=== PATIENT | female | born 1985 | race Caucasian/White ===

== ENCOUNTER 2024-03-02 11:28 | Outpatient (CLI) | payer OTHER, SELFPAY ==
--- OUTSIDE RECORDS SUMMARY | 2024-03-02 11:31 | XMS_ITS | Clinical Summary ---
Author Name Unknown Organization [facility] Address [address] [place] [address] Care Team Providers Care Camp Nurse Name Role Phone Martin House MD, Steve Primary Care Provider [phone] Allergies No known active allergies Medications Medication Sig Dispensed Refills Start Date End Date Status ferrous sulfate 325 mg (65 mg iron) tablet Take 50 mg by mouth 2 (two) times a day with meals. 0 Active calcium carbonate (CALCIUM 500 ORAL) Take 1 tablet by mouth 2 (two) times a day. 0 Active b complex vitamins tablet Take 1 tablet by mouth daily. 0 Active cholecalciferol, vitamin D3, 1,000 unit tablet Take by mouth. 0 Active prenat.vits,nick,min-ir on-folic ( Vitamin) tablet Take 1 tablet by mouth daily. 0 Active Active Problems Problem Noted Date Diagnosed Date Supervision of high-risk 04/12/[address]: [address] Steve Salazar for AMA LMP 04/27/20 LJ 02/01/21 (admin to request dating u/s from Dr. Salazar's office) [facility] labs: (06/2020) O positive/ antibody screen negative Hct 34.8/ Hgb 10.7/ plt 394 HBsAg/ RPR/ HIV- negative Rubella Immune Family History Medical History Relation Name Comments Asthma Sister Relation Name Status Comments Sister Social History Tobacco Use Types Packs/Day Years Used Date Smoking Tobacco: Former Cigarettes 2 - 2009 Smokeless Tobacco: Never Alcohol Use Standard Drinks/Week Comments Not Currently 0 (1 standard drink = 0.6 oz pur e alcohol) Sex and Gender Information Value Date Recorded Sex Assigned at Not on file Gender Identity Not on file Sexual Orientation Not on file Last Filed Vital Signs Vital Sign Reading Time Taken Comments Blood Pressure 114/59 10/16/2020 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 Pulse 69 10/16/2020 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 Temperature 36.1 ??C (96.9 ??F) 10/16/2020 8:00 AM CS T Respiratory Rate 20 04/12/2019 10:06 AM CDT Oxygen Saturation - - Inhaled Oxygen Concentration - - Weight 105.2 kg (232 lb) 10/16/2020 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 Height 167.6 cm (5' 6) 10/16/2020 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 Body Mass Index 37.45 10/16/2020 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 Plan of Treatment Health Maintenance Due Date Last Done Comments HIV Screening 1984 Hepatitis B Vaccines (1 of 3 - 3-dose series) 1984 COVID-19 Vaccine (#1) 1984 Varicella Vaccine (1 of 2 - 2-dose childhood series) 02/24/1985 Hepatitis C Screening 02/24/2003 Pap Smear 02/24/2005 Cervical Cancer Screening 02/24/2014 Pap + HPV 02/24/2014 Influenza Vaccine (#1) 2023 DTaP,Tdap,and Td Vaccines (2 - Td or Tdap) 06/22/2029 06/22/2019 HIB Vaccines Aged Out No longer eligi ble based on patient's age to complete this topic HPV Vaccines Aged Out No longer eligi ble based on patient's age to complete this topic Meningococcal ACWY Vaccine Aged Out N o longer eligible based on patient's age to complete this topic Pneumococcal: Pediatric (0-5 yrs) and At-Risk Patients (6-64 yrs) Aged Out No longe r eligible based on patient's age to complete this topic Care Teams Camp Nurse Relationship Specialty Start Date End Date Steve Salazar MD PCP - General OBSTETRICS & GYNECOLOGY 09/11/20
--- OUTSIDE RECORDS SUMMARY | 2024-03-02 11:31 | XMS_ITS | Encounter Summary ---
Author Name Unknown Organization [facility] Address [address] [place] [place] [address] Care Team Providers Care Nurse Receptionist Name Role Phone Martin House MD, Steve Primary Care Provider [phone] [phone] Reason for Referral * Maternity Services (Routine) - Closed Specialty Diagnoses / Procedures Referred By Juventino adams Referred To Contact Radiology Diagnoses Supervision of high risk in third trimester Procedures Ultrasound OB growth Ethan Doe DO [address] [place] [id number] Referral ID Status Reason Start Date Expiration Date V isits Requested Visits Authorized [id number] Closed Specialty Services Required 04/12/2019 05/16/2020 1 1 Encounter Details Date Type Department Care Team Description 04/12/2019 Orders Only [facility] [address] [address] [place] [address] Ethan Doe DO [address] [place] [address] [id number] Supervision of high risk in third trimester (Primary Dx) Social History Tobacco Use Types Packs/Day Years Used Date Smoking Tobacco: Never Smokeless Tobacco: Never Comments Yes Sex and Gender Information Value Date Recorded Sex Assigned at Not on file Gender Identity Not on file Sexual Orientation Not on file documented as of this encounter Plan of Treatment Not on file documented as of this encounter Results * Ultrasound OB growth (05/24/2019 10:31 AM CDT) Anatomical Region Laterality Modality Pelvis Ultrasound 05/24/2019 10:3 1 AM CDT Ethan Doe DO IMG OB US PROCED URES documented in this encounter Visit Diagnoses Diagnosis Supervision of high risk in third trimester- Primary documented in this encounter Care Teams Nurse Receptionist Relationship Specialty Start Date End Date Steve Salazar MD PCP - General OBSTETRICS & GYNECOLOGY 09/11/20 documented as of this encounter
== END 2024-03-02 11:29 | disposition home or self-care (01) ==
LOC: NFLDREF 11:28
PROVIDERS: Visit Provider Physician Assistant
DX: Z34.93 Encounter for supervision of normal pregnancy, unspecified, third trimester (principal)
CPT/HCPCS: 82728

== ENCOUNTER 2024-03-10 10:48 | Outpatient (CLI) | payer OTHER, SELFPAY ==
--- OUTSIDE RECORDS SUMMARY | 2024-03-10 10:51 | XMS_ITS | Continuity of Care Document ---
Author Name Unknown Address [address] [place] [address] Phone [phone] Organization [facility], [id number] Address [address] [place] [address] Assessment No assessment recorded. Plan of Treatment Reminders Order Date Submit Date Provider Last Modified By Organization Details Last Modified Time Details Appointments None record ed. Lab None record ed. Referral None record ed. Procedures None record ed. Surgeries None record ed. Imaging None record ed. Medication Orders None record ed. Patient TargetsNo targets recorded. Patient InstructionsNo instructions recorded. Reason for Referral Maternal & Medicine Re ferral for Advanced maternal age Please call pt to schedule level ll u/s; AMA H/O Bariatric surgical procedure Referring Physician: Andry Corbin, VALIDATION SCIENTIST, Encounter Date: 11/19/2023 Results Created Date Observation Date Name Description Value Unit Range Abnormal Flag LastModifiedBy Organization Detail LastModifiedTime 09/17/2009/17/2023 ultra sound image s RAD KEENAN [facility] [address], [place], [address], 10/07/2023 10:30:47 09/17/20 23 09/17/2023 ultra sound image s RAD [email or web address] [facility] [address], [place], [address], 09/17/2023 13:20:57 09/29/20 23 09/29/2023 ultra sound image s RAD [email or web address] [facility] [address], [place], [address], 09/29/2023 11:58:59 09/29/20 23 09/29/2023 ultra sound image s RAD [email or web address] [facility] [address], [place], [address], 10/13/2023 10:24:11 12/11/19 24 12/05/2023 US, obste tric, mater nal evalu ation + anato my No observ ation record ed. [facility] [place] [address], [place], [address], 12/13/2023 16:26:39 01/20/20 24 01/20/2024 US, obste tric, mater nal evalu ation + anato my No observ ation record ed. [facility] [address], [place], [address], 01/20/2024 17:18:22 Result Notes None recorded. Problems Name Status Onset Date Resolution Date Notes Provider Name and Address Organization Details Recorded Time Routine care Active Matilda Kessler null, [facility] 4 08:59:20 Routine care Completed Matilda Kessler null, [facility] 4 08:59:20 Advanced maternal age Completed 38, lvl 2-nl, needs monthly growth US here at 30 wks Matilda Kessler null, [facility] 4 08:59:20 Completed 023 03/03/2024 Matilda Kessler null, [facility] 4 08:59:27 Advanced maternal age Active 38, lvl 2-nl, needs monthly growth US here at 30 wks Matilda Kessler null, [facility] 4 08:59:20 History of bariatric surgical procedure Active 023 griselda en Y; NO glucola, needs gluocse monitoring Matilda Kessler null, [facility] 4 08:59:20 History of bariatric surgical procedure Completed 023 griselda en Y; NO glucola, needs gluocse monitoring Matilda Kessler [facility], [facility] 4 08:59:20 Maternal obesity complicating , childbirth and the puerperium, antepartum Completed 024 Matilda Kessler [facility] 4 08:59:20 Maternal obesity complicating , childbirth and the puerperium, antepartum Active 024 Matilda Kessler [facility] 4 08:59:20 Problem Notes None recorded. Procedures Surgical History Date Name Laterality Status Provider Name and Address Organization Details Recorded Time laparoscopic sleeve gastrectomy completed Ilana [place] (TERMED) [facility] 09/17/2023 13:46:58 Griselda-en-Y gastrojejunostomy completed Ilana [place] (TERMED) [facility] 09/17/2023 13:47:08 Imaging Results None recorded. Procedure Notes None recorded. Medical Equipment None Reported. Allergies Allergen ID Allergen Name Allergen Category Reaction Reaction Severity Criticality Documentation Date Start Date Code Code System Note Provider Name and Address Organization Details Recorded Time 730096 Non-stero idal anti-infl ammatory agent (product) medicatio n Not available Not available Not available 09/17/2023 22219 005 SNOMED r/t baria tric surge ry Ilana [place] (TERMED) [facility] 3 13:33:09 Medications Name Sig Start Date Stop Date Status Note LastModified by Organization Details LastModified Time butalbital -acetamino phen-caffe ine 50 mg-325 mg-40 mg tablet Take 1 tablet every 4-6 hours by oral route as needed. 024 active Not Available Not Available Not Avai lable calcium active Not Available Not Avail able Not Available ferrous sulfate active Not Available Not Available Not Available Vitamin D active Not Available Not Shanell ilable Not Available active Not Available Not Avai lable Not Available B12 active Not Available Not Availa ble Not Available Vitals Date Recorded Body height Body mass index (BMI) Body weight Heart rate Systolic blood pressure Diastolic blood pressure Provider Name and Address Organization Details Last Updated DateTime 4 167.64 cm 37.8 kg/m2 184705. 30536 g 80 /min 115 mm[Hg] 60 mm[Hg] Pepper Anshu [facility] 4 10:19:59 Social History Question Answer Notes LastModified by [employer] Details LastModified Time Tobacco Smoking Status Former Smoker high school and college Ilana Stone (TERMED) [place], [place] - [facility] 09/17/2023 13:46:38 Do You Have An Advance Directive? No [email or web address] Information not available 12/18/2023 What Is Your Level Of Alcohol Consumption? None Information not available 09/17/2023 If You Are , What Was Your Level Of Alcohol Consumption Prior To ? Occasional [email or web address] Information not available 12/18/2023 Is Blood Transfusion Acceptable In An Emergency? Yes Information not available 09/17/2023 What Is Your Level Of Caffeine Consumption? Occasional Information not available 09/17/2023 Are You Currently Employed? Yes [email or web address] Information not available 12/18/2023 What Type Of Diet Are You Following? 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 Information not available 09/17/2023 Are You Sexually Active? Yes Information not available 12/18/2023 Do You Use Any Illicit Or Recreational Drugs? No [email or web address] Information not available 12/18/2023 Do You Or Have You Ever Used Any Other Forms Of Tobacco Or Nicotine? No [email or web address] Information not available 12/18/2023 Sex: Female Functional Status Question Answer Note LastModified by Organizat ion Details LastModified Time What is your exercise level? Occasional running/wa lking Information not available 12/18/2023 Mental Status None recorded. Family History Relationship Description Onset Age of this Age Resolved Age Notes Father No current problems or disability Mother No current problems or disability Medical History Condition Response Neurology- Stroke/TIA N Dermatology-Acne N Rheumatology- Fibromyalgia/Chronic Pain N Endocrinology- Vitamin Deficiency Y Endocrinology-Other N Attention Deficit Disorder (ADD (ADHD) N Urology-Other N Rheumatology- Autoimmune Disease N Nephrology-Renal Disease N Neurology- Seizures/Epilepsy N Ortho-Fractures N Reviewed with no changes N Endocrinology- Prolactinoma N Urology- Recurrent Urinary Tract Infecti ons N Pulmonary- Seasonal Allergies/Allergic R hinitis N Psych- PMS/PMDD N ID- Tuberculosis/Positive PPD N Pulmonary-Other N Endocrinology- Glucose Intolerance/Insul in Resistance N Psych- Anxiety Disorder Y Hematology- Anemia Y GI- Reflux/Ulcers N Cancer- Skin N Cancer- Genetic screening N GI- Irritable Bowel Syndrome N Cardiology- Heart Disease N GI- Colon Polyps N Ortho-Other N Endocrinology- Osteopenia N Psych-Other N ID- MRSA N ID-Other N Psych- Eating Disorder N Ortho- Arthritis N Urology- Urinary Incontinence N Pulmonary- Asthma N Urology- Hematuria (Blood in Urine) N Pulmonary- Sleep Apnea N Neurology- Dementia N Vascular-Aneurysm N Urology- Interstitial Cystitis N Endocrinology- Hypothyroidism N Eyes-other N Neurology- Multiple Sclerosis N Rheumatology- Arthritis N GI- Hemorrhoids N Neurology-Other N Hematology- Blood Clotting Disorder/Fact or V Leiden N Cardiology-Other N Hematology- Bleeding Disorder N Psych- Depression N Hematology-Other N Dermatology-Other N Ortho-Chronic Back Pain N Dermatology-Eczema/Psoriasis N ID- HIV N Cancer- Ovary N Cardiology- High Cholesterol N ID- Chicken Pox/Shingles Y Cardiology- Heart Arrhythmia N Rheumatology- Restless Leg Syndrome N Endocrinology- Hyperthyroidism N Endocrinology- Thyroid Problems N Cancer- Breast N Psych- ADD N ID- Herpes N GI- Liver Disease/Hepatitis N Weight Management/Obesity N Cancer- Colon N ENT- Hearing Loss N Hematology- Blood Transfusion N Cancer- Vulvar N Cancer- Vaginal N GI-Other N Neurology- Headaches/Migraines N Endocrinology- Diabetes N Cancer- Cervical N No diseases or conditions N Pulmonary- COPD/Emphysema N GI- Crohn's/Ulcerative Colitis N Endocrinology- History of Gestational Di abetes N Psych- Bipolar Disease N ENT- Seasonal Allergies/Allergic Rhiniti s N Cardiology- High Blood Pressure N Cancer- Lung N Cancer- Endometrial/Uterine N Eyes- Glaucoma N Eyes- Vision Loss/Macular Degeneration N ENT-Other N Rheumatology-Other N Hematology- DVT/Pulmonary Embolism N Urology- Stones N Cancer-Other N GI- Gallbladder Disease N Gynecological History Statement/Question Response HPV Vaccine Not Completed Date of Last Mammogram History of Sexually Transmitted Infectio n N Date of LMP 07/24/2023 History of Vulvar Dysplasia N Date of last bone density Menstrual Cycle Length (days) Age at Menarche: 11 History of Cervical Dysplasia N History of Infertility N Sexually Active Y History of PCOS N Date of Last Colonoscopy History of Recurrent Ovarian Cysts N Date of Last Pap Smear History of Abnormal PAP N History of Endometriosis N History of Fibroids N Obstetrics History GPAL:G 8 P 6 0 1 6 Type Value Full Term 6 Spontaneous 1 Living 6 Total 8 Past Encounters Encounter ID Performer Location Encounter Start Date Encounter Closed Date Diagnosis/Indication Diagnosis SNOMED-CT Code [id number] MELANY RATLIFF DO [id number] [place] [address] 01/20/2024 09:56:39 01/20/2024 10:30:03 care: multiparous, older than 35 years [id number] Gestation period, 25 weeks 54460928 Maternal o besity complicating , childbirth and the puerperium, antepartum [id number] Uterine si ze for dates discrepancy [id number] Health Concerns Section Related Observation LastModified by Organization Detai ls LastModified Time None Recorded Concern Status LastModified by Organization Details LastModified Time None Recorded Payers Encounter Date Sequence Insurance Name Policy Number Policy Campos Covered Member ID Campos Member ID Guarantor Name 01/20/2024 1 [facility] () Bry Walker [id number] Misty Walker OBGyn Episode Ob Episode Information Episode Created Date Number of Fetuses Patient Bloodtype Patient rh Status Prepregnancy Weight lbs Domestic Partner Domestic Partner Phone Father Name Society Reporter Status 09/17/20 23 1 O Positive 214 Mahad CLOSED Fetus Data First Name Last Name Admitted to NICU Weight (g) Sex Living Outcome Pediatric Complications Fetus ID Race Codes Race Delivery Type [id number] Problems Problem Notes Problem Name Start Date End Date Resolution Snomed Code Not e Maternal obesity complicating , childbirth and the puerperium, antepartum 01/20/2024 [id number] History of bariatric surgical procedure 09/17/2023 [id number] griselda en Y ; NO glucola, needs gluocse monitoring Routine care 2577069 03 Advanced maternal age [id number] 38, lvl 2-nl, n eeds monthly growth US here at 30 wks Kun Calculation Initial Kun Date Initial Exam Date Initial Exam Provider Initial Ultrasound Date Last Menstrual Period Date Ultra Sound Weeks Gestation 04/29/2024 09/17/2023 09/17/2023 07/24/2023 7 Eighteen To Twenty Week Knu Update Ultra Sound Date Fundal Height At Umbil Quickening Date Ultra Sound Latest Weeks Gestation Final Kun Confirmed By Final Kun Confirmed Date Final Kun Date Ultra Sound Latest Days Gestation 0 [email or web address] 09/17/2023 04/29/20 24 0 Pre- Flowsheet Flowsheet Date 09/17/2023 Cummings Score Blood Edema Fundus Height Fundus Units Glucose Ketones Leukocytes Nitrite Labor Signs Protein Cervic Dilation Cervic Effacement Cervic Station neg none none negative none Negative none neg 0cm 0% Type Weight in lbs BP Diastolic BP Location Tested BP Systolic BP Type 73 108 Fetus Heart Rate Present A Present Fetus Movement A No Comments NOB. Oriented to practice. H x gastric bypass, will plan FSBS for diabetes screening. Plan L2 for AMA. Pap up to date, done in 2021. She declines flu vaccine. Participating in prequel study. Recent spotting, none in a few days. Labs and cultures done. U/S wnl, S=D, + CA. Flowsheet Date 09/29/2023 Cummings Score Blood Edema Fundus Height Fundus Units Glucose Ketones Leukocytes Nitrite Labor Signs Protein Cervic Dilation Cervic Effacement Cervic Station Type Weight in lbs BP Diastolic BP Location Tested BP Systolic BP Type 71 L arm 106 sitting Fetus Heart Rate Present A Present Fetus Movement A No Comments VB this weekend, passed a cl ot thurs. US today with 9mm LENI. we discussed findings and expected bleeding, precautions given. Flowsheet Date 10/16/2023 Cummings Score Blood Edema Fundus Height Fundus Units Glucose Ketones Leukocytes Nitrite Labor Signs Protein Cervic Dilation Cervic Effacement Cervic Station neg none negative none Negative neg Type Weight in lbs BP Diastolic BP Location Tested BP Systolic BP Type 60 L arm 99 sitting Fetus Heart Rate Present A 169 Present Fetus Movement Comments SIRI. Doing well. Bleeding theodore s resolved. FHT obtained with bedside US- good FM noted as well. Discussed given gastric bypass, would hold on bASA recommendation. Flowsheet Date 11/19/2023 Cummings Score Blood Edema Fundus Height Fundus Units Glucose Ketones Leukocytes Nitrite Labor Signs Protein Cervic Dilation Cervic Effacement Cervic Station neg none negative none Negative neg Type Weight in lbs BP Diastolic BP Location Tested BP Systolic BP Type 66 L arm 116 sitting Fetus Heart Rate Present A Present Fetus Movement A Yes Comments Doing well, having HAs. She consumes enough water. We discussed adding Magnesium. Will Rx for Fioricet prn. Check H/H today. Flowsheet Date 12/18/2023 Cummings Score Blood Edema Fundus Height Fundus Units Glucose Ketones Leukocytes Nitrite Labor Signs Protein Cervic Dilation Cervic Effacement Cervic Station neg cm none negative none Negative neg Type Weight in lbs BP Diastolic BP Location Tested BP Systolic BP Type 55 R arm 89 sitting Fetus Heart Rate Present A 145 Present Fetus Movement A Yes Comments Doing well, anatomy scan rev iewed, inadq views--> repeat scan scheduled in 4 weeks. She plans to check QID BS instead of doing GCT Flowsheet Date 01/20/2024 Cummings Score Blood Edema Fundus Height Fundus Units Glucose Ketones Leukocytes Nitrite Labor Signs Protein Cervic Dilation Cervic Effacement Cervic Station neg 28 cm none negative none Negative neg Type Weight in lbs BP Diastolic BP Location Tested BP Systolic BP Type 60 L arm 115 sitting Fetus Heart Rate Present A 151 Present Fetus Movement A Yes Comments SIRI. Doing well today. Sched uled for L2 f/u scan after today's visit. S>D, but growth already scheduled for later today. Plan to start finger sticks in lieu of 1hr GCT given hx gastric bypass sx. Will bring log to [place]. Rev prec. Menstrual History Last Menstrual Date Menses Monthly On Bcp Conception Prior Menses Frequency Hcg Plus Date Menarche Onset Age 0907/24/2023 Genetic Screening And Infection History Question Response Note Patient's Age Will Be 35 Years Or Older At Estim ated Date of Delivery true 39 Thalassemia (Nepali, Thai, Mediterranean, Or Background): MCV < 80 false Neural Tube Defect (Meningomyelocele, Spina Bifi da, Or Anencephaly) false Congenital Heart Defect false Down Syndrome false Sixto-Sachs (eg, Caodaism, Cajun, Thai-Meriwether) f alse Danii Disease false Sickle Cell Disease Or Trait () false Hemophilia Or Other Blood Disorders false Muscular Dystrophy false Cystic Fibrosis false Gooding's Chorea false Intellectual Disability/Autism false If Yes, Was Person Tested For Fragile X? false Other Inherited Genetic Or Chromosomal Disorder false Maternal Metabolic Disorder (eg, Type 1 Diabetes , PKU) false Patient Or Baby's Father Had A Child With Defects Not Listed Above false Recurrent Loss, Or A Stillbirth false Medications (including Suppl ements, Vitamins, Herbs, OTC Drugs), Illicit/Recreational Drugs, Alcohol true If Yes, Agent(s) And Strength/Dosage false Any Other Genetic History false Live With Someone With TB Or Exposed To TB false Patient Or Partner Has History Of Genital Herpes false Rash Or Viral Illness Since Last Menstrual Perio d false History Of STD, Gonorrhea, Chlamydia, HPV, Syphi lis false Other Infection History false History of HIV false History of Hepatitis false Prior GBS-infected child false Delivery Information Delivery Date Delivery Type Labor Anesthesia Weeks Gestation Incision Type Labor Labor Length Hrs Delivered By Post Complications Tubal Sterilization Discharge Date Comments Discharge Information Feeding Method Contraceptive Method Maternal HG B and HCT Levels
--- OUTSIDE RECORDS SUMMARY | 2024-03-10 10:51 | XMS_ITS | Data Portability ---
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 [email or web address] Not available 12/07/2021 09:03:12 Plan of Treatment Reminders Order Date Submit Date Provider Last Modified By Organization Details Last Modified Time Details Appointments None recorded. Lab hemoglobin (Hb), fingerstick , blood [address], [address] [place] [address], [id number], 11:39:06 aneuploidy risk, chromosome specific circulating cell free (ccf) DNA, maternal serum 2021 022 [facility] [address] [place] [address], [address], 05:37:02 test, urine [address], [address] [place] [address], [phone], 11:46:40 rubella IgG Ab, quant immunoassay , serum or plasma 2021 022 [facility] ([place] [address] [place], [address], 2 05:37:08 ABO group, blood 2021 022 [facility] ([place]), [address] [place], [address], 2 05:37:10 rh, blood 2021 022 [facility] ([place] [address] [place], [address], 2 05:37:10 antibody screen, serum or plasma 2021 022 [facility] ([place]), [address] [place], [address], 2 05:37:09 genetic screen, unspecified specimen 2021 022 [facility] ([place]), [address] [place], [address], 3 03:38:06 hemoglobin S (hbs), presence, blood 2021 022 [facility] ([place]), [address] [place], [address], 2 05:37:08 CBC w/ auto diff 2021 022 [facility] ([place]), [address] [place], [address], 2 05:37:06 RPR (rapid plasma reagin), serum 2021 022 [facility] ([place]), [address] [place], [address], 2 05:37:08 HBsAg (hepatitis B surface Ag), EIA, serum 2021 [facility] ([place]), [address] [place], [address], 2 05:37:10 drug screen, urine 2021 022 [facility] ([place]), [address] [place], [address], 2 05:37:06 HIV 1 + 2, meaningful use set 2021 022 [facility] ([place]), [address] [place], [address], 2 05:37:09 chlamydia trachomatis + neisseria gonorrhoeae + trichomonas vaginalis DNA panel, IRAIS+probe, unspecified specimen 2021 022 [facility] ([place]), [address] [place], [address], 3 03:38:06 Referral infusion referral new patient - Hg 9, needs IV iron. Venofer. Please fax appointment confirmatio n. Thank You 2021 [email or web address] 1 [facility], [address] [place] [address], [address], 11:38:35 Procedures None recorded. Surgeries None recorded. Imaging US, obstetric, limited 2021 022 [facility] [email or web address], [address] [place] [address], [phone], 2 11:39:06 US, obstetric, 2nd trimester 2021 022 [email or web address] 9 [facility], [address] [place] [address], [phone], 2 12:05:46 US, obstetric, limited 2021 022 [email or web address] 9 [facility], [address] [place] [address], [phone], 11:52:01 US, obstetric, 1st trimester 2021 022 [email or web address], [address] [place] [address], [phone], 11:20:42 Medication Orders None recorded. Patient TargetsNo targets recorded. Patient InstructionsNo instructions recorded. Reason for Referral Infusion Referral New Pativannesa t for Anemia Hg 9, needs IV iron. Venofer. Please fax appointment confirmation. 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) [address] [place], [address], 12/22/2021 05:37:06 12/07/19 22 12/08/2021 [place] [address] 5 amphetamines , urine negati ve NG/mL cutoff =1000 Not Available [facility] ([facility]) [address] [place], [address], 12/22/2021 05:37:06 12/07/19 22 12/08/2021 [place] [address] 5 barbiturate negati ve NG/mL cutoff =200 Not Available [facility] ([facility]) [address] [place], [address], 12/22/2021 05:37:06 12/07/19 22 12/08/2021 [place] [address] 5 benzodiazepi adam negati ve NG/mL cutoff =200 Not Available [facility] ([facility]) [address] [place], [address], 12/22/2021 05:37:06 12/07/19 22 12/08/2021 [place] [address] 5 cannabinoids negati ve NG/mL cutoff =20 Not Available [facility] ([facility]) [address] [place], [address], 12/22/2021 05:37:06 12/07/19 22 12/08/2021 [place] [address] 5 cocaine (metabolite) negati ve NG/mL cutoff =300 Not Available [facility] ([facility]) [address] [place], [address], 12/22/2021 05:37:06 12/07/19 22 12/08/2021 [place] [address] 5 opiates negati ve NG/mL cutoff =300 Not Available [facility] ([facility]) [address] [place], [address], 12/22/2021 05:37:06 12/07/19 22 12/08/2021 [place] [address] 5 oxycodone/ox ymorphone, urine negati ve NG/mL cutoff =300 Not Available [facility] ([facility]) [address] [place], [address], 12/22/2021 05:37:06 12/07/19 22 12/08/2021 [place] [address] 5 phencyclidin e negati ve NG/mL cutoff =25 Not Available [facility] ([facility]) [address] [place], [address], 12/22/2021 05:37:06 12/07/19 22 12/08/2021 [place] [address] 5 methadone negati ve NG/mL cutoff =300 Not Available [facility] ([facility]) [address] [place], [address], 12/22/2021 05:37:06 01/28/20 22 12/08/2021 [place] [address] 5 propoxyphene negati ve NG/mL cutoff =300 Not Available [facility] ([facility]) [address] [place], [address], 12/22/2021 05:37:06 12/07/19 22 12/08/2021 [place] [address] 5 meperidine negati ve NG/mL cutoff =200 Not Available [facility] ([facility]) [address] [place], [address], 12/22/2021 05:37:06 12/07/19 22 12/08/2021 [place] [address] 5 tramadol negati ve NG/mL cutoff =200 Not Available [facility] ([facility]) [address] [place], [address], 12/22/2021 05:37:06 12/07/19 22 12/08/2021 [place] [address] 5 creatinine, urine 142.2 mg/dL 20.0-3 00.0 Not Available [facility] ([facility]) [address] [place], [address], 12/22/2021 05:37:06 12/07/19 22 12/07/2021 CBC WITH DIFFE RENTI AL/PL ATELE T WBC 8.8 x10e3 /uL 3.4-10 .8 Not Available [facility] ([facility]) [address] [place], [address], 12/22/2021 05:37:06 12/07/19 22 12/07/2021 CBC WITH DIFFE RENTI AL/PL ATELE T RBC 4.37 x10e6 /uL 3.77-5 .28 Not Available [facility] ([facility]) [address] [place], [address], 12/22/2021 05:37:06 12/07/19 22 12/07/2021 CBC WITH DIFFE RENTI AL/PL ATELE T hemoglobin 9.6 g/dL 11.1-1 5.9 below low normal Not Available [facility] ([facility]) [address] [place], [address], 12/22/2021 05:37:06 12/07/19 22 12/07/2021 CBC WITH DIFFE RENTI AL/PL ATELE T hematocrit 32.9 % 34.0-4 6.6 below low normal Not Available [facility] ([facility]) [address] [place], [address], 12/22/2021 05:37:06 12/07/19 22 12/07/2021 CBC WITH DIFFE RENTI AL/PL ATELE T MCV 75 fL 79-97 below low normal Not Available [facility] ([facility]) [address] [place], [address], 12/22/2021 05:37:06 12/07/19 22 12/07/2021 CBC WITH DIFFE RENTI AL/PL ATELE T MCH 22.0 pg 26.6-3 3.0 below low normal Not Available [facility] ([facility]) [address] [place], [address], 12/22/2021 05:37:06 12/07/19 22 12/07/2021 CBC WITH DIFFE RENTI AL/PL ATELE T MCHC 29.2 g/dL 31.5-3 5.7 below low normal Not Available [facility] ([facility]) [address] [place], [address], 12/22/2021 05:37:06 12/07/19 22 12/07/2021 CBC WITH DIFFE RENTI AL/PL ATELE T RDW 19.7 % 11.7-1 5.4 above high normal Not Available [facility] ([facility]) [address] [place], [address], 12/22/2021 05:37:06 12/07/19 22 12/07/2021 CBC WITH DIFFE RENTI AL/PL ATELE T platelets 415 x10e3 /uL 150-45 0 Not Available [facility] ([facility]) [address] [facility], [place], [address], 12/22/2021 05:37:06 12/07/19 22 12/07/2021 CBC WITH DIFFE RENTI AL/PL ATELE T neutrophils 74 % not estab. Not Available [facility] ([facility]) [address] [facility], [place], [address], 12/22/2021 05:37:06 12/07/19 22 12/07/2021 CBC WITH DIFFE RENTI AL/PL ATELE T lymphs 18 % not estab. Not Available [facility] ([facility]) [address] [facility], [place], [address], 12/22/2021 05:37:06 12/07/19 22 12/07/2021 CBC WITH DIFFE RENTI AL/PL ATELE T monocytes 7 % not estab. Not Available [facility] ([facility]) [address] [facility], [place], [address], 12/22/2021 05:37:06 12/07/19 22 12/07/2021 CBC WITH DIFFE RENTI AL/PL ATELE T eos 1 % not estab. Not Available [facility] ([facility]) [address] [facility], [place], [address], 12/22/2021 05:37:06 12/07/19 22 12/07/2021 CBC WITH DIFFE RENTI AL/PL ATELE T basos 0 % not estab. Not Available [facility] ([facility]) [address] [facility], [place], [address], 12/22/2021 05:37:06 12/07/19 22 12/07/2021 CBC WITH DIFFE RENTI AL/PL ATELE T immature cells nps Not Available [facility] ([facility]) [address] [place], [address], 12/22/2021 05:37:06 12/07/19 22 12/07/2021 CBC WITH DIFFE RENTI AL/PL ATELE T neutrophils (absolute) 6.6 x10e3 /uL 1.4-7. 0 Not Available [facility] ([facility]) [address] [place], [address], 12/22/2021 05:37:06 12/07/19 22 12/07/2021 CBC WITH DIFFE RENTI AL/PL ATELE T lymphs (absolute) 1.6 x10e3 /uL 0.7-3. 1 Not Available [facility] ([facility]) [address] [place], [address], 12/22/2021 05:37:06 12/07/19 22 12/07/2021 CBC WITH DIFFE RENTI AL/PL ATELE T monocytes(ab solute) 0.6 x10e3 /uL 0.1-0. 9 Not Available [facility] ([facility]) [address] [place], [address], 12/22/2021 05:37:06 12/07/19 22 12/07/2021 CBC WITH DIFFE RENTI AL/PL ATELE T eos (absolute) 0.1 x10e3 /uL 0.0-0. 4 Not Available [facility] ([facility]) [address] [place], [address], 12/22/2021 05:37:06 12/07/19 22 12/07/2021 CBC WITH DIFFE RENTI AL/PL ATELE T baso (absolute) 0.0 x10e3 /uL 0.0-0. 2 Not Available [facility] ([facility]) [address] [place], [address], 12/22/2021 05:37:06 12/07/19 22 12/07/2021 CBC WITH DIFFE RENTI AL/PL ATELE T immature granulocytes 0 % not estab. Not Available [facility] ([facility]) [address] [facility], [place], [address], 12/22/2021 05:37:06 12/07/19 22 12/07/2021 CBC WITH DIFFE RENTI AL/PL ATELE T immature grans (abs) 0.0 x10e3 /uL 0.0-0. 1 Not Available [facility] ([facility]) [address] [facility], [place], [address], 12/22/2021 05:37:06 12/07/19 22 12/07/2021 CBC WITH DIFFE RENTI AL/PL ATELE T NRBC nps Not Available [facility] ([facility]) [address] [facility], [place], [address], 12/22/2021 05:37:06 12/07/19 22 12/07/2021 CBC WITH DIFFE RENTI AL/PL ATELE T hematology comments: nps Not Available [facility] ([facility]) [address] [facility], [place], [address], 12/22/2021 05:37:06 12/07/19 22 12/07/2021 INHER ITEST CORE( CF97, SMA,F RAX) order review nps Not Available [facility] ([facility]) [address] [facility], [place], [address], 12/22/2021 05:37:07 12/07/19 22 12/21/2021 INHER ITEST CORE( CF97, SMA,F RAX) genetic counselor not applic able Not Available [facility] ([facility]) [address] [facility], [place], [address], 12/22/2021 05:37:07 12/07/19 22 12/21/2021 INHER ITEST CORE( CF97, SMA,F RAX) specimen type commen t Not Available [facility] ([facility]) [address], [place], [address], 12/22/2021 05:37:07 12/07/19 22 12/21/2021 INHER ITEST CORE( CF97, SMA,F RAX) ethnicity commen t Not Available [facility] ([facility]) [address], [place], [address], 12/22/2021 05:37:07 12/07/19 22 12/21/2021 INHER ITEST CORE( CF97, SMA,F RAX) indication: commen t Not Available [facility] ([facility]) [address], [place], [address], 12/22/2021 05:37:07 12/07/19 22 12/21/2021 INHER ITEST CORE( CF97, SMA,F RAX) results: note Not Available [facility] ([facility]) [address], [place], [address], 12/22/2021 05:37:07 12/07/19 22 12/21/2021 INHER ITEST CORE( CF97, SMA,F RAX) general comments note Not Available [facility] ([facility]) [address], [place], [address], 12/22/2021 05:37:07 12/07/19 22 12/21/2021 INHER ITEST CORE( CF97, SMA,F RAX) additional clinical info note Not Available [facility] ([facility]) [address], [place], [address], 12/22/2021 05:37:07 12/07/1912/21/2021 INHER ITEST CORE( CF97, SMA,F RAX) method/limit ations note Not Available [facility] ([facility]) [address], [place], [address], 12/22/2021 05:37:07 12/07/19 22 12/21/2021 INHER ITEST CORE( CF97, SMA,F RAX) information table note Not Available [facility] ([facility]) [address] [facility], [place], [address], 12/22/2021 05:37:07 12/07/19 22 12/21/2021 INHER ITEST CORE( CF97, SMA,F RAX) disclaimer: note Not Available [facility] ([facility]) [address] [facility], [place], [address], 12/22/2021 05:37:07 12/07/19 22 12/21/2021 INHER ITEST CORE( CF97, SMA,F RAX) pdf . Not Available [facility] ([facility]) [address] [facility], [place], [address], 12/22/2021 05:37:07 12/07/19 22 12/21/2021 INHER ITEST CORE( CF97, SMA,F RAX) director review note Not Available [facility] ([facility]) [address] [facility], [place], [address], 12/22/2021 05:37:07 12/07/19 22 12/09/2021 CT, NG, TRICH VAG BY IRAIS trich vag by IRAIS negati ve negati ve Not Available [facility] ([facility]) [address] [facility], [place], [address], 12/22/2021 05:37:07 12/07/19 22 12/10/2021 CT, NG, TRICH VAG BY IRAIS chlamydia by IRAIS negati ve negati ve Not Available [facility] ([facility]) [address] [place], [address], 12/22/2021 05:37:07 12/07/19 22 12/10/2021 CT, NG, TRICH VAG BY IRAIS gonococcus by IRAIS negati ve negati ve Not Available [facility] ([facility]) [address] [place], [address], 12/22/2021 05:37:07 12/07/19 22 12/08/2021 HB SOLU + RFLX FRAC hemoglobin (HGB) solubility negati ve negati ve Not Available [facility] ([facility]) [address] [facility], [place], [address], 12/22/2021 05:37:08 12/07/19 22 12/08/2021 RUBEL LA ANTIB ODIES , IGG rubella antibodies, IgG 2.79 index immune >0.99 Not Available [facility] ([facility]) [address] [facility], [place], [address], 12/22/2021 05:37:08 12/07/19 22 12/08/2021 RPR, RFX QN RPR/C ONFIR M TP RPR non reacti ve non reacti ve Not Available [facility] ([facility]) [address] [facility], [place], [address], 12/22/2021 05:37:08 12/07/19 22 12/08/2021 HIV AB/P2 4 AG WITH REFLE X HIV Ab/P24 Ag screen non reacti ve non reacti ve Not Available [facility] ([facility]) [address] [facility], [place], [address], 12/22/2021 05:37:09 12/07/19 22 12/08/2021 ANTIB MISTY SCREE N antibody screen negati ve negati ve Not Available [facility] ([facility]) [address] [facility], [place], [address], 12/22/2021 05:37:09 12/07/19 22 12/08/2021 ABO GROUP ING ABO grouping O Not Available [facility] ([facility]) [address] [facility], [place], [address], 12/22/2021 05:37:10 12/07/19 22 12/08/2021 RH FACTO R Rh factor positi ve Not Available [facility] ([facility]) [address] [place], [address], 12/22/2021 05:37:10 12/07/19 22 12/08/2021 HBSAG SCREE N HBsAg screen negati ve negati ve Not Available [facility] ([facility]) [address] [place], [address], 12/22/2021 05:37:10 12/07/19 22 12/07/2021 pregn erin test, urine HCG positi ve Not Available [facility] [id number] [place], [address], 12/07/2021 09:30:59 02/09/20 22 02/14/2022 MATER NIT21 PLUS CORE+ ESS gestation single ton Not Available [facility] ([facility]) [address] [place], [address], 02/14/2022 05:37:02 02/09/20 22 02/14/2022 MATER NIT21 PLUS CORE+ ESS fraction 7% Not Available [facility] ([facility]) [address] [place], [address], 02/14/2022 05:37:02 02/09/20 22 02/14/2022 MATER NIT21 PLUS CORE+ ESS gestational age > or = 9W: yes Not Available [facility] ([facility]) [address] [place], [address], 02/14/2022 05:37:02 02/09/20 22 02/14/2022 MATER NIT21 PLUS CORE+ ESS test result negati ve Not Available [facility] ([facility]) [address] [place], [address], 02/14/2022 05:37:02 02/09/20 22 02/14/2022 MATER NIT21 PLUS CORE+ ESS pathology lab technician comments commen t Not Available [facility] ([facility]) [address] [facility], [place], [address], 02/14/2022 05:37:02 02/09/20 22 02/14/2022 MATER NIT21 PLUS CORE+ ESS approved by [email or web address] t Not Available [facility] ([facility]) [address] [facility], [place], [address], 02/14/2022 05:37:02 02/09/20 22 02/14/2022 MATER NIT21 PLUS CORE+ ESS trisomy 21 (down syndrome) negati ve Not Available [facility] ([facility]) [address] [facility], [place], [address], 02/14/2022 05:37:02 02/09/20 22 02/14/2022 MATER NIT21 PLUS CORE+ ESS trisomy 18 (martin syndrome) negati ve Not Available [facility] ([facility]) [address] [facility], [place], [address], 02/14/2022 05:37:02 02/09/20 22 02/14/2022 MATER NIT21 PLUS CORE+ ESS trisomy 13 (patau syndrome) negati ve Not Available [facility] ([facility]) [address] [facility], [place], [address], 02/14/2022 05:37:02 02/09/20 22 02/14/2022 MATER NIT21 PLUS CORE+ ESS sex commen t Not Available [facility] ([facility]) [address] [place], [address], 02/14/2022 05:37:02 02/09/20 22 02/14/2022 MATER NIT21 PLUS CORE+ ESS 22Q11 deletion (digeorge) not detect ed Not Available [facility] ([facility]) [address] [place], [address], 02/14/2022 05:37:02 02/09/20 22 02/14/2022 MATER NIT21 PLUS CORE+ ESS 15Q11 deletion (pw angelman) not detect ed Not Available [facility] ([facility]) [address] [facility], [place], [address], 02/14/2022 05:37:02 02/09/20 22 02/14/2022 MATER NIT21 PLUS CORE+ ESS 11Q23 deletion (calin) not detect ed Not Available [facility] ([facility]) [address] [facility], [place], [address], 02/14/2022 05:37:02 02/09/20 22 02/14/2022 MATER NIT21 PLUS CORE+ ESS 8Q24 deletion (temi-gied yissel) not detect ed Not Available [facility] ([facility]) [address] [facility], [place], [address], 02/14/2022 05:37:02 02/09/20 22 02/14/2022 MATER NIT21 PLUS CORE+ ESS 5P15 deletion (cri-du-chat ) not detect ed Not Available [facility] ([facility]) [address] [facility], [place], [address], 02/14/2022 05:37:02 02/09/20 22 02/14/2022 MATER NIT21 PLUS CORE+ ESS 4P16 deletion(wol f-hirschhorn ) not detect ed Not Available [facility] ([facility]) [address] [facility], [place], [address], 02/14/2022 05:37:02 02/09/20 22 02/14/2022 MATER NIT21 PLUS CORE+ ESS 1P36 deletion syndrome not detect ed Not Available [facility] ([facility] [facility]) [address] [facility], [place], [address], 02/14/2022 05:37:02 02/09/20 22 02/14/2022 MATER NIT21 PLUS CORE+ ESS trisomy 16 not detect ed Not Available [facility] ([place] [facility]) [address] [facility], [place], [address], 02/14/2022 05:37:02 02/09/20 22 02/14/2022 MATER NIT21 PLUS CORE+ ESS trisomy 22 not detect ed Not Available [facility] ([facility]) [address] [facility], [place], [address], 02/14/2022 05:37:02 02/09/20 22 02/14/2022 MATER NIT21 PLUS CORE+ ESS negative predictive value note Not Available [facility] ([facility]) [address] [facility], [place], [address], 02/14/2022 05:37:02 02/09/20 22 02/14/2022 MATER NIT21 PLUS CORE+ ESS positive predictive value n/a Not Available [facility] ([facility]) [address] [facility], [place], [address], 02/14/2022 05:37:02 02/09/20 22 02/14/2022 MATER NIT21 PLUS CORE+ ESS about the test commen t Not Available [facility] ([facility]) [address] [facility], [place], [address], 02/14/2022 05:37:02 02/09/20 22 02/14/2022 MATER NIT21 PLUS CORE+ ESS test method commen t Not Available [facility] ([facility]) [address] [facility], [place], [address], 02/14/2022 05:37:02 02/09/20 22 02/14/2022 MATER NIT21 PLUS CORE+ ESS performance commen t Not Available [facility] ([facility]) [address] [place], [address], 02/14/2022 05:37:02 02/09/20 22 02/14/2022 MATER NIT21 PLUS CORE+ ESS performance characterist ics note Not Available [facility] ([facility]) [address] [facility], [place], [address], 02/14/2022 05:37:02 02/09/20 22 02/14/2022 MATER NIT21 PLUS CORE+ ESS limitations of the test commen t Not Available [facility] ([facility]) [address] [facility], [place], [address], 02/14/2022 05:37:02 02/09/20 22 02/14/2022 MATER NIT21 PLUS CORE+ ESS note commen t Not Available [facility] ([facility]) [address] [facility], [place], [address], 02/14/2022 05:37:02 02/09/20 22 02/14/2022 MATER NIT21 PLUS CORE+ ESS references commen t Not Available [facility] ([facility]) [address] [facility], [place], [address], 02/14/2022 05:37:02 02/09/20 22 02/14/2022 MATER NIT21 PLUS CORE+ ESS pdf . Not Available [facility] ([facility]) [address] [place], [address], 02/14/2022 05:37:02 03/29/20 22 03/29/2022 hemog lobin (Hb), finge rstic k, blood HGB 12.0 Not Available [address], [address], 03/29/2022 10:58:01 12/07/19 22 12/07/2021 US, nena angel, 1st trime ster No observ ation record ed. [email or web address] [address], [address], 12/07/2021 09:49:49 12/07/19 22 12/07/2021 ultra sound image s RAD [email or web address] [facility] use [employer] [id number] 12/07/2021 11:49:57 02/09/20 22 02/08/2022 , nena angel, limit ed No observ ation record ed. [address], [address], 02/08/2022 10:32:17 02/09/20 22 02/08/2022 ultra sound image s RAD [facility] use [employer] [id number] 02/09/2022 12:06:09 03/08/20 22 03/08/2022 US, obste tric, 2nd trime ster No observ ation record ed. [address], [address], 03/08/2022 10:26:31 03/08/20 22 03/08/2022 ultra sound image s RAD [email or web address] Your [facility] use [employer] [id number] 03/10/2022 14:34:49 03/29/20 22 03/29/2022 US, obste tric, limit ed No observ ation record ed. [address], [address], 03/29/2022 10:24:01 03/29/20 22 03/29/2022 ultra sound image s RAD [email or web address] [facility] [employer] [id number] 03/29/2022 22:50:52 Result Notes None recorded. Problems Name Status Onset Date Resolution Date Notes Provider Name and Address Organization Details Recorded Time Active 022 Katie dyer [facility] 2 09:13:01 History of surgery Active Gastric surgery 2010 and Tore procedure 10/2021. Pt is on vitamins and supplements d/t decreased absorption. Will not be able to do 1hr gtt. Shaunna Lawton MD [address] [place], [place] [address], [address] , SHAHEEN Hilario [facility] 2 12:51:50 Advanced maternal age Active Pt declines 1st trimester genetic screening. SHAHEEN Romero Hilario [facility] 2 11:46:01 History of surgery Active Gastric surgery 2010 and Tore procedure 10/2021. Pt is on vitamins and supplements d/t decreased absorption. Will not be able to do 1hr gtt. Shaunna Lawton MD [address] [facility] [place], [address] , SHAHEEN [facility] 2 12:51:50 Advanced maternal age Active Pt declines 1st trimester genetic screening. SHAHEEN Romero Hilario [facility] 2 11:46:01 History of bariatric surgical procedure Active Gastric surgery 2010 and Tore procedure 10/2021. Pt is on vitamins and supplements d/t decreased absorption. Will not be able to do 1hr gtt. 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 will refer for IV iron SHAHEEN Romero [facility] 2 11:46:02 History of bariatric surgical procedure Active Gastric surgery 2010 and Tore procedure 10/2021. Pt is on vitamins and supplements d/t decreased absorption. Will not be able to do 1hr gtt. 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 will refer for IV iron SHAHEEN Romero [facility] 2 11:46:02 Problem Notes None recorded. Procedures Surgical History Date Name Laterality Status Provider Name and Address Organization Details Recorded Time 1 Date of Last Pap Smear completed SHAHEEN Emerson [facility] 12/07/2021 09:04:06 1 bariatric operative procedure completed SHAHEEN Emerson Hilario [facility] 12/07/2021 09:09:13 Imaging Results Imaging Date Name Status LastModified by Organiz ation Details LastModified Time 12/07/2021 US, obstetric, 1st trimester completed [email or web address] [facility] [address] [place], [address], 12/07/2021 09:49:49 12/07/2021 ultrasound images completed [email or web address] [facility] [employer] [id number] 12/07/2021 11:49:57 02/08/2022 US, obstetric, limited completed [email or web address] [address], [address], 02/08/2022 10:32:17 02/08/2022 ultrasound images completed [email or web address] [facility] [employer] [id number] 02/09/2022 12:06:09 03/08/2022 US, obstetric, 2nd trimester completed [email or web address] [address], [address], 03/08/2022 10:26:31 03/08/2022 ultrasound images completed [email or web address] [facility] [employer] [id number] 03/10/2022 14:34:49 03/29/2022 US, obstetric, limited completed [email or web address] [address], [address], 03/29/2022 10:24:01 03/29/2022 ultrasound images completed [facility] [employer] [id number] 03/29/2022 22:50:52 Procedure Notes None recorded. Medical Equipment None Reported. Allergies No known drug allergies Medications Name Sig Start Date Stop Date Status Note LastModified by Organization Details LastModified Time fluconazole 150 mg tablet TAKE 1 TABLET BY MOUTH NOW. THEN REPEAT IN 72 HOURS IF NEEDED 12/07 completed Not Available Not Available Not Available sucralfate 1 gram tablet TAKE ONE TABLET BY MOUTH FOUR TIMES A DAY 03/08 completed Not Available Not Available Not Available omeprazole 40 mg capsule,del ayed release TAKE ONE CAPSULE BY MOUTH TWICE A DAY 03/08 completed Not Available Not Available Not Available ondansetron 8 mg disintegrat ing tablet DISSOLVE ONE TABLET BY MOUTH EVERY 8 HOURS 01/07 completed Not Available Not Available Not Available hyoscyamine sulfate 0.125 mg tablet TAKE 1-2 TABLETS EVERY 4 TO 6 HOURS NEEDED 12/07 completed Not Available Not Available Not Available gabapentin 300 mg capsule 1 ONE TIME DAILY 3 HOURS PRIOR TO PROCEDURE 01/07 completed Not Available Not Available Not Available levofloxaci n 750 mg tablet TAKE ONE TABLET BY MOUTH ONE TIME DAILY 03/08 completed Not Available Not Available Not Available aprepitant 80 mg capsule TAKE 1 CAPSULE 3 HOURS PRIOR TO PROCEDURE AND THE 2ND THE DAY AFTER PROCEDURE 03/08 completed Not Available Not Available Not Available hydrocodone 7.5 mg-acetamin ophen 325 mg/15 mL oral solution TAKE 15MLS BY MOUTH EVERY 4 TO 6 HOURS 12/07 completed Not Available Not Available Not Available active Not Available Not Avai lable Not Available Vitals Date Recorded Body height Body mass index (BMI) Heart rate Systolic blood pressure Diastolic blood pressure Provider Name and Address Organization Details Last Updated DateTime 12/07/2021 167.64 cm 35.1 kg/m2 73 /min 115 mm[Hg] 72 mm[Hg] SHAHEEN Emerson Hilario [facility] 2 09:13:53 Date Recorded Body weight Provider Name an d Address Organization Details Last Updated DateTime 12/07/2021 [id number] vijay SHAHEEN Kilgore Hilario [facility] 12/07/2021 09:31:18 Date Recorded Body height Body mass index (BMI) Heart rate Systolic blood pressure Diastolic blood pressure Provider Name and Address Organization Details Last Updated DateTime 01/07/2022 167.64 cm 35.2 kg/m2 66 /min 118 mm[Hg] 78 mm[Hg] SHAHEEN Emerson Hilario [facility] 2 10:54:09 Date Recorded Body weight Provider Name an d Address Organization Details Last Updated DateTime 01/07/2022 [id number] SHAHEEN Elizalde Hilario [facility] 01/07/2022 11:18:48 Date Recorded Body height Heart rate Body mass index (BMI) Systolic blood pressure Diastolic blood pressure Provider Name and Address Organization Details Last Updated DateTime 02/08/2022 167.64 cm 59 /min 35.6 kg/m2 98 mm[Hg] 62 mm[Hg] SHAHEEN Coombs Hilario [facility] 2 09:51:03 Date Recorded Body weight Provider Name an d Address Organization Details Last Updated DateTime 02/08/2022 [id number] vijay Luna [facility] 02/08/2022 10:12:13 Date Recorded Body height Body mass index (BMI) Heart rate Systolic blood pressure Diastolic blood pressure Provider Name and Address Organization Details Last Updated DateTime 03/08/2022 167.64 cm 36.3 kg/m2 67 /min 110 mm[Hg] 72 mm[Hg] Xenia Lundberg [facility] 2 09:53:49 Date Recorded Body weight Provider Name an d Address Organization Details Last Updated DateTime 03/08/2022 [id number] vijay CAN Bladimir [facility] 03/08/2022 10:06:23 Date Recorded Body height Heart rate Body mass index (BMI) Systolic blood pressure Diastolic blood pressure Provider Name and Address Organization Details Last Updated DateTime 03/29/2022 167.64 cm 70 /min 36.7 kg/m2 101 mm[Hg] 64 mm[Hg] Xenia Lundberg [facility] 2 09:53:05 Date Recorded Body weight Provider Name an d Address Organization Details Last Updated DateTime 03/29/2022 [id number] vijay Crawfordna [facility] 03/29/2022 10:20:30 Social History Question Answer Notes LastModified by Organizat ion Details LastModified Time Tobacco Smoking Status Former Smoker Katie Bay gomez [facility] 12/07/2021 09:10:51 What Is Your Level Of Alcohol Consumption? None [email or web address] Information not available 12/07/2021 What Is Your Level Of Caffeine Consumption? Occasional [email or web address] Information not available 12/07/2021 Are You Currently Employed? 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 12/07/2021 [email or web address] Information not available 03/08/2022 What Is Your Relationship Status? [email or web address] Information not available 12/07/2021 Are You Sexually Active? Yes [email or web address] Information not available 12/07/2021 Do You Use Any Illicit Or Recreational Drugs? No [email or web address] Information not available 03/08/2022 Do You Or Have You Ever Used Any Other Forms Of Tobacco Or Nicotine? No [email or web address] Information not available 03/08/2022 Sex: Female Functional Status Question Answer Note LastModified by Organizat ion Details LastModified Time What is your exercise level? Occasional [email or web address] Information not available 12/07/2021 Mental Status None recorded. Family History Relationship Description Onset Age of this Age Resolved Age Notes Father No current problems or disability Mother No current problems or disability Medical History Condition Response Vitamin Deficiency Y Acid Reflux (GERD) Y Gynecological History Statement/Question Response Abnormal Pap N Flow Moderate STIs/STDs N HPV Vaccine Y Duration of Flow (days) 7 Age at Menarche 11 Current Control Method Frequency of Cycle (Q days) 28 Sexually Active? Y Menses Monthly Y Date of Last Pap Smear 11/10/2020 Sexual Problems? N LMP Definite Obstetrics History GPAL:G 6 P 5 0 0 5 Type Value Full Term 5 Induced 0 Spontaneous 0 Premature 0 Living 5 Ectopics 0 Total 6 Immunizations Vaccine Type Date Status Provider Name and Address Organization Details Recorded Time COVID-19, mRNA, LNP-S, PF, 30 mcg/0.3 mL dose 04/10/2021 completed Shaunna Lawton MD [address] [place] [address], [address], [facility] 01/07/2022 12:52:08 Past Encounters Encounter ID Performer Location Encounter Start Date Encounter Closed Date Diagnosis/Indication Diagnosis SNOMED-CT Code [id number] [address] [address] 12/07/2021 08:53:19 12/07/2021 10:08:43 High risk 86899092 Urine preg barney test positive 012348125 Venereal d isease screening 660911569 Uncertain viability of 321432537 screening [id number] Shaunna Lawton MD [address] [address] 01/07/2022 10:39:06 01/07/2022 11:14:36 Routine care 295714640 Advanced m aternal age 854105424 Anemia 515908011 History of bariatric surgical procedure [id number] Counseling [id number] [address] 02/08/2022 09:42:00 02/08/2022 10:39:04 Uncertain viability of 130359805 Advanced m aternal age [id number] [address] 03/08/2022 09:43:06 03/08/2022 10:27:37 screening for malformation [id number] [address] 03/29/2022 09:44:51 03/29/2022 10:32:16 Uncertain viability of 449689812 Anemia 954105443 Routine an tenatal care 586818638 Health Concerns Section Related Observation LastModified by Organization Detai ls LastModified Time None Recorded Concern Status LastModified by Organization Details LastModified Time None Recorded Advance Directives Directive None Recorded Payers Encounter Date Sequence Insurance Name Policy Number Policy Campos Covered Member ID Campos Member ID Guarantor Name 03/29/2022 1 [employer] ( - PPO) Bry Walker [id number] Misty Walker 03/08/2022 1 [employer] [place] ( - PPO) Bry Walker [id number] Misty Walker 02/08/2022 1 [employer] [place] ( - PPO) Bry Walker [id number] Misty Walker 01/07/2022 1 [employer] [place] ( - PPO) Bry Walker [id number] Misty Walker 12/07/2021 1 [employer] [place] ( - PPO) Bry Walker [id number] Misty Walker Notes Date Note Type Note Provider Name and Address Organization Details Recorded Time 12/07/2021 text/html HPI Notes: NOB, first visit for this . SHAHEEN Fisher [facility] 12/08/2021 10:46:47 OBGyn Episode Ob Episode Information Episode Created Date Number of Fetuses Patient Bloodtype Patient rh Status Prepregnancy Weight lbs Domestic Partner Domestic Partner Phone Father Name Roll Or Tape Edge Machine Operator Status 12/07/19 22 1 CLOSED Fetus Data First Name Last Name Admitted to NICU Weight (g) Sex Living Outcome Pediatric Complications Fetus ID Race Codes Race Delivery Type 4167.14 9704 M Full Term 18940 vaginal Kun Calculation Initial Kun Date Initial Exam Date Initial Exam Provider Initial Ultrasound Date Last Menstrual Period Date Ultra Sound Weeks Gestation 0 Eighteen To Twenty Week Kun Update Ultra Sound Date Fundal Height At Umbil Quickening Date Ultra Sound Latest Weeks Gestation Final Kun Confirmed By Final Kun Confirmed Date Final Kun Date Ultra Sound Latest Days Gestation 0 0 Menstrual History Last Menstrual Date Menses Monthly On Bcp Conception Prior Menses Frequency Hcg Plus Date Menarche Onset Age Delivery Information Delivery Date Delivery Type Labor Anesthesia Weeks Gestation Incision Type Labor Labor Length Hrs Delivered By Post Complications Tubal Sterilization Discharge Date Comments 6 41 false Discharge Information Feeding Method Contraceptive Method Maternal HG B and HCT Levels Ob Episode Information Episode Created Date Number of Fetuses Patient Bloodtype Patient rh Status Prepregnancy Weight lbs Domestic Partner Domestic Partner Phone Father Name Roll Or Tape Edge Machine Operator Status 12/07/19 22 1 CLOSED Fetus Data First Name Last Name Admitted to NICU Weight (g) Sex Living Outcome Pediatric Complications Fetus ID Race Codes Race Delivery Type 3685.43 5 F Full Term 98281 vaginal Kun Calculation Initial Kun Date Initial Exam Date Initial Exam Provider Initial Ultrasound Date Last Menstrual Period Date Ultra Sound Weeks Gestation 0 Eighteen To Twenty Week Kun Update Ultra Sound Date Fundal Height At Umbil Quickening Date Ultra Sound Latest Weeks Gestation Final Kun Confirmed By Final Kun Confirmed Date Final Kun Date Ultra Sound Latest Days Gestation 0 0 Menstrual History Last Menstrual Date Menses Monthly On Bcp Conception Prior Menses Frequency Hcg Plus Date Menarche Onset Age Delivery Information Delivery Date Delivery Type Labor Anesthesia Weeks Gestation Incision Type Labor Labor Length Hrs Delivered By Post Complications Tubal Sterilization Discharge Date Comments 1 39 false Discharge Information Feeding Method Contraceptive Method Maternal HG B and HCT Levels Ob Episode Information Episode Created Date Number of Fetuses Patient Bloodtype Patient rh Status Prepregnancy Weight lbs Domestic Partner Domestic Partner Phone Father Name Roll Or Tape Edge Machine Operator Status 12/07/19 22 1 CLOSED Fetus Data First Name Last Name Admitted to NICU Weight (g) Sex Living Outcome Pediatric Complications Fetus ID Race Codes Race Delivery Type 3231.84 3 F Full Term 82080 vaginal Kun Calculation Initial Ukn Date Initial Exam Date Initial Exam Provider Initial Ultrasound Date Last Menstrual Period Date Ultra Sound Weeks Gestation 0 Eighteen To Twenty Week Kun Update Ultra Sound Date Fundal Height At Umbil Quickening Date Ultra Sound Latest Weeks Gestation Final Kun Confirmed By Final Kun Confirmed Date Final Kun Date Ultra Sound Latest Days Gestation 0 0 Menstrual History Last Menstrual Date Menses Monthly On Bcp Conception Prior Menses Frequency Hcg Plus Date Menarche Onset Age Delivery Information Delivery Date Delivery Type Labor Anesthesia Weeks Gestation Incision Type Labor Labor Length Hrs Delivered By Post Complications Tubal Sterilization Discharge Date Comments 8 39 false Discharge Information Feeding Method Contraceptive Method Maternal HG B and HCT Levels Ob Episode Information Episode Created Date Number of Fetuses Patient Bloodtype Patient rh Status Prepregnancy Weight lbs Domestic Partner Domestic Partner Phone Father Name Roll Or Tape Edge Machine Operator Status 12/07/19 22 1 CLOSED Fetus Data First Name Last Name Admitted to NICU Weight (g) Sex Living Outcome Pediatric Complications Fetus ID Race Codes Race Delivery Type 3572.03 7 M Full Term 49757 vaginal Kun Calculation Initial Kun Date Initial Exam Date Initial Exam Provider Initial Ultrasound Date Last Menstrual Period Date Ultra Sound Weeks Gestation 0 Eighteen To Twenty Week Kun Update Ultra Sound Date Fundal Height At Umbil Quickening Date Ultra Sound Latest Weeks Gestation Final Kun Confirmed By Final Kun Confirmed Date Final Kun Date Ultra Sound Latest Days Gestation 0 0 Menstrual History Last Menstrual Date Menses Monthly On Bcp Conception Prior Menses Frequency Hcg Plus Date Menarche Onset Age Delivery Information Delivery Date Delivery Type Labor Anesthesia Weeks Gestation Incision Type Labor Labor Length Hrs Delivered By Post Complications Tubal Sterilization Discharge Date Comments 4 40 false Discharge Information Feeding Method Contraceptive Method Maternal HG B and HCT Levels Ob Episode Information Episode Created Date Number of Fetuses Patient Bloodtype Patient rh Status Prepregnancy Weight lbs Domestic Partner Domestic Partner Phone Father Name Roll Or Tape Edge Machine Operator Status 12/07/19 22 1 O Positive OPEN Fetus Data First Name Last Name Admitted to NICU Weight (g) Sex Living Outcome Pediatric Complications Fetus ID Race Codes Race Delivery Type [id number] Problems Problem Notes s/p covid vaccine Problem Name Start Date End Date Resolution Snomed Code Not e History of bariatric surgical procedure [id number] Gastric surgery 2010 and Tore procedure 10/2021. Pt is on vitamins and supplements d/t decreased absorption. Will not be able to do 1hr gtt. Anemia 648937892 malabsorpt ion from 2 bariatric surgeries. will refer for IV iron Advanced maternal age 580922719 Pt declines 1st trimester genetic screening. Kun Calculation Initial Kun Date Initial Exam Date Initial Exam Provider Initial Ultrasound Date Last Menstrual Period Date Ultra Sound Weeks Gestation 07/25/2022 12/07/2021 12/07/2021 10/10/2021 7 Eighteen To Twenty Week Kun Update Ultra Sound Date Fundal Height At Umbil Quickening Date Ultra Sound Latest Weeks Gestation Final Kun Confirmed By Final Kun Confirmed Date Final Kun Date Ultra Sound Latest Days Gestation 0 [email or web address] 12/07/2021 07/25/20 22 0 Pre-norbert Flowsheet Flowsheet Date 12/07/2021 Cummings Score Blood Edema Fundus Height Fundus Units Glucose Ketones Leukocytes Nitrite Labor Signs Protein Cervic Dilation Cervic Effacement Cervic Station neg none negative 1+ Negative neg Type Weight in lbs BP Diastolic BP Location Tested BP Systolic BP Type 72 L arm 115 sitting Fetus Heart Rate Present Fetus Movement Comments NOB: , U/S shows viable IUP 7w1d. AMA, pt declines 1st trimester genetic screening-will discuss again at next visit. Hx of bariatric surgery (2010) recently had Tore procedure in 10/2021, pt reports taking multiple vitamins and supplements d/t decreased absorption. 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 will refer for IV iron Flowsheet Date 02/08/2022 Cummings Score Blood Edema Fundus Height Fundus Units Glucose Ketones Leukocytes Nitrite Labor Signs Protein Cervic Dilation Cervic Effacement Cervic Station neg none negative none Negative neg Type Weight in lbs BP Diastolic BP Location Tested BP Systolic BP Type 62 98 Fetus Heart Rate Present A 150 Present Fetus Movement Comments Doing great, no complaints. Gender scan only today. Flowsheet Date 03/08/2022 Cummings Score Blood Edema Fundus Height Fundus Units Glucose Ketones Leukocytes Nitrite Labor Signs Protein Cervic Dilation Cervic Effacement Cervic Station neg none none negative none Negative neg Type Weight in lbs BP Diastolic BP Location Tested BP Systolic BP Type 72 110 Fetus Heart Rate Present A 150 Present Fetus Movement Comments Here for Anatomy today, doin g IV Iron for anemia 2ndry to malabsorption Flowsheet Date 03/29/2022 Cummings Score Blood Edema Fundus Height Fundus Units Glucose Ketones Leukocytes Nitrite Labor Signs Protein Cervic Dilation Cervic Effacement Cervic Station neg none negative none Negative neg Type Weight in lbs BP Diastolic BP Location Tested BP Systolic BP Type 64 101 Fetus Heart Rate Present Fetus Movement Comments unable to hear FHT via doppl er, u/s confirmed viability. pt has questions regarding fasting labs in place of gtt d/t hx of bariatric surgery. States she has been receiving iron infusions- last one scheduled for next week. Hgb today is 12. Menstrual History Last Menstrual Date Menses Monthly On Bcp Conception Prior Menses Frequency Hcg Plus Date Menarche Onset Age 1210/10/2021 Delivery Information Delivery Date Delivery Type Labor Anesthesia Weeks Gestation Incision Type Labor Labor Length Hrs Delivered By Post Complications Tubal Sterilization Discharge Date Comments Discharge Information Feeding Method Contraceptive Method Maternal HG B and HCT Levels Ob Episode Information Episode Created Date Number of Fetuses Patient Bloodtype Patient rh Status Prepregnancy Weight lbs Domestic Partner Domestic Partner Phone Father Name Roll Or Tape Edge Machine Operator Status 12/07/19 22 1 CLOSED Fetus Data First Name Last Name Admitted to NICU Weight (g) Sex Living Outcome Pediatric Complications Fetus ID Race Codes Race Delivery Type 3345.24 1 F Full Term 50608 vaginal Kun Calculation Initial Kun Date Initial Exam Date Initial Exam Provider Initial Ultrasound Date Last Menstrual Period Date Ultra Sound Weeks Gestation 0 Eighteen To Twenty Week Kun Update Ultra Sound Date Fundal Height At Umbil Quickening Date Ultra Sound Latest Weeks Gestation Final Kun Confirmed By Final Kun Confirmed Date Final Kun Date Ultra Sound Latest Days Gestation 0 0 Menstrual History Last Menstrual Date Menses Monthly On Bcp Conception Prior Menses Frequency Hcg Plus Date Menarche Onset Age Delivery Information Delivery Date Delivery Type Labor Anesthesia Weeks Gestation Incision Type Labor Labor Length Hrs Delivered By Post Complications Tubal Sterilization Discharge Date Comments 9 39 false Discharge Information Feeding Method Contraceptive Method Maternal HG B and HCT Levels
--- OUTSIDE RECORDS SUMMARY | 2024-03-10 10:51 | XMS_ITS | Continuity of Care Document ---
Author Name Unknown Address [address] [place] [address] Phone [phone] Organization [facility], [id number] Address [address] [place] [address] Assessment No assessment recorded. Plan of Treatment [...] Bariatric surgical procedure Referring Physician: Andry Corbin, [employer]S INTERPRETER, Encounter Date: 11/19/2023 Results Created Date Observation Date Name Description Value Unit Range Abnormal Flag LastModifiedBy Organization Detail LastModifiedTime 09/17/2009/17/2023 ultra sound image s RAD KEENAN [facility] [address], [place], [address], 10/07/2023 10:30:47 09/17/20 23 09/17/2023 ultra sound image s RAD [email or web address] [facility] [address], [place], [address], 09/17/2023 13:20:57 09/29/20 23 09/29/2023 ultra sound image s RAD [email or web address] [facility] [address], [place], [address], 09/29/2023 11:58:59 09/29/20 23 09/29/2023 ultra sound image s RAD [email or web address] [facility] [address], [place], [address], 10/13/2023 10:24:11 12/11/19 24 12/05/2023 US, obste tric, mater nal evalu ation + anato my No observ ation record ed. [facility] [address], [place], [address], 12/13/2023 16:26:39 01/20/20 24 01/20/2024 US, obste tric, mater nal evalu ation + anato my No observ ation record ed. [facility] [address], [place], [address], 01/20/2024 17:18:22 Result Notes None recorded. Problems Name Status Onset Date Resolution Date Notes Provider Name and Address Organization Details Recorded Time Routine care Active Matilda Kessler null, [facility] 4 08:59:20 Routine care Completed Matilda Kessler null, [facility] 4 08:59:20 Advanced maternal age Completed 38, lvl 2-nl, needs monthly growth US here at 30 wks Matilda Kessler null, [facility] 4 08:59:20 Completed 023 03/03/2024 Matilda Kessler null, [facility] 4 08:59:27 Advanced maternal age Active 38, lvl 2-nl, needs monthly growth US here at 30 wks Matilda Kessler null, [facility] 4 08:59:20 History of bariatric surgical procedure Active 023 griselda en Y; NO glucola, needs gluocse monitoring Matilda Kessler null, [facility] 4 08:59:20 History of bariatric surgical procedure Completed 023 griselda en Y; NO glucola, needs gluocse monitoring Matilda Kessler [facility], [facility] 4 08:59:20 Maternal obesity complicating , childbirth and the puerperium, antepartum Completed 024 Matilda Kessler [facility] 4 08:59:20 Maternal obesity complicating , childbirth and the puerperium, antepartum Active 024 Matilda Kessler [facility] 4 08:59:20 Problem Notes None recorded. Procedures Surgical History Date Name Laterality Status Provider Name and Address Organization Details Recorded Time laparoscopic sleeve gastrectomy completed Ilana Crandall (TERMED) [facility] 09/17/2023 13:46:58 Griselda-en-Y gastrojejunostomy completed Ilana Crandall (TERMED) [facility] 09/17/2023 13:47:08 Imaging Results None recorded. Procedure Notes None recorded. Medical Equipment None Reported. Allergies Allergen ID Allergen Name Allergen Category Reaction Reaction Severity Criticality Documentation Date Start Date Code Code System Note Provider Name and Address Organization Details Recorded Time [id number] Non-stero idal anti-infl ammatory agent (product) medicatio n Not available Not available Not available 09/17/2023 98236 005 SNOMED r/t baria tric surge ry Ilana Crandall (TERMED) [facility] 3 13:33:09 Medications Name Sig Start Date [...] and Address Organization Details Last Updated DateTime 12/18/2023 167.64 cm 36.8 kg/m2 71 /min 89 mm[Hg] 55 mm[Hg] Mallory Chaparro [facility] 09:31:14 Date Recorded Body weight Provider Name an d Address Organization Details Last Updated DateTime 12/18/2023 267692.31651 g Betty sheffield MD [address] [place] [address],[place], [address], [facility] 12/18/2023 09:38:56 Social History Question Answer Notes LastModified by Organizat ion Details LastModified Time Tobacco Smoking Status Former Smoker high school and college Ilana Stone (TERMED) [facility] 09/17/2023 13:46:38 Do You Have An Advance Directive? No Information not available 12/18/2023 What Is Your Level Of Alcohol Consumption? None Information not available 09/17/2023 If You Are , What Was Your Level Of Alcohol Consumption Prior To ? Occasional Information not available 12/18/2023 Is Blood Transfusion Acceptable In An Emergency? Yes Information not available 09/17/2023 What Is Your Level Of Caffeine Consumption? Occasional Information not available 09/17/2023 Are You Currently Employed? Yes [email or web address] Information not available 12/18/2023 What Type Of Diet Are You Following? 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 Information not available 09/17/2023 Are You Sexually Active? Yes [email or web address] Information not available 12/18/2023 Do You Use Any Illicit Or Recreational Drugs? No [email or web address] Information not available 12/18/2023 Do You Or Have You Ever Used Any Other Forms Of Tobacco Or Nicotine? No [email or web address] Information not available 12/18/2023 Sex: Female Functional Status Question Answer Note LastModified by Organizat ion Details LastModified Time What is your exercise level? Occasional running/wa lking [email or web address] Information not available 12/18/2023 Mental Status None recorded. Family History Relationship Description Onset Age of this Age Resolved Age Notes Father No current problems or disability Mother No current problems or disability Medical History Condition Response Neurology- Stroke/TIA N Rheumatology- Fibromyalgia/Chronic Pain N Dermatology-Acne N Endocrinology- Vitamin Deficiency Y Endocrinology-Other N [...] Y GI- Reflux/Ulcers N Cancer- Skin N GI- Irritable Bowel Syndrome N Cardiology- Heart Disease N Cancer- Genetic screening N GI- Colon Polyps N Ortho-Other N [...] Disorder N Psych- Depression N Hematology-Other N Ortho-Chronic Back Pain N Dermatology-Other N Dermatology-Eczema/Psoriasis N ID- HIV N Cardiology- High Cholesterol N Cancer- Ovary N ID- Chicken Pox/Shingles Y Cardiology- Heart [...] Encounter Closed Date Diagnosis/Indication Diagnosis SNOMED-CT Code [id number] Andry Corbin MD [id number] [place] [address] 11/19/2023 09:13:37 11/19/2023 09:41:08 Advanced maternal age [id number] History of bariatric surgical procedure [id number] Gestation period, 16 weeks [id number] Headache [id number] Betty Reich MD [id number] [place] [address] 12/18/2023 09:11:06 12/18/2023 09:59:08 Advanced maternal age 848050393 History of bariatric surgical procedure [id number] Gestation period, 21 weeks [id number] Health Concerns Section Related Observation LastModified by Organization Detai ls LastModified Time None Recorded Concern Status LastModified by Organization Details LastModified Time None Recorded Payers Encounter Date Sequence Insurance Name Policy Number Policy Campos Covered Member ID Campos Member ID Guarantor Name 12/18/2023 1 [facility] [employer] [facility] Bry Walker [id number] Misty Walker OBGyn Episode Ob Episode Information Episode Created Date Number of Fetuses Patient Bloodtype Patient rh Status Prepregnancy Weight lbs Domestic Partner Domestic Partner Phone Father Name General Science Teacher Status 09/17/20 23 1 O Positive 214 Mahad CLOSED Fetus Data First Name Last Name Admitted to NICU Weight (g) Sex Living Outcome Pediatric Complications Fetus ID Race Codes Race Delivery Type [id number] Problems Problem Notes Problem Name Start Date End Date Resolution Snomed Code Not e Maternal obesity complicating , childbirth and the puerperium, antepartum 01/20/2024 [id number] History of bariatric surgical procedure 09/17/2023 [id number] griselda en Y ; NO glucola, needs gluocse monitoring Routine care 5348036 03 Advanced maternal age [id number] 38, lvl 2-nl, n eeds monthly growth US here at 30 wks Kun Calculation Initial Kun Date Initial Exam Date Initial Exam Provider Initial Ultrasound Date Last Menstrual Period Date Ultra Sound Weeks Gestation 04/29/2024 09/17/2023 09/17/2023 07/24/2023 7 Eighteen To Twenty Week Kun Update Ultra Sound Date Fundal Height At Umbil Quickening Date Ultra Sound Latest Weeks Gestation Final Kun Confirmed By Final Kun Confirmed Date Final Kun Date Ultra Sound Latest Days Gestation 0 [email or web address] 09/17/2023 04/29/20 24 0 Pre-norbert Flowsheet Flowsheet Date 09/17/2023 Cummings Score Blood [...] ated Date of Delivery true 38 Thalassemia (Sinhala, Faroese, Mediterranean, Or Background): MCV < 80 false Neural Tube Defect (Meningomyelocele, Spina Bifi da, Or Anencephaly) false Congenital Heart Defect false Down Syndrome false Sixto-Sachs (eg, Yarsanism, Cajun, Sinhala-Niuean) f alse Danii Disease false Sickle Cell Disease Or Trait () false Hemophilia Or Other Blood Disorders false Muscular Dystrophy false Cystic Fibrosis false Box Elder's Chorea false Intellectual Disability/Autism false If Yes, [...]
--- OUTSIDE RECORDS SUMMARY | 2024-03-10 10:51 | XMS_ITS | Data Portability ---
Author Name Unknown Address [address] [place] [address] Phone [phone] Organization [place] - [facility], autoContract - [id number] Address [address] [place] [address] Assessment No assessment recorded. Plan of Treatment Reminders Order Date Submit Date Provider Last Modified By Organization Details Last Modified Time Details Appointments None recorded. Lab hemoglobin + hematocrit, blood 2023 024 KEENAN Krishnan (Lab), [address] [place], [address], 4 16:06:56 Referral None recorded. Procedures None recorded. Surgeries None recorded. Imaging None recorded. Medication Orders butalbital- acetaminoph en-caffeine 50 mg-325 mg-40 mg tablet 2023 024 [id number], [address] [place], [address], 4 09:39:14 Patient TargetsNo targets recorded. Patient InstructionsNo instructions recorded. Reason for Referral Maternal & Medicine Re ferral for Advanced maternal age Please call pt to schedule level ll u/s; AMA H/O Bariatric surgical procedure Referring Physician: Andry Corbin, STRATIGRAPHER, Encounter Date: 11/19/2023 Results Created Date Observation Date Name Description Value Unit Range Abnormal Flag LastModifiedBy Organization Detail LastModifiedTime 09/17/20 23 09/17/2023 TYPE AND SCREE N ABO group O Not Available Oscar Krishnan (Lab) [address] [place], [address], 09/17/2023 22:35:25 09/17/20 23 09/17/2023 TYPE AND SCREE N Rh type pos Not Available Oscar Krishnan (Lab) [address] [place], [address], 09/17/2023 22:35:25 09/17/20 23 09/17/2023 TYPE AND SCREE N antibody screen neg Not Available Pernell Krishnan (Lab) [address] [place], [address], 09/17/2023 22:35:25 09/17/20 23 09/17/2023 CBC WITH PLATE LET AND DIFFE RENTI AL WBC 12.4 K/uL 3.6-11 .2 high Not Available Pernell Krishnan (Lab) [address] [place], [address], 09/18/2023 01:05:56 09/17/2009/17/2023 CBC WITH PLATE LET AND DIFFE RENTI AL RBC 4.38 M/uL 3.63-4 .92 Not Available Pernell Krishnan (Lab) [address] [facility] [place], [address], 09/18/2023 01:05:56 09/17/20 23 09/17/2023 CBC WITH PLATE LET AND DIFFE RENTI AL hemoglobin 13.7 g/dL 10.9-1 4.3 Not Available Pernell Krishnan (Lab) [address] [place], [address], 09/18/2023 01:05:56 09/17/20 23 09/17/2023 CBC WITH PLATE LET AND DIFFE RENTI AL hematocrit 40 % 31-42 Not Available Gordy Krishann (Lab) [address] [facility] [place], [address], 09/18/2023 01:05:56 09/17/20 23 09/17/2023 CBC WITH PLATE LET AND DIFFE RENTI AL mean cell volume 92 fL 74-96 Not Available [facility] [address] [place], [address], 09/18/2023 01:05:56 09/17/20 23 09/17/2023 CBC WITH PLATE LET AND DIFFE RENTI AL mean cell hemoglobin 31 pg 24-33 Not Available [facility] [address] [place], [address], 09/18/2023 01:05:56 09/17/20 23 09/17/2023 CBC WITH PLATE LET AND DIFFE RENTI AL mean cell hemoglobin concentratio n 34 g/dL 33-36 Not Available [facility] ([facility]) [address] [place], [address], 09/18/2023 01:05:56 09/17/20 23 09/17/2023 CBC WITH PLATE LET AND DIFFE RENTI AL red cell distribution width 13.1 % 12.3-1 7.0 Not Available [facility] [address] [place], [address], 09/18/2023 01:05:56 09/17/2009/17/2023 CBC WITH PLATE LET AND DIFFE RENTI AL platelet count 337 K/uL 150-45 0 Not Available [facility] [address] [place], [address], 09/18/2023 01:05:56 09/17/20 23 09/17/2023 CBC WITH PLATE LET AND DIFFE RENTI AL mean platelet volume 8.8 fL 7.5-11 .2 Not Available [facility] [address] [place], [address], 09/18/2023 01:05:56 09/17/20 23 09/17/2023 CBC WITH PLATE LET AND DIFFE RENTI AL differential percent diff % Not Available [facility] [address] [place], [address], 09/18/2023 01:05:56 09/17/20 23 09/17/2023 CBC WITH PLATE LET AND DIFFE RENTI AL neutrophils 75 % 43-77 Not Available [facility] [address] [place], [address], 09/18/2023 01:05:56 09/17/20 23 09/17/2023 CBC WITH PLATE LET AND DIFFE RENTI AL lymphocytes 18 % 16-44 Not Available [facility] [address] [facility] [place], [address], 09/18/2023 01:05:56 09/17/2009/17/2023 CBC WITH PLATE LET AND DIFFE RENTI AL monocytes 6 % 5-13 Not Available [facility] (Lab) [address] [place], [address], 09/18/2023 01:05:56 09/17/20 23 09/17/2023 CBC WITH PLATE LET AND DIFFE RENTI AL eosinophils 1 % 1-8 Not Available [facility] ([facility]) [address] [place], [address], 09/18/2023 01:05:56 09/17/20 23 09/17/2023 CBC WITH PLATE LET AND DIFFE RENTI AL basophils 0 % 0-1 Not Available [facility] (Lab) [address] [place], [address], 09/18/2023 01:05:56 09/17/20 23 09/17/2023 CBC WITH PLATE LET AND DIFFE RENTI AL differential absolute diff absolu te Not Available [facility] [address] [place], [address], 09/18/2023 01:05:56 09/17/20 23 09/17/2023 CBC WITH PLATE LET AND DIFFE RENTI AL neutrophils absolute 9.4 K/uL 1.8-7. 8 high Not Available [facility] [address] [place], [address], 09/18/2023 01:05:56 09/17/20 23 09/17/2023 CBC WITH PLATE LET AND DIFFE RENTI AL lymphocytes absolute 2.2 K/uL 1.0-3. 0 Not Available [facility] [address] [place], [address], 09/18/2023 01:05:56 09/17/2009/17/2023 CBC WITH PLATE LET AND DIFFE RENTI AL monocytes absolute 0.7 K/uL 0.3-1. 0 Not Available [facility] [address] [place], [address], 09/18/2023 01:05:56 09/17/20 23 09/17/2023 CBC WITH PLATE LET AND DIFFE RENTI AL eosinophils absolute 0.1 K/uL 0.0-0. 5 Not Available [facility] [address] [place], [address], 09/18/2023 01:05:56 09/17/2009/17/2023 CBC WITH PLATE LET AND DIFFE RENTI AL basophils absolute 0.0 K/uL 0.0-0. 1 Not Available [facility] [address] [place], [address], 09/18/2023 01:05:56 09/17/2009/17/2023 CBC WITH PLATE LET AND DIFFE RENTI AL nucleated RBC 0 /100_ WBC Not Available [facility] ([facility]) [address] [place], [address], 09/18/2023 01:05:56 09/17/2009/17/2023 HEMOG LOBIN A1C hemoglobin A1C, percent 4.9 % 4.0-5. 6 Not Available [facility] [address] [place], [address], 09/18/2023 01:05:57 09/17/20 23 09/17/2023 VITAM IN D 25-HY DROXY - IN HOUSE vitamin D 25-hydroxy 34 NG/mL 30-100 Not Available [facility] [address] [place], [address], 09/18/2023 01:05:58 09/17/20 23 09/17/2023 URINE PROTE IN/CR EATIN INE RATIO protein, urine <4 mg/dL Not Available [facility] [address] [place], [address], 09/18/2023 01:05:59 09/17/20 23 09/17/2023 URINE PROTE IN/CR EATIN INE RATIO creatinine, urine 22 mg/dL Not Available [facility] [address] [place], [address], 09/18/2023 01:05:59 09/17/20 23 09/17/2023 URINE PROTE IN/CR EATIN INE RATIO protein/crea tinine ratio, urine see text Not Available [facility] ([facility]) [address] [place], [address], 09/18/2023 01:05:59 09/17/20 23 09/17/2023 HEPAT ITIS B SURFA CE ANTIG EN W/REF DMITRY TO CONFI RMATI ON hepatitis B surface antigen w/reflex to confirmation negati ve negati ve Not Available [facility] [address] [place], [address], 09/18/2023 01:05:59 09/17/20 23 09/17/2023 RUBEL LA SCREE N rubella screen 16.7 Not Available [facility] [address] [place], [address], 09/18/2023 01:06:00 09/17/20 23 09/17/2023 SYPHI LIS SCREE N WITH REFLE X CONFI RMATI ON syphilis screen with reflex confirmation nonrea ctive nonrea ctive Not Available [facility] ([facility]) [address] [place], [address], 09/18/2023 01:06:01 09/17/2009/17/2023 VITAM IN B12 vitamin B12 666 pg/mL 180-91 4 Not Available [facility] [address] [place], [address], 09/18/2023 01:06:02 09/17/2009/17/2023 CMP sodium 137 mmol/ L 136-14 5 Not Available [facility] [address] [place], [address], 09/18/2023 01:06:02 09/17/2009/17/2023 CMP potassium 4.5 mmol/ L 3.5-5. 1 Not Available [facility] [address] [place], [address], 09/18/2023 01:06:02 09/17/2009/17/2023 CMP chloride 103 mmol/ L 99-108 Not Available [facility] [address] [place], [address], 09/18/2023 01:06:02 09/17/2009/17/2023 CMP CO2 24 mmol/ L 21-31 Not Available [facility] [address] [place], [address], 09/18/2023 01:06:02 09/17/2009/17/2023 CMP BUN 14 mg/dL 7-25 Not Available [facility] [address] [place], [address], 09/18/2023 01:06:02 09/17/20 23 09/17/2023 CMP creatinine 0.52 mg/dL 0.51-1 .00 Not Available [facility] [address] [place], [address], 09/18/2023 01:06:02 09/17/2009/17/2023 CMP glucose, random 74 mg/dL 70-199 Not Available [facility] [address] [place], [address], 09/18/2023 01:06:02 09/17/2009/17/2023 CMP calcium, total 9.8 mg/dL 8.8-10 .6 Not Available [facility] [address] [place], [address], 09/18/2023 01:06:02 09/17/2009/17/2023 CMP osmolality (calculated) 273 mOsm/ kg 270-29 5 Not Available [facility] [address] [place], [address], 09/18/2023 01:06:02 09/17/2009/17/2023 CMP anion gap 10 3-11 Not Avail[facility] [address] [place], [address], 09/18/2023 01:06:02 09/17/2009/17/2023 CMP albumin 4.5 g/dL 3.5-5. 7 Not Available [facility] [address] [place], [address], 09/18/2023 01:06:02 09/17/2009/17/2023 CMP bilirubin, total 0.4 mg/dL 0.3-1. 0 Not Available [facility] [address] [place], [address], 09/18/2023 01:06:02 09/17/2009/17/2023 CMP alkaline phosphatase 67 IU/L 34-104 Not Available [facility] [address] [place], [address], 09/18/2023 01:06:02 09/17/2009/17/2023 CMP ALT 15 IU/L 7-52 Not Available [facility] [address] [place], [address], 09/18/2023 01:06:02 09/17/20 23 09/17/2023 CMP AST 13 IU/L 13-39 Not Available [facility] [address] [facility] [place], [address], 09/18/2023 01:06:02 09/17/2009/17/2023 CMP protein, total 7.3 g/dL 6.4-8. 9 Not Available [facility] [address] [place], [address], 09/18/2023 01:06:02 09/17/2009/17/2023 CMP A/G ratio 1.6 1.2-2. 3 Not Available [facility] [address] [facility] [place], [address], 09/18/2023 01:06:02 09/17/20 23 09/17/2023 SOCO TIN ferritin 28.0 NG/mL 11.0-3 07.0 Not Available [facility] [address] [facility] [place], [address], 09/18/2023 01:06:03 09/17/2009/17/2023 TSH WITH REFLE X TO FREE T4 TSH (3rd IS) assay 0.68 uIU/m L 0.45-5 .33 Not Available [facility] [address] [place], [address], 09/18/2023 01:06:04 09/17/20 23 09/17/2023 HEPAT ITIS C ANTIB MISTY WITH REFLE X TO CONFI RMATI ON hepatitis C antibody with reflex to confirmation negati ve negati ve Not Available [facility] [address] [place], [address], 09/18/2023 01:06:05 09/17/20 23 09/17/2023 HIV AG/AB WITH REFLE X TO CONFI RMATI ON HIV Ag/Ab with reflex to confirmation nonrea ctive non-re active Not Available [facility] [address] [place], [address], 09/18/2023 01:06:05 09/17/2009/17/2023 URIC ACID uric acid 3.9 mg/dL 2.3-6. 6 Not Available [facility] [address] [place], [address], 09/18/2023 01:06:06 09/17/2009/17/2023 CT/NG other info other inform ation Not Available [facility] [address], [place], [address], 09/18/2023 13:34:52 09/17/20 23 09/18/2023 CT/NG cervix,swab/ transport tube Not Available [facility] [address], [place], [address], 09/18/2023 13:34:52 09/17/20 23 09/18/2023 CT/NG chlamydia result negati ve Not Available [facility] [address], [place], [address], 09/18/2023 13:34:52 09/17/2009/18/2023 CT/NG gonorrhea result negati ve Not Available [facility] [address], [place], [address], 09/18/2023 13:34:52 09/17/20 23 09/19/2023 URINE CULTU RE urine culture see note Not Available Pernell Krishnan (Lab) [address] [place], [address], 09/19/2023 08:15:48 10/10/20 23 10/10/2023 CHROM OSOME S 13, 18, 21 + SEX CHROM OSOME MARLENE SIS + EXPAN DED ANEUP LOIDY SCREE VERONICA chromosome 1 aneuploidy negati ve normal Not Available [facility] [address] [place], [address], 10/17/2023 21:18:27 10/10/20 23 10/10/2023 CHROM OSOME S 13, 18, 21 + SEX CHROM OSOME MARLENE SIS + EXPAN DED ANEUP LOIDY SCREE VERONICA chromosome 10 aneuploidy negati ve normal Not Available [facility] [address] [place], [address], 10/17/2023 21:18:27 10/10/20 23 10/10/2023 CHROM OSOME S 13, 18, 21 + SEX CHROM OSOME MARLENE SIS + EXPAN DED ANEUP LOIDY SCREE VERONICA chromosome 11 aneuploidy negati ve normal Not Available [facility] [address] [place], [address], 10/17/2023 21:18:27 10/10/20 23 10/10/2023 CHROM OSOME S 13, 18, 21 + SEX CHROM OSOME MARLENE SIS + EXPAN DED ANEUP LOIDY SCREE VERONICA chromosome 12 aneuploidy negati ve normal Not Available [facility] [address] [place], [address], 10/17/2023 21:18:27 10/10/20 23 10/10/2023 CHROM OSOME S 13, 18, 21 + SEX CHROM OSOME MARLENE SIS + EXPAN DED ANEUP LOIDY SCREE VERONICA chromosome 13 aneuploidy negati ve normal Not Available [facility] [address] [place], [address], 10/17/2023 21:18:27 10/10/20 23 10/10/2023 CHROM OSOME S 13, 18, 21 + SEX CHROM OSOME MARLENE SIS + EXPAN DED ANEUP LOIDY SCREE VERONICA chromosome 14 aneuploidy negati ve normal Not Available [facility] [address] [place] [address], [address], 10/17/2023 21:18:27 10/10/20 23 10/10/2023 CHROM OSOME S 13, 18, 21 + SEX CHROM OSOME MARLENE SIS + EXPAN DED ANEUP LOIDY SCREE VERONICA chromosome 15 aneuploidy negati ve normal Not Available [facility] [address] [place] [address], [address], 10/17/2023 21:18:27 10/10/20 23 10/10/2023 CHROM OSOME S 13, 18, 21 + SEX CHROM OSOME MARLENE SIS + EXPAN DED ANEUP LOIDY SCREE VERONICA chromosome 16 aneuploidy negati ve normal Not Available [facility] [address] [place] [address], [address], 10/17/2023 21:18:27 10/10/20 23 10/10/2023 CHROM OSOME S 13, 18, 21 + SEX CHROM OSOME MARLENE SIS + EXPAN DED ANEUP LOIDY SCREE VERONICA chromosome 17 aneuploidy negati ve normal Not Available [facility] [address] [place] [address], [address], 10/17/2023 21:18:27 10/10/20 23 10/10/2023 CHROM OSOME S 13, 18, 21 + SEX CHROM OSOME MARLENE SIS + EXPAN DED ANEUP LOIDY SCREE VERONICA chromosome 18 aneuploidy negati ve normal Not Available [facility] [address] [place] [address], [address], 10/17/2023 21:18:27 10/10/20 23 10/10/2023 CHROM OSOME S 13, 18, 21 + SEX CHROM OSOME MARLENE SIS + EXPAN DED ANEUP LOIDY SCREE VERONICA chromosome 19 aneuploidy negati ve normal Not Available [facility] [address] [place] [address], [address], 10/17/2023 21:18:27 10/10/20 23 10/10/2023 CHROM OSOME S 13, 18, 21 + SEX CHROM OSOME MARLENE SIS + EXPAN DED ANEUP LOIDY SCREE VERONICA chromosome 2 aneuploidy negati ve normal Not Available [facility] [address] [place], [address], 10/17/2023 21:18:27 10/10/20 23 10/10/2023 CHROM OSOME S 13, 18, 21 + SEX CHROM OSOME MARLENE SIS + EXPAN DED ANEUP LOIDY SCREE VERONICA chromosome 20 aneuploidy negati ve normal Not Available [facility] [address] [place], [address], 10/17/2023 21:18:27 10/10/20 23 10/10/2023 CHROM OSOME S 13, 18, 21 + SEX CHROM OSOME MARLENE SIS + EXPAN DED ANEUP LOIDY SCREE VERONICA chromosome 21 aneuploidy negati ve normal Not Available [facility] [address] [place] [address], [address], 10/17/2023 21:18:27 10/10/20 23 10/10/2023 CHROM OSOME S 13, 18, 21 + SEX CHROM OSOME MARLENE SIS + EXPAN DED ANEUP LOIDY SCREE VERONICA chromosome 22 aneuploidy negati ve normal Not Available [facility] [address] [place] [address], [address], 10/17/2023 21:18:27 10/10/20 23 10/10/2023 CHROM OSOME S 13, 18, 21 + SEX CHROM OSOME MARLENE SIS + EXPAN DED ANEUP LOIDY SCREE VERONICA chromosome 3 aneuploidy negati ve normal Not Available [facility] [address] [place] [address], [address], 10/17/2023 21:18:27 10/10/20 23 10/10/2023 CHROM OSOME S 13, 18, 21 + SEX CHROM OSOME MARLENE SIS + EXPAN DED ANEUP LOIDY SCREE VERONICA chromosome 4 aneuploidy negati ve normal Not Available [facility] [address] [place], [address], 10/17/2023 21:18:27 10/10/20 23 10/10/2023 CHROM OSOME S 13, 18, 21 + SEX CHROM OSOME MARLENE SIS + EXPAN DED ANEUP LOIDY SCREE VERONICA chromosome 5 aneuploidy negati ve normal Not Available [facility] [address] [place], [address], 10/17/2023 21:18:27 10/10/20 23 10/10/2023 CHROM OSOME S 13, 18, 21 + SEX CHROM OSOME MARLENE SIS + EXPAN DED ANEUP LOIDY SCREE VERONICA chromosome 6 aneuploidy negati ve normal Not Available [facility] [address] [place], [address], 10/17/2023 21:18:27 10/10/20 23 10/10/2023 CHROM OSOME S 13, 18, 21 + SEX CHROM OSOME MARLENE SIS + EXPAN DED ANEUP LOIDY SCREE VERONICA chromosome 7 aneuploidy negati ve normal Not Available [facility] [address] [place], [address], 10/17/2023 21:18:27 10/10/20 23 10/10/2023 CHROM OSOME S 13, 18, 21 + SEX CHROM OSOME MARLENE SIS + EXPAN DED ANEUP LOIDY SCREE VERONICA chromosome 8 aneuploidy negati ve normal Not Available [facility] [address] [place] [address], [address], 10/17/2023 21:18:27 10/10/20 23 10/10/2023 CHROM OSOME S 13, 18, 21 + SEX CHROM OSOME MARLENE SIS + EXPAN DED ANEUP LOIDY SCREE VERONICA chromosome 9 aneuploidy negati ve normal Not Available [facility] [address] [place], [address], 10/17/2023 21:18:27 10/10/20 23 10/10/2023 CHROM OSOME S 13, 18, 21 + SEX CHROM OSOME MARLENE SIS + EXPAN DED ANEUP LOIDY SCREE VERONICA sex chromosome analysis female normal Not Available [facility] [address], [place], [address], 10/17/2023 21:18:27 11/19/19 24 11/19/2023 HEMOG LOBIN AND HEMAT OCRIT hemoglobin 11.9 g/dL 10.9-1 4.3 Not Available [facility] (Lab) [address] [place], [address], 11/19/2023 16:06:56 11/19/19 24 11/19/2023 HEMOG LOBIN AND HEMAT OCRIT hematocrit 36 % 31-42 Not Available [facility] (Lab) [address] [place], [address], 11/19/2023 16:06:56 09/17/20 23 09/17/2023 ultra sound image s RAD KEENAN [facility] [address], [place], [address], 10/07/2023 10:30:47 09/17/20 23 09/17/2023 ultra sound image s RAD [email or web address] [facility] [address], [place], [address], 09/17/2023 13:20:57 09/29/20 23 09/29/2023 ultra sound image s RAD [email or web address] [facility] [address], [place], [address], 09/29/2023 11:58:59 09/29/20 23 09/29/2023 ultra sound image s RAD [email or web address] [facility] [address], [place], [address], 10/13/2023 10:24:11 12/11/19 24 12/05/2023 US, obste tric, mater nal evalu ation + anato my No observ ation record ed. lgrana [facility] [address], [place], [address], 12/13/2023 16:26:39 01/20/20 24 01/20/2024 US, obste tric, mater nal evalu ation + anato my No observ ation record ed. elizabeth Dawson [facility] [address], [place], [address], 01/20/2024 17:18:22 Result Notes None recorded. Problems Name Status Onset Date Resolution Date Notes Provider Name and Address Organization Details Recorded Time Routine care Active Matilda Kessler null, [facility] 4 08:59:20 Routine care Completed Matilda Kessler null, [facility] 4 08:59:20 Advanced maternal age Completed 38, lvl 2-nl, needs monthly growth US here at 30 wks Matilda Kessler null, [facility] 4 08:59:20 Completed 023 03/03/2024 Matilda Kessler null, [facility] 4 08:59:27 Advanced maternal age Active 38, lvl 2-nl, needs monthly growth US here at 30 wks Matilda Kessler null, [facility] 4 08:59:20 History of bariatric surgical procedure Active 023 griselda en Y; NO glucola, needs gluocse monitoring Matilda Kessler null, [facility] 4 08:59:20 History of bariatric surgical procedure Completed 023 griselda en Y; NO glucola, needs gluocse monitoring Matilda Kessler null, [facility] 4 08:59:20 Maternal obesity complicating , childbirth and the puerperium, antepartum Completed 024 Matilda Kessler null, [facility] 4 08:59:20 Maternal obesity complicating , childbirth and the puerperium, antepartum Active 024 Matilda Kessler [facility], [facility] 4 08:59:20 Problem Notes None recorded. Procedures Surgical History Date Name Laterality Status Provider Name and Address Organization Details Recorded Time laparoscopic sleeve gastrectomy completed Ilana Stone (TERMED) [facility] 09/17/2023 13:46:58 Griselda-en-Y gastrojejunostomy completed Ilana Stone (TERMED) null, [facility] 09/17/2023 13:47:08 Imaging Results Imaging Date Name Status LastModified by Organiz ation Details LastModified Time 09/17/2023 ultrasound images completed KEENAN [facility] [address], [place], [address], 10/07/2023 10:30:47 09/17/2023 ultrasound images completed [email or web address] [facility] [address], [place], [address], 09/17/2023 13:20:57 09/29/2023 ultrasound images completed [email or web address] [facility] [address], [place], [address], 09/29/2023 11:58:59 09/29/2023 [email or web address] [address], [place], [address], 10/13/2023 10:24:11 12/05/2023 US, obstetric, maternal evaluation + anatomy completed [facility] [address], [place], [address], 12/13/2023 16:26:39 01/20/2024 US, obstetric, maternal evaluation + anatomy completed [facility] [address], [place], [address], 01/20/2024 17:18:22 Procedure Notes None recorded. Medical Equipment None Reported. Allergies Allergen ID Allergen Name Allergen Category Reaction Reaction Severity Criticality Documentation Date Start Date Code Code System Note Provider Name and Address Organization Details Recorded Time [id number] Non-stero idal anti-infl ammatory agent (product) medicatio n Not available Not available Not available 09/17/2023 67499 005 SNOMED r/t baria tric surge ry Ilana Stone (TERMED) [facility] 3 13:33:09 Medications Name Sig Start [...] Not Available Vitals Date Recorded Body height Provider Name an d Address Organization Details Last Updated DateTime 09/17/2023 167.64 cm Ilana Stone (TERMED) [facility] 09/17/2023 13:31:51 Date Recorded Body height Body mass index (BMI) Body weight Heart rate Systolic blood pressure Diastolic blood pressure Provider Name and Address Organization Details Last Updated DateTime 3 167.64 cm 34.5 kg/m2 56270.7 6718 g 75 /min 108 mm[Hg] 73 mm[Hg] Princess Trevino (TERMED) [facility] 3 14:03:04 Date Recorded Body height Body mass index (BMI) Systolic blood pressure Diastolic blood pressure Provider Name and Address Organization Details Last Updated DateTime 09/29/2023 167.64 cm 34.5 kg/m2 106 mm[Hg] 71 mm[Hg] Mallory Chaparro [facility] 09/29/2023 11:54:06 Date Recorded Body weight Provider Name an d Address Organization Details Last Updated DateTime 09/29/2023 63564.38264 g Betty sheffield MD [address], [place], [address], [facility] 09/29/2023 12:03:28 Date Recorded Body height Body mass index (BMI) Body weight Heart rate Systolic blood pressure Diastolic blood pressure Provider Name and Address Organization Details Last Updated DateTime 3 167.64 cm 34.7 kg/m2 22802.3 5955 g 61 /min 99 mm[Hg] 60 mm[Hg] [facility] 09[facility]12:15 Date Recorded Body weight Body mass index (BMI) Body height Heart rate Systolic blood pressure Diastolic blood pressure Provider Name and Address Organization Details Last Updated DateTime 4 265370. 592627 g 35.8 kg/m2 167.64 cm 81 /min 116 mm[Hg] 66 mm[Hg] Suzi Stockton [facility] 4 09:27:16 Date Recorded Body height Body mass index (BMI) Heart rate Systolic blood pressure Diastolic blood pressure Provider Name and Address Organization Details Last Updated DateTime 12/18/2023 167.64 cm 36.8 kg/m2 71 /min 89 mm[Hg] 55 mm[Hg] Mallory Chaparro [facility] 4 09:31:14 Date Recorded Body weight Provider Name an d Address Organization Details Last Updated DateTime 12/18/2023 345638.47351 g Betty sheffield MD [address], [place], [address], [facility] 12/18/2023 09:38:56 Date Recorded Body height Body mass index (BMI) Body weight Heart rate Systolic blood pressure Diastolic blood pressure Provider Name and Address Organization Details Last Updated DateTime 4 167.64 cm 37.8 kg/m2 770755. 57753 g 80 /min 115 mm[Hg] 60 mm[Hg] Pepper dyer [facility] 4 10:19:59 Social History Question Answer Notes LastModified by Organizat ion Details LastModified Time Tobacco Smoking Status Former Smoker high school and college Ilana Stone (TERMED) [place], [place] - [facility] 09/17/2023 13:46:38 Do You Have An Advance Directive? No Information not available 12/18/2023 What Is Your Level Of Alcohol Consumption? None Information not available 09/17/2023 If You Are , What Was Your Level Of Alcohol Consumption Prior To ? Occasional [email or web address] Information not available 12/18/2023 Is Blood Transfusion Acceptable In An Emergency? Yes Information not available 09/17/2023 What Is Your Level Of Caffeine Consumption? Occasional Information not available 09/17/2023 Are You Currently Employed? Yes [email or web address] Information not available 12/18/2023 What Type Of Diet Are You Following? 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 Information not available 09/17/2023 Are You Sexually Active? Yes Information not available 12/18/2023 Do You Use Any Illicit Or Recreational Drugs? No [email or web address] Information not available 12/18/2023 Do You Or Have You Ever Used Any Other Forms Of Tobacco Or Nicotine? No [email or web address] Information not available 12/18/2023 Sex: Female Functional [...] Skin N GI- Irritable Bowel Syndrome N Cancer- Genetic screening N Cardiology- Heart Disease N GI- Colon [...] Disorder N Psych- Depression N Hematology-Other N Dermatology-Eczema/Psoriasis N Dermatology-Other N Ortho-Chronic Back Pain N ID- HIV N Cancer- Ovary N Cardiology- High Cholesterol N ID- Chicken Pox/Shingles Y Cardiology- Heart Arrhythmia N Rheumatology- Restless Leg Syndrome N Endocrinology- Hyperthyroidism N Endocrinology- Thyroid Problems N Cancer- Breast N Psych- ADD N ID- Herpes N GI- Liver Disease/Hepatitis N Weight Management/Obesity N Cancer- Colon N ENT- Hearing Loss N Cancer- Vulvar N Hematology- Blood Transfusion N Cancer- Vaginal N GI-Other N Neurology- Headaches/Migraines N Endocrinology- Diabetes N Cancer- Cervical N No diseases or conditions N Pulmonary- COPD/Emphysema N Endocrinology- History of Gestational Di abetes N GI- Crohn's/Ulcerative Colitis N Psych- Bipolar Disease N ENT- Seasonal Allergies/Allergic Rhiniti s N Cardiology- High Blood Pressure N Cancer- Lung N Cancer- Endometrial/Uterine N Eyes- Glaucoma N ENT-Other N Eyes- Vision Loss/Macular Degeneration N Rheumatology-Other N Hematology- DVT/Pulmonary Embolism N [...] Encounter Closed Date Diagnosis/Indication Diagnosis SNOMED-CT Code [id number] QUINTEN DALYKVNG Gustafson [id number] [address] [place] [address] 09/17/2023 12:44:33 09/17/2023 14:19:13 test positive [id number] History of bariatric surgical procedure [id number] Advanced m aternal age 727154190 First trim dimitri 73904561 care: grand multiparity [id number] Betty Reich MD [id number] [address] [place] [address] 09/29/2023 11:09:48 09/29/2023 12:05:37 History of bariatric surgical procedure [id number] Advanced m aternal age 104347541 care: grand multiparity 179346815 Vaginal bl eeding complicating early 939939161 [id number] MELANY RATLIFF DO [id number] [address] [place] [address] 10/16/2023 09:03:45 10/16/2023 09:26:57 care: multiparous, older than 35 years 537615004 Gestation period, 12 weeks 46590801 [id number] Andry Corbin MD [id number] [address] [place] [address] 11/19/2023 09:13:37 11/19/2023 09:41:08 Advanced maternal age 861667155 History of bariatric surgical procedure 519486552 Gestation period, 16 weeks 01153538 Headache 72935687 [id number] Betty Reich MD [id number] [address] [place] [address] 12/18/2023 09:11:06 12/18/2023 09:59:08 Advanced maternal age 769851622 History of bariatric surgical procedure 156714058 Gestation period, 21 weeks 34726109 [id number] MELANY RATLIFF DO [id number] [address] [place] [address] 01/20/2024 09:56:39 01/20/2024 10:30:03 care: multiparous, older than 35 years 754439711 Gestation period, 25 weeks 54557604 Maternal o besity complicating , childbirth and the puerperium, antepartum 261349167866 Uterine si ze for dates discrepancy 631620889 Health Concerns Section Related Observation LastModified by Organization Detai ls LastModified Time None Recorded Concern Status LastModified by Organization Details LastModified Time None Recorded Advance Directives Directive N: Payers Encounter Date Sequence Insurance Name Policy Number Policy Campos Covered Member ID Campos Member ID Guarantor Name 01/20/2024 1 [employer] () Bry Walker [id number] Misty Walker 12/18/2023 1 [employer] () Bry Walker [id number] Misty Walker 11/19/2023 1 [employer] () Bry Walker [id number] Misty Walker 10/16/2023 1 [employer] () Bry Walker [id number] Misty Walker 09/29/2023 1 [employer] () Bry Walker [id number] Misty Walker 09/17/2023 1 [employer] () Bry Walker [id number] Misty Walker Notes Date Note Type Note Provider Name a nd Address Organization Details Recorded Time 09/17/2023 text/html HPI Notes: + SAMANTA CASTRO CNM [address], [place], [address], [facility] [place] [facility] 09/17/2023 16:49:21 OBGyn Episode Ob Episode Information Episode Created Date Number of Fetuses Patient Bloodtype Patient rh Status Prepregnancy Weight lbs Domestic Partner Domestic Partner Phone Father Name Co Founder & Ceo Status 09/17/20 23 1 CLOSED Fetus Data First Name Last Name Admitted to NICU Weight (g) Sex Living Outcome Pediatric Complications Fetus ID Race Codes Race Delivery Type 3515.33 8 F Full Term 392665 Vaginal Delivery Kun Calculation Initial Kun Date Initial Exam [...] Complications Tubal Sterilization Discharge Date Comments 9 [facility]-Ep idural 39 WEND[place]. IOL at term, with NRFHT in labor- amnioinfu jarred, no complicat ions after delivery. Lobo Discharge Information Feeding Method Contraceptive Method Maternal HG B and HCT Levels Ob Episode Information Episode Created Date Number of Fetuses Patient Bloodtype Patient rh Status Prepregnancy Weight lbs Domestic Partner Domestic Partner Phone Father Name Co Founder & Ceo Status 09/17/20 23 1 CLOSED Fetus Data First Name Last Name Admitted to NICU Weight (g) Sex Living Outcome Pediatric Complications Fetus ID Race Codes Race Delivery Type 3826.95 5704 F Full Term 713517 Vaginal Delivery Kun Calculation Initial Kun Date Initial Exam [...] Post Complications Tubal Sterilization Discharge Date Comments 2 [facility]-Ep idural 40.4 4 [facility], spontaneo us fast labor. No complicat ions. Magnus Discharge Information Feeding Method Contraceptive Method Maternal HG B and HCT Levels Ob Episode Information Episode Created Date Number of Fetuses Patient Bloodtype Patient rh Status Prepregnancy Weight lbs Domestic Partner Domestic Partner Phone Father Name Co Founder & Ceo Status 09/17/20 23 1 CLOSED Fetus Data First Name Last Name Admitted to NICU Weight (g) Sex Living Outcome Pediatric Complications Fetus ID Race Codes Race Delivery Type 3231.84 3 F Full Term 945321 Vaginal Delivery Kun Calculation Initial Kun Date Initial Exam [...] Complications Tubal Sterilization Discharge Date Comments 8 [facility] idural 41 10 WENDY Flores. IOL for ? growth restricti on, no other complicat ions. 7 months after griselda en Y revision Orinda Discharge Information Feeding Method Contraceptive Method Maternal HG B and HCT Levels Ob Episode Information Episode Created Date Number of Fetuses Patient Bloodtype Patient rh Status Prepregnancy Weight lbs Domestic Partner Domestic Partner Phone Father Name Co Founder & Ceo Status 09/17/20 23 1 CLOSED Fetus Data First Name Last Name Admitted to NICU Weight (g) Sex Living Outcome Pediatric Complications Fetus ID Race Codes Race Delivery Type 3572.03 7 M Full Term 916765 Vaginal Delivery Kun Calculation Initial Kun Date Initial Exam [...] Complications Tubal Sterilization Discharge Date Comments 4 None 40 3 [place]. No complicat ions, fast delivery. [place]ier Discharge Information Feeding Method Contraceptive Method Maternal HG B and HCT Levels Ob Episode Information Episode Created Date Number of Fetuses Patient Bloodtype Patient rh Status Prepregnancy Weight lbs Domestic Partner Domestic Partner Phone Father Name Co Founder & Ceo Status 09/17/20 1 CLOSED Fetus Data First Name Last Name Admitted to NICU Weight (g) Sex Living Outcome Pediatric Complications Fetus ID Race Codes Race Delivery Type 3713.55 7704 F Full Term 488553 Vaginal Delivery Kun Calculation Initial Kun Date Initial Exam [...] Complications Tubal Sterilization Discharge Date Comments 1 Regional- idural 39.4 [place] IOL at term, vaughn bulb, slow PPH after, medically managed. Wilmer Discharge Information Feeding Method Contraceptive Method Maternal HG B and HCT Levels Ob Episode Information Episode Created Date Number of Fetuses Patient Bloodtype Patient rh Status Prepregnancy Weight lbs Domestic Partner Domestic Partner Phone Father Name Co Founder & Ceo Status 09/17/20 1 CLOSED Fetus Data First Name Last Name Admitted to NICU Weight (g) Sex Living Outcome Pediatric Complications Fetus ID Race Codes Race Delivery Type , Spontane ous 958839 Kun Calculation Initial Kun Date Initial Exam [...] Post Complications Tubal Sterilization Discharge Date Comments 3 Discharge Information Feeding Method Contraceptive Method Maternal HG B and HCT Levels Ob Episode Information Episode Created Date Number of Fetuses Patient Bloodtype Patient rh Status Prepregnancy Weight lbs Domestic Partner Domestic Partner Phone Father Name Co Founder & Ceo Status 09/17/20 23 1 CLOSED Fetus Data First Name Last Name Admitted to NICU Weight (g) Sex Living Outcome Pediatric Complications Fetus ID Race Codes Race Delivery Type 4195.72 6 M Full Term 653401 Vaginal Delivery Kun Calculation Initial Kun Date Initial Exam [...] Complications Tubal Sterilization Discharge Date Comments 6 None 40.6 38 Jadon hugo MD, Spontaneo us labor, no complicat ions. Cooper Discharge Information Feeding Method Contraceptive Method Maternal HG B and HCT Levels Ob Episode Information Episode Created Date Number of Fetuses Patient Bloodtype Patient rh Status Prepregnancy Weight lbs Domestic Partner Domestic Partner Phone Father Name Co Founder & Ceo Status 09/17/20 23 1 O Positive 214 Mahad CLOSED Fetus Data First Name Last Name Admitted to NICU Weight (g) Sex Living Outcome Pediatric Complications Fetus ID Race Codes Race Delivery Type [id number] Problems Problem Notes Problem Name Start Date End Date Resolution Snomed Code Not e Maternal obesity complicating , childbirth and the puerperium, antepartum 01/20/2024 [id number] History of bariatric surgical procedure 09/17/2023 051518671 griselda en Y ; NO glucola, needs gluocse monitoring Routine care 1087040 03 Advanced maternal age 009895135 38, lvl 2-nl, n eeds monthly growth [...] ated Date of Delivery true 39 Thalassemia (Upper Sor[place], [place], Mediterranean, [place] Background): MCV < 80 false Neural Tube Defect (Meningomyelocele, Spina Bifi da, Or Anencephaly) false Congenital Heart Defect false Down Syndrome false Sixto-Sachs (eg, Synagogue, Cajun, [place]er-[place]) f alse Danii Disease false Sickle Cell Disease Or Trait () false Hemophilia Or Other Blood Disorders false Muscular Dystrophy false Cystic Fibrosis false Merle's Chorea false Intellectual Disability/Autism false If Yes, [...]
--- OUTSIDE RECORDS SUMMARY | 2024-03-10 10:52 | XMS_ITS | Data Portability ---
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 Plan of Treatment Reminders Order Date Submit Date Provider Last Modified By Organization Details Last Modified Time Details Appointments None recorded. Lab pap, LB + reflex HR HPV [address] [facility], [address], [place], [address], 19:19:10 streptococc us group B, culture, unspecified specimen [address] [facility] (Lab), [address], [address], [place], [address], 1 22:16:39 glucose, serum or plasma 2019 020 [facility] (Lab), [address], [address], [place], [address], 0 14:09:09 CBC 2019 020 [facility] (Lab), [address], [address], [place], [address], 0 13:34:48 HIV (1+2) Ab screen, serum 2019 020 [facility] (Lab), [address], [address], [place], [address], 0 13:06:19 RPR (rapid plasma reagin), serum 2019 020 [facility] (Lab), [address] [facility] [address], [address], [place], [address], 0 09:06:46 Referral None recorded. Procedures None recorded. Surgeries None recorded. Imaging US, obstetric, limited - For growth 2020 021 [facility] (Imaging), [address] [facility] [address], [place], [address], 1 17:01:11 Medication Orders None recorded. Patient TargetsNo targets recorded. Patient InstructionsNo instructions recorded. Reason for Referral None Reported. Results Created Date Observation Date Name Description Value Unit Range Abnormal Flag LastModifiedBy Organization Detail LastModifiedTime 02/06/20 19 02/05/2019 cultu re, urine urine culture, routine final report Not Available [facility] (Lab) [address] [facility] [address], [place], [address], 08/20/2020 03:11:38 02/06/20 19 02/05/2019 cultu re, urine result 1 no growth Not Available [facility] (Lab) [address] [facility] [address], [place], [address], 08/20/2020 03:11:38 02/06/20 19 02/05/2019 HIV (1+2) Ab scree n, serum HIV screen 4TH generation wrfx non reacti ve non reacti ve Not Available [facility] (Lab) [address] [facility] [address], [place], [address], 08/20/2020 03:04:24 02/06/20 19 02/05/2019 obste tric scree n, serum or blood HBsAg screen negati ve negati ve Not Available [facility] (Lab) [address] [facility] [address], [place], [address], 08/20/2020 03:04:23 02/06/20 19 02/05/2019 obste tric scree n, serum or blood RPR non reacti ve non reacti ve Not Available [facility] (Lab) [address] [facility] [address], [place], [address], 08/20/2020 03:04:23 02/06/20 19 02/05/2019 obste tric scree n, serum or blood rubella antibodies, IgG 1.79 index immune >0.99 Not Available [facility] (Lab) [address] [facility] [address], [place], [address], 08/20/2020 03:04:23 02/06/20 19 02/05/2019 obste tric scree n, serum or blood ABO grouping O Not Available [facility] (Lab) [address] [facility] [address], [place], [address], 08/20/2020 03:04:23 02/06/20 19 02/05/2019 obste tric scree n, serum or blood Rh factor positi ve Not Available [facility] (Lab) [address] [facility] [address], [place], [address], 08/20/2020 03:04:23 02/06/2002/05/2019 obste tric scree n, serum or blood antibody screen negati ve negati ve Not Available [facility] (Lab) [address] [facility] [address], [place], [address], 08/20/2020 03:04:23 02/06/2002/05/2019 obste tric scree n, serum or blood WBC 8.9 x10e3 /uL 3.4-10 .8 Not Available [facility] (Lab) [address] [facility] [address], [place], [address], 08/20/2020 03:04:23 03/29/20 19 02/05/2019 obste tric scree n, serum or blood RBC 4.22 x10e6 /uL 3.77-5 .28 Not Available [facility] (Lab) [address] [facility] [address], [place], [address], 08/20/2020 03:04:23 02/06/20 19 02/05/2019 obste tric scree n, serum or blood hemoglobin 12.6 g/dL 11.1-1 5.9 Not Available [facility] (Lab) [address] [facility] [address], [place], [address], 08/20/2020 03:04:23 02/06/20 19 02/05/2019 obste tric scree n, serum or blood hematocrit 38.9 % 34.0-4 6.6 Not Available [facility] (Lab) [address] [facility] [address], [place], [address], 08/20/2020 03:04:23 02/06/20 19 02/05/2019 obste tric scree n, serum or blood MCV 92 fL 79-97 Not Available [facility] (Lab) [address] [facility] [address], [place], [address], 08/20/2020 03:04:23 02/06/20 19 02/05/2019 obste tric scree n, serum or blood MCH 29.9 pg 26.6-3 3.0 Not Available [facility] (Lab) [address] [facility] [address], [place], [address], 08/20/2020 03:04:23 02/06/20 19 02/05/2019 obste tric scree n, serum or blood MCHC 32.4 g/dL 31.5-3 5.7 Not Available [facility] (Lab) [address] [facility] [address], [place], [address], 08/20/2020 03:04:23 02/06/20 19 02/05/2019 obste tric scree n, serum or blood RDW 14.3 % 12.3-1 5.4 Not Available [facility] (Lab) [address] [facility] [address], [place], [address], 08/20/2020 03:04:23 02/06/20 19 02/05/2019 obste tric scree n, serum or blood platelets 347 x10e3 /uL 150-37 9 Not Available [facility] (Lab) [address] [facility] [address], [place], [address], 08/20/2020 03:04:23 02/06/20 19 02/05/2019 obste tric scree n, serum or blood neutrophils 75 % not estab. Not Available [facility] (Lab) [address] [facility] [address], [place], [address], 08/20/2020 03:04:23 02/06/20 19 02/05/2019 obste tric scree n, serum or blood lymphs 19 % not estab. Not Available [facility] (Lab) [address] [facility] [address], [place], [address], 08/20/2020 03:04:23 02/06/20 19 02/05/2019 obste tric scree n, serum or blood monocytes 5 % not estab. Not Available [facility] (Lab) [address] [facility] [address], [place], [address], 08/20/2020 03:04:23 02/06/20 19 02/05/2019 obste tric scree n, serum or blood eos 1 % not estab. Not Available [facility] (Lab) [address] [facility] [address], [place], [address], 08/20/2020 03:04:23 02/06/20 19 02/05/2019 obste tric scree n, serum or blood basos 0 % not estab. Not Available [facility] (Lab) [address] [facility] [address], [place], [address], 08/20/2020 03:04:23 02/06/20 19 02/05/2019 obste tric scree n, serum or blood neutrophils (absolute) 6.6 x10e3 /uL 1.4-7. 0 Not Available [facility] (Lab) [address] [facility] [address], [place], [address], 08/20/2020 03:04:23 02/06/20 19 02/05/2019 obste tric scree n, serum or blood lymphs (absolute) 1.7 x10e3 /uL 0.7-3. 1 Not Available [facility] (Lab) [address] [facility] [address], [place], [address], 08/20/2020 03:04:23 02/06/20 19 02/05/2019 obste tric scree n, serum or blood monocytes(ab solute) 0.5 x10e3 /uL 0.1-0. 9 Not Available [facility] (Lab) [address] [facility] [address], [place], [address], 08/20/2020 03:04:23 02/06/20 19 02/05/2019 obste tric scree n, serum or blood eos (absolute) 0.1 x10e3 /uL 0.0-0. 4 Not Available [facility] (Lab) [address] [facility] [address], [place], [address], 08/20/2020 03:04:23 02/06/20 19 02/05/2019 obste tric scree n, serum or blood baso (absolute) 0.0 x10e3 /uL 0.0-0. 2 Not Available [facility] (Lab) [address] [facility] [address], [place], [address], 08/20/2020 03:04:23 02/06/20 19 02/05/2019 obste tric scree n, serum or blood immature granulocytes 0 % not estab. Not Available [facility] (Lab) [address] [facility] [address], [place], [address], 08/20/2020 03:04:23 02/06/20 19 02/05/2019 obste tric scree n, serum or blood immature grans (abs) 0.0 x10e3 /uL 0.0-0. 1 Not Available [facility] (Lab) [address] [facility] [address], [place], [address], 08/20/2020 03:04:23 02/12/20 19 02/11/2019 vitam in B12, serum vitamin B12 1983 pg/mL 232-12 45 high Not Available [facility] (Lab) [address] [facility] [address], [place], [address], 08/20/2020 04:06:09 02/12/20 19 02/11/2019 iron, serum iron 68 ug/dL 27-159 Not Available [facility] (Lab) [address] [facility] [address], [place], [address], 08/20/2020 04:06:09 02/12/20 19 02/11/2019 HbA1c (hemo globi n A1c), blood HGBA1C 4.9 % 4.2-5. 8 Not Available [facility] (Lab) [address] [facility] [address], [place], [address], 08/20/2020 04:06:07 07/05/20 20 07/05/2020 cultu re, urine urine culture, routine final report Not Available [facility] (Lab) [address] [facility] [address], [place], [address], 08/16/2020 16:46:37 07/05/20 20 07/05/2020 cultu re, urine result 1 no growth Not Available [facility] (Lab) [address] [facility] [address], [place], [address], 08/16/2020 16:46:37 07/05/20 20 07/05/2020 HbA1c (hemo globi n A1c), blood HGBA1C 5.4 % 4.2-5. 8 Not Available [facility] (Lab) [address] [facility] [address], [place], [address], 08/16/2020 16:44:54 07/05/20 20 07/05/2020 vitam in B12, serum vitamin B12 1074 pg/mL 232-12 45 Not Available [facility] (Lab) [address] [facility] [address], [place], [address], 08/16/2020 16:44:56 07/05/20 20 07/05/2020 obste tric scree n, serum or blood HBsAg screen negati ve negati ve Not Available [facility] (Lab) [address] [facility] [address], [place], [address], 08/16/2020 16:44:55 07/05/20 20 07/05/2020 obste tric scree n, serum or blood RPR non reacti ve non reacti ve Not Available [facility] (Lab) [address] [facility] [address], [place], [address], 08/16/2020 16:44:55 07/05/20 20 07/05/2020 obste tric scree n, serum or blood rubella antibodies, IgG 2.21 index immune >0.99 Not Available [facility] (Lab) [address] [facility] [address], [place], [address], 08/16/2020 16:44:55 07/05/20 20 07/05/2020 obste tric scree n, serum or blood ABO grouping O Not Available [facility] (Lab) [address] [facility] [address], [place], [address], 08/16/2020 16:44:55 07/05/20 20 07/05/2020 obste tric scree n, serum or blood Rh factor positi ve Not Available [facility] (Lab) [address] [facility] [address], [place], [address], 08/16/2020 16:44:55 07/05/20 20 07/05/2020 obste tric scree n, serum or blood antibody screen negati ve negati ve Not Available [facility] (Lab) [address] [facility] [address], [place], [address], 08/16/2020 16:44:55 07/05/20 20 07/05/2020 obste tric scree n, serum or blood WBC 10.3 x10e3 /uL 3.4-10 .8 Not Available [facility] (Lab) [address] [facility] [address], [place], [address], 08/16/2020 16:44:55 07/05/20 20 07/05/2020 obste tric scree n, serum or blood RBC 4.42 x10e6 /uL 3.77-5 .28 Not Available [facility] (Lab) [address] [facility] [address], [place], [address], 08/16/2020 16:44:55 07/05/20 20 07/05/2020 obste tric scree n, serum or blood hemoglobin 10.7 g/dL 11.1-1 5.9 low Not Available [facility] (Lab) [address] [facility] [address], [place], [address], 08/16/2020 16:44:55 07/05/20 20 07/05/2020 obste tric scree n, serum or blood hematocrit 34.8 % 34.0-4 6.6 Not Available [facility] (Lab) [address] [place] [address] [address], [place], [address], 08/16/2020 16:44:55 07/05/20 20 07/05/2020 obste tric scree n, serum or blood MCV 79 fL 79-97 Not Available [facility] (Lab) [address] [facility] [address], [place], [address], 08/16/2020 16:44:55 07/05/20 20 07/05/2020 obste tric scree n, serum or blood MCH 24.2 pg 26.6-3 3.0 low Not Available [facility] (Lab) [address] [facility] [address], [place], [address], 08/16/2020 16:44:55 07/05/20 20 07/05/2020 obste tric scree n, serum or blood MCHC 30.7 g/dL 31.5-3 5.7 low Not Available [facility] (Lab) [address] [facility] [address], [place], [address], 08/16/2020 16:44:55 07/05/20 20 07/05/2020 obste tric scree n, serum or blood RDW 16.7 % 11.7-1 5.4 high Not Available [facility] (Lab) [address] [facility] [address], [place], [address], 08/16/2020 16:44:55 07/05/20 20 07/05/2020 obste tric scree n, serum or blood platelets 394 x10e3 /uL 150-45 0 Not Available [facility] (Lab) [address] [facility] [address], [place], [address], 08/16/2020 16:44:55 07/05/20 20 07/05/2020 obste tric scree n, serum or blood neutrophils 77 % not estab. Not Available [facility] (Lab) [address] [facility] [address], [place], [address], 08/16/2020 16:44:55 07/05/20 20 07/05/2020 obste tric scree n, serum or blood lymphs 16 % not estab. Not Available [facility] (Lab) [address] [facility] [address], [place], [address], 08/16/2020 16:44:55 07/05/20 20 07/05/2020 obste tric scree n, serum or blood monocytes 7 % not estab. Not Available [facility] (Lab) [address] [facility] [address], [place], [address], 08/16/2020 16:44:55 07/05/20 20 07/05/2020 obste tric scree n, serum or blood eos 0 % not estab. Not Available [facility] (Lab) [address] [facility] [address], [place], [address], 08/16/2020 16:44:55 07/05/20 20 07/05/2020 obste tric scree n, serum or blood basos 0 % not estab. Not Available [facility] (Lab) [address] [facility] [address], [place], [address], 08/16/2020 16:44:55 07/05/20 20 07/05/2020 obste tric scree n, serum or blood neutrophils (absolute) 7.8 x10e3 /uL 1.4-7. 0 high Not Available [facility] (Lab) [address] [facility] [address], [place], [address], 08/16/2020 16:44:55 07/05/20 20 07/05/2020 obste tric scree n, serum or blood lymphs (absolute) 1.7 x10e3 /uL 0.7-3. 1 Not Available [facility] (Lab) [address] [facility] [address], [place], [address], 08/16/2020 16:44:55 07/05/20 20 07/05/2020 obste tric scree n, serum or blood monocytes(ab solute) 0.7 x10e3 /uL 0.1-0. 9 Not Available [facility] (Lab) [address] [facility] [address], [place], [address], 08/16/2020 16:44:55 07/05/20 20 07/05/2020 obste tric scree n, serum or blood eos (absolute) 0.0 x10e3 /uL 0.0-0. 4 Not Available [facility] (Lab) [address] [facility] [address], [place], [address], 08/16/2020 16:44:55 07/05/20 20 07/05/2020 obste tric scree n, serum or blood baso (absolute) 0.0 x10e3 /uL 0.0-0. 2 Not Available [facility] (Lab) [address] [facility] [address], [place], [address], 08/16/2020 16:44:55 07/05/20 20 07/05/2020 obste tric scree n, serum or blood immature granulocytes 0 % not estab. Not Available [facility] (Lab) [address] [facility] [address], [place], [address], 08/16/2020 16:44:55 07/05/20 20 07/05/2020 obste tric scree n, serum or blood immature grans (abs) 0.0 x10e3 /uL 0.0-0. 1 Not Available [facility] (Lab) [address] [facility] [address], [place], [address], 08/16/2020 16:44:55 07/05/20 20 07/05/2020 HIV (1+2) Ab scree n, serum HIV screen 4TH generation wrfx non reacti ve non reacti ve Not Available [facility] (Lab) [address] [facility] [address], [place], [address], 08/16/2020 16:44:53 11/07/20 20 11/07/2020 CBC WBC 10.3 K/uL 4.5-11 .0 Not Available [facility] (Lab) [address] [facility] [address], [place], [address], 11/07/2020 13:34:48 11/07/20 20 11/07/2020 CBC RBC 3.70 M/uL 3.50-5 .50 Not Available [facility] (Lab) [address] [facility] [address], [place], [address], 11/07/2020 13:34:48 11/07/20 20 11/07/2020 CBC HGB 10.1 g/dL 12.0-1 6.0 low Not Available [facility] (Lab) [address] [facility] [address], [place], [address], 11/07/2020 13:34:48 11/07/20 20 11/07/2020 CBC HCT 31.6 % 34.0-4 4.0 low Not Available [facility] (Lab) [address] [facility] [address], [place], [address], 11/07/2020 13:34:48 11/07/20 20 11/07/2020 CBC MCV 85.4 fL 76.0-1 00.0 Not Available [facility] (Lab) [address] [facility] [address], [place], [address], 11/07/2020 13:34:48 11/07/20 20 11/07/2020 CBC MCH 27.3 pg 27.0-3 3.0 Not Available [facility] (Lab) [address] [facility] [address], [place], [address], 11/07/2020 13:34:48 11/07/20 20 11/07/2020 CBC MCHC 32.0 g/dL 32.0-3 7.0 Not Available [facility] (Lab) [address] [facility] [address], [place], [address], 11/07/2020 13:34:48 11/07/20 20 11/07/2020 CBC RDW-SD 46 fL 38-48 Not Available [facility] (Lab) [address] [facility] [address], [place], [address], 11/07/2020 13:34:48 11/07/20 20 11/07/2020 CBC RDW CV 14.5 % 11.0-1 4.5 Not Available [facility] (Lab) [address] [facility] [address], [place], [address], 11/07/2020 13:34:48 11/07/20 20 11/07/2020 CBC plt 353.0 K/uL 150.0- 400.0 Not Available [facility] (Lab) [address] [facility] [address], [place], [address], 11/07/2020 13:34:48 11/07/20 20 11/07/2020 gluco se, serum or plasm a glu 75 mg/dL 74-106 Not Available [facility] (Lab) [address] [facility] [address], [place], [address], 11/07/2020 14:09:09 11/07/20 20 11/07/2020 RPR (rapi d plasm a reagi n), serum RPR non reacti ve non reacti ve Not Available [facility] (Lab) [address] [facility] [address], [place], [address], 11/08/2020 09:06:46 11/07/20 20 11/07/2020 HIV (1+2) Ab scree n, serum HIV screen 4TH generation wrfx non reacti ve non reacti ve Not Available [facility] (Lab) [address] [facility] [address], [place], [address], 11/08/2020 13:06:19 01/04/20 21 01/04/2021 strep tococ cus group B, cultu re, unspe cifie d speci men strep gp B IRAIS positi ve negati ve abnormal Not Available [facility] (Lab) [address] [facility] [address], [place], [address], 01/06/2021 12:06:25 12/15/19 21 12/15/2020 US, obste tric, limit ed Proced ure: US PELVIS OBSTET JOHNSON LIMITE D Indica tion: Provid ed histor y of O09.52 3 superv ision of elderl y multig ravidd a, 3rd trimes ter. Techni que: Multip lanar graysc kimani and M-mode sonogr aphic imagin g of the pelvis is perfor med. Compar alexandria: No prior exams for the curren t pregna ncy availa ble for compar [place]andria. Findin gs: Within the uterus there is a single living gestat ion. Presen tation is cephal ic. Placen ta is fundal . There are no identi fied retrop lacent al fluid collec tions. There is positi ve heart motion . heart rate was identi fied at 131 beats per minute . Amniot ic fluid volume is subjec tively normal for EGA. BENTLEY of 19.3 cm, greate st vertic al pocket of 7.8 cm. The cervix is closed , measur ing 4.8 cm in length . Limite d anatom ic scanni ng for growth . Please see any availa ble prior exams for anatom ic survey . biomet rics: Reg finch weight based on today' s measur ements is 2395 g, 77th percen tile by provid ed dates. The approx imate mean gestat ional age by today' s measur ements is 34 weeks 3 days +/- 2 weeks 3 days. BPD: 8.66 cm, 35 weeks, 0 days, 89 % HC: 30.92 cm, 34 weeks, 4 days, 49.10 % AC: 30.71 cm, 34 weeks, 5 days, 88.50 % FL: 6.45 cm, 33 weeks, 2 days, 42.30 % Cephal ic index: 80.30, within normal limits . HC/AC: 1.01, within normal limits . FL/BPD : 74.50, within normal limits . FL/AC: 21.00, within normal limits . IMPRES MAX: 1. Single live intrau terine pregna ncy with estimyohannes finch gestat ional age based upon today' s measur ements of 34 weeks 3 days, estima josette gestat ional age based on provid ed dates of 33 weeks 1 day and provid ed LJ of 021. 2. Estimyohannes finch weight at the 77th percen tile by provid ed dates. Additi onal biomet rics as above. 3. Upper normal BENTLEY. Closed cervix . Cephal ic presen tation . Tuan vaz M.D. Dictat ed by: Tuan vaz M.D. on 021 at 15:57 Approv ed by: Tuan vaz M.D. on 021 at 16:00 [place] [facility] [address] [facility] [address], [place], [address], 12/31/2020 15:03:11 Result Notes None recorded. Problems Name Status Onset Date Resolution Date Notes Provider Name and Address Organization Details Recorded Time Completed 0 03/16/2021 Becky Wan [facility] 03/16/2021 11:23:52 Completed 9 09/27/2019 [facility] 11:23:52 Completed 8 08/18/2018 Beckyderian Wan [facility] 03/16/2021 11:23:52 Problem Notes None recorded. Procedures Surgical History Date Name Laterality Status Provider Name and Address Organization Details Recorded Time 9 Date of Last Pap Smear completed JAMI CERNA) [facility] 07/31/2020 16:34:02 7 gastric anastomosis revision completed Naheedsa Tirado [facility] 08/13/2020 23:11:03 1 bariatric operative procedure completed Naheedsa Tirado [facility] 08/13/2020 23:10:23 1 [place] teeth surgery completed [facility] Celestino [facility] 08/13/2020 23:11:27 Imaging Results Imaging Date Name Status LastModified by Organiz ation Details LastModified Time 12/15/2020 US, obstetric, limited completed [facility] (Imaging) [address], [place], [address], 12/31/2020 15:03:11 Procedure Notes None recorded. Medical Equipment None Reported. Allergies No known drug allergies Medications Name Sig Start Date Stop Date Status Note LastModified by Organization Details LastModified Time Iron (ferrous sulfate) 325 mg (65 mg iron) tablet Take 1 tablet 3 times a day by oral route. 2017 active Not Available Not Available Not Avai lable Vitamin B-12 1,000 mcg tablet Take 1 tablet every day by oral route. 2017 active Not Available Not Available Not Avai lable Vitamin 1 po QD 2017 active Not Available Not Available Not Avai lable Calcium 500 + D 2 tablets po QD 2017 active Not Available Not Available Not Avai lable ferrous gluconate 324 mg (38 mg iron) tablet Take 1 tablet 3 times a day by oral route. 02/05 completed Not Available Not Available Not Available Vitals Date Recorded Body weight Provider Name an d Address Organization Details Last Updated DateTime 07/05/2020 66482.32593 g JAMI LI (OLD) [facility] 07/28/2020 11:05:42 Date Recorded Body mass index (BMI) Body height Body weight Provider Name and Address Organization Details Last Updated DateTime 07/05/2020 35.3 kg/m2 167.64 cm 25685.729 g Not Available [facility] 08/14/2020 00:01:40 Date Recorded Body weight Systolic blood pressure Diastolic blood pressure Provider Name and Address Organization Details Last Updated DateTime 07/13/2020 50821.7290 3 g 132 mm[Hg] 80 mm[Hg] JAMI LI (OLD) null, [facility] 07/28/2020 11:05:42 Date Recorded Body mass index (BMI) Body height Body weight Systolic blood pressure Diastolic blood pressure Provider Name and Address Organization Details Last Updated DateTime 07/13/2020 35.3 kg/m2 167.64 cm 56201.72 9 g 132 mm[Hg] 80 mm[Hg] Not Available [facility] 0 00:01:39 Date Recorded Body mass index (BMI) Body height Body weight Systolic blood pressure Diastolic blood pressure Provider Name and Address Organization Details Last Updated DateTime 04/03/2018 33.6 kg/m2 167.64 cm 51134.21 3 g 106 mm[Hg] 68 mm[Hg] Not Available [facility] 0 00:01:39 Date Recorded Body mass index (BMI) Body height Body weight Systolic blood pressure Diastolic blood pressure Provider Name and Address Organization Details Last Updated DateTime 04/17/2018 34.1 kg/m2 167.64 cm 51227.99 01 g 124 mm[Hg] 72 mm[Hg] Not Available [facility] 0 00:01:39 Date Recorded Body mass index (BMI) Body height Body weight Systolic blood pressure Diastolic blood pressure Provider Name and Address Organization Details Last Updated DateTime 04/28/2018 34.2 kg/m2 167.64 cm 89300.58 24 g 124 mm[Hg] 68 mm[Hg] Not Available [facility] 0 00:01:39 Date Recorded Body mass index (BMI) Body height Body weight Systolic blood pressure Diastolic blood pressure Provider Name and Address Organization Details Last Updated DateTime 05/12/2018 34.7 kg/m2 167.64 cm 50631.35 96 g 126 mm[Hg] 76 mm[Hg] Not Available [facility] 0 00:01:39 Date Recorded Body mass index (BMI) Body height Body weight Systolic blood pressure Diastolic blood pressure Provider Name and Address Organization Details Last Updated DateTime 05/18/2018 34.7 kg/m2 167.64 cm 68479.35 96 g 112 mm[Hg] 62 mm[Hg] Not Available [facility] 0 00:01:39 Date Recorded Body mass index (BMI) Body height Body weight Systolic blood pressure Diastolic blood pressure Provider Name and Address Organization Details Last Updated DateTime 06/29/2018 32.8 kg/m2 167.64 cm 52922.25 11 g 128 mm[Hg] 74 mm[Hg] Not Available [facility] 0 00:01:39 Date Recorded Body mass index (BMI) Body height Body weight Systolic blood pressure Diastolic blood pressure Provider Name and Address Organization Details Last Updated DateTime 02/05/2019 34.2 kg/m2 167.64 cm 83154.58 24 g 128 mm[Hg] 72 mm[Hg] Not Available [facility] 0 00:01:39 Date Recorded Body mass index (BMI) Body height Body weight Systolic blood pressure Diastolic blood pressure Provider Name and Address Organization Details Last Updated DateTime 2019 34.5 kg/m2 167.64 cm 26984.76 72 g 114 mm[Hg] 72 mm[Hg] Not Available [facility] 0 00:01:39 Date Recorded Body mass index (BMI) Body height Body weight Systolic blood pressure Diastolic blood pressure Provider Name and Address Organization Details Last Updated DateTime 03/24/2019 34.5 kg/m2 167.64 cm 08405.76 72 g 110 mm[Hg] 70 mm[Hg] Not Available [facility] 0 00:01:39 Date Recorded Body mass index (BMI) Body height Body weight Systolic blood pressure Diastolic blood pressure Provider Name and Address Organization Details Last Updated DateTime 04/26/2019 35.5 kg/m2 167.64 cm 66787.32 14 g 110 mm[Hg] 72 mm[Hg] Not Available [facility] 0 00:01:39 Date Recorded Body mass index (BMI) Body height Body weight Systolic blood pressure Diastolic blood pressure Provider Name and Address Organization Details Last Updated DateTime 06/03/2019 36.8 kg/m2 167.64 cm 931392.0 6 g 120 mm[Hg] 68 mm[Hg] Not Available [facility] 0 00:01:39 Date Recorded Body mass index (BMI) Body height Body weight Systolic blood pressure Diastolic blood pressure Provider Name and Address Organization Details Last Updated DateTime 06/22/2019 37 kg/m2 167.64 cm 752164.6 53 g 124 mm[Hg] 74 mm[Hg] Not Available [facility] 0 00:01:39 Date Recorded Body mass index (BMI) Body height Body weight Systolic blood pressure Diastolic blood pressure Provider Name and Address Organization Details Last Updated DateTime 07/06/2019 37.4 kg/m2 167.64 cm 515743.4 3 g 100 mm[Hg] 66 mm[Hg] Not Available [facility] 0 00:01:39 Date Recorded Body mass index (BMI) Body height Body weight Systolic blood pressure Diastolic blood pressure Provider Name and Address Organization Details Last Updated DateTime 07/20/2019 37.8 kg/m2 167.64 cm 213605.6 15 g 102 mm[Hg] 74 mm[Hg] Not Available [facility] 0 00:01:39 Date Recorded Body mass index (BMI) Body height Body weight Systolic blood pressure Diastolic blood pressure Provider Name and Address Organization Details Last Updated DateTime 07/29/2019 37.8 kg/m2 167.64 cm 209808.6 15 g 138 mm[Hg] 68 mm[Hg] Not Available [facility] 0 00:01:39 Date Recorded Body mass index (BMI) Body height Body weight Systolic blood pressure Diastolic blood pressure Provider Name and Address Organization Details Last Updated DateTime 08/06/2019 38.1 kg/m2 167.64 cm 179979.7 99 g 124 mm[Hg] 68 mm[Hg] Not Available [facility] 0 00:01:39 Date Recorded Body mass index (BMI) Body height Body weight Systolic blood pressure Diastolic blood pressure Provider Name and Address Organization Details Last Updated DateTime 08/11/2019 37.9 kg/m2 167.64 cm 691514.2 07 g 116 mm[Hg] 78 mm[Hg] Not Available [facility] 0 00:01:39 Date Recorded Body mass index (BMI) Body height Body weight Provider Name and Address Organization Details Last Updated DateTime 09/23/2019 35.7 kg/m2 167.64 cm 438375.914 g Not Available [facility] 08/14/2020 00:01:40 Date Recorded Body weight Systolic blood pressure Diastolic blood pressure Provider Name and Address Organization Details Last Updated DateTime 05/06/2018 08323.9519 g 122 mm[Hg] 74 mm[Hg] Not Available [facility] 08/14/2020 00:01:39 Date Recorded Body height Body weight Systolic blood pressure Diastolic blood pressure Provider Name and Address Organization Details Last Updated DateTime 08/14/2020 167.64 cm 179454.91 377 g 132 mm[Hg] 74 mm[Hg] Lisseth Amin (OLD) [facility] 08/14/2020 10:19:53 Date Recorded Body mass index (BMI) Provider Name and Address Organization Details Last Updated DateTime 08/14/2020 35.7 kg/m2 Not Available [facility] 0 15:03:22 Date Recorded Body height Body mass index (BMI) Body weight Systolic blood pressure Diastolic blood pressure Provider Name and Address Organization Details Last Updated DateTime 09/12/2020 167.64 cm 36 kg/m2 922501.0 9851 g 118 mm[Hg] 72 mm[Hg] Marija Ziegler [facility] 0 10:00:39 Date Recorded Body height Body mass index (BMI) Body weight Systolic blood pressure Diastolic blood pressure Provider Name and Address Organization Details Last Updated DateTime 10/10/2020 167.64 cm 37.1 kg/m2 945576.2 451 g 114 mm[Hg] 68 mm[Hg] JAMI LI (OLD) [facility], [facility] 0 10:04:30 Date Recorded Body height Body mass index (BMI) Body weight Systolic blood pressure Diastolic blood pressure Provider Name and Address Organization Details Last Updated DateTime 11/07/2020 167.64 cm 38.1 kg/m2 616255.7 9932 g 118 mm[Hg] 72 mm[Hg] Marija Ziegler [facility], [facility] 0 10:19:20 Date Recorded Body height Body mass index (BMI) Body weight Systolic blood pressure Diastolic blood pressure Provider Name and Address Organization Details Last Updated DateTime 11/30/2020 167.64 cm 38.6 kg/m2 290036.5 7643 g 102 mm[Hg] 62 mm[Hg] JAMI LI (OLD) [facility], [facility] 1 11:43:27 Date Recorded Body height Body weight Systolic blood pressure Diastolic blood pressure Provider Name and Address Organization Details Last Updated DateTime 01/04/2021 167.64 cm 491997.31 539 g 112 mm[Hg] 60 mm[Hg] Matilda Kowalskit [facility] 01/04/2021 11:08:09 Date Recorded Body height Body mass index (BMI) Body weight Systolic blood pressure Diastolic blood pressure Provider Name and Address Organization Details Last Updated DateTime 01/18/2021 167.64 cm 40 kg/m2 417375.9 0776 g 124 mm[Hg] 82 mm[Hg] JAMI LI (OLD) [facility], [facility] 12:37:59 Date Recorded Body height Body mass index (BMI) Body weight Systolic blood pressure Diastolic blood pressure Provider Name and Address Organization Details Last Updated DateTime 03/12/2021 167.64 cm 37.3 kg/m2 897520.8 3747 g 112 mm[Hg] 68 mm[Hg] Marija Ziegler [facility] 11:50:45 Social History Question Answer Notes LastModified by Organizat ion Details LastModified Time Tobacco Smoking Status Former Smoker Naheed Tirado [facility], [facility] 08/13/2020 23:04:59 Animal Exposure? No Information not available 08/13/2020 Is Blood Transfusion Acceptable In An Emergency? Yes [email or web address] Information not available 08/13/2020 Do You Or Have You Ever Used E-cigarettes Or Vape? 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 Master [employer] [email or web address] Information not available 08/13/2020 How Often Do You Have A DRINK Containing ALCOHOL? Never [email or web address] Information not available 08/13/2020 Marital Status [email or web address] Informatio n not available 08/13/2020 What Was The Date Of Your Most Recent Tobacco Screening? 02/05/2019 Information not available 08/13/2020 Are You Passively Exposed To Smoke? No [email or web address] Information not available 08/13/2020 Do You Or Have You Ever Used Smokeless Tobacco? Never Used Smokeless Tobacco [email or web address] Information not available 08/13/2020 How Much Tobacco Do You Smoke? No [email or web address] Information not available 08/13/2020 How Many Years Have You Smoked Tobacco? 5 [email or web address] Information not available 08/13/2020 Do You Have Symptoms Associated With Zika Virus (fever, Rash, Joint Pain, Or Conjunctivitis )? No [email or web address] Information not available 08/13/2020 Have You Recently (within The Last 12 Weeks, Or During A Current ) Traveled To Or Lived In A Zika-affected Area? No [email or web address] Information not available 08/13/2020 Sex: Female Functional Status None recorded. Mental Status None recorded. Family History Relationship Description Onset Age of this Age Resolved Age Notes Father No current problems or disability Mother No current problems or disability Sister Asthma Medical History Condition Response Anesthesia Complications Y Headaches Y Gynecological History Statement/Question Response Abnormal Pap N Flow Moderate Date of LMP 04/27/2020 STIs/STDs N HPV Vaccine N Duration of Flow (days) 7 Age at Menarche 12 Current Control Method None Frequency of Cycle (Q days) 32 Sexually Active? Y Normal Menses Y Menses Monthly Y Date of Last Pap Smear 09/23/2019 Are you Y Obstetrics History GPAL:G 5 P 6 0 0 6 Type Value Full Term 6 Living 6 Total 5 Immunizations Vaccine Type Date Status Provider Name a nd Address Organization Details Recorded Time Tdap 06/22/2019 completed Not Available [facility] 00:10:08 Tdap 11/07/2020 completed Kimberli Huff(OL Janay) [facility] 11/07/2020 10:07:06 Past Encounters Encounter ID Performer Location Encounter Start Date Encounter Closed Date Diagnosis/Indication Diagnosis SNOMED-CT Code [id number] Becky Workmanston CR_PRMR_OB AUTOPSY PATHOLOGIST [address] [facility] [place], [place] [address] 07/05/2020 00:00:00 [id number] Becky Workmanhelder LOPEZ_PRMR_OB AUTOPSY PATHOLOGIST [address] [facility] [place], [place] [address] 07/13/2020 00:00:00 [id number] MD JOHN Sorto_PRMR_OB AUTOPSY PATHOLOGIST [address] [facility] [place] [address] 08/14/2020 10:10:48 08/14/2020 11:02:08 Advanced maternal age [id number] MD JOHN Sorto_PRMR_OB AUTOPSY PATHOLOGIST [address] [place] [id number] 09/12/2020 09:46:31 09/12/2020 10:35:48 Advanced maternal age [id number] MD JOHN Sorto_PRMR_OB AUTOPSY PATHOLOGIST [address] [place] [address] 10/10/2020 09:51:37 10/10/2020 11:04:50 Routine care [id number] Advanced m aternal age [id number] MD JOHN Sorto_PRMR_OB AUTOPSY PATHOLOGIST [address] [facility] [place] [address] 11/07/2020 09:52:48 11/07/2020 10:48:17 Administration of viral vaccine [id number] Routine an tenatal care 778014859 Advanced m aternal age 344624003 [id number] MD JOHN Sorto_PRMR_OB AUTOPSY PATHOLOGIST [address] [facility] [place] [address] 11/30/2020 11:21:05 11/30/2020 14:39:52 Routine care [id number] Advanced m aternal age [id number] Garfield Salazar MD CR_PRMR_OB AUTOPSY PATHOLOGIST [address] [place] [address] 01/04/2021 10:54:31 01/04/2021 15:20:13 Routine care [id number] Garfield Salazar MD CR_PRMR_OB AUTOPSY PATHOLOGIST [address] [facility] [place] [address] 01/18/2021 11:59:42 01/18/2021 15:19:37 Routine care [id number] [id number] MD JOHN Sorto_PRMR_OB AUTOPSY PATHOLOGIST [address] [place] [address] 03/12/2021 11:32:07 03/12/2021 12:29:13 care [id number] Health Concerns Section Related Observation LastModified by Organization Detai ls LastModified Time None Recorded Concern Status LastModified by Organization Details LastModified Time None Recorded Advance Directives Directive None Recorded Payers Encounter Date Sequence Insurance Name Policy Number Policy Campos Covered Member ID Campos Member ID Guarantor Name 03/12/2021 1 [employer] [place] ( - [place] ACTIVE Bry Walker [id number] Bry Walker 01/18/2021 1 [employer] [place] - [place]) ACTIVE Bry Walker [id number] Bry Walker 01/04/2021 1 [employer] [place] ( - [place]) ACTIVE Bry Walker [id number] Bry Walker 11/30/2020 1 [employer] [place] ( - [place]) ACTIVE Bry Walker [id number] Bry Walker 11/07/2020 1 [employer] [place] ( - [place]) ACTIVE Bry Walker [id number] Bry Walker 10/10/2020 1 [place] [place] ( - [place]) ACTIVE Bry Walker [id number] Bry Walker 09/12/2020 1 [facility] - [place] ( - PPO) ACTIVE Bry Walker [id number] Bry Walker 08/14/2020 1 [facility] [place] ( - PPO) ACTIVE Bry Walker [id number] Bry Walker Notes Date Note Type Note Provider Name and Address Organization Details Recorded Time 03/12/2021 text/html HPI Notes: Visit Reported by patient. Onset/Timing: date of delivery: (01/27/2021) Quality: Context: feeding choice: breast; good support from partner/family 36yo here for 6wk pp, . She and baby boy are overall doing well, no AUTOPSY PATHOLOGIST concerns. Will be abstinent x 1yr. - spouse deployed Does not desire contraception. MD Gabrielle Sorto / Kristi @[employer], [place], [address], [facility] 03/15/2021 22:24:44 OBGyn Episode Ob Episode Information Episode Created Date Number of Fetuses Patient Bloodtype Patient rh Status Prepregnancy Weight lbs Domestic Partner Domestic Partner Phone Father Name Canvass Manager Status 03/12/20 21 1 CLOSED Fetus Data First Name Last Name Admitted to NICU Weight (g) Sex Living Outcome Pediatric Complications Fetus ID Race Codes Race Delivery Type 3798.83 3 F Full Term [id number] Lj Calculation Initial Lj Date Initial Exam Date Initial Exam Provider Initial Ultrasound Date Last Menstrual Period Date Ultra Sound Weeks Gestation 0 Eighteen To Twenty Week Lj Update Ultra Sound Date Fundal Height At Umbil Quickening Date Ultra Sound Latest Weeks Gestation Final Lj Confirmed By Final Lj Confirmed Date Final Lj Date Ultra Sound Latest Days Gestation 0 0 Menstrual History Last Menstrual Date Menses Monthly On Bcp Conception Prior Menses Frequency Hcg Plus Date Menarche Onset Age Delivery Information Delivery Date Delivery Type Labor Anesthesia Weeks Gestation Incision Type Labor Labor Length Hrs Delivered By Post Complications Tubal Sterilization Discharge Date Comments 1 40 false Discharge Information Feeding Method Contraceptive Method Maternal HG B and HCT Levels Ob Episode Information Episode Created Date Number of Fetuses Patient Bloodtype Patient rh Status Prepregnancy Weight lbs Domestic Partner Domestic Partner Phone Father Name Canvass Manager Status 07/28/20 20 1 CLOSED Fetus Data First Name Last Name Admitted to NICU Weight (g) Sex Living Outcome Pediatric Complications Fetus ID Race Codes Race Delivery Type 3259.96 5704 F Full Term [id number] Lj Calculation Initial Lj Date Initial Exam Date Initial Exam Provider Initial Ultrasound Date Last Menstrual Period Date Ultra Sound Weeks Gestation 0 Eighteen To Twenty Week Lj Update Ultra Sound Date Fundal Height At Umbil Quickening Date Ultra Sound Latest Weeks Gestation Final Lj Confirmed By Final Lj Confirmed Date Final Lj Date Ultra Sound Latest Days Gestation 0 0 Menstrual History Last Menstrual Date Menses Monthly On Bcp Conception Prior Menses Frequency Hcg Plus Date Menarche Onset Age Delivery Information Delivery Date Delivery Type Labor Anesthesia Weeks Gestation Incision Type Labor Labor Length Hrs Delivered By Post Complications Tubal Sterilization Discharge Date Comments 8 [facility]- idural [address] Sal[address]. Weight gain- 30lb Discharge Information Feeding Method Contraceptive Method Maternal HG B and HCT Levels Ob Episode Information Episode Created Date Number of Fetuses Patient Bloodtype Patient rh Status Prepregnancy Weight lbs Domestic Partner Domestic Partner Phone Father Name Canvass Manager Status 07/28/20 20 1 CLOSED Fetus Data First Name Last Name Admitted to NICU Weight (g) Sex Living Outcome Pediatric Complications Fetus ID Race Codes Race Delivery Type 3458.63 9 F Full Term [id number] Lj Calculation Initial Lj Date Initial Exam Date Initial Exam Provider Initial Ultrasound Date Last Menstrual Period Date Ultra Sound Weeks Gestation 0 Eighteen To Twenty Week Lj Update Ultra Sound Date Fundal Height At Umbil Quickening Date Ultra Sound Latest Weeks Gestation Final Lj Confirmed By Final Lj Confirmed Date Final Lj Date Ultra Sound Latest Days Gestation 0 0 Menstrual History Last Menstrual Date Menses Monthly On Bcp Conception Prior Menses Frequency Hcg Plus Date Menarche Onset Age Delivery Information Delivery Date Delivery Type Labor Anesthesia Weeks Gestation Incision Type Labor Labor Length Hrs Delivered By Post Complications Tubal Sterilization Discharge Date [facility] Discharge Information Feeding Method Contraceptive Method Maternal HG B and HCT Levels Ob Episode Information Episode Created Date Number of Fetuses Patient Bloodtype Patient rh Status Prepregnancy Weight lbs Domestic Partner Domestic Partner Phone Father Name Canvass Manager Status 07/28/20 20 1 O Positive 213 CLOSED Fetus Data First Name Last Name Admitted to NICU Weight (g) Sex Living Outcome Pediatric Complications Fetus ID Race Codes Race Delivery Type Wilmer false 3798.83 3 F true Full Term [id number] Lj Calculation Initial Lj Date Initial Exam Date Initial Exam Provider Initial Ultrasound Date Last Menstrual Period Date Ultra Sound Weeks Gestation 02/01/2021 07/05/2020 07/13/2020 04/27/2020 10 Eighteen To Twenty Week Lj Update Ultra Sound Date Fundal Height At Umbil Quickening Date Ultra Sound Latest Weeks Gestation Final Lj Confirmed By Final Lj Confirmed Date Final Lj Date Ultra Sound Latest Days Gestation 0 [email or web address] 07/28/2020 02/02/20 21 0 Pre-norbert Flowsheet Flowsheet Date 07/05/2020 Cummings Score Blood Edema Fundus Height Fundus Units Glucose Ketones Leukocytes Nitrite Labor Signs Protein Cervic Dilation Cervic Effacement Cervic Station Type Weight in lbs BP Diastolic BP Location Tested BP Systolic BP Type Fetus Heart Rate Present Fetus Movement Comments Nurse conference completed. Educational materials given. To lab for initial OB panel. Next appointment with Dr. Salazar on 07/13/20. Needs exam/sono at next appointment. 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 SPECIALIST Flowsheet Date 07/13/2020 Cummings Score Blood Edema Fundus Height Fundus Units Glucose Ketones Leukocytes Nitrite Labor Signs Protein Cervic Dilation Cervic Effacement Cervic Station none neg Type Weight in lbs BP Diastolic BP Location Tested BP Systolic BP Type 80 132 Fetus Heart Rate Present A Present Fetus Movement Comments labs rev, Flowsheet Date 08/14/2020 Cummings Score Blood Edema Fundus Height Fundus Units Glucose Ketones Leukocytes Nitrite Labor Signs Protein Cervic Dilation Cervic Effacement Cervic Station Type Weight in lbs BP Diastolic BP Location Tested BP Systolic BP Type 74 132 Fetus Heart Rate Present A Present Fetus Movement Comments No concerns.declined quad/pa [place] Flowsheet Date 09/12/2020 Cummings Score Blood Edema Fundus Height Fundus Units Glucose Ketones Leukocytes Nitrite Labor Signs Protein Cervic Dilation Cervic Effacement Cervic Station none neg Type Weight in lbs BP Diastolic BP Location Tested BP Systolic BP Type 72 118 sitting Fetus Heart Rate Present A Present Fetus Movement Comments FS for glucose test.lupe M sono- not yet available. Flowsheet Date 10/10/2020 Cummings Score Blood Edema Fundus Height Fundus Units Glucose Ketones Leukocytes Nitrite Labor Signs Protein Cervic Dilation Cervic Effacement Cervic Station 26 none neg Type Weight in lbs BP Diastolic BP Location Tested BP Systolic BP Type 68 114 Fetus Heart Rate Present A Present Fetus Movement A Yes Comments [facility] sono- repeat 12/3Rec PNV with DHAFinger sticks 4x/d for 50gm. Flowsheet Date 11/07/2020 Cummings Score Blood Edema Fundus Height Fundus Units Glucose Ketones Leukocytes Nitrite Labor Signs Protein Cervic Dilation Cervic Effacement Cervic Station 29 none neg Type Weight in lbs BP Diastolic BP Location Tested BP Systolic BP Type 72 118 sitting Fetus Heart Rate Present A Present Fetus Movement A Yes Comments Forgot glu log, WNL excep t 11/03. will drop of log. Flowsheet Date 11/30/2020 Cummings Score Blood Edema Fundus Height Fundus Units Glucose Ketones Leukocytes Nitrite Labor Signs Protein Cervic Dilation Cervic Effacement Cervic Station 36 none neg Type Weight in lbs BP Diastolic BP Location Tested BP Systolic BP Type 62 102 Fetus Heart Rate Present A 140's Present Fetus Movement A Yes Comments Glu WNL.Alexandr william.Discus sed covid vaccine. Flowsheet Date 01/04/2021 Cummings Score Blood Edema Fundus Height Fundus Units Glucose Ketones Leukocytes Nitrite Labor Signs Protein Cervic Dilation Cervic Effacement Cervic Station 40 none neg Type Weight in lbs BP Diastolic BP Location Tested BP Systolic BP Type 60 112 Fetus Heart Rate Present A Present Fetus Movement A Yes Comments GBS today.Glu log WNL.Grow th scan- 77%TILE.LAUREN to be scheduled 01/27. Flowsheet Date 01/18/2021 Cummings Score Blood Edema Fundus Height Fundus Units Glucose Ketones Leukocytes Nitrite Labor Signs Protein Cervic Dilation Cervic Effacement Cervic Station 40 none neg Type Weight in lbs BP Diastolic BP Location Tested BP Systolic BP Type 82 124 Fetus Heart Rate Present A Present Fetus Movement A Yes Comments GBS pos. Ctx. CX-CL/25.LAUREN Discussed L&D covid precautions. Flowsheet Date 03/12/2021 Cummings Score Blood Edema Fundus Height Fundus Units Glucose Ketones Leukocytes Nitrite Labor Signs Protein Cervic Dilation Cervic Effacement Cervic Station Type Weight in lbs BP Diastolic BP Location Tested BP Systolic BP Type 68 112 sitting Fetus Heart Rate Present Fetus Movement Comments Menstrual History Last Menstrual Date Menses Monthly On Bcp Conception Prior Menses Frequency Hcg Plus Date Menarche Onset Age 0604/27/2020 true false 28 0 Genetic Screening And Infection History Question Response Note Patient's Age Will Be 35 Yea rs Or Older At Estimated Date of Delivery true Thalassemia (Australian, Vietnamese, Mediterranean, Or Background): MCV < 80 false Neural Tube Defect (Meningom yelocele, Spina Bifida, Or Anencephaly) false Congenital Heart Defect false Down Syndrome false [place] (eg, Sikh, Cajun , Turkmen[place]) false Sickle Cell Disease Or Trait () false Hemophilia Or Other Blood Disorders false Muscular Dystrophy false Cystic Fibrosis false [place]'s Chorea false Mental Retardation/Autism false If Yes, Was Person Tested For Fragile X? false Other Inherited Genetic Or C hromosomal Disorder false Maternal Metabolic Disorder (eg, Type 1 Diabetes, PKU) false Patient Or Baby's Father Had A Child With Defects Not Listed Above false Recurrent Loss, Or A Stillbirth false Medications (including Suppl ements, Vitamins, Herbs, OTC Drugs), Illicit/Recreational Drugs, Alcohol true PNV, Calcium, B-12 , Contrave, Iron If Yes, Agent(s) And Strength/Dosage false Any Other Genetic History false Live With Someone With TB Or Exposed To TB false Patient Or Partner Has Histo ry Of Genital Herpes false Rash Or Viral Illness Since Last Menstrual Period false History Of STD, Gonorrhea, C hlamydia, HPV, Syphilis false Other Infection History false History of Hepatitis true Immunized Delivery Information Delivery Date Delivery Type Labor Anesthesia Weeks Gestation Incision Type Labor Labor Length Hrs Delivered By Post Complications Tubal Sterilization Discharge Date Comments 1 Induce d 40.5 Garfield Guzman MD None Discharge Information Feeding Method Contraceptive Method Maternal HG B and HCT Levels Breast Ob Episode Information Episode Created Date Number of Fetuses Patient Bloodtype Patient rh Status Prepregnancy Weight lbs Domestic Partner Domestic Partner Phone Father Name Canvass Manager Status 07/28/20 20 1 CLOSED Fetus Data First Name Last Name Admitted to NICU Weight (g) Sex Living Outcome Pediatric Complications Fetus ID Race Codes Race Delivery Type 3572.03 7 M Full Term [id number] Lj Calculation Initial Lj Date Initial Exam Date Initial Exam Provider Initial Ultrasound Date Last Menstrual Period Date Ultra Sound Weeks Gestation 0 Eighteen To Twenty Week Lj Update Ultra Sound Date Fundal Height At Umbil Quickening Date Ultra Sound Latest Weeks Gestation Final Lj Confirmed By Final Lj Confirmed Date Final Lj Date Ultra Sound Latest Days Gestation 0 0 Menstrual History Last Menstrual Date Menses Monthly On Bcp Conception Prior Menses Frequency Hcg Plus Date Menarche Onset Age Delivery Information Delivery Date Delivery Type Labor Anesthesia Weeks Gestation Incision Type Labor Labor Length Hrs Delivered By Post Complications Tubal Sterilization Discharge Date Comments 4 None 40 2 wt. gain=25lb s Discharge Information Feeding Method Contraceptive Method Maternal HG B and HCT Levels Ob Episode Information Episode Created Date Number of Fetuses Patient Bloodtype Patient rh Status Prepregnancy Weight lbs Domestic Partner Domestic Partner Phone Father Name Canvass Manager Status 07/28/20 20 1 CLOSED Fetus Data First Name Last Name Admitted to NICU Weight (g) Sex Living Outcome Pediatric Complications Fetus ID Race Codes Race Delivery Type 4195.72 6 M Full Term [id number] Lj Calculation Initial Lj Date Initial Exam Date Initial Exam Provider Initial Ultrasound Date Last Menstrual Period Date Ultra Sound Weeks Gestation 0 Eighteen To Twenty Week Lj Update Ultra Sound Date Fundal Height At Umbil Quickening Date Ultra Sound Latest Weeks Gestation Final Lj Confirmed By Final Lj Confirmed Date Final Lj Date Ultra Sound Latest Days Gestation 0 0 Menstrual History Last Menstrual Date Menses Monthly On Bcp Conception Prior Menses Frequency Hcg Plus Date Menarche Onset Age Delivery Information Delivery Date Delivery Type Labor Anesthesia Weeks Gestation Incision Type Labor Labor Length Hrs Delivered By Post Complications Tubal Sterilization Discharge Date Comments 6 None 41 false 13 wt. gain = 30lbs Discharge Information Feeding Method Contraceptive Method Maternal HG B and HCT Levels
--- OUTSIDE RECORDS SUMMARY | 2024-03-10 10:52 | XMS_ITS | Encounter Summary ---
Author Name Unknown Organization [facility] Address [address] [place] [address] [place] [address] Care Team Providers Care Security Sergeant Name Role Phone Martin House MD, Steve Primary Care Provider [phone] Reason for Referral * Maternity Services (Routine) - Closed Specialty Diagnoses / Procedures Referred By Juventino adams Referred To Contact Radiology Diagnoses Supervision of high risk in third trimester Procedures Ultrasound OB growth Ethan Doe DO [address] [place] [id number] Referral ID Status Reason Start Date Expiration Date V isits Requested Visits Authorized [id number] Closed Specialty Services Required 04/12/2019 05/16/2020 1 1 Encounter Details Date Type Department Care Team Description 04/12/2019 Orders Only [facility] [address] [address] [place] [address] Ethan Doe DO [address] [place] [address] [id number] Supervision of high risk in third trimester [...] Primary documented in this encounter Care Teams Security Sergeant Relationship Specialty Start Date End Date Steve Salazar MD PCP - General OBSTETRICS & GYNECOLOGY 09/11/20 documented as of this encounter
--- OUTSIDE RECORDS SUMMARY | 2024-03-10 10:52 | XMS_ITS | Clinical Summary ---
Author Name Unknown Organization [facility] Address [address] [address] Care Team Providers Care Employee Relations Administrator Name Role Phone Martin House MD, Steve Primary Care Provider [phone] Allergies No known active allergies Medications Medication [...] Comments Blood Pressure 114/59 10/16/2020 8:00 AM STAND UP COMEDIAN Pulse 69 10/16/2020 8:00 AM STAND UP COMEDIAN Temperature 36.1 ??C (96.9 ??F) 10/16/2020 8:00 AM CS T Respiratory Rate 20 04/12/2019 10:06 AM CDT Oxygen Saturation - - Inhaled Oxygen Concentration - - Weight 105.2 kg (232 lb) 10/16/2020 8:00 AM STAND UP COMEDIAN Height 167.6 cm (5' 6) 10/16/2020 8:00 AM STAND UP COMEDIAN Body Mass Index 37.45 10/16/2020 8:00 AM STAND UP COMEDIAN Plan of Treatment Health Maintenance Due Date Last Done Comments HIV Screening 1985 Hepatitis B Vaccines (1 of 3 - 3-dose series) 1985 COVID-19 Vaccine (#1) 1984 Varicella Vaccine (1 of 2 - 2-dose childhood series) 02/24/1985 Hepatitis C Screening 02/24/2003 Pap Smear 02/24/2005 Cervical Cancer Screening 02/24/2014 Pap + HPV 02/24/2014 Influenza Vaccine (Season Ended) 2024 DTaP,Tdap,and Td Vaccines (2 - Td or [...] age to complete this topic Care Teams Employee Relations Administrator Relationship Specialty Start Date End Date Steve Salazar MD PCP - General OBSTETRICS & GYNECOLOGY 09/11/20
--- NOTE | 2024-03-10 11:00 | US_ITS ---
Patient: GABE LIN Facility:?[facility] Patient ID:?[id number] Site Patient ID:?[id number]. Site :?1985 Study:?US-OB Pelvis OB F/U GROWTH-03/10/2024 11:59:58 AM Ordering Physician:DEL RON Final Report: INDICATION: Supervision of elderly multigravida COMPARISON: none TECHNIQUE: Real time pringle scale imaging of the fetus was performed. FINDINGS: Sonographic imaging demonstrates a single living intrauterine gestation. Fetus demonstrates a regular cardiac rate of 139 beats per minute. Fetus has a vertex position. The placenta lies anteriorly. Placental edge is located 2.6 cm from the internal cervical os. Amniotic fluid volume appears normal and there is a single deepest vertical pocket: 3.3 cm. The estimated weight is 2004gm which lies at the 32nd %. BPD 13th percentile. HC 44th percentile. AC is 38th percentile. FL 31st percentile. The HC/AC ratio measures 1.08 range (0.96-1.12). IMPRESSION: Sonographic gestational age 32 weeks 5 days and sonographic due date 04/30/2024. Good correlation with dates. Estimated weight 32nd percentile. Right anterior placental edge is located 2.6 cm from the internal cervical os. Dictated by Jc Thorne MD @ 03/10/2024 12:47:49 PM Signed by:?Jc Thorne MD @03/10/2024 12:47:49 PM (Electronic Signature)
== END 2024-03-10 10:49 | disposition home or self-care (01) ==
LOC: US 10:48
PROVIDERS: Visit Provider Physician Assistant
DX: O09.523 Supervision of elderly multigravida, third trimester (principal); Z3A.32 32 weeks gestation of pregnancy
CPT/HCPCS: 76816

== ENCOUNTER 2024-04-06 08:46 | Outpatient (CLI) | payer OTHER, SELFPAY ==
--- NOTE | 2024-04-06 08:45 | CRLHL7_ITS ---
For Patients: As a result of the Century Cures Act, medical imaging exams and procedure reports are released immediately into your electronic medical record. You may view this report before your referring provider. If you have questions, please contact your health care provider. BIOPHYSICAL PROFILE 04/06/2024 CLINICAL HISTORY: Supervision of elderly multigravida. FINDINGS: LJ by US: 04/29/2024. GA: 36 weeks 5 days. CERVIX: Not visualized. POSITIONING: Vertex. AMNIOTIC FLUID: 6.3 cm. BIOPHYSICAL PROFILE: 8 Total Score 2 Gross Body Movements 2 Tone 2 Respiratory Activity 2 Amniotic Fluid PLACENTA: Technique: TA. PLACENTA POSITION: Anterior. DOPPLERS: Heart Rate: 169 bpm. BIOMETRY: BPD: 8.8 cm, 35 weeks 2 days. 25% HC: 32.6 cm, 37 weeks 0 days. 29% AC: 32.12 cm, 36 weeks 0 days. 43% FL: 7.2 cm, 36 weeks 5 days. 50% FL/AC Ratio: 22.35% HC/AC Ratio: 1.2. EFW: 2890 g, 6 lb 6 oz. Age by this US: 36 weeks 2 days. LJ by this US: 05/02/2024. PECENTILE: 42% IMPRESSION: 1. Normal biophysical profile score of 8/8. 2. Measurements are consistent with dates. Good interval growth since 03/10/2024. Jesu Ashley M.D. Body/Diagnostic Radiologist [email or web address] Transcribed: 1:39 pm DW/Dictated by: Jesu Ashley MD @ 04/06/2024 12:41:00 PM (Electronically Signed)
--- OUTSIDE RECORDS SUMMARY | 2024-04-06 08:49 | XMS_ITS | Data Portability ---
Author Organization [place] - [facility], autoContract - [id number] Address [address] [place] [address] Assessment No assessment recorded. Plan of Treatment Reminders Order Date Submit Date Provider Last Modified By Organization Details Last Modified Time Details Appointments None recorded. Lab hemoglobin + hematocrit, blood 2023 024 KEENAN Krishnan (Lab), [address] [place], [address], 4 16:06:56 Referral None recorded. Procedures None recorded. Surgeries None recorded. Imaging None recorded. Medication Orders butalbital- acetaminoph en-caffeine 50 mg-325 mg-40 mg tablet 2023 024 KEENAN [id number], [address] [place], [address], 4 09:39:14 Patient TargetsNo targets recorded. Patient InstructionsNo instructions recorded. Reason for Referral Maternal & Medicine Re ferral for Advanced maternal age Please call pt to schedule level ll u/s; AMA H/O Bariatric surgical procedure Referring Physician: Andry Corbin, RESOURCE DEVELOPMENT MANAGER, Encounter Date: 11/19/2023 Results Created Date Observation Date Name Description Value Unit Range Abnormal Flag LastModifiedBy Organization Detail LastModifiedTime 09/17/20 23 09/17/2023 TYPE AND SCREE N ABO group O Not Available Oscar Krishnan (Lab) [address] [place], [address], 09/17/2023 22:35:25 09/17/20 23 09/17/2023 TYPE AND SCREE N Rh type POS Not Available Oscar Krishnan (Lab) [address] [place], [address], 09/17/2023 22:35:25 09/17/20 23 09/17/2023 TYPE AND SCREE N antibody screen NEG Not Available Pernell Krishnan (Lab) [address] [place], [address], 09/17/2023 22:35:25 09/17/20 23 09/17/2023 CBC WITH PLATE LET AND DIFFE RENTI AL WBC 12.4 K/uL 3.6-11 .2 high Not Available Blancoshadia Krishnan (Lab) [address] [place], [address], 09/18/2023 01:05:56 09/17/20 23 09/17/2023 CBC WITH PLATE LET AND DIFFE RENTI AL RBC 4.38 M/uL 3.63-4 .92 Not Available Blancoshadia Krishnan (Lab) [address] [facility] [place], [address], 09/18/2023 01:05:56 09/17/20 23 09/17/2023 CBC WITH PLATE LET AND DIFFE RENTI AL hemoglobin 13.7 g/dL 10.9-1 4.3 Not Available Blancoshadia Krishnan (Lab) [address] [place], [address], 09/18/2023 01:05:56 09/17/20 23 09/17/2023 CBC WITH PLATE LET AND DIFFE RENTI AL hematocrit 40 % 31-42 Not Available Gordy Krishnan (Lab) [address] [place], [address], 09/18/2023 01:05:56 09/17/20 23 09/17/2023 CBC WITH PLATE LET AND DIFFE RENTI AL mean cell volume 92 fL 74-96 Not Available Blancoshdaia Krishnan (Lab) [address] [place], [address], 09/18/2023 01:05:56 09/17/20 23 09/17/2023 CBC WITH PLATE LET AND DIFFE RENTI AL mean cell hemoglobin 31 pg 24-33 Not Available [facility] (Lab) [address] [place], [address], 09/18/2023 01:05:56 09/17/20 23 09/17/2023 CBC WITH PLATE LET AND DIFFE RENTI AL mean cell hemoglobin concentratio n 34 g/dL 33-36 Not Available [facility] (Lab) [address] [place], [address], 09/18/2023 01:05:56 09/17/20 23 09/17/2023 CBC WITH PLATE LET AND DIFFE RENTI AL red cell distribution width 13.1 % 12.3-1 7.0 Not Available [facility] (Lab) [address] [place], [address], 09/18/2023 01:05:56 09/17/2009/17/2023 CBC WITH PLATE LET AND DIFFE RENTI AL platelet count 337 K/uL 150-45 0 Not Available [facility] (Lab) [address] [place], [address], 09/18/2023 01:05:56 09/17/20 23 09/17/2023 CBC WITH PLATE LET AND DIFFE RENTI AL mean platelet volume 8.8 fL 7.5-11 .2 Not Available [facility] (Lab) [address] [place], [address], 09/18/2023 01:05:56 09/17/20 23 09/17/2023 CBC WITH PLATE LET AND DIFFE RENTI AL differential percent Diff % Not Available [facility] (Lab) [address] [place], [address], 09/18/2023 01:05:56 09/17/20 23 09/17/2023 CBC WITH PLATE LET AND DIFFE RENTI AL neutrophils 75 % 43-77 Not Available [facility] (Lab) [address] [place], [address], 09/18/2023 01:05:56 09/17/20 23 09/17/2023 CBC WITH PLATE LET AND DIFFE RENTI AL lymphocytes 18 % 16-44 Not Available [facility] (Lab) [address] [place], [address], 09/18/2023 01:05:56 09/17/20 23 09/17/2023 CBC WITH PLATE LET AND DIFFE RENTI AL monocytes 6 % 5-13 Not Available [facility] (Lab) [address] [place], [address], 09/18/2023 01:05:56 09/17/20 23 09/17/2023 CBC WITH PLATE LET AND DIFFE RENTI AL eosinophils 1 % 1-8 Not Available [facility] (Lab) [address] [place], [address], 09/18/2023 01:05:56 09/17/2009/17/2023 CBC WITH PLATE LET AND DIFFE RENTI AL basophils 0 % 0-1 Not Available [facility] (Lab) [address] [facility] [place], [address], 09/18/2023 01:05:56 09/17/20 23 09/17/2023 CBC WITH PLATE LET AND DIFFE RENTI AL differential absolute Diff Absolu te Not Available [facility] (Lab) [address] [place], [address], 09/18/2023 01:05:56 09/17/20 23 09/17/2023 CBC WITH PLATE LET AND DIFFE RENTI AL neutrophils absolute 9.4 K/uL 1.8-7. 8 high Not Available [facility] (Lab) [address] [place], [address], 09/18/2023 01:05:56 09/17/20 23 09/17/2023 CBC WITH PLATE LET AND DIFFE RENTI AL lymphocytes absolute 2.2 K/uL 1.0-3. 0 Not Available [facility] (Lab) [address] [place], [address], 09/18/2023 01:05:56 09/17/2009/17/2023 CBC WITH PLATE LET AND DIFFE RENTI AL monocytes absolute 0.7 K/uL 0.3-1. 0 Not Available [facility] (Lab) [address] [place], [address], 09/18/2023 01:05:56 09/17/2009/17/2023 CBC WITH PLATE LET AND DIFFE RENTI AL eosinophils absolute 0.1 K/uL 0.0-0. 5 Not Available [facility] (Lab) [address] [place], [address], 09/18/2023 01:05:56 09/17/2009/17/2023 CBC WITH PLATE LET AND DIFFE RENTI AL basophils absolute 0.0 K/uL 0.0-0. 1 Not Available [facility] (Lab) [address] [place], [address], 09/18/2023 01:05:56 09/17/2009/17/2023 CBC WITH PLATE LET AND DIFFE RENTI AL nucleated RBC 0 /100_ WBC Not Available [facility] (Lab) [address] [place], [address], 09/18/2023 01:05:56 09/17/2009/17/2023 HEMOG LOBIN A1C hemoglobin A1C, percent 4.9 % 4.0-5. 6 Not Available [facility] (Lab) [address] [place], [address], 09/18/2023 01:05:57 09/17/2002 1009/17/2023 VITAM IN D 25-HY DROXY - IN HOUSE vitamin D 25-hydroxy 34 NG/mL 30-100 Not Available [facility] (Lab) [address] [place], [address], 09/18/2023 01:05:58 09/17/20 23 09/17/2023 URINE PROTE IN/CR EATIN INE RATIO protein, urine <4 mg/dL Not Available [facility] (Lab) [address] [place], [address], 09/18/2023 01:05:59 09/17/20 23 09/17/2023 URINE PROTE IN/CR EATIN INE RATIO creatinine, urine 22 mg/dL Not Available [facility] (Lab) [address] [facility] [place], [address], 09/18/2023 01:05:59 09/17/20 23 09/17/2023 URINE PROTE IN/CR EATIN INE RATIO protein/crea tinine ratio, urine See Text Not Available [facility] (Lab) [address] [place], [address], 09/18/2023 01:05:59 09/17/20 23 09/17/2023 HEPAT ITIS B SURFA CE ANTIG EN W/REF DMITRY TO CONFI RMATI ON hepatitis B surface antigen w/reflex to confirmation NEGATI VE negati ve Not Available [facility] (Lab) [address] [place], [address], 09/18/2023 01:05:59 09/17/20 23 09/17/2023 RUBEL LA SCREE N rubella screen 16.7 Not Available [facility] (Lab) [address] [place], [address], 09/18/2023 01:06:00 09/17/20 23 09/17/2023 SYPHI LIS SCREE N WITH REFLE X CONFI RMATI ON syphilis screen with reflex confirmation NONREA CTIVE nonrea ctive Not Available [facility] (Lab) [address] [place], [address], 09/18/2023 01:06:01 09/17/20 23 09/17/2023 VITAM IN B12 vitamin B12 666 pg/mL 180-91 4 Not Available [facility] (Lab) [address] [place], [address], 09/18/2023 01:06:02 09/17/20 23 09/17/2023 CMP sodium 137 mmol/ L 136-14 5 Not Available [facility] (Lab) [address] [place], [address], 09/18/2023 01:06:02 09/17/2009/17/2023 CMP potassium 4.5 mmol/ L 3.5-5. 1 Not Available [facility] (Lab) [address] [place], [address], 09/18/2023 01:06:02 09/17/20 23 09/17/2023 CMP chloride 103 mmol/ L 99-108 Not Available [facility] (Lab) [address] [place], [address], 09/18/2023 01:06:02 09/17/20 23 09/17/2023 CMP CO2 24 mmol/ L 21-31 Not Available [facility] (Lab) [address] [place], [address], 09/18/2023 01:06:02 09/17/2009/17/2023 CMP BUN 14 mg/dL 7-25 Not Available [facility] (Lab) [address] [place], [address], 09/18/2023 01:06:02 09/17/20 23 09/17/2023 CMP creatinine 0.52 mg/dL 0.51-1 .00 Not Available [facility] (Lab) [address] [place], [address], 09/18/2023 01:06:02 09/17/2009/17/2023 CMP glucose, random 74 mg/dL 70-199 Not Available [facility] (Lab) [address] [place], [address], 09/18/2023 01:06:02 09/17/2009/17/2023 CMP calcium, total 9.8 mg/dL 8.8-10 .6 Not Available [facility] (Lab) [address] [place], [address], 09/18/2023 01:06:02 09/17/2009/17/2023 CMP osmolality (calculated) 273 mOsm/ kg 270-29 5 Not Available [facility] (Lab) [address] [place], [address], 09/18/2023 01:06:02 09/17/2009/17/2023 CMP anion gap 10 3-11 Not Availab le [facility] (Lab) [address] [place], [address], 09/18/2023 01:06:02 09/17/2009/17/2023 CMP albumin 4.5 g/dL 3.5-5. 7 Not Available [facility] (Lab) [address] [place], [address], 09/18/2023 01:06:02 09/17/2009/17/2023 CMP bilirubin, total 0.4 mg/dL 0.3-1. 0 Not Available [facility] (Lab) [address] [place], [address], 09/18/2023 01:06:02 09/17/2009/17/2023 CMP alkaline phosphatase 67 IU/L 34-104 Not Available [facility] (Lab) [address] [place], [address], 09/18/2023 01:06:02 09/17/20 23 09/17/2023 CMP ALT 15 IU/L 7-52 Not Available [facility] (Lab) [address] [place], [address], 09/18/2023 01:06:02 09/17/20 23 09/17/2023 CMP AST 13 IU/L 13-39 Not Available [facility] (Lab) [address] [place], [address], 09/18/2023 01:06:02 09/17/2009/17/2023 CMP protein, total 7.3 g/dL 6.4-8. 9 Not Available [facility] (Lab) [address] [facility] [place], [address], 09/18/2023 01:06:02 09/17/2009/17/2023 CMP A/G ratio 1.6 1.2-2. 3 Not Available [facility] (Lab) [address] [facility] [place], [address], 09/18/2023 01:06:02 09/17/2009/17/2023 SOCO TIN ferritin 28.0 NG/mL 11.0-3 07.0 Not Available [facility] (Lab) [address] [place], [address], 09/18/2023 01:06:03 09/17/2009/17/2023 TSH WITH REFLE X TO FREE T4 TSH (3rd IS) assay 0.68 uIU/m L 0.45-5 .33 Not Available [facility] (Lab) [address] [facility] [place], [address], 09/18/2023 01:06:04 09/17/20 23 09/17/2023 HEPAT ITIS C ANTIB MISTY WITH REFLE X TO CONFI RMATI ON hepatitis C antibody with reflex to confirmation NEGATI VE negati ve Not Available [facility] (Lab) [address] [place], [address], 09/18/2023 01:06:05 09/17/2009/17/2023 HIV AG/AB WITH REFLE X TO CONFI RMATI ON HIV Ag/Ab with reflex to confirmation NONREA CTIVE non-re active Not Available [facility] (Lab) [address] [place], [address], 09/18/2023 01:06:05 09/17/20 23 09/17/2023 URIC ACID uric acid 3.9 mg/dL 2.3-6. 6 Not Available [facility] (Lab) [address] [place], [address], 09/18/2023 01:06:06 09/17/2009/17/2023 CT/NG other info Other Inform ation Not Available [facility] [address], [place], [address], 09/18/2023 13:34:52 09/17/20 23 09/18/2023 CT/NG cervix,swab/ transport tube Not Available [facility] [address] [facility] [address], [place], [address], 09/18/2023 13:34:52 09/17/20 23 09/18/2023 CT/NG chlamydia result Negati ve Not Available [facility] [address], [place], [address], 09/18/2023 13:34:52 09/17/20 23 09/18/2023 CT/NG gonorrhea result Negati ve Not Available [facility] [address], [place], [address], 09/18/2023 13:34:52 09/17/20 23 09/19/2023 URINE CULTU RE urine culture See Note Not Available [facility] (Lab) [address] [place], [address], 09/19/2023 08:15:48 10/10/20 23 10/10/2023 CHROM OSOME S 13, 18, 21 + SEX CHROM OSOME MARLENE SIS + EXPAN DED ANEUP LOIDY SCREE VERONICA chromosome 1 aneuploidy Negati ve normal Not Available [facility] [address] [place] [address], [address], 10/17/2023 21:18:27 10/10/20 23 10/10/2023 CHROM OSOME S 13, 18, 21 + SEX CHROM OSOME MARLENE SIS + EXPAN DED ANEUP LOIDY SCREE VERONICA chromosome 10 aneuploidy Negati ve normal Not Available [facility] [address] [place], [address], 10/17/2023 21:18:27 10/10/20 23 10/10/2023 CHROM OSOME S 13, 18, 21 + SEX CHROM OSOME MARLENE SIS + EXPAN DED ANEUP LOIDY SCREE VERONICA chromosome 11 aneuploidy Negati ve normal Not Available [facility] [address] [place], [address], 10/17/2023 21:18:27 10/10/20 23 10/10/2023 CHROM OSOME S 13, 18, 21 + SEX CHROM OSOME MARLENE SIS + EXPAN DED ANEUP LOIDY SCREE VERONICA chromosome 12 aneuploidy Negati ve normal Not Available [facility] [address] [place] [address], [address], 10/17/2023 21:18:27 10/10/20 23 10/10/2023 CHROM OSOME S 13, 18, 21 + SEX CHROM OSOME MARLENE SIS + EXPAN DED ANEUP LOIDY SCREE VERONICA chromosome 13 aneuploidy Negati ve normal Not Available [facility] [address] [place] [address], [address], 10/17/2023 21:18:27 10/10/20 23 10/10/2023 CHROM OSOME S 13, 18, 21 + SEX CHROM OSOME MARLENE SIS + EXPAN DED ANEUP LOIDY SCREE VERONICA chromosome 14 aneuploidy Negati ve normal Not Available [facility] [address] [place] [address], [address], 10/17/2023 21:18:27 10/10/20 23 10/10/2023 CHROM OSOME S 13, 18, 21 + SEX CHROM OSOME MARLENE SIS + EXPAN DED ANEUP LOIDY SCREE VERONICA chromosome 15 aneuploidy Negati ve normal Not Available [facility] [address] [place] [address], [address], 10/17/2023 21:18:27 10/10/20 23 10/10/2023 CHROM OSOME S 13, 18, 21 + SEX CHROM OSOME MARLENE SIS + EXPAN DED ANEUP LOIDY SCREE VERONICA chromosome 16 aneuploidy Negati ve normal Not Available [facility] [address] [place] [address], [address], 10/17/2023 21:18:27 10/10/20 23 10/10/2023 CHROM OSOME S 13, 18, 21 + SEX CHROM OSOME MARLENE SIS + EXPAN DED ANEUP LOIDY SCREE VERONICA chromosome 17 aneuploidy Negati ve normal Not Available [facility] [address] [place] [address], [address], 10/17/2023 21:18:27 10/10/20 23 10/10/2023 CHROM OSOME S 13, 18, 21 + SEX CHROM OSOME MARLENE SIS + EXPAN DED ANEUP LOIDY SCREE VERONICA chromosome 18 aneuploidy Negati ve normal Not Available [facility] [address] [place] [address], [address], 10/17/2023 21:18:27 10/10/20 23 10/10/2023 CHROM OSOME S 13, 18, 21 + SEX CHROM OSOME MARLENE SIS + EXPAN DED ANEUP LOIDY SCREE VERONICA chromosome 19 aneuploidy Negati ve normal Not Available [facility] [address] [place] [address], [address], 10/17/2023 21:18:27 10/10/20 23 10/10/2023 CHROM OSOME S 13, 18, 21 + SEX CHROM OSOME MARLENE SIS + EXPAN DED ANEUP LOIDY SCREE VERONICA chromosome 2 aneuploidy Negati ve normal Not Available [facility] [address] [place], [address], 10/17/2023 21:18:27 10/10/20 23 10/10/2023 CHROM OSOME S 13, 18, 21 + SEX CHROM OSOME MARLENE SIS + EXPAN DED ANEUP LOIDY SCREE VERONICA chromosome 20 aneuploidy Negati ve normal Not Available [facility] [address] [place], [address], 10/17/2023 21:18:27 10/10/20 23 10/10/2023 CHROM OSOME S 13, 18, 21 + SEX CHROM OSOME MARLENE SIS + EXPAN DED ANEUP LOIDY SCREE VERONICA chromosome 21 aneuploidy Negati ve normal Not Available [facility] [address] [place] [address], [address], 10/17/2023 21:18:27 10/10/20 23 10/10/2023 CHROM OSOME S 13, 18, 21 + SEX CHROM OSOME MARLENE SIS + EXPAN DED ANEUP LOIDY SCREE VERONICA chromosome 22 aneuploidy Negati ve normal Not Available [facility] [address] [place], [address], 10/17/2023 21:18:27 10/10/20 23 10/10/2023 CHROM OSOME S 13, 18, 21 + SEX CHROM OSOME MARLENE SIS + EXPAN DED ANEUP LOIDY SCREE VERONICA chromosome 3 aneuploidy Negati ve normal Not Available [facility] [address] [place], [address], 10/17/2023 21:18:27 10/10/20 23 10/10/2023 CHROM OSOME S 13, 18, 21 + SEX CHROM OSOME MARLENE SIS + EXPAN DED ANEUP LOIDY SCREE VERONICA chromosome 4 aneuploidy Negati ve normal Not Available [facility] [address] [place] [address], [address], 10/17/2023 21:18:27 10/10/20 23 10/10/2023 CHROM OSOME S 13, 18, 21 + SEX CHROM OSOME MARLENE SIS + EXPAN DED ANEUP LOIDY SCREE VERONICA chromosome 5 aneuploidy Negati ve normal Not Available [facility] [address] [place], [address], 10/17/2023 21:18:27 10/10/20 23 10/10/2023 CHROM OSOME S 13, 18, 21 + SEX CHROM OSOME MARLENE SIS + EXPAN DED ANEUP LOIDY SCREE VERONICA chromosome 6 aneuploidy Negati ve normal Not Available [facility] [address] [place], [address], 10/17/2023 21:18:27 10/10/20 23 10/10/2023 CHROM OSOME S 13, 18, 21 + SEX CHROM OSOME MARLENE SIS + EXPAN DED ANEUP LOIDY SCREE VERONICA chromosome 7 aneuploidy Negati ve normal Not Available [facility] [address] [place], [address], 10/17/2023 21:18:27 10/10/20 23 10/10/2023 CHROM OSOME S 13, 18, 21 + SEX CHROM OSOME MARLENE SIS + EXPAN DED ANEUP LOIDY SCREE VERONICA chromosome 8 aneuploidy Negati ve normal Not Available [facility] [address] [place], [address], 10/17/2023 21:18:27 10/10/20 23 10/10/2023 CHROM OSOME S 13, 18, 21 + SEX CHROM OSOME MARLENE SIS + EXPAN DED ANEUP LOIDY SCREE VERONICA chromosome 9 aneuploidy Negati ve normal Not Available [facility] [address] [place], [address], 10/17/2023 21:18:27 10/10/20 23 10/10/2023 CHROM OSOME S 13, 18, 21 + SEX CHROM OSOME MARLENE SIS + EXPAN DED ANEUP LOIDY SCREE VERONICA sex chromosome analysis Female normal Not Available [facility] [address], [place], [address], 10/17/2023 21:18:27 11/19/19 24 11/19/2023 HEMOG LOBIN AND HEMAT OCRIT hemoglobin 11.9 g/dL 10.9-1 4.3 Not Available [facility] ([facility]) [address] [place], [address], 11/19/2023 16:06:56 11/19/19 24 11/19/2023 HEMOG LOBIN AND HEMAT OCRIT hematocrit 36 % 31-42 Not Available [facility] ([facility]) [address] [place], [address], 11/19/2023 16:06:56 09/17/20 23 09/17/2023 ultra sound image s RAD KEENAN [facility] [address], [place], [address], 10/07/2023 10:30:47 09/17/20 23 09/17/2023 ultra sound image s RAD [email or web address] [facility] [address], [place], [address], 09/17/2023 13:20:57 09/29/20 23 09/29/2023 ultra sound image s RAD [email or web address] [facility] [address], [place], [address], 09/29/2023 11:58:59 09/29/20 23 09/29/2023 ultra sound image s RAD [email or web address] [facility] [address], [place], [address], 10/13/2023 10:24:11 12/11/19 24 12/05/2023 US, obste tric, mater nal evalu ation + anato my No observ ation record ed. [facility] [address], [place], [address], 12/13/2023 16:26:39 01/20/20 24 01/20/2024 US, obste tric, mater nal evalu ation + anato my No observ ation record ed. [facility] [address], [place], [address], 01/20/2024 17:18:22 Result Notes None recorded. Problems Name Status Onset Date Resolution Date Notes Provider Name and Address Organization Details Recorded Time Routine care Active Matilda Kessler null, [facility] 4 08:59:20 Routine care Completed Matilda Kessler null, [facility] 4 08:59:20 Advanced maternal age Completed 38, lvl 2-nl, needs monthly growth US here at 30 wks Matilda Kessler null, [facility] 4 08:59:20 Completed 023 03/03/2024 Matilda Kessler null, [facility] 4 08:59:27 Advanced maternal age Active 38, lvl 2-nl, needs monthly growth US here at 30 wks Matilda Kessler null, [facility] 4 08:59:20 History of bariatric surgical procedure Active 023 griselda en Y; NO glucola, needs gluocse monitoring Matilda Kessler null, [facility] 4 08:59:20 History of bariatric surgical procedure Completed 023 griselda en Y; NO glucola, needs gluocse monitoring Matilda Kessler null, [facility] 4 08:59:20 Maternal obesity complicating , childbirth and the puerperium, antepartum Completed 024 Matilda Kessler null, [facility] 4 08:59:20 Maternal obesity complicating , childbirth and the puerperium, antepartum Active 024 Matilda Kessler null, [place] - [facility] 08:59:20 Problem Notes None recorded. Procedures Surgical History Date Name Laterality Status Provider Name and Address Organization Details Recorded Time laparoscopic sleeve gastrectomy completed Ilana Stone (TERMED) [facility], [facility] 09/17/2023 13:46:58 Griselda-en-Y gastrojejunostomy completed Ilana [place] (TERMED) null, [place] - [facility] 09/17/2023 13:47:08 Imaging Results Imaging Date Name Status LastModified by Organiz ation Details LastModified Time 09/17/2023 ultrasound images completed KEENAN [facility] [address], [place], [address], 10/07/2023 10:30:47 09/17/2023 ultrasound images completed [email or web address] [facility] [address], [place], [address], 09/17/2023 13:20:57 09/29/2023 ultrasound images completed [email or web address] [facility] [address], [place], [address], 09/29/2023 11:58:59 09/29/2023 [email or web address] [address], [place], [address], 10/13/2023 10:24:11 12/05/2023 US, obstetric, maternal evaluation + anatomy completed [facility] [address], [place], [address], 12/13/2023 16:26:39 01/20/2024 US, obstetric, maternal evaluation + anatomy completed [facility] [address], [place], [address], 01/20/2024 17:18:22 Procedure Notes None recorded. Medical Equipment None Reported. Allergies Allergen ID Allergen Name Allergen Category Reaction Reaction Severity Criticality Documentation Date Start Date Code Code System Note Provider Name and Address Organization Details Recorded Time 450246 Non-stero idal anti-infl ammatory agent (product) medicatio n Not available Not available Not available 09/17/2023 72888 005 SNOMED r/t baria tric surge ry Ilana Stone (TERMED) [facility] 3 13:33:09 Medications Name Sig Start [...] DateTime 09/17/2023 167.64 cm Ilana Stone (TERMED) [facility] 09/17/2023 13:31:51 Date Recorded Body height Body mass index (BMI) Body weight Heart rate Systolic blood pressure Diastolic blood pressure Provider Name and Address Organization Details Last Updated DateTime 3 167.64 cm 34.5 kg/m2 13794.7 6718 g 75 /min 108 mm[Hg] 73 mm[Hg] Princess Trevino (TERMED) [facility] 3 14:03:04 Date Recorded Body height Body mass index (BMI) Systolic blood pressure Diastolic blood pressure Provider Name and Address Organization Details Last Updated DateTime 09/29/2023 167.64 cm 34.5 kg/m2 106 mm[Hg] 71 mm[Hg] Mallory Chaparro [facility] 09/29/2023 11:54:06 Date Recorded Body weight Provider Name an d Address Organization Details Last Updated DateTime 09/29/2023 55649.44684 g Betty sheffield MD [address] [place] [address],[address], [place], [address], [facility] 09/29/2023 12:03:28 Date Recorded Body height Body mass index (BMI) Body weight Heart rate Systolic blood pressure Diastolic blood pressure Provider Name and Address Organization Details Last Updated DateTime 3 167.64 cm 34.7 kg/m2 37482.3 5955 g 61 /min 99 mm[Hg] 60 mm[Hg] Pepper Brasher [facility] 3 09:12:15 Date Recorded Body weight Body mass index (BMI) Body height Heart rate Systolic blood pressure Diastolic blood pressure Provider Name and Address Organization Details Last Updated DateTime 4 266885. 105432 g 35.8 kg/m2 167.64 cm 81 /min 116 mm[Hg] 66 mm[Hg] Suzi Stockton [facility] 4 09:27:16 Date Recorded Body height Body mass index (BMI) Heart rate Systolic blood pressure Diastolic blood pressure Provider Name and Address Organization Details Last Updated DateTime 12/18/2023 167.64 cm 36.8 kg/m2 71 /min 89 mm[Hg] 55 mm[Hg] Mallory Chaparro [facility] 4 09:31:14 Date Recorded Body weight Provider Name an d Address Organization Details Last Updated DateTime 12/18/2023 267419.57720 g Betty sheffield MD [address] [place] [address],[facility] [address], [place], [address], [facility] 12/18/2023 09:38:56 Date Recorded Body height Body mass index (BMI) Body weight Heart rate Systolic blood pressure Diastolic blood pressure Provider Name and Address Organization Details Last Updated DateTime 4 167.64 cm 37.8 kg/m2 413698. 71726 g 80 /min 115 mm[Hg] 60 mm[Hg] Pepper Brasher [facility] 4 10:19:59 Social History Question Answer Notes LastModified by Organizat ion Details LastModified Time Tobacco Smoking Status Former Smoker high school and college Ilana Stone (TERMED) null, [facility] [place] 09/17/2023 13:46:38 Do You Have An Advance Directive? No [email or web address] Information not available 12/18/2023 What Is Your [...] available 09/17/2023 Are You Currently Employed? Yes [email or web address] Information not available 12/18/2023 What Type Of Diet Are You Following? 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 Information not available 09/17/2023 Are You Sexually Active? Yes [email or web address] Information not available 12/18/2023 Do You Use Any Illicit Or Recreational Drugs? No [email or web address] Information not available 12/18/2023 Do You Or Have You Ever Used Any Other Forms Of Tobacco Or Nicotine? No Information not available 12/18/2023 Sex: Female Functional [...] Encounter Closed Date Diagnosis/Indication Diagnosis SNOMED-CT Code [id number] QUINTEN DALYKVNG Gustafson [id number] [place] [address] 09/17/2023 12:44:33 09/17/2023 14:19:13 test positive [id number] History of bariatric surgical procedure 509144790 Advanced m aternal age 685552353 First trim dimitri 80887220 care: grand multiparity [id number] Betty Reich MD [id number] [place] [address] 09/29/2023 11:09:48 09/29/2023 12:05:37 History of bariatric surgical procedure 294764384 Advanced m aternal age 439568726 care: grand multiparity 410582160 Vaginal bl eeding complicating early 597019080 [id number] MELANY RATLIFF DO [id number] [address] [place] [address] 10/16/2023 09:03:45 10/16/2023 09:26:57 care: multiparous, older than 35 years 821822721 Gestation period, 12 weeks 33879505 [id number] Andry Corbin MD [id number] [place] [address] 11/19/2023 09:13:37 11/19/2023 09:41:08 Advanced maternal age 348021110 History of bariatric surgical procedure 117179783 Gestation period, 16 weeks 90419100 Headache 53498618 [id number] Betty Reich MD [id number] [place] [address] 12/18/2023 09:11:06 12/18/2023 09:59:08 Advanced maternal age 100880225 History of bariatric surgical procedure 413504322 Gestation period, 21 weeks 86770686 [id number] MELANY RATLIFF DO [id number] [address] [place] [address] 01/20/2024 09:56:39 01/20/2024 10:30:03 care: multiparous, older than 35 years 838643796 Gestation period, 25 weeks 06613768 Maternal o besity complicating , childbirth and the puerperium, antepartum 784031349256 Uterine si ze for dates discrepancy 564722986 Health Concerns Section Related Observation LastModified by Organization Detai ls LastModified Time None Recorded Concern Status LastModified by Organization Details LastModified Time None Recorded Advance Directives Directive N: Payers Encounter Date Sequence Insurance Name Policy Number Policy Campos Covered Member ID Campos Member ID Guarantor Name 01/20/2024 1 [employer] () Bry Walker [id number] Misty Walker 12/18/2023 1 [employer] () Bry Walker [id number] Mistyangie Walker 11/19/2023 1 [employer] () Bry Walker [id number] Misty Walker 10/16/2023 1 [employer] () Bry Walker [id number] Misty Aaron 09/29/2023 1 [employer] () Bry Walker [id number] Misty Walker 09/17/2023 1 [employer] () Bry Walker [id number] Misty Aaron Notes Date Note Type Note Provider Name a nd Address Organization Details Recorded Time 09/17/2023 text/html HPI Notes: + SAMANTA CASTRO CNM [address] [facility] [address], [place], [address], [facility] - [facility] 09/17/2023 16:49:21 OBGyn Episode Ob Episode Information Episode Created Date Number of Fetuses Patient Bloodtype Patient rh Status Prepregnancy Weight lbs Domestic Partner Domestic Partner Phone Father Name Chemicals Fermentation Operator Status 09/17/20 23 1 CLOSED Fetus Data First Name Last Name Admitted to NICU Weight (g) Sex Living Outcome Pediatric Complications Fetus ID Race Codes Race Delivery Type 3515.33 8 F Full Term 860715 Vaginal Delivery Kun Calculation Initial Kun Date [...] Domestic Partner Domestic Partner Phone Father Name Chemicals Fermentation Operator Status 09/17/20 23 1 CLOSED Fetus Data First Name Last Name Admitted to NICU Weight (g) Sex Living Outcome Pediatric Complications Fetus ID Race Codes Race Delivery Type 3826.95 5704 F Full Term 964250 Vaginal Delivery Kun Calculation Initial Kun Date [...] Domestic Partner Domestic Partner Phone Father Name Chemicals Fermentation Operator Status 09/17/20 23 1 CLOSED Fetus Data First Name Last Name Admitted to NICU Weight (g) Sex Living Outcome Pediatric Complications Fetus ID Race Codes Race Delivery Type 3231.84 3 F Full Term 860990 Vaginal Delivery Kun Calculation Initial Kun Date [...] Complications Tubal Sterilization Discharge Date Comments 8 Regional- idural 41 10 WENDY Flores. IOL for ? growth restricti on, no other complicat ions. 7 months after griselda en Y revision Maria Discharge Information Feeding Method Contraceptive Method Maternal HG B and HCT Levels Ob Episode Information Episode Created Date Number of Fetuses Patient Bloodtype Patient rh Status Prepregnancy Weight lbs Domestic Partner Domestic Partner Phone Father Name Chemicals Fermentation Operator Status 09/17/20 23 1 CLOSED Fetus Data First Name Last Name Admitted to NICU Weight (g) Sex Living Outcome Pediatric Complications Fetus ID Race Codes Race Delivery Type 3572.03 7 M Full Term 550404 Vaginal Delivery Kun Calculation Initial Kun Date [...] Discharge Date Comments 4 None 40 3 [place]. No complicat ions, fast delivery. Gauthier Discharge Information Feeding Method Contraceptive Method Maternal HG B and HCT Levels Ob Episode Information Episode Created Date Number of Fetuses Patient Bloodtype Patient rh Status Prepregnancy Weight lbs Domestic Partner Domestic Partner Phone Father Name Chemicals Fermentation Operator Status 09/17/20 23 1 CLOSED Fetus Data First Name Last Name Admitted to NICU Weight (g) Sex Living Outcome Pediatric Complications Fetus ID Race Codes Race Delivery Type 3713.55 7704 F Full Term 682930 Vaginal Delivery Kun Calculation Initial Kun Date [...] Discharge Date Comments 1 Regional- idural 39.4 Steff Blanca. IOL at term, vaughn bulb, slow PPH after, medically managed. Wilmer Discharge Information Feeding Method Contraceptive Method Maternal HG B and HCT Levels Ob Episode Information Episode Created Date Number of Fetuses Patient Bloodtype Patient rh Status Prepregnancy Weight lbs Domestic Partner Domestic Partner Phone Father Name Chemicals Fermentation Operator Status 09/17/20 23 1 CLOSED Fetus Data First Name Last Name Admitted to NICU Weight (g) Sex Living Outcome Pediatric Complications Fetus ID Race Codes Race Delivery Type , Spontane ous [id number] Kun Calculation Initial Kun Date Initial Exam [...] Domestic Partner Domestic Partner Phone Father Name Chemicals Fermentation Operator Status 09/17/20 23 1 CLOSED Fetus Data First Name Last Name Admitted to NICU Weight (g) Sex Living Outcome Pediatric Complications Fetus ID Race Codes Race Delivery Type 4195.72 6 M Full Term 807369 Vaginal Delivery Kun Calculation Initial Kun Date [...] Domestic Partner Domestic Partner Phone Father Name Chemicals Fermentation Operator Status 09/17/20 23 1 O Positive 214 Mahad CLOSED Fetus Data First Name Last Name Admitted to NICU Weight (g) Sex Living Outcome Pediatric Complications Fetus ID Race Codes Race Delivery Type 475385 Problems Problem Notes Problem Name Start Date End Date Resolution Snomed Code Not e Maternal obesity complicating , childbirth and the puerperium, antepartum 01/20/2024 [id number] History of bariatric surgical procedure 09/17/2023 174267796 griselda en Y ; NO glucola, needs gluocse monitoring Routine care 3255608 03 Advanced maternal age 907406828 38, lvl 2-nl, n eeds monthly growth [...] Cervic Effacement Cervic Station neg none none none Negative none neg 0cm 0% Type [...] Cervic Effacement Cervic Station neg none none Negative neg Type Weight in lbs [...] Cervic Effacement Cervic Station neg none none Negative neg Type Weight in lbs [...] Cervic Effacement Cervic Station neg cm none none Negative neg Type Weight in lbs [...] Effacement Cervic Station neg 28 cm none none Negative neg Type Weight in lbs [...] ated Date of Delivery true 39 Thalassemia (Martiniquais, Ivorian, Mediterranean, Or Background): MCV < 80 false Neural Tube Defect (Meningomyelocele, Spina Bifi da, Or Anencephaly) false Congenital Heart Defect false Down Syndrome false Sixto-Sachs (eg, Sikh, Cajun, [place] Citizen-[place]) f alse Danii Disease false Sickle Cell [...]
--- OUTSIDE RECORDS SUMMARY | 2024-04-06 08:49 | XMS_ITS | Continuity of Care Document ---
Author Organization [facility], [id number] Address [address] [place] [address] Assessment No assessment recorded. Plan of Treatment [...] Bariatric surgical procedure Referring Physician: Andry Corbin, OCEANIC SCIENCES PROFESSOR, Encounter Date: 11/19/2023 Results Created Date Observation Date Name Description Value Unit Range Abnormal Flag LastModifiedBy Organization Detail LastModifiedTime 09/17/2009/17/2023 ultra sound image s RAD KEENAN [facility] [address], [place], [address], 10/07/2023 10:30:47 09/17/2009/17/2023 ultra sound image s RAD [email or web address] [facility] [address], [place], [address], 09/17/2023 13:20:57 09/29/20 23 09/29/2023 ultra sound image s RAD [email or web address] [facility] [address], [place], [address], 09/29/2023 11:58:59 09/29/2009/29/2023 ultra sound image s RAD [email or web address] [facility] [address], [place], [address], 10/13/2023 10:24:11 12/11/19 24 12/05/2023 US, obste tric, mater nal evalu ation + anato my No observ ation record ed. elizabeth [facility] [address], [place], [address], 12/13/2023 16:26:39 01/20/20 24 01/20/2024 US, obste tric, mater nal evalu ation + anato my No observ ation record ed. [facility] [address], [place], [address], 01/20/2024 17:18:22 Result Notes None recorded. Problems Name Status Onset Date Resolution Date Notes Provider Name and Address Organization Details Recorded Time Routine care Active Matilda Kessler null, [facility] 4 08:59:20 Routine care Completed Matilda Kessler null, [facility] 4 08:59:20 Advanced maternal age Completed 38, lvl 2-nl, needs monthly growth US here at 30 wks Matilda Kessler null, [facility] 4 08:59:20 Completed 023 03/03/2024 Matilad Kessler null, [facility] 4 08:59:27 Advanced maternal age Active 38, lvl 2-nl, needs monthly growth US here at 30 wks Matilda Kessler null, [facility] 4 08:59:20 History of bariatric surgical procedure Active 023 grieslda en Y; NO glucola, needs gluocse monitoring Matilda Kessler null, [facility] 4 08:59:20 History of bariatric surgical procedure Completed 023 griselda en Y; NO glucola, needs gluocse monitoring Matilda Kessler [facility], [facility] 4 08:59:20 Maternal obesity complicating , childbirth and the puerperium, antepartum Completed 024 Matilda Kessler null, [facility] 4 08:59:20 Maternal obesity complicating , childbirth and the puerperium, antepartum Active 024 Matilda Kessler null, [facility] 4 08:59:20 Problem Notes None recorded. Procedures Surgical History Date Name Laterality Status Provider Name and Address Organization Details Recorded Time laparoscopic sleeve gastrectomy completed Ilana Whitewater (TERMED) [facility] 09/17/2023 13:46:58 Griselda-en-Y gastrojejunostomy completed Ilana Whitewater (TERMED) [facility] 09/17/2023 13:47:08 Imaging Results None recorded. Procedure Notes None recorded. Medical Equipment None Reported. Allergies Allergen ID Allergen Name Allergen Category Reaction Reaction Severity Criticality Documentation Date Start Date Code Code System Note Provider Name and Address Organization Details Recorded Time 957253 Non-stero idal anti-infl ammatory agent (product) medicatio n Not available Not available Not available 09/17/2023 67782 005 SNOMED r/t baria tric surge ry Ilana Whitewater (TERMED) [facility] 3 13:33:09 Medications Name Sig [...] Updated DateTime 4 167.64 cm 37.8 kg/m2 801084. 67659 g 80 /min 115 mm[Hg] 60 mm[Hg] Pepper Brasher [facility] 4 10:19:59 Social History Question Answer Notes LastModified by Organizat ion Details LastModified Time Tobacco Smoking Status Former Smoker high school and college Ilana Stone (TERMED) gomez, [facility] 09/17/2023 13:46:38 Do You Have An Advance Directive? No Information not available 12/18/2023 What Is Your Level Of Alcohol Consumption? None Information not available 09/17/2023 If You Are , What Was Your Level Of Alcohol Consumption Prior To ? Occasional [email or web address] Information not available 12/18/2023 Is Blood Transfusion Acceptable In An Emergency? Yes Information not available 09/17/2023 What Is Your Level Of Caffeine Consumption? Occasional Information not available 09/17/2023 Are You Currently Employed? Yes [email or web address] Information not available 12/18/2023 What Type Of Diet Are You Following? 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 Information not available 09/17/2023 Are You Sexually Active? Yes [email or web address] Information not available 12/18/2023 Do You Use Any Illicit Or Recreational Drugs? No [email or web address] Information not available 12/18/2023 Do You Or Have You Ever Used Any Other Forms Of Tobacco Or Nicotine? No [email or web address] Information not available 12/18/2023 Sex: Female Functional [...] Psych- Depression N Hematology-Other N Dermatology-Eczema/Psoriasis N Ortho-Chronic Back Pain N Dermatology-Other N ID- HIV N Cardiology- High Cholesterol [...] Crohn's/Ulcerative Colitis N Psych- Bipolar Disease N Cardiology- High Blood Pressure N ENT- Seasonal Allergies/Allergic Rhiniti s N Cancer- Lung N Cancer- Endometrial/Uterine N [...] Encounter Closed Date Diagnosis/Indication Diagnosis SNOMED-CT Code [id number] MELANY RATLIFF DO [id number] [place] [address] 01/20/2024 09:56:39 01/20/2024 10:30:03 care: multiparous, older than 35 years 040160616 Gestation period, 25 weeks 22201726 Maternal o besity complicating , childbirth and the puerperium, antepartum 272290359619 Uterine si ze for dates discrepancy 423761604 Health Concerns Section Related Observation LastModified by Organization Detai ls LastModified Time None Recorded Concern Status LastModified by Organization Details LastModified Time None Recorded Payers Encounter Date Sequence Insurance Name Policy Number Policy Campos Covered Member ID Campos Member ID Guarantor Name 01/20/2024 1 [facility] () Bry Walker [id number] Misty Walker OBGyn Episode Ob Episode Information Episode Created Date Number of Fetuses Patient Bloodtype Patient rh Status Prepregnancy Weight lbs Domestic Partner Domestic Partner Phone Father Name Computer Artist Status 09/17/20 23 1 O Positive 214 Mahad CLOSED Fetus Data First Name Last Name Admitted to NICU Weight (g) Sex Living Outcome Pediatric Complications Fetus ID Race Codes Race Delivery Type [id number] Problems Problem Notes Problem Name Start Date End Date Resolution Snomed Code Not e Maternal obesity complicating , childbirth and the puerperium, antepartum 01/20/2024 [id number] History of bariatric surgical procedure 09/17/2023 011863134 griselda en Y ; NO glucola, needs gluocse monitoring Routine care 2066013 03 Advanced maternal age 567419495 38, lvl 2-nl, n eeds monthly growth [...] ated Date of Delivery true 39 Thalassemia (Pashto, Honduran, Mediterranean, Or Background): MCV < 80 false Neural Tube Defect (Meningomyelocele, Spina Bifi da, Or Anencephaly) false Congenital Heart Defect false Down Syndrome false Sixto-Sachs (eg, Yazidi, Cajun, Zambian-[place]) f alse Danii Disease false Sickle Cell Disease Or Trait () false Hemophilia Or Other Blood Disorders false Muscular Dystrophy false Cystic Fibrosis false Beckham's Chorea false Intellectual Disability/Autism false If Yes, [...]
--- OUTSIDE RECORDS SUMMARY | 2024-04-06 08:49 | XMS_ITS | Data Portability ---
Author Organization [facility] [employer], _PRMR_Primary Care Address [address] [place] [address] Care Team Providers Care Charge Account Authorizer Name Role Phone GARFIELD SALAZAR Bee Rancher Assessment No assessment recorded. Plan of Treatment Reminders Order Date Submit Date Provider Last Modified By Organization Details Last Modified Time Details Appointments None recorded. Lab pap, LB + reflex HR HPV [address] [facility], [address], [place], [address], 1 19:19:10 streptococc us group B, culture, unspecified specimen [address] (Lab), [address], [place], [address], 1 22:16:39 glucose, serum or plasma 2019 020 [facility] (Lab), [address], [address], [place], [address], 0 14:09:09 CBC 2019 020 [facility] (Lab), [address], [address], [place], [address], 0 13:34:48 HIV (1+2) Ab screen, serum 2019 020 [facility] (Lab), [address], [address], [place], [address], 0 13:06:19 RPR (rapid plasma reagin), serum 2019 020 [facility] (Lab), [address], [address], [place], [address], 0 09:06:46 Referral None recorded. Procedures None recorded. Surgeries None recorded. Imaging US, obstetric, limited - For growth 2020 021 [facility] (Imaging), [address] [facility] [address], [place], [address], 1 17:01:11 Medication Orders None recorded. Patient TargetsNo targets recorded. Patient InstructionsNo instructions recorded. Reason for Referral None Reported. Results Created Date Observation Date Name Description Value Unit Range Abnormal Flag LastModifiedBy Organization Detail LastModifiedTime 02/06/20 19 02/05/2019 cultu re, urine urine culture, routine Final report Not Available [facility] (Lab) [address], [place], [address], 08/20/2020 03:11:38 02/06/20 19 02/05/2019 cultu re, urine result 1 No growth Not Available [facility] (Lab) [address] [facility] [address], [place], [address], 08/20/2020 03:11:38 02/06/20 19 02/05/2019 HIV (1+2) Ab scree n, serum HIV screen 4TH generation wrfx Non Reacti ve non reacti ve Not Available [facility] (Lab) [address] [facility] [address], [place], [address], 08/20/2020 03:04:24 02/06/20 19 02/05/2019 obste tric scree n, serum or blood HBsAg screen Negati ve negati ve Not Available [facility] (Lab) [address] [facility] [address], [place], [address], 08/20/2020 03:04:23 02/06/20 19 02/05/2019 obste tric scree n, serum or blood RPR Non Reacti ve non reacti ve Not Available [facility] (Lab) [address] [facility] [address], [place], [address], 08/20/2020 03:04:23 02/06/20 19 02/05/2019 obste tric scree n, serum or blood rubella antibodies, IgG 1.79 index immune >0.99 Not Available [facility] (Lab) [address] [facility] [address], [place], [address], 08/20/2020 03:04:23 02/06/20 19 02/05/2019 obste tric scree n, serum or blood ABO grouping O Not Available [facility] (Lab) [address] [facility] [address], [place], [address], 08/20/2020 03:04:23 02/06/20 19 02/05/2019 obste tric scree n, serum or blood Rh factor Positi ve Not Available [facility] (Lab) [address] [facility] [address], [place], [address], 08/20/2020 03:04:23 02/06/20 19 02/05/2019 obste tric scree n, serum or blood antibody screen Negati ve negati ve Not Available [facility] (Lab) [address] [facility] [address], [place], [address], 08/20/2020 03:04:23 02/06/20 19 02/05/2019 obste tric scree n, serum or blood WBC 8.9 x10e3 /uL 3.4-10 .8 Not Available [facility] (Lab) [address] [facility] [address], [place], [address], 08/20/2020 03:04:23 02/06/20 19 02/05/2019 obste tric scree n, serum or blood RBC 4.22 x10e6 /uL 3.77-5 .28 Not Available [facility] (Lab) [address] [facility] [address], [place], [address], 08/20/2020 03:04:23 02/06/20 19 02/05/2019 obste tric scree n, serum or blood hemoglobin 12.6 g/dL 11.1-1 5.9 Not Available [facility] (Lab) [address] [facility] [address], [place], [address], 08/20/2020 03:04:23 02/06/20 19 02/05/2019 obste tric scree n, serum or blood hematocrit 38.9 % 34.0-4 6.6 Not Available [facility] (Lab) [address] [facility] [address], [place], [address], 08/20/2020 03:04:23 02/06/20 19 02/05/2019 obste tric scree n, serum or blood MCV 92 fL 79-97 Not Available [facility] (Lab) [address] [facility] [address], [place], [address], 08/20/2020 03:04:23 02/06/20 19 02/05/2019 obste tric scree n, serum or blood MCH 29.9 pg 26.6-3 3.0 Not Available [facility] (Lab) [address] [facility] [address], [place], [address], 08/20/2020 03:04:23 02/06/20 19 02/05/2019 obste tric scree n, serum or blood MCHC 32.4 g/dL 31.5-3 5.7 Not Available [facility] (Lab) [address] [facility] [address], [place], [address], 08/20/2020 03:04:23 02/06/20 19 02/05/2019 obste tric scree n, serum or blood RDW 14.3 % 12.3-1 5.4 Not Available [facility] (Lab) [address], [place], [address], 08/20/2020 03:04:23 02/06/20 19 02/05/2019 obste tric scree n, serum or blood platelets 347 x10e3 /uL 150-37 9 Not Available [facility] (Lab) [address], [place], [address], 08/20/2020 03:04:23 02/06/20 19 02/05/2019 obste tric scree n, serum or blood neutrophils 75 % not estab. Not Available [facility] (Lab) [address], [place], [address], 08/20/2020 03:04:23 02/06/20 19 02/05/2019 obste tric scree n, serum or blood lymphs 19 % not estab. Not Available [facility] (Lab) [address], [place], [address], 08/20/2020 03:04:23 02/06/20 19 02/05/2019 obste tric scree n, serum or blood monocytes 5 % not estab. Not Available [facility] (Lab) [address], [place], [address], 08/20/2020 03:04:23 02/06/20 19 02/05/2019 obste tric scree n, serum or blood eos 1 % not estab. Not Available [facility] (Lab) [address], [place], [address], 08/20/2020 03:04:23 02/06/20 19 02/05/2019 obste tric scree n, serum or blood basos 0 % not estab. Not Available [facility] (Lab) [address], [place], [address], 08/20/2020 03:04:23 02/06/20 19 02/05/2019 obste tric scree n, serum or blood neutrophils (absolute) 6.6 x10e3 /uL 1.4-7. 0 Not Available [facility] (Lab) [address] [facility] [facility], [place], [address], 08/20/2020 03:04:23 02/06/20 19 02/05/2019 obste tric scree n, serum or blood lymphs (absolute) 1.7 x10e3 /uL 0.7-3. 1 Not Available [facility] (Lab) [address], [place], [address], 08/20/2020 03:04:23 02/06/2002/05/2019 obste tric scree n, serum or blood monocytes(ab solute) 0.5 x10e3 /uL 0.1-0. 9 Not Available [facility] (Lab) [address], [place], [address], 08/20/2020 03:04:23 02/06/2002/05/2019 obste tric scree n, serum or blood eos (absolute) 0.1 x10e3 /uL 0.0-0. 4 Not Available [facility] (Lab) [address] [facility], [place], [address], 08/20/2020 03:04:23 02/06/2002/05/2019 obste tric scree n, serum or blood baso (absolute) 0.0 x10e3 /uL 0.0-0. 2 Not Available [facility] (Lab) [address] [facility], [place], [address], 08/20/2020 03:04:23 02/06/2002/05/2019 obste tric scree n, serum or blood immature granulocytes 0 % not estab. Not Available [facility] (Lab) [address] [facility] [address], [place], [address], 08/20/2020 03:04:23 02/06/20 19 02/05/2019 obste tric scree n, serum or blood immature grans (abs) 0.0 x10e3 /uL 0.0-0. 1 Not Available [facility] (Lab) [address], [place], [address], 08/20/2020 03:04:23 02/12/20 19 02/11/2019 vitam in B12, serum vitamin B12 1983 pg/mL 232-12 45 high Not Available [facility] (Lab) [address], [place], [address], 08/20/2020 04:06:09 02/12/20 19 02/11/2019 iron, serum iron 68 ug/dL 27-159 Not Available [facility] (Lab) [address], [place], [address], 08/20/2020 04:06:09 02/12/20 19 02/11/2019 HbA1c (hemo globi n A1c), blood HGBA1C 4.9 % 4.2-5. 8 Not Available [facility] (Lab) [address], [place], [address], 08/20/2020 04:06:07 07/05/20 20 07/05/2020 cultu re, urine urine culture, routine Final report Not Available [facility] (Lab) [address] [facility] [address], [place], [address], 08/16/2020 16:46:37 07/05/20 20 07/05/2020 cultu re, urine result 1 No growth Not Available [facility] (Lab) [address], [place], [address], 08/16/2020 16:46:37 07/05/20 20 07/05/2020 HbA1c (hemo globi n A1c), blood HGBA1C 5.4 % 4.2-5. 8 Not Available [facility] (Lab) [address] [facility] [address], [place], [address], 08/16/2020 16:44:54 07/05/20 20 07/05/2020 vitam in B12, serum vitamin B12 1074 pg/mL 232-12 45 Not Available [facility] (Lab) [address] [facility] [address], [place], [address], 08/16/2020 16:44:56 07/05/20 20 07/05/2020 obste tric scree n, serum or blood HBsAg screen Negati ve negati ve Not Available [facility] (Lab) [address] [facility] [address], [place], [address], 08/16/2020 16:44:55 07/05/20 20 07/05/2020 obste tric scree n, serum or blood RPR Non Reacti ve non reacti ve Not Available [facility] (Lab) [address] [place] [address], [place], [address], 08/16/2020 16:44:55 07/05/20 20 07/05/2020 obste tric scree n, serum or blood rubella antibodies, IgG 2.21 index immune >0.99 Not Available [facility] (Lab) [address] [facility] [address], [place], [address], 08/16/2020 16:44:55 07/05/20 20 07/05/2020 obste tric scree n, serum or blood ABO grouping O Not Available [facility] (Lab) [address] [facility] [address], [place], [address], 08/16/2020 16:44:55 07/05/20 20 07/05/2020 obste tric scree n, serum or blood Rh factor Positi ve Not Available [facility] (Lab) [address] [place] [address] 1, [place], [address], 08/16/2020 16:44:55 07/05/20 20 07/05/2020 obste tric scree n, serum or blood antibody screen Negati ve negati ve Not Available [facility] (Lab) [address] [facility] [address], [place], [address], 08/16/2020 16:44:55 07/05/20 20 07/05/2020 obste tric scree n, serum or blood WBC 10.3 x10e3 /uL 3.4-10 .8 Not Available [facility] (Lab) [address] [facility] [address], [place], [address], 08/16/2020 16:44:55 07/05/20 20 07/05/2020 obste tric scree n, serum or blood RBC 4.42 x10e6 /uL 3.77-5 .28 Not Available [facility] (Lab) [address], [place], [address], 08/16/2020 16:44:55 07/05/20 20 07/05/2020 obste tric scree n, serum or blood hemoglobin 10.7 g/dL 11.1-1 5.9 low Not Available [facility] (Lab) [address] [facility], [place], [address], 08/16/2020 16:44:55 07/05/20 20 07/05/2020 obste tric scree n, serum or blood hematocrit 34.8 % 34.0-4 6.6 Not Available [facility] (Lab) [address], [place], [address], 08/16/2020 16:44:55 07/05/20 20 07/05/2020 obste tric scree n, serum or blood MCV 79 fL 79-97 Not Available [facility] (Lab) [address], [place], [address], 08/16/2020 16:44:55 07/05/20 20 07/05/2020 obste tric scree n, serum or blood MCH 24.2 pg 26.6-3 3.0 low Not Available [facility] (Lab) [address] [place], [place] [address]dg [address], [place], [address], 08/16/2020 16:44:55 07/05/20 20 07/05/2020 obste tric scree n, serum or blood MCHC 30.7 g/dL 31.5-3 5.7 low Not Available [facility] (Lab) [address], [place], [address], 08/16/2020 16:44:55 07/05/20 20 07/05/2020 obste tric scree n, serum or blood RDW 16.7 % 11.7-1 5.4 high Not Available [facility] (Lab) [address] [facility] [address], [place], [address], 08/16/2020 16:44:55 07/05/20 20 07/05/2020 obste tric scree n, serum or blood platelets 394 x10e3 /uL 150-45 0 Not Available [facility] (Lab) [address] [facility] [address], [place], [address], 08/16/2020 16:44:55 07/05/20 20 07/05/2020 obste tric scree n, serum or blood neutrophils 77 % not estab. Not Available [facility] (Lab) [address], [place], [address], 08/16/2020 16:44:55 07/05/20 20 07/05/2020 obste tric scree n, serum or blood lymphs 16 % not estab. Not Available [facility] (Lab) [address], [place], [address], 08/16/2020 16:44:55 07/05/20 20 07/05/2020 obste tric scree n, serum or blood monocytes 7 % not estab. Not Available [facility] (Lab) [address], [place], [address], 08/16/2020 16:44:55 07/05/20 20 07/05/2020 obste tric scree n, serum or blood eos 0 % not estab. Not Available [facility] (Lab) [address] [facility] [address], [place], [address], 08/16/2020 16:44:55 07/05/20 20 07/05/2020 obste tric scree n, serum or blood basos 0 % not estab. Not Available [facility] (Lab) [address] [facility] [address], [place], [address], 08/16/2020 16:44:55 07/05/20 20 07/05/2020 obste tric scree n, serum or blood neutrophils (absolute) 7.8 x10e3 /uL 1.4-7. 0 high Not Available [facility] (Lab) [address] [facility] [address], [place], [address], 08/16/2020 16:44:55 07/05/20 20 07/05/2020 obste tric scree n, serum or blood lymphs (absolute) 1.7 x10e3 /uL 0.7-3. 1 Not Available [facility] (Lab) [address] [facility] [address], [place], [address], 08/16/2020 16:44:55 07/05/20 20 07/05/2020 obste tric scree n, serum or blood monocytes(ab solute) 0.7 x10e3 /uL 0.1-0. 9 Not Available [facility] (Lab) [address] [facility] [address], [place], [address], 08/16/2020 16:44:55 07/05/20 20 07/05/2020 obste tric scree n, serum or blood eos (absolute) 0.0 x10e3 /uL 0.0-0. 4 Not Available [facility] (Lab) [address] [facility] [address], [place], [address], 08/16/2020 16:44:55 07/05/20 20 07/05/2020 obste tric scree n, serum or blood baso (absolute) 0.0 x10e3 /uL 0.0-0. 2 Not Available [facility] (Lab) [address] [facility] [address], [place], [address], 08/16/2020 16:44:55 07/05/20 20 07/05/2020 obste tric scree n, serum or blood immature granulocytes 0 % not estab. Not Available [facility] (Lab) [address] [facility] [address], [place], [address], 08/16/2020 16:44:55 07/05/20 20 07/05/2020 obste tric scree n, serum or blood immature grans (abs) 0.0 x10e3 /uL 0.0-0. 1 Not Available [facility] (Lab) [address] [facility] [address], [place], [address], 08/16/2020 16:44:55 07/05/20 20 07/05/2020 HIV (1+2) Ab scree n, serum HIV screen 4TH generation wrfx Non Reacti ve non reacti ve Not Available [facility] (Lab) [address] [facility] [address], [place], [address], 08/16/2020 16:44:53 11/07/20 20 11/07/2020 CBC WBC 10.3 K/uL 4.5-11 .0 Not Available [facility] (Lab) [address] [facility] [address], [place], [address], 11/07/2020 13:34:48 11/07/20 20 11/07/2020 CBC RBC 3.70 M/uL 3.50-5 .50 Not Available [facility] (Lab) [address] [facility] [address], [place], [address], 11/07/2020 13:34:48 11/07/20 20 11/07/2020 CBC HGB 10.1 g/dL 12.0-1 6.0 low Not Available [facility] (Lab) [address], [place], [address], 11/07/2020 13:34:48 11/07/20 20 11/07/2020 CBC HCT 31.6 % 34.0-4 4.0 low Not Available [facility] (Lab) [address] [facility] [address], [place], [address], 11/07/2020 13:34:48 11/07/20 20 11/07/2020 CBC MCV 85.4 fL 76.0-1 00.0 Not Available [facility] (Lab) [address] [facility] [address], [place], [address], 11/07/2020 13:34:48 11/07/20 20 11/07/2020 CBC MCH 27.3 pg 27.0-3 3.0 Not Available [facility] (Lab) [address] [facility] [address], [place], [address], 11/07/2020 13:34:48 11/07/20 20 11/07/2020 CBC MCHC 32.0 g/dL 32.0-3 7.0 Not Available [facility] (Lab) [address] [facility] [address], [place], [address], 11/07/2020 13:34:48 11/07/20 20 11/07/2020 CBC RDW-SD 46 fL 38-48 Not Available [facility] (Lab) [address] [facility] [address], [place], [address], 11/07/2020 13:34:48 11/07/20 20 11/07/2020 CBC RDW CV 14.5 % 11.0-1 4.5 Not Available [facility] (Lab) [address] [facility] [address], [place], [address], 11/07/2020 13:34:48 11/07/20 20 11/07/2020 CBC plt 353.0 K/uL 150.0- 400.0 Not Available [facility] (Lab) [address] [facility] [address], [place], [address], 11/07/2020 13:34:48 11/07/20 20 11/07/2020 gluco se, serum or plasm a glu 75 mg/dL 74-106 Not Available [facility] (Lab) [address], [place], [address], 11/07/2020 14:09:09 11/07/20 20 11/07/2020 RPR (rapi d plasm a reagi n), serum RPR Non Reacti ve non reacti ve Not Available [facility] (Lab) [address], [place], [address], 11/08/2020 09:06:46 11/07/20 20 11/07/2020 HIV (1+2) Ab scree n, serum HIV screen 4TH generation wrfx Non Reacti ve non reacti ve Not Available [facility] (Lab) [address], [place], [address], 11/08/2020 13:06:19 01/04/20 21 01/04/2021 strep tococ cus group B, cultu re, unspe cifie d speci men strep gp B IRAIS Positi ve negati ve abnormal Not Available [facility] (Lab) [address], [place], [address], 01/06/2021 12:06:25 12/15/19 21 12/15/2020 US, obste [...] Single live intrau terine pregna ncy with estima josette gestat ional age based upon today' s measur ements of 34 weeks 3 days, estima josette gestat ional age based on provid ed dates of 33 weeks 1 day and [facility] ed LJ of 021. 2. Estima josette weight at the 76th percen tile by provid ed dates. Additi onal biomet rics as above. 3. Upper normal BENTLEY. Closed cervix . Cephal ic presen tation . Tuan vaz M.D. Dictat ed by: Tuan vaz M.D. on 021 at 15:57 Approv ed by: Tuan vaz M.D. on 2/05/2 021 at 16:00 [facility] (Imaging) [address], [place], [address], 12/31/2020 15:03:11 Result Notes None recorded. Problems Name Status Onset Date Resolution Date Notes Provider Name and Address Organization Details Recorded Time Completed 0 03/16/2021 Becky Wan [facility], [facility] 03/16/2021 11:23:52 Completed 9 09/27/2019 Becky Wan [facility], [facility] 03/16/2021 11:23:52 Completed 8 08/18/2018 Beckyderian Wan [facility], [facility] 03/16/2021 11:23:52 Problem Notes None recorded. Procedures Surgical History Date Name Laterality Status Provider Name and Address Organization Details Recorded Time 9 Date of Last Pap Smear completed JAMI CERNA) [facility], [facility] 07/31/2020 16:34:02 7 gastric anastomosis revision completed Naheedsa Tirado [facility], [facility] 08/13/2020 23:11:03 1 bariatric operative procedure completed Naheedsa Tirado [facility] 08/13/2020 23:10:23 1 Lynn teeth surgery completed Naheedsa Tirado [facility], [facility] 08/13/2020 23:11:27 Imaging Results Imaging Date Name Status LastModified by Organiz ation Details LastModified Time 12/15/2020 US, obstetric, limited completed [facility] (Imaging) [address], [place], [address], 12/31/2020 15:03:11 Procedure Notes None recorded. Medical [...] Address Organization Details Last Updated DateTime 07/05/2020 29562.22011 g JAMI LI (OLD) [facility] 07/28/2020 11:05:42 Date Recorded Body mass index (BMI) Body height Body weight Provider Name and Address Organization Details Last Updated DateTime 07/05/2020 35.3 kg/m2 167.64 cm 09125.729 g Not Available [facility] 08/14/2020 00:01:40 Date Recorded Body weight Systolic blood pressure Diastolic blood pressure Provider Name and Address Organization Details Last Updated DateTime 07/13/2020 96605.7290 3 g 132 mm[Hg] 80 mm[Hg] JAMI LI (OLD) [facility] 07/28/2020 11:05:42 Date Recorded Body mass index (BMI) Body height Body weight Systolic blood pressure Diastolic blood pressure Provider Name and Address Organization Details Last Updated DateTime 07/13/2020 35.3 kg/m2 167.64 cm 96263.72 9 g 132 mm[Hg] 80 mm[Hg] Not Available [facility] 00:01:39 Date Recorded Body mass index (BMI) Body height Body weight Systolic blood pressure Diastolic blood pressure Provider Name and Address Organization Details Last Updated DateTime 04/03/2018 33.6 kg/m2 167.64 cm 13416.21 3 g 106 mm[Hg] 68 mm[Hg] Not Available [facility] 00:01:39 Date Recorded Body mass index (BMI) Body height Body weight Systolic blood pressure Diastolic blood pressure Provider Name and Address Organization Details Last Updated DateTime 04/17/2018 34.1 kg/m2 167.64 cm 98881.99 01 g 124 mm[Hg] 72 mm[Hg] Not Available [facility] 0 00:01:39 Date Recorded Body mass index (BMI) Body height Body weight Systolic blood pressure Diastolic blood pressure Provider Name and Address Organization Details Last Updated DateTime 04/28/2018 34.2 kg/m2 167.64 cm 53898.58 24 g 124 mm[Hg] 68 mm[Hg] Not Available [facility] 0 00:01:39 Date Recorded Body mass index (BMI) Body height Body weight Systolic blood pressure Diastolic blood pressure Provider Name and Address Organization Details Last Updated DateTime 05/12/2018 34.7 kg/m2 167.64 cm 79137.35 96 g 126 mm[Hg] 76 mm[Hg] Not Available [facility] 0 00:01:39 Date Recorded Body mass index (BMI) Body height Body weight Systolic blood pressure Diastolic blood pressure Provider Name and Address Organization Details Last Updated DateTime 05/18/2018 34.7 kg/m2 167.64 cm 10389.35 96 g 112 mm[Hg] 62 mm[Hg] Not Available [facility] 0 00:01:39 Date Recorded Body mass index (BMI) Body height Body weight Systolic blood pressure Diastolic blood pressure Provider Name and Address Organization Details Last Updated DateTime 06/29/2018 32.8 kg/m2 167.64 cm 16312.25 11 g 128 mm[Hg] 74 mm[Hg] Not Available [facility] 00:01:39 Date Recorded Body mass index (BMI) Body height Body weight Systolic blood pressure Diastolic blood pressure Provider Name and Address Organization Details Last Updated DateTime 02/05/2019 34.2 kg/m2 167.64 cm 40711.58 24 g 128 mm[Hg] 72 mm[Hg] Not Available [facility] 0 00:01:39 Date Recorded Body mass index (BMI) Body height Body weight Systolic blood pressure Diastolic blood pressure Provider Name and Address Organization Details Last Updated DateTime 2019 34.5 kg/m2 167.64 cm 79602.76 72 g 114 mm[Hg] 72 mm[Hg] Not Available [facility] 0 00:01:39 Date Recorded Body mass index (BMI) Body height Body weight Systolic blood pressure Diastolic blood pressure Provider Name and Address Organization Details Last Updated DateTime 03/24/2019 34.5 kg/m2 167.64 cm 89770.76 72 g 110 mm[Hg] 70 mm[Hg] Not Available [facility] 0 00:01:39 Date Recorded Body mass index (BMI) Body height Body weight Systolic blood pressure Diastolic blood pressure Provider Name and Address Organization Details Last Updated DateTime 04/26/2019 35.5 kg/m2 167.64 cm 31286.32 14 g 110 mm[Hg] 72 mm[Hg] Not Available [facility] 0 00:01:39 Date Recorded Body mass index (BMI) Body height Body weight Systolic blood pressure Diastolic blood pressure Provider Name and Address Organization Details Last Updated DateTime 06/03/2019 36.8 kg/m2 167.64 cm 249661.0 6 g 120 mm[Hg] 68 mm[Hg] Not Available [facility] 0 00:01:39 Date Recorded Body mass index (BMI) Body height Body weight Systolic blood pressure Diastolic blood pressure Provider Name and Address Organization Details Last Updated DateTime 06/22/2019 37 kg/m2 167.64 cm 844913.6 53 g 124 mm[Hg] 74 mm[Hg] Not Available [facility] 0 00:01:39 Date Recorded Body mass index (BMI) Body height Body weight Systolic blood pressure Diastolic blood pressure Provider Name and Address Organization Details Last Updated DateTime 07/06/2019 37.4 kg/m2 167.64 cm 292579.4 3 g 100 mm[Hg] 66 mm[Hg] Not Available [facility] 0 00:01:39 Date Recorded Body mass index (BMI) Body height Body weight Systolic blood pressure Diastolic blood pressure Provider Name and Address Organization Details Last Updated DateTime 07/20/2019 37.8 kg/m2 167.64 cm 519695.6 15 g 102 mm[Hg] 74 mm[Hg] Not Available [facility] 0 00:01:39 Date Recorded Body mass index (BMI) Body height Body weight Systolic blood pressure Diastolic blood pressure Provider Name and Address Organization Details Last Updated DateTime 07/29/2019 37.8 kg/m2 167.64 cm 395894.6 15 g 138 mm[Hg] 68 mm[Hg] Not Available [facility] 0 00:01:39 Date Recorded Body mass index (BMI) Body height Body weight Systolic blood pressure Diastolic blood pressure Provider Name and Address Organization Details Last Updated DateTime 08/06/2019 38.1 kg/m2 167.64 cm 406371.7 99 g 124 mm[Hg] 68 mm[Hg] Not Available [facility] 0 00:01:39 Date Recorded Body mass index (BMI) Body height Body weight Systolic blood pressure Diastolic blood pressure Provider Name and Address Organization Details Last Updated DateTime 08/11/2019 37.9 kg/m2 167.64 cm 304214.2 07 g 116 mm[Hg] 78 mm[Hg] Not Available [facility] 0 00:01:39 Date Recorded Body mass index (BMI) Body height Body weight Provider Name and Address Organization Details Last Updated DateTime 09/23/2019 35.7 kg/m2 167.64 cm 885866.914 g Not Available [facility] 08/14/2020 00:01:40 Date Recorded Body weight Systolic blood pressure Diastolic blood pressure Provider Name and Address Organization Details Last Updated DateTime 05/06/2018 84985.9519 g 122 mm[Hg] 74 mm[Hg] Not Available [facility] 08/14/2020 00:01:39 Date Recorded Body height Body weight Systolic blood pressure Diastolic blood pressure Provider Name and Address Organization Details Last Updated DateTime 08/14/2020 167.64 cm 878158.91 377 g 132 mm[Hg] 74 mm[Hg] Lisseth Amin ([facility]) [facility] 08/14/2020 10:19:53 Date Recorded Body mass index (BMI) Provider Name and Address Organization Details Last Updated DateTime 08/14/2020 35.7 kg/m2 Not Available [facility] 0 15:03:22 Date Recorded Body height Body mass index (BMI) Body weight Systolic blood pressure Diastolic blood pressure Provider Name and Address Organization Details Last Updated DateTime 09/12/2020 167.64 cm 36 kg/m2 824173.0 9851 g 118 mm[Hg] 72 mm[Hg] Marija Ziegler [facility] 0 10:00:39 Date Recorded Body height Body mass index (BMI) Body weight Systolic blood pressure Diastolic blood pressure Provider Name and Address Organization Details Last Updated DateTime 10/10/2020 167.64 cm 37.1 kg/m2 887566.2 451 g 114 mm[Hg] 68 mm[Hg] JAMI LI ([facility]) [facility] 0 10:04:30 Date Recorded Body height Body mass index (BMI) Body weight Systolic blood pressure Diastolic blood pressure Provider Name and Address Organization Details Last Updated DateTime 11/07/2020 167.64 cm 38.1 kg/m2 080605.7 9932 g 118 mm[Hg] 72 mm[Hg] Marija Ziegler [facility] 0 10:19:20 Date Recorded Body height Body mass index (BMI) Body weight Systolic blood pressure Diastolic blood pressure Provider Name and Address Organization Details Last Updated DateTime 11/30/2020 167.64 cm 38.6 kg/m2 342999.5 7643 g 102 mm[Hg] 62 mm[Hg] JAMI LI (OLD) [facility] 1 11:43:27 Date Recorded Body height Body weight Systolic blood pressure Diastolic blood pressure Provider Name and Address Organization Details Last Updated DateTime 01/04/2021 167.64 cm 166656.31 539 g 112 mm[Hg] 60 mm[Hg] Matilda Jensen [facility] 01/04/2021 11:08:09 Date Recorded Body height Body mass index (BMI) Body weight Systolic blood pressure Diastolic blood pressure Provider Name and Address Organization Details Last Updated DateTime 01/18/2021 167.64 cm 40 kg/m2 290041.9 0776 g 124 mm[Hg] 82 mm[Hg] JAMI LI (OLD) [facility] 1 12:37:59 Date Recorded Body height Body mass index (BMI) Body weight Systolic blood pressure Diastolic blood pressure Provider Name and Address Organization Details Last Updated DateTime 03/12/2021 167.64 cm 37.3 kg/m2 585116.8 3747 g 112 mm[Hg] 68 mm[Hg] Marija Ziegler [facility] 11:50:45 Social History Question Answer Notes LastModified by Organizat ion Details LastModified Time Tobacco Smoking Status Former Smoker Naheed dyer, [facility] 08/13/2020 23:04:59 Animal Exposure? No [email or web address] Information not available 08/13/2020 Is Blood Transfusion Acceptable In An Emergency? Yes [email or web address] Information not available 08/13/2020 Do You Or Have You Ever Used E-cigarettes Or Vape? 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 Master [employer] [email or web address] Information not available 08/13/2020 How Often Do You Have A DRINK Containing ALCOHOL? Never [email or web address] Information not available 08/13/2020 Marital Status [email or web address] Informatio n not available 08/13/2020 What Was The Date Of Your Most Recent Tobacco Screening? 02/05/2019 [email or web address] Information not available 08/13/2020 Are You Passively Exposed To Smoke? No [email or web address] Information not available 08/13/2020 Do You Or Have You Ever Used Smokeless Tobacco? Never Used Smokeless Tobacco [email or web address] Information not available 08/13/2020 How Much Tobacco Do You Smoke? No [email or web address] Information not available 08/13/2020 How Many Years Have You Smoked Tobacco? 5 [email or web address] Information not available 08/13/2020 Do You Have Symptoms Associated With Zika Virus (fever, Rash, Joint Pain, Or Conjunctivitis )? No [email or web address] Information not available 08/13/2020 Have You Recently (within The Last 12 Weeks, Or During A Current ) Traveled To Or Lived In A Zika-affected Area? No [email or web address] Information not available 08/13/2020 Sex: Female Functional [...] Recorded Time Tdap 06/22/2019 completed [facility] T[facility] 11/07/2020 completed Kimberli Huff(OL D) [facility], [facility] 11/07/2020 10:07:06 Past Encounters Encounter ID Performer Location Encounter Start Date Encounter Closed Date Diagnosis/Indication Diagnosis SNOMED-CT Code [id number] Becky Wan CR_PRMR_OB [employer]PKEEP WORKER [address] [facility] [address] [place], [place] [address] 07/05/2020 00:00:00 [id number] Becky Wan CR_PRMR_OB [employer]PKEEP WORKER [address] [facility] [address] [place], [place] [address] 07/13/2020 00:00:00 [id number] MD JOHN Sorto_PRMR_OB [employer]PKEEP WORKER [address] [facility] [address] [place], [place] [address] 08/14/2020 10:10:48 08/14/2020 11:02:08 Advanced maternal age [id number] MD JOHN Sorto_PRMR_OB [employer] WORKER [address] [place] [address] [place] [address] 09/12/2020 09:46:31 09/12/2020 10:35:48 Advanced maternal age [id number] MD JOHN Sorto_PRMR_OB [employer] WORKER [address] [place] [address] 10/10/2020 09:51:37 10/10/2020 11:04:50 Routine care [id number] Advanced m aternal age [id number] MD JOHN Sorto_PRMR_OB [employer]PK[employer] WORKER [address] [place] [address] [place] [address] 11/07/2020 09:52:48 11/07/2020 10:48:17 Administration of viral vaccine [id number] Routine an tenatal care 525967315 Advanced m aternal age 817304663 [id number] MD JOHN Sorto_PRMR_OB [employer] WORKER [address] [place] [address] [place] [address] 11/30/2020 11:21:05 11/30/2020 14:39:52 Routine care [id number] Advanced m aternal age 977713638 [id number] MD JOHN Sorto_PRMR_OB [employer]PKEEP WORKER [address] [place] [address] 01/04/2021 10:54:31 01/04/2021 15:20:13 Routine care [id number] Garfield Salazar MD CR_PRMR_OB [employer] WORKER [address] [place] [address] 01/18/2021 11:59:42 01/18/2021 15:19:37 Routine care 632740531 [id number] MD JOHN Sorto_PRMR_OB [employer]PKEEP WORKER [address] [place] [address] 03/12/2021 11:32:07 03/12/2021 12:29:13 care [id number] Health Concerns Section Related Observation LastModified by Organization Detai ls LastModified Time None Recorded Concern Status LastModified by Organization Details LastModified Time None Recorded Advance Directives Directive None Recorded Payers Encounter Date Sequence Insurance Name Policy Number Policy Campos Covered Member ID Campos Member ID Guarantor Name 03/12/2021 1 [place] [place] [employer] [place] ( - PPO) ACTIVE Bry Walker [id number] Bry Walker 01/18/2021 1 [employer] [place] ( - PPO) ACTIVE Bry Walker [id number] Bry Walker 01/04/2021 1 [place] [place] [employer] [place] ( - PPO) ACTIVE Bry Walker [id number] Bry Walker 11/30/2020 1 [place] [place] [employer] [place] ( - PPO) ACTIVE Bry Walker [id number] Bry Walker 11/07/2020 1 [employer] [place] ( - PPO) ACTIVE Bry Walker [id number] Bry Walker 10/10/2020 1 [place] [place] ( - PPO) ACTIVE Bry Walker [id number] Bry Walker 09/12/2020 1 [place] [place] [employer] [place] ( - PPO) ACTIVE Bry Walker [id number] Bry Walker 08/14/2020 1 [facility] - [place] ( - PPO) ACTIVE Bry Walker [id number] Bry Walker Notes Date Note Type Note Provider Name and Address Organization Details Recorded Time 03/12/2021 text/html HPI Notes: Visit Reported by patient. Onset/Timing: date of delivery: (01/27/2021) Quality: Context: feeding choice: breast; good support from partner/family 36yo here for 6wk pp, . She and baby boy are overall doing well, no UPKEEP WORKER concerns. Will be abstinent x 1yr. - spouse deployed Does not desire contraception. MD Melita Sorto/Renny [email or web address], [place], [address], [facility] ([place], [place]) 03/15/2021 22:24:44 OBGyn Episode Ob Episode Information Episode Created Date Number of Fetuses Patient Bloodtype Patient rh Status Prepregnancy Weight lbs Domestic Partner Domestic Partner Phone Father Name Narrow Fabric Calenderer Status 03/12/20 21 1 CLOSED Fetus Data First Name Last Name Admitted to NICU Weight (g) Sex Living Outcome Pediatric Complications Fetus ID Race Codes Race Delivery Type 3798.83 3 F Full Term [id number] Lj Calculation Initial Lj Date Initial Exam [...] Domestic Partner Domestic Partner Phone Father Name Narrow Fabric Calenderer Status 07/28/20 20 1 CLOSED Fetus Data First Name Last Name Admitted to NICU Weight (g) Sex Living Outcome Pediatric Complications Fetus ID Race Codes Race Delivery Type 3259.96 5704 F Full Term [id number] Lj Calculation Initial Lj Date Initial Exam [...] Complications Tubal Sterilization Discharge Date Comments 8 [facility] idural [address] Salazar. Weight gain- 30lb Discharge Information Feeding Method Contraceptive Method Maternal HG B and HCT Levels Ob Episode Information Episode Created Date Number of Fetuses Patient Bloodtype Patient rh Status Prepregnancy Weight lbs Domestic Partner Domestic Partner Phone Father Name Narrow Fabric Calenderer Status 07/28/20 20 1 CLOSED Fetus Data First Name Last Name Admitted to NICU Weight (g) Sex Living Outcome Pediatric Complications Fetus ID Race Codes Race Delivery Type 3458.63 9 F Full Term [id number] Lj Calculation Initial Lj Date Initial Exam [...] Complications Tubal Sterilization Discharge Date Comments 9 [facility] idural 39.6 Discharge Information Feeding Method Contraceptive Method Maternal HG B and HCT Levels Ob Episode Information Episode Created Date Number of Fetuses Patient Bloodtype Patient rh Status Prepregnancy Weight lbs Domestic Partner Domestic Partner Phone Father Name Narrow Fabric Calenderer Status 07/28/20 20 1 CLOSED Fetus Data First Name Last Name Admitted to NICU Weight (g) Sex Living Outcome Pediatric Complications Fetus ID Race Codes Race Delivery Type 4195.72 6 M Full Term [id number] Lj Calculation Initial Lj Date Initial Exam [...] Domestic Partner Domestic Partner Phone Father Name Narrow Fabric Calenderer Status 07/28/20 20 1 CLOSED Fetus Data First Name Last Name Admitted to NICU Weight (g) Sex Living Outcome Pediatric Complications Fetus ID Race Codes Race Delivery Type 3572.03 7 M Full Term 801343 Lj Calculation Initial Lj Date Initial Exam [...] Domestic Partner Domestic Partner Phone Father Name Narrow Fabric Calenderer Status 07/28/20 20 1 O Positive 213 CLOSED Fetus Data First Name Last Name Admitted to NICU Weight (g) Sex Living Outcome Pediatric Complications Fetus ID Race Codes Race Delivery Type Wilmer false 3798.83 3 F true Full Term 680230 Lj Calculation Initial Lj Date Initial Exam [...] Date Ultra Sound Latest Days Gestation 0 07/28/2020 02/02/20 21 0 Pre- Flowsheet Flowsheet Date 07/05/2020 Cummings Score Blood [...] 07/13/20. Needs exam/sono at next appointment. Obie STORAGE MANAGER Flowsheet Date 07/13/2020 Cummings Score Blood Edema [...] A Present Fetus Movement A Yes Comments [facility] sono- repeat 12/3Rec PNV with DHAFinger [...] Movement A Yes Comments GBS pos. Ctx. CX-CL/.LAUREN Discussed L&D covid precautions. Flowsheet Date 03/12/2021 [...] At Estimated Date of Delivery true Thalassemia (Spanish, Mohawk, Mediterranean, Or Background): MCV < 80 false Neural Tube Defect (Meningom yelocele, Spina Bifida, Or Anencephaly) false Congenital Heart Defect false Down Syndrome false Sixto-Sachs (eg, Adventist, Cajun , Occitan-[place]) false Sickle Cell Disease Or Trait () false Hemophilia Or Other Blood Disorders false Muscular Dystrophy false Cystic Fibrosis false Bleckley's Chorea false Mental Retardation/Autism false If Yes, [...]
--- OUTSIDE RECORDS SUMMARY | 2024-04-06 08:49 | XMS_ITS | Encounter Summary ---
Author Organization [facility] Address [address] [place] [address] Care Team Providers Care Induction Furnace Operator Name Role Phone Martin House MD, Jeffrey Primary Care Provider [phone] Reason for Referral * Maternity Services (Routine) - Closed Specialty Diagnoses / Procedures Referred By Juventino adams Referred To Contact Radiology Diagnoses Supervision of high risk in third trimester Procedures Ultrasound OB growth Ethan Doe DO [address] [place] [address] Referral ID Status Reason Start Date Expiration Date V isits Requested Visits Authorized [id number] Closed Specialty Services Required 04/12/2019 05/16/2020 1 1 Encounter Details Date Type Department Care Team (Late st Contact Info) Description 04/12/2019 Orders Only [facility] [address] [facility] [address] [address] [place] [address] Ethan Doe DO [address] [place] [address] Supervision of high risk in third trimester [...] Primary documented in this encounter Care Teams Induction Furnace Operator Relationship Specialty Start Date End Date Steve Salazar MD PCP - General OBSTETRICS & GYNECOLOGY 09/11/20 documented as of this encounter
--- OUTSIDE RECORDS SUMMARY | 2024-04-06 08:49 | XMS_ITS | Clinical Summary ---
Author Organization [facility] Address [address] [place] [address] Care Team Providers Care Human Resources Safety Manager Name Role Phone Martin House MD, Steve Primary Care Provider [phone] Allergies No known active allergies Medications Medication Sig Dispensed Refills Start Date End Date Status ferrous sulfate 325 mg (65 mg iron) tablet Take 50 mg by mouth 2 (two) times a day with meals. Active calcium carbonate (CALCIUM 500 ORAL) Take 1 tablet by mouth 2 (two) times a day. Active b complex vitamins tablet Take 1 tablet by mouth daily. Active cholecalciferol, vitamin D3, 1,000 unit tablet Take by mouth. Active prenat.vits,nick,min-ir on-folic ( Vitamin) tablet Take 1 tablet by mouth daily. Active Active Problems Problem Noted Date Diagnosed [...] Comments Blood Pressure 114/59 10/16/2020 8:00 AM IMAGE CONSULTANT Pulse 69 10/16/2020 8:00 AM IMAGE CONSULTANT Temperature 36.1 ??C (96.9 ??F) 10/16/2020 8:00 AM CS T Respiratory Rate 20 04/12/2019 10:06 AM CDT Oxygen Saturation - - Inhaled Oxygen Concentration - - Weight 105.2 kg (232 lb) 10/16/2020 8:00 AM IMAGE CONSULTANT Height 167.6 cm (5' 6) 10/16/2020 8:00 AM IMAGE CONSULTANT Body Mass Index 37.45 10/16/2020 8:00 AM IMAGE CONSULTANT Plan of Treatment Health Maintenance Due Date Last Done Comments HIV Screening 1984 Varicella Vaccine (1 of 2 - 13+ 2-dose series) 02/24/1997 Hepatitis B Vaccines (1 of 3 - 19+ 3-dose series) 02/24/2003 Hepatitis C Screening 02/24/2003 Pap Smear 02/24/2005 Cervical Cancer Screening 02/24/2014 Pap + HPV 02/24/2014 COVID-19 Vaccine ( - 2022-2 4 season) 2023 Influenza Vaccine (Season Ended) 2024 DTaP,Tdap,and Td [...] age to complete this topic Care Teams Human Resources Safety Manager Relationship Specialty Start Date End Date Steve Salazar MD PCP - General OBSTETRICS & GYNECOLOGY 09/11/20
== END 2024-04-06 08:47 | disposition home or self-care (01) ==
LOC: US 08:46
PROVIDERS: Visit Provider Registered Nurse
DX: O09.523 Supervision of elderly multigravida, third trimester (principal); Z3A.36 36 weeks gestation of pregnancy
CPT/HCPCS: 76816; 76819

== ENCOUNTER 2024-04-06 10:16 | Outpatient (CLI) | payer OTHER, SELFPAY ==
--- OUTSIDE RECORDS SUMMARY | 2024-04-06 10:18 | XMS_ITS | Encounter Summary ---
Author Organization [facility] Address [address] [place] [address] Care Team Providers Care Cardiopulmonary Specialist Name Role Phone Martin [place] MD, Jeffrey Primary Care Provider [phone] Reason for Referral * Maternity Services (Routine) - Closed Specialty Diagnoses / Procedures Referred By Juventino adams Referred To Contact Radiology Diagnoses Supervision of high risk in third trimester Procedures Ultrasound OB growth Ethan Doe DO [address] [place] [address] Referral ID Status Reason Start Date Expiration Date V isits Requested Visits Authorized [id number] Closed Specialty Services Required 04/12/2019 05/16/2020 1 1 Encounter Details Date Type Department Care Team (Late st Contact Info) Description 04/12/2019 Orders Only [facility] [address] [facility] [address] [address] [place] [address] Ethan Doe DO [address] [place] [address] Supervision of high risk in third trimester [...] Primary documented in this encounter Care Teams Cardiopulmonary Specialist Relationship Specialty Start Date End Date Steve Salazar MD PCP - General OBSTETRICS & GYNECOLOGY 09/11/20 documented as of this encounter
--- OUTSIDE RECORDS SUMMARY | 2024-04-06 10:18 | XMS_ITS | Clinical Summary ---
Author Organization [facility] Address [address] [place] [address] Care Team Providers Care Manager Of School Name Role Phone Martin [place] MD, Steve Primary Care Provider [phone] [phone] Allergies No known active allergies Medications Medication [...] Comments Blood Pressure 114/59 10/16/2020 8:00 AM SOFTWARE BUILD ENGINEER Pulse 69 10/16/2020 8:00 AM SOFTWARE BUILD ENGINEER Temperature 36.1 ??C (96.9 ??F) 10/16/2020 8:00 AM CS T Respiratory Rate 20 04/12/2019 10:06 AM CDT Oxygen Saturation - - Inhaled Oxygen Concentration - - Weight 105.2 kg (232 lb) 10/16/2020 8:00 AM SOFTWARE BUILD ENGINEER Height 167.6 cm (5' 6) 10/16/2020 8:00 AM SOFTWARE BUILD ENGINEER Body Mass Index 37.45 10/16/2020 8:00 AM SOFTWARE BUILD ENGINEER Plan of Treatment Health Maintenance Due Date [...] age to complete this topic Care Teams Manager Of School Relationship Specialty Start Date End Date Steve Salazar MD PCP - General OBSTETRICS & GYNECOLOGY 09/11/20
[2024-04-07 12:27] LABS: Strep B DNA Probe Negative (Negative)
[2024-04-07 12:40] LABS: Strep B Susceptibility Needed? No
== END 2024-04-06 10:17 | disposition home or self-care (01) ==
LOC: NFLDREF 10:16
PROVIDERS: Visit Provider Obstetrics & Gynecology
DX: Z34.83 Encounter for supervision of other normal pregnancy, third trimester (principal)
CPT/HCPCS: 87081; 87653

== ENCOUNTER 2024-04-09 09:30 | Outpatient (RCR) | payer OTHER, SELFPAY ==
--- NOTE | 2024-03-09 10:56 | URNOTE ---
Per Valentina at [facility], Prior auth is not required for Veronika ([id number]). Call ref #[id number]
--- NOTE | 2024-03-09 16:16 | ONC.NURNOTE ---
Patient called to see if she could start venofer tomorrow. Called patient back and left message letting her know we didn't have the chair availability for that.
[2024-03-17 09:21] VITALS: BP 111/72; PULSE 82; RESP 16; TEMP 36.5; O2SAT 98
[2024-03-17] MEDS: IRON SUCROSE COMPLEX 200 MG in 0.9 % SODIUM CHLORIDE 100 ml 100 ML 440 MG IVPB (10:08)
[2024-03-17 10:40] VITALS: BP 88/51; PULSE 76; RESP 16; TEMP 36.8; O2SAT 97
[2024-03-23 12:05] VITALS: BP 113/72; PULSE 87; RESP 16; TEMP 36; O2SAT 98
[2024-03-23] MEDS: IRON SUCROSE COMPLEX 200 MG in 0.9 % SODIUM CHLORIDE 100 ml 100 ML 440 MG IVPB (12:39)
[2024-03-23 12:55] VITALS: BP 101/64; PULSE 79; RESP 16; TEMP 36.4; O2SAT 98
[2024-03-23 13:35] VITALS: BP 107/66; PULSE 77; RESP 16; TEMP 36.7; O2SAT 100
[2024-03-26 09:18] VITALS: BP 109/71; PULSE 100; RESP 16; TEMP 36.8; O2SAT 96
[2024-03-26] MEDS: IRON SUCROSE COMPLEX 200 MG in 0.9 % SODIUM CHLORIDE 100 ml 100 ML 420 MG IVPB (09:42)
[2024-03-26] MEDS: SODIUM CHLORIDE 0.9 % (FLUSH) 10 ML SYRINGE IVF (09:43)
[2024-03-26] MEDS: 0.9 % SODIUM CHLORIDE 250 ml IV (09:43)
[2024-03-26 10:01] VITALS: BP 109/68; PULSE 87; RESP 16; O2SAT 97
[2024-04-06 10:32] VITALS: BP 100/66; PULSE 77; RESP 18; TEMP 36.7; O2SAT 97
[2024-04-06] MEDS: 0.9 % SODIUM CHLORIDE 250 ml IV (11:07)
[2024-04-06] MEDS: IRON SUCROSE COMPLEX 200 MG in 0.9 % SODIUM CHLORIDE 100 ml 100 ML 440 MG IVPB (11:07)
[2024-04-06] MEDS: SODIUM CHLORIDE 0.9 % (FLUSH) 10 ML SYRINGE IVF (11:07)
[2024-04-06 11:26] VITALS: BP 107/65; PULSE 77; O2SAT 96
[2024-04-06 12:00] VITALS: BP 113/70; PULSE 73; O2SAT 96
[2024-04-09 09:43] VITALS: BP 111/69; PULSE 75; RESP 18; TEMP 36.4; O2SAT 97
[2024-04-09] MEDS: IRON SUCROSE COMPLEX 200 MG in 0.9 % SODIUM CHLORIDE 100 ml 100 ML 440 MG IVPB (10:12)
[2024-04-09] MEDS: SODIUM CHLORIDE 0.9 % (FLUSH) 10 ML SYRINGE IVF (10:12)
[2024-04-09] MEDS: 0.9 % SODIUM CHLORIDE 250 ml IV (10:12)
[2024-04-09 10:30] VITALS: BP 102/58; PULSE 79; RESP 16; TEMP 37.2; O2SAT 97
[2024-04-09 11:01] VITALS: BP 98/62; PULSE 66; RESP 16; TEMP 36.8; O2SAT 97
== END 2024-09-13 23:59 | disposition home or self-care (01) ==
LOC: CCIC 09:30
PROVIDERS: Visit Provider Physician Assistant
DX: D50.9 Iron deficiency anemia, unspecified (principal)
CPT/HCPCS: 82306; 82310; 96365; 96374; J1756; J7050

== ENCOUNTER 2024-04-22 18:35 | Inpatient (IN) | payer OTHER, SELFPAY ==
--- OUTSIDE RECORDS SUMMARY | 2024-04-22 18:39 | XMS_ITS | Data Portability ---
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 Plan of Treatment Reminders Order Date Submit Date Provider Last Modified By Organization Details Last Modified Time Details Appointments None recorded. Lab pap, LB + reflex HR HPV [address] [facility], [address], [place], [address], 1 19:19:10 streptococc us group B, culture, unspecified specimen [address] (Lab), [address], [place], [address], 1 22:16:39 glucose, serum or plasma 2019 020 [facility] (Lab), [address], [address], [place], [address], 0 14:09:09 CBC 2019 020 [facility] (Lab), [address], [address], [place], [address], 0 13:34:48 HIV (1+2) Ab screen, serum 2019 020 [facility] (Lab), [address], [address], [place], [address], 0 13:06:19 RPR (rapid plasma reagin), serum 2019 020 [facility] (Lab), [address] [facility] [address], [address], [place], [address], 0 09:06:46 Referral None recorded. Procedures None recorded. Surgeries None recorded. Imaging US, obstetric, limited - For growth 2020 021 [facility] (Imaging), [address], [place], [address], 1 17:01:11 Medication Orders None recorded. Patient TargetsNo targets recorded. Patient InstructionsNo instructions recorded. Reason for Referral None Reported. Results Created Date Observation Date Name Description Value Unit Range Abnormal Flag LastModifiedBy Organization Detail LastModifiedTime 02/06/20 19 02/05/2019 cultu re, urine urine culture, routine Final report Not Available [facility] (Lab) [address], [place], [address], 08/20/2020 03:11:38 02/06/20 19 02/05/2019 cultu re, urine result 1 No growth Not Available [facility] (Lab) [address] [facility] [address], [place], [address], 08/20/2020 03:11:38 02/06/20 19 02/05/2019 HIV (1+2) Ab scree n, serum HIV screen 4TH generation wrfx Non Reacti ve non reacti ve Not Available [facility] (Lab) [address] [facility] [address], [place], [address], 08/20/2020 03:04:24 02/06/20 19 02/05/2019 obste tric scree n, serum or blood HBsAg screen Negati ve negati ve Not Available [facility] (Lab) [address] [facility] [address], [place], [address], 08/20/2020 03:04:23 02/06/20 19 02/05/2019 obste tric scree n, serum or blood RPR Non Reacti ve non reacti ve Not Available [facility] (Lab) [address] [facility] [address], [place], [address], 08/20/2020 03:04:23 02/06/20 19 02/05/2019 obste tric scree n, serum or blood rubella antibodies, IgG 1.79 index immune >0.99 Not Available [facility] (Lab) [address] [facility] [address], [place], [address], 08/20/2020 03:04:23 02/06/20 19 02/05/2019 obste tric scree n, serum or blood ABO grouping O Not Available [facility] (Lab) [address] [facility] [address], [place], [address], 08/20/2020 03:04:23 02/06/20 19 02/05/2019 obste tric scree n, serum or blood Rh factor Positi ve Not Available [facility] (Lab) [address] [facility] [address], [place], [address], 08/20/2020 03:04:23 02/06/20 19 02/05/2019 obste tric scree n, serum or blood antibody screen Negati ve negati ve Not Available [facility] (Lab) [address] [facility] [address], [place], [address], 08/20/2020 03:04:23 02/06/20 19 02/05/2019 obste tric scree n, serum or blood WBC 8.9 x10e3 /uL 3.4-10 .8 Not Available [facility] (Lab) [address] [facility] [address], [place], [address], 08/20/2020 03:04:23 02/06/20 19 02/05/2019 obste tric scree n, serum or blood RBC 4.22 x10e6 /uL 3.77-5 .28 Not Available [facility] (Lab) [address] [facility], [place], [address], 08/20/2020 03:04:23 02/06/20 19 02/05/2019 obste tric scree n, serum or blood hemoglobin 12.6 g/dL 11.1-1 5.9 Not Available [facility] (Lab) [address] [facility] [address], [place], [address], 08/20/2020 03:04:23 02/06/20 19 02/05/2019 obste tric scree n, serum or blood hematocrit 38.9 % 34.0-4 6.6 Not Available [facility] (Lab) [address] [facility], [place], [address], 08/20/2020 03:04:23 02/06/20 19 02/05/2019 obste tric scree n, serum or blood MCV 92 fL 79-97 Not Available [facility] (Lab) [address] [facility], [place], [address], 08/20/2020 03:04:23 02/06/20 19 02/05/2019 obste tric scree n, serum or blood MCH 29.9 pg 26.6-3 3.0 Not Available [facility] (Lab) [address] [facility] [address], [place], [address], 08/20/2020 03:04:23 02/06/20 19 02/05/2019 obste tric scree n, serum or blood MCHC 32.4 g/dL 31.5-3 5.7 Not Available [facility] (Lab) [address] [facility], [place], [address], 08/20/2020 03:04:23 02/06/20 19 02/05/2019 obste tric scree n, serum or blood RDW 14.3 % 12.3-1 5.4 Not Available [facility] (Lab) [address] [facility] [facility] [address], [place], [address], 08/20/2020 03:04:23 02/06/20 19 02/05/2019 obste tric scree n, serum or blood platelets 347 x10e3 /uL 150-37 9 Not Available [facility] (Lab) [address] [facility] [address], [place], [address], 08/20/2020 03:04:23 02/06/20 19 02/05/2019 obste tric scree n, serum or blood neutrophils 75 % not estab. Not Available [facility] (Lab) [address] [facility] [address], [place], [address], 08/20/2020 03:04:23 02/06/20 19 02/05/2019 obste tric scree n, serum or blood lymphs 19 % not estab. Not Available [facility] (Lab) [address] [facility] [address], [place], [address], 08/20/2020 03:04:23 02/06/20 19 02/05/2019 obste tric scree n, serum or blood monocytes 5 % not estab. Not Available [facility] (Lab) [address] [facility] [address], [place], [address], 08/20/2020 03:04:23 02/06/20 19 02/05/2019 obste tric scree n, serum or blood eos 1 % not estab. Not Available [facility] (Lab) [address] [facility] [address], [place], [address], 08/20/2020 03:04:23 02/06/20 19 02/05/2019 obste tric scree n, serum or blood basos 0 % not estab. Not Available [facility] (Lab) [address] [facility] [address], [place], [address], 08/20/2020 03:04:23 02/06/20 19 02/05/2019 obste tric scree n, serum or blood neutrophils (absolute) 6.6 x10e3 /uL 1.4-7. 0 Not Available [facility] (Lab) [address] [facility] [address] [facility], [place], [address], 08/20/2020 03:04:23 02/06/20 19 02/05/2019 obste tric scree n, serum or blood lymphs (absolute) 1.7 x10e3 /uL 0.7-3. 1 Not Available [facility] (Lab) [address] [facility] [address] [facility], [place], [address], 08/20/2020 03:04:23 02/06/2002/05/2019 obste tric scree n, serum or blood monocytes(ab solute) 0.5 x10e3 /uL 0.1-0. 9 Not Available [facility] (Lab) [address] [facility], [place], [address], 08/20/2020 03:04:23 02/06/2002/05/2019 obste tric scree n, serum or blood eos (absolute) 0.1 x10e3 /uL 0.0-0. 4 Not Available [facility] (Lab) [address] [facility], [place], [address], 08/20/2020 03:04:23 02/06/2002/05/2019 obste tric scree n, serum or blood baso (absolute) 0.0 x10e3 /uL 0.0-0. 2 Not Available [facility] (Lab) [address] [facility] [address] [facility], [place], [address], 08/20/2020 03:04:23 02/06/2002/05/2019 obste tric scree n, serum or blood immature granulocytes 0 % not estab. Not Available [facility] (Lab) [address] [facility], [place], [address], 08/20/2020 03:04:23 02/06/20 19 02/05/2019 obste tric scree n, serum or blood immature grans (abs) 0.0 x10e3 /uL 0.0-0. 1 Not Available [facility] (Lab) [address] [facility], [place], [address], 08/20/2020 03:04:23 02/12/20 19 02/11/2019 vitam in B12, serum vitamin B12 1983 pg/mL 232-12 45 high Not Available [facility] (Lab) [address], [place], [address], 08/20/2020 04:06:09 02/12/20 19 02/11/2019 iron, serum iron 68 ug/dL 27-159 Not Available [facility] (Lab) [address], [place], [address], 08/20/2020 04:06:09 02/12/20 19 02/11/2019 HbA1c (hemo globi n A1c), blood HGBA1C 4.9 % 4.2-5. 8 Not Available [facility] (Lab) [address] [facility] [address], [place], [address], 08/20/2020 04:06:07 07/05/20 20 07/05/2020 cultu re, urine urine culture, routine Final report Not Available [facility] (Lab) [address] [facility] [address], [place], [address], 08/16/2020 16:46:37 07/05/20 20 07/05/2020 cultu re, urine result 1 No growth Not Available [facility] (Lab) [address] [facility] [address], [place], [address], 08/16/2020 16:46:37 07/05/20 20 07/05/2020 HbA1c (hemo globi n A1c), blood HGBA1C 5.4 % 4.2-5. 8 Not Available [facility] (Lab) [address] [facility] [address], [place], [address], 08/16/2020 16:44:54 07/05/20 20 07/05/2020 vitam in B12, serum vitamin B12 1074 pg/mL 232-12 45 Not Available [facility] (Lab) [address] [facility] [address], [place], [address], 08/16/2020 16:44:56 07/05/20 20 07/05/2020 obste tric scree n, serum or blood HBsAg screen Negati ve negati ve Not Available [facility] (Lab) [address] [facility] [address], [place], [address], 08/16/2020 16:44:55 07/05/20 20 07/05/2020 obste tric scree n, serum or blood RPR Non Reacti ve non reacti ve Not Available [facility] (Lab) [address] [place] [address], [place], [address], 08/16/2020 16:44:55 07/05/20 20 07/05/2020 obste tric scree n, serum or blood rubella antibodies, IgG 2.21 index immune >0.99 Not Available [facility] (Lab) [address] [facility] [address], [place], [address], 08/16/2020 16:44:55 07/05/20 20 07/05/2020 obste tric scree n, serum or blood ABO grouping O Not Available [facility] (Lab) [address] [facility] [address], [place], [address], 08/16/2020 16:44:55 07/05/20 20 07/05/2020 obste tric scree n, serum or blood Rh factor Positi ve Not Available [facility] (Lab) [address] [place] [address] [address], [place], [address], 08/16/2020 16:44:55 07/05/20 20 07/05/2020 obste tric scree n, serum or blood antibody screen Negati ve negati ve Not Available [facility] (Lab) [address] [facility] [address], [place], [address], 08/16/2020 16:44:55 07/05/20 20 07/05/2020 obste tric scree n, serum or blood WBC 10.3 x10e3 /uL 3.4-10 .8 Not Available [facility] (Lab) [address] [facility] [address], [place], [address], 08/16/2020 16:44:55 07/05/20 20 07/05/2020 obste tric scree n, serum or blood RBC 4.42 x10e6 /uL 3.77-5 .28 Not Available [facility] (Lab) [address] [facility] [address], [place], [address], 08/16/2020 16:44:55 07/05/20 20 07/05/2020 obste tric scree n, serum or blood hemoglobin 10.7 g/dL 11.1-1 5.9 low Not Available [facility] (Lab) [address] [facility] [address] [facility], [place], [address], 08/16/2020 16:44:55 07/05/20 20 07/05/2020 obste tric scree n, serum or blood hematocrit 34.8 % 34.0-4 6.6 Not Available [facility] (Lab) [address], [place], [address], 08/16/2020 16:44:55 07/05/20 20 07/05/2020 obste tric scree n, serum or blood MCV 79 fL 79-97 Not Available [facility] (Lab) [address], [place], [address], 08/16/2020 16:44:55 07/05/20 20 07/05/2020 obste tric scree n, serum or blood MCH 24.2 pg 26.6-3 3.0 low Not Available [facility] (Lab) [address] [place], [place] [address]dg [address], [place], [address], 08/16/2020 16:44:55 07/05/20 20 07/05/2020 obste tric scree n, serum or blood MCHC 30.7 g/dL 31.5-3 5.7 low Not Available [facility] (Lab) [address] [facility] [address], [place], [address], 08/16/2020 16:44:55 07/05/20 20 07/05/2020 obste tric scree n, serum or blood RDW 16.7 % 11.7-1 5.4 high Not Available [facility] (Lab) [address] [facility] [address], [place], [address], 08/16/2020 16:44:55 07/05/20 20 07/05/2020 obste tric scree n, serum or blood platelets 394 x10e3 /uL 150-45 0 Not Available [facility] (Lab) [address] [facility] [address], [place], [address], 08/16/2020 16:44:55 07/05/20 20 07/05/2020 obste tric scree n, serum or blood neutrophils 77 % not estab. Not Available [facility] (Lab) [address] [facility] [address], [place], [address], 08/16/2020 16:44:55 07/05/20 20 07/05/2020 obste tric scree n, serum or blood lymphs 16 % not estab. Not Available [facility] (Lab) [address] [facility] [facility] [address], [place], [address], 08/16/2020 16:44:55 07/05/20 20 07/05/2020 obste tric scree n, serum or blood monocytes 7 % not estab. Not Available [facility] (Lab) [address] [facility] [address], [place], [address], 08/16/2020 16:44:55 07/05/20 20 07/05/2020 obste tric scree n, serum or blood eos 0 % not estab. Not Available [facility] (Lab) [address] [facility] [address], [place], [address], 08/16/2020 16:44:55 07/05/20 20 07/05/2020 obste tric scree n, serum or blood basos 0 % not estab. Not Available [facility] (Lab) [address] [facility] [address], [place], [address], 08/16/2020 16:44:55 07/05/20 20 07/05/2020 obste tric scree n, serum or blood neutrophils (absolute) 7.8 x10e3 /uL 1.4-7. 0 high Not Available [facility] (Lab) [address] [facility] [address], [place], [address], 08/16/2020 16:44:55 07/05/20 20 07/05/2020 obste tric scree n, serum or blood lymphs (absolute) 1.7 x10e3 /uL 0.7-3. 1 Not Available [facility] (Lab) [address] [facility] [address], [place], [address], 08/16/2020 16:44:55 07/05/20 20 07/05/2020 obste tric scree n, serum or blood monocytes(ab solute) 0.7 x10e3 /uL 0.1-0. 9 Not Available [facility] (Lab) [address] [facility] [address], [place], [address], 08/16/2020 16:44:55 07/05/20 20 07/05/2020 obste tric scree n, serum or blood eos (absolute) 0.0 x10e3 /uL 0.0-0. 4 Not Available [facility] (Lab) [address] [facility] [address], [place], [address], 08/16/2020 16:44:55 07/05/20 20 07/05/2020 obste tric scree n, serum or blood baso (absolute) 0.0 x10e3 /uL 0.0-0. 2 Not Available [facility] (Lab) [address] [facility] [address], [place], [address], 08/16/2020 16:44:55 07/05/20 20 07/05/2020 obste tric scree n, serum or blood immature granulocytes 0 % not estab. Not Available [facility] (Lab) [address] [facility] [address], [place], [address], 08/16/2020 16:44:55 07/05/20 20 07/05/2020 obste tric scree n, serum or blood immature grans (abs) 0.0 x10e3 /uL 0.0-0. 1 Not Available [facility] (Lab) [address] [facility] [address], [place], [address], 08/16/2020 16:44:55 07/05/20 20 07/05/2020 HIV (1+2) Ab scree n, serum HIV screen 4TH generation wrfx Non Reacti ve non reacti ve Not Available [facility] (Lab) [address] [facility] [address], [place], [address], 08/16/2020 16:44:53 11/07/20 20 11/07/2020 CBC WBC 10.3 K/uL 4.5-11 .0 Not Available [facility] (Lab) [address] [facility] [address], [place], [address], 11/07/2020 13:34:48 11/07/20 20 11/07/2020 CBC RBC 3.70 M/uL 3.50-5 .50 Not Available [facility] (Lab) [address] [facility] [address], [place], [address], 11/07/2020 13:34:48 11/07/20 20 11/07/2020 CBC HGB 10.1 g/dL 12.0-1 6.0 low Not Available [facility] (Lab) [address] [facility] [address], [place], [address], 11/07/2020 13:34:48 11/07/20 20 11/07/2020 CBC HCT 31.6 % 34.0-4 4.0 low Not Available [facility] (Lab) [address] [facility] [address], [place], [address], 11/07/2020 13:34:48 11/07/20 20 11/07/2020 CBC MCV 85.4 fL 76.0-1 00.0 Not Available [facility] (Lab) [address] [facility] [address], [place], [address], 11/07/2020 13:34:48 11/07/20 20 11/07/2020 CBC MCH 27.3 pg 27.0-3 3.0 Not Available [facility] (Lab) [address] [facility] [address], [place], [address], 11/07/2020 13:34:48 11/07/20 20 11/07/2020 CBC MCHC 32.0 g/dL 32.0-3 7.0 Not Available [facility] (Lab) [address] [facility] [address], [place], [address], 11/07/2020 13:34:48 11/07/20 20 11/07/2020 CBC RDW-SD 46 fL 38-48 Not Available [facility] (Lab) [address] [facility] [address], [place], [address], 11/07/2020 13:34:48 11/07/20 20 11/07/2020 CBC RDW CV 14.5 % 11.0-1 4.5 Not Available [facility] (Lab) [address] [facility] [address], [place], [address], 11/07/2020 13:34:48 11/07/20 20 11/07/2020 CBC plt 353.0 K/uL 150.0- 400.0 Not Available [facility] (Lab) [address] [facility] [address], [place], [address], 11/07/2020 13:34:48 11/07/20 20 11/07/2020 gluco se, serum or plasm a glu 75 mg/dL 74-106 Not Available [facility] (Lab) [address], [place], [address], 11/07/2020 14:09:09 11/07/20 20 11/07/2020 RPR (rapi d plasm a reagi n), serum RPR Non Reacti ve non reacti ve Not Available [facility] (Lab) [address] [facility] [address] [facility], [place], [address], 11/08/2020 09:06:46 11/07/20 20 11/07/2020 HIV (1+2) Ab scree n, serum HIV screen 4TH generation wrfx Non Reacti ve non reacti ve Not Available [facility] (Lab) [address] [facility], [place], [address], 11/08/2020 13:06:19 01/04/20 21 01/04/2021 strep tococ cus group B, cultu re, unspe cifie d speci men strep gp B IRAIS Positi ve negati ve abnormal Not Available [facility] (Lab) [address] [facility] [address], [place], [address], 01/06/2021 12:06:25 12/15/19 21 12/15/2020 US, obste [...] dates of 33 weeks 1 day and [facility] ed LJ of 021. 2. Estima josette weight at the 76th percen tile by provid ed dates. Additi onal biomet rics as above. 3. Upper normal BENTLEY. Closed cervix . Cephal ic presen tation . Tuan vaz M.D. Dictat ed by: Tuan vaz M.D. on 021 at 15:57 Approv ed by: Tuan vaz M.D. on 2/05/2 021 at 16:00 [facility] (Imaging) [address], [place], [address], 12/31/2020 15:03:11 Result Notes None recorded. Problems Name Status Onset Date Resolution Date Notes Provider Name and Address Organization Details Recorded Time Completed 0 03/16/2021 Becky Wan [facility], [facility] 03/16/2021 11:23:52 Completed 9 09/27/2019 Becky Wan [facility], [facility] 03/16/2021 11:23:52 Completed 8 08/18/2018 Beckyderian Wan [facility], [facility] 03/16/2021 11:23:52 Problem Notes None recorded. Procedures Surgical History Date Name Laterality Status Provider Name and Address Organization Details Recorded Time 9 Date of Last Pap Smear completed JAMI CERNA) [facility], [facility] 07/31/2020 16:34:02 7 gastric anastomosis revision completed Naheedsa Tirado [facility], [facility] 08/13/2020 23:11:03 1 bariatric operative procedure completed Naheedsa Tirado [facility] 08/13/2020 23:10:23 1 Superior teeth surgery completed Naheedsa Tirado [facility], [facility] 08/13/2020 23:11:27 Imaging Results Imaging Date Name Status LastModified by Organiz ation Details LastModified Time 12/15/2020 US, obstetric, limited completed [facility] (Imaging) [address], [place], [address], 12/31/2020 15:03:11 Procedure Notes None recorded. Medical [...] Address Organization Details Last Updated DateTime 07/05/2020 53000.77563 g JAMI LI (OLD) [facility] 07/28/2020 11:05:42 Date Recorded Body mass index (BMI) Body height Body weight Provider Name and Address Organization Details Last Updated DateTime 07/05/2020 35.3 kg/m2 167.64 cm 45859.729 g Not Available [facility] 08/14/2020 00:01:40 Date Recorded Body weight Systolic blood pressure Diastolic blood pressure Provider Name and Address Organization Details Last Updated DateTime 07/13/2020 22259.7290 3 g 132 mm[Hg] 80 mm[Hg] JAMI LI (OLD) [facility] 07/28/2020 11:05:42 Date Recorded Body mass index (BMI) Body height Body weight Systolic blood pressure Diastolic blood pressure Provider Name and Address Organization Details Last Updated DateTime 07/13/2020 35.3 kg/m2 167.64 cm 68649.72 9 g 132 mm[Hg] 80 mm[Hg] Not Available [facility] 0 00:01:39 Date Recorded Body mass index (BMI) Body height Body weight Systolic blood pressure Diastolic blood pressure Provider Name and Address Organization Details Last Updated DateTime 04/03/2018 33.6 kg/m2 167.64 cm 95669.21 3 g 106 mm[Hg] 68 mm[Hg] Not Available [facility] 0 00:01:39 Date Recorded Body mass index (BMI) Body height Body weight Systolic blood pressure Diastolic blood pressure Provider Name and Address Organization Details Last Updated DateTime 04/17/2018 34.1 kg/m2 167.64 cm 57983.99 01 g 124 mm[Hg] 72 mm[Hg] Not Available [facility] 0 00:01:39 Date Recorded Body mass index (BMI) Body height Body weight Systolic blood pressure Diastolic blood pressure Provider Name and Address Organization Details Last Updated DateTime 04/28/2018 34.2 kg/m2 167.64 cm 53396.58 24 g 124 mm[Hg] 68 mm[Hg] Not Available [facility] 0 00:01:39 Date Recorded Body mass index (BMI) Body height Body weight Systolic blood pressure Diastolic blood pressure Provider Name and Address Organization Details Last Updated DateTime 05/12/2018 34.7 kg/m2 167.64 cm 28486.35 96 g 126 mm[Hg] 76 mm[Hg] Not Available [facility] 0 00:01:39 Date Recorded Body mass index (BMI) Body height Body weight Systolic blood pressure Diastolic blood pressure Provider Name and Address Organization Details Last Updated DateTime 05/18/2018 34.7 kg/m2 167.64 cm 88941.35 96 g 112 mm[Hg] 62 mm[Hg] Not Available [facility] 0 00:01:39 Date Recorded Body mass index (BMI) Body height Body weight Systolic blood pressure Diastolic blood pressure Provider Name and Address Organization Details Last Updated DateTime 06/29/2018 32.8 kg/m2 167.64 cm 12896.25 11 g 128 mm[Hg] 74 mm[Hg] Not Available [facility] 0 00:01:39 Date Recorded Body mass index (BMI) Body height Body weight Systolic blood pressure Diastolic blood pressure Provider Name and Address Organization Details Last Updated DateTime 02/05/2019 34.2 kg/m2 167.64 cm 81574.58 24 g 128 mm[Hg] 72 mm[Hg] Not Available [facility] 0 00:01:39 Date Recorded Body mass index (BMI) Body height Body weight Systolic blood pressure Diastolic blood pressure Provider Name and Address Organization Details Last Updated DateTime 2019 34.5 kg/m2 167.64 cm 41683.76 72 g 114 mm[Hg] 72 mm[Hg] Not Available [facility] 0 00:01:39 Date Recorded Body mass index (BMI) Body height Body weight Systolic blood pressure Diastolic blood pressure Provider Name and Address Organization Details Last Updated DateTime 03/24/2019 34.5 kg/m2 167.64 cm 70821.76 72 g 110 mm[Hg] 70 mm[Hg] Not Available [facility] 0 00:01:39 Date Recorded Body mass index (BMI) Body height Body weight Systolic blood pressure Diastolic blood pressure Provider Name and Address Organization Details Last Updated DateTime 04/26/2019 35.5 kg/m2 167.64 cm 83861.32 14 g 110 mm[Hg] 72 mm[Hg] Not Available [facility] 0 00:01:39 Date Recorded Body mass index (BMI) Body height Body weight Systolic blood pressure Diastolic blood pressure Provider Name and Address Organization Details Last Updated DateTime 06/03/2019 36.8 kg/m2 167.64 cm 902166.0 6 g 120 mm[Hg] 68 mm[Hg] Not Available [facility] 0 00:01:39 Date Recorded Body mass index (BMI) Body height Body weight Systolic blood pressure Diastolic blood pressure Provider Name and Address Organization Details Last Updated DateTime 06/22/2019 37 kg/m2 167.64 cm 553463.6 53 g 124 mm[Hg] 74 mm[Hg] Not Available [facility] 0 00:01:39 Date Recorded Body mass index (BMI) Body height Body weight Systolic blood pressure Diastolic blood pressure Provider Name and Address Organization Details Last Updated DateTime 07/06/2019 37.4 kg/m2 167.64 cm 651736.4 3 g 100 mm[Hg] 66 mm[Hg] Not Available [facility] 0 00:01:39 Date Recorded Body mass index (BMI) Body height Body weight Systolic blood pressure Diastolic blood pressure Provider Name and Address Organization Details Last Updated DateTime 07/20/2019 37.8 kg/m2 167.64 cm 666737.6 15 g 102 mm[Hg] 74 mm[Hg] Not Available [facility] 0 00:01:39 Date Recorded Body mass index (BMI) Body height Body weight Systolic blood pressure Diastolic blood pressure Provider Name and Address Organization Details Last Updated DateTime 07/29/2019 37.8 kg/m2 167.64 cm 984316.6 15 g 138 mm[Hg] 68 mm[Hg] Not Available [facility] 0 00:01:39 Date Recorded Body mass index (BMI) Body height Body weight Systolic blood pressure Diastolic blood pressure Provider Name and Address Organization Details Last Updated DateTime 08/06/2019 38.1 kg/m2 167.64 cm 813371.7 99 g 124 mm[Hg] 68 mm[Hg] Not Available [facility] 0 00:01:39 Date Recorded Body mass index (BMI) Body height Body weight Systolic blood pressure Diastolic blood pressure Provider Name and Address Organization Details Last Updated DateTime 08/11/2019 37.9 kg/m2 167.64 cm 830302.2 07 g 116 mm[Hg] 78 mm[Hg] Not Available [facility] 0 00:01:39 Date Recorded Body mass index (BMI) Body height Body weight Provider Name and Address Organization Details Last Updated DateTime 09/23/2019 35.7 kg/m2 167.64 cm 041494.914 g Not Available [facility] 08/14/2020 00:01:40 Date Recorded Body weight Systolic blood pressure Diastolic blood pressure Provider Name and Address Organization Details Last Updated DateTime 05/06/2018 22785.9519 g 122 mm[Hg] 74 mm[Hg] Not Available [facility] 08/14/2020 00:01:39 Date Recorded Body height Body weight Systolic blood pressure Diastolic blood pressure Provider Name and Address Organization Details Last Updated DateTime 08/14/2020 167.64 cm 907347.91 377 g 132 mm[Hg] 74 mm[Hg] Lisseth Amin ([facility]) [facility] 08/14/2020 10:19:53 Date Recorded Body mass index (BMI) Provider Name and Address Organization Details Last Updated DateTime 08/14/2020 35.7 kg/m2 Not Available [facility] 0 15:03:22 Date Recorded Body height Body mass index (BMI) Body weight Systolic blood pressure Diastolic blood pressure Provider Name and Address Organization Details Last Updated DateTime 09/12/2020 167.64 cm 36 kg/m2 932785.0 9851 g 118 mm[Hg] 72 mm[Hg] Marija Ziegler [facility] 0 10:00:39 Date Recorded Body height Body mass index (BMI) Body weight Systolic blood pressure Diastolic blood pressure Provider Name and Address Organization Details Last Updated DateTime 10/10/2020 167.64 cm 37.1 kg/m2 123619.2 451 g 114 mm[Hg] 68 mm[Hg] JAMI LI ([facility]) [facility] 0 10:04:30 Date Recorded Body height Body mass index (BMI) Body weight Systolic blood pressure Diastolic blood pressure Provider Name and Address Organization Details Last Updated DateTime 11/07/2020 167.64 cm 38.1 kg/m2 753843.7 9932 g 118 mm[Hg] 72 mm[Hg] Marija Ziegler [facility] 0 10:19:20 Date Recorded Body height Body mass index (BMI) Body weight Systolic blood pressure Diastolic blood pressure Provider Name and Address Organization Details Last Updated DateTime 11/30/2020 167.64 cm 38.6 kg/m2 436191.5 7643 g 102 mm[Hg] 62 mm[Hg] JAMI LI (OLD) [facility] 1 11:43:27 Date Recorded Body height Body weight Systolic blood pressure Diastolic blood pressure Provider Name and Address Organization Details Last Updated DateTime 01/04/2021 167.64 cm 373270.31 539 g 112 mm[Hg] 60 mm[Hg] Matilda Jensen [facility] 01/04/2021 11:08:09 Date Recorded Body height Body mass index (BMI) Body weight Systolic blood pressure Diastolic blood pressure Provider Name and Address Organization Details Last Updated DateTime 01/18/2021 167.64 cm 40 kg/m2 025418.9 0776 g 124 mm[Hg] 82 mm[Hg] JAMI LI (OLD) [facility] 1 12:37:59 Date Recorded Body height Body mass index (BMI) Body weight Systolic blood pressure Diastolic blood pressure Provider Name and Address Organization Details Last Updated DateTime 03/12/2021 167.64 cm 37.3 kg/m2 341673.8 3747 g 112 mm[Hg] 68 mm[Hg] Marjia Ziegler [facility] 11:50:45 Social History Question Answer Notes LastModified by Organizat ion Details LastModified Time Tobacco Smoking Status Former Smoker Naheed dyer, [facility] 08/13/2020 23:04:59 Animal Exposure? No Information not available 08/13/2020 Is Blood Transfusion Acceptable In An Emergency? Yes Information not available 08/13/2020 Do You Or Have You Ever Used E-cigarettes Or Vape? 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 Master [employer] Information not available 08/13/2020 How Often Do You Have A DRINK Containing ALCOHOL? Never [email or web address] Information not available 08/13/2020 Marital Status [email or web address] Informatio n not available 08/13/2020 What Was The Date Of Your Most Recent Tobacco Screening? 02/05/2019 [email or web address] Information not available 08/13/2020 Are You Passively Exposed To Smoke? No [email or web address] Information not available 08/13/2020 Do You Or Have You Ever Used Smokeless Tobacco? Never Used Smokeless Tobacco Information not available 08/13/2020 How Much Tobacco Do You Smoke? No Information not available 08/13/2020 How Many Years Have You Smoked Tobacco? 5 [email or web address] Information not available 08/13/2020 Do You Have Symptoms Associated With Zika Virus (fever, Rash, Joint Pain, Or Conjunctivitis )? No [email or web address] Information not available 08/13/2020 Have You Recently (within The Last 12 Weeks, Or During A Current ) Traveled To Or Lived In A Zika-affected Area? No [email or web address] Information not available 08/13/2020 Sex: Female Functional [...] Recorded Time Tdap 06/22/2019 completed Not Available [facility] 00:10:08 Tdap 11/07/2020 completed Kimberli Huff(OL D) [facility], [facility] 11/07/2020 10:07:06 Past Encounters Encounter ID Performer Location Encounter Start Date Encounter Closed Date Diagnosis/Indication Diagnosis SNOMED-CT Code [id number] Becky Wan CR_PRMR_OB ETL TESTER [address] [facility] [address] [place] [place], [place] [address] 07/05/2020 00:00:00 [id number] Becky Wan CR_PRMR_OB ETL TESTER [address] [facility] MANDIHelioTONG [place], [place] [address] 07/13/2020 00:00:00 [id number] MD JOHN Sorto_PRMR_OB ETL TESTER [address] [facility] [place], [place] [address] 08/14/2020 10:10:48 08/14/2020 11:02:08 Advanced maternal age [id number] MD JOHN Sorto_PRMR_OB ETL TESTER [address] [place] [address] [place] [id number] 09/12/2020 09:46:31 09/12/2020 10:35:48 Advanced maternal age [id number] MD JOHN Sorto_PRMR_OB ETL TESTER [address] [facility] [place] [id number] 10/10/2020 09:51:37 10/10/2020 11:04:50 Routine care [id number] Advanced m aternal age [id number] MD JOHN Sorto_PRMR_OB ETL TESTER [address] [place] [address] [place] [address] 11/07/2020 09:52:48 11/07/2020 10:48:17 Administration of viral vaccine [id number] Routine an tenatal care 850316163 Advanced m aternal age [id number] MD JOHN Sorto_PRMR_OB ETL TESTER [address] [place] [address] [place] [address] 11/30/2020 11:21:05 11/30/2020 14:39:52 Routine care [id number] Advanced m aternal age [id number] MD JOHN Sorto_PRMR_OB ETL TESTER [address] [place] [address] 01/04/2021 10:54:31 01/04/2021 15:20:13 Routine care [id number] Garfield Salazar MD CR_PRMR_OB ETL TE[facility] [address] [place] [address] 01/18/2021 11:59:42 01/18/2021 15:19:37 Routine care [id number] MD JOHN Sorto_PRMR_OB ETL TESTER [address] [place] [address] 03/12/2021 11:32:07 03/12/2021 12:29:13 care [id number] Health Concerns Section Related Observation LastModified by Organization Detai ls LastModified Time None Recorded Concern Status LastModified by Organization Details LastModified Time None Recorded Advance Directives Directive None Recorded Payers Encounter Date Sequence Insurance Name Policy Number Policy Campos Covered Member ID Campos Member ID Guarantor Name 03/12/2021 1 [place] [place] [employer] [place] ( - [place] ACTIVE Bry Walker [id number] Bry Walker 01/18/2021 1 [employer] [place] [employer] [place] ( - [place]) ACTIVE Bry Walker [id number] Bry Walker 01/04/2021 1 [place] [place] [employer] [place] ( - PPO) ACTIVE Bry Walker [id number] Bry Walker 11/30/2020 1 [place] [place] [employer] [place] ( - P[place]) ACTIVE Bry Walker [id number] Bry Walker 11/07/2020 1 [place] [place] [employer] [place] ( - P[place]) ACTIVE Bry Walker [id number] Bry Walker 10/10/2020 1 [place] [place] [employer] [place] ( - P[place]) ACTIVE Bry Walker [id number] Bry Walker 09/12/2020 1 [place] [employer] [place] ( - [place]) ACTIVE Bry Walker [id number] Bry Walker 08/14/2020 1 [facility] [place] Bry Walker [id number] Bry Walker Notes Date Note Type Note Provider Name and Address Organization Details Recorded Time 03/12/2021 text/html HPI Notes: Visit Reported by patient. Onset/Timing: date of delivery: (01/27/2021) Quality: Context: feeding choice: breast; good support from partner/family 36yo here for 6wk pp, . She and baby boy are overall doing well, no ETL TESTER concerns. Will be abstinent x 1yr. - spouse deployed Does not desire contraception. Garfield Salazar MD [address], [place], [address], [facility] 03/15/2021 22:24:44 OBGyn Episode Ob Episode Information Episode Created Date Number of Fetuses Patient Bloodtype Patient rh Status Prepregnancy Weight lbs Domestic Partner Domestic Partner Phone Father Name Airplane Gas Tank Liner Assembler Status 03/12/20 21 1 CLOSED Fetus Data First Name Last Name Admitted to NICU Weight (g) Sex Living Outcome Pediatric Complications Fetus ID Race Codes Race Delivery Type 3798.83 3 F Full Term [id number] Lj Calculation Initial Lj Date Initial Exam [...] Domestic Partner Domestic Partner Phone Father Name Airplane Gas Tank Liner Assembler Status 07/28/20 20 1 CLOSED Fetus Data First Name Last Name Admitted to NICU Weight (g) Sex Living Outcome Pediatric Complications Fetus ID Race Codes Race Delivery Type 3259.96 5704 F Full Term 013674 Lj Calculation Initial Lj Date Initial Exam [...] Complications Tubal Sterilization Discharge Date Comments [address] [facility] [address] Salazar. Weight gain- 30lb Discharge Information Feeding Method Contraceptive Method Maternal HG B and HCT Levels Ob Episode Information Episode Created Date Number of Fetuses Patient Bloodtype Patient rh Status Prepregnancy Weight lbs Domestic Partner Domestic Partner Phone Father Name Airplane Gas Tank Liner Assembler Status 07/28/20 20 1 CLOSED Fetus Data First Name Last Name Admitted to NICU Weight (g) Sex Living Outcome Pediatric Complications Fetus ID Race Codes Race Delivery Type 3458.63 9 F Full Term 255454 Lj Calculation Initial Lj Date Initial Exam Date Initial Exam Provider Initial Ultrasound Date Last Menstrual Period Date Ultra Sound Weeks Gestation 0 Eighteen To Twenty Week Jl Update Ultra Sound Date Fundal Height At [...] Complications Tubal Sterilization Discharge Date Comments 9 [facility] idural 39.6 Discharge Information Feeding Method Contraceptive Method Maternal HG B and HCT Levels Ob Episode Information Episode Created Date Number of Fetuses Patient Bloodtype Patient rh Status Prepregnancy Weight lbs Domestic Partner Domestic Partner Phone Father Name Airplane Gas Tank Liner Assembler Status 07/28/20 20 1 CLOSED Fetus Data First Name Last Name Admitted to NICU Weight (g) Sex Living Outcome Pediatric Complications Fetus ID Race Codes Race Delivery Type 4195.72 6 M Full Term 414051 Lj Calculation Initial Lj Date Initial Exam [...] Domestic Partner Domestic Partner Phone Father Name Airplane Gas Tank Liner Assembler Status 07/28/20 20 1 O Positive 213 CLOSED Fetus Data First Name Last Name Admitted to NICU Weight (g) Sex Living Outcome Pediatric Complications Fetus ID Race Codes Race Delivery Type Wilmer false 3798.83 3 F true Full Term 228078 Lj Calculation Initial Lj Date Initial Exam [...] Date Ultra Sound Latest Days Gestation 0 [email or web address] 07/28/2020 02/02/20 21 0 Pre- Flowsheet Flowsheet [...] 07/13/20. Needs exam/sono at next appointment. 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 Flowsheet Date 07/13/2020 Cummings Score Blood Edema [...] A Present Fetus Movement A Yes Comments Neelima sono- repeat 12/3Rec PNV with DHAFinger sticks [...] At Estimated Date of Delivery true Thalassemia (Uzbek, Honduran, Mediterranean, Or Background): MCV < 80 false Neural Tube Defect (Meningom yelocele, Spina Bifida, Or Anencephaly) false Congenital Heart Defect false Down Syndrome false Sixto-Sachs (eg, Temple, Cajun , Moldovan-Croatian) false Sickle Cell Disease Or Trait () false Hemophilia Or Other Blood Disorders false Muscular Dystrophy false Cystic Fibrosis false [place]'s Chorea false Mental Retardation/Autism false If Yes, [...] Domestic Partner Domestic Partner Phone Father Name Airplane Gas Tank Liner Assembler Status 07/28/20 20 1 CLOSED Fetus Data First Name Last Name Admitted to NICU Weight (g) Sex Living Outcome Pediatric Complications Fetus ID Race Codes Race Delivery Type 3572.03 7 M Full Term [id number] Lj Calculation Initial Lj Date Initial Exam [...]
--- OUTSIDE RECORDS SUMMARY | 2024-04-22 18:39 | XMS_ITS | Encounter Summary ---
Author Organization [facility] Address [address] [facility] [place] [address] Care Team Providers Care Criminology Teacher Name Role Phone Martin House MD, Jeffrey Primary Care Provider [phone] Reason for Referral * Maternity Services (Routine) - Closed Specialty Diagnoses / Procedures Referred By Juventino adams Referred To Contact Radiology Diagnoses Supervision of high risk in third trimester Procedures Ultrasound OB growth Ethan Doe DO [address] [place] [address] Referral ID Status Reason Start Date Expiration Date V isits Requested Visits Authorized [id number] Closed Specialty Services Required 04/12/2019 05/16/2020 1 1 Encounter Details Date Type Department Care Team (Late st Contact Info) Description 04/12/2019 Orders Only [facility] [address] [facility] [address] [address] [place] [address] Ethan Doe DO [address] [place] [address] Supervision of high risk in third trimester [...] Primary documented in this encounter Care Teams Criminology Teacher Relationship Specialty Start Date End Date Steve Salazar MD PCP - General OBSTETRICS & GYNECOLOGY 09/11/20 documented as of this encounter
--- OUTSIDE RECORDS SUMMARY | 2024-04-22 18:39 | XMS_ITS | Data Portability ---
Author Organization [place] - [facility], autoContract - [id number] Address [address] [place] [address] Assessment No assessment recorded. Plan of Treatment Reminders Order Date Submit Date Provider Last Modified By Organization Details Last Modified Time Details Appointments None recorded. Lab hemoglobin + hematocrit, blood 2023 024 KEENAN Krishnan (Lab), [address] [place], [address], 4 16:06:56 Referral None recorded. Procedures None recorded. Surgeries None recorded. Imaging None recorded. Medication Orders butalbital- acetaminoph en-caffeine 50 mg-325 mg-40 mg tablet 2023 024 KEENAN [id number], [address] [place], [address], 4 09:39:14 Patient TargetsNo targets recorded. Patient InstructionsNo instructions recorded. Reason for Referral Maternal & Medicine Re ferral for Advanced maternal age Please call pt to schedule level ll u/s; AMA H/O Bariatric surgical procedure Referring Physician: Andry Corbin, CHUCK SPLITTER, Encounter Date: 11/19/2023 Results Created Date Observation Date Name Description Value Unit Range Abnormal Flag LastModifiedBy Organization Detail LastModifiedTime 09/17/20 23 09/17/2023 TYPE AND SCREE N ABO group O Not Available Oscar Krishnan (Lab) [address] [place], [address], 09/17/2023 22:35:25 09/17/20 23 09/17/2023 TYPE AND SCREE N Rh type POS Not Available Oscar Krishnan (Lab) [address] [place], [address], 09/17/2023 22:35:25 09/17/20 23 09/17/2023 TYPE AND SCREE N antibody screen NEG Not Available Pernell Krishnan (Lab) [address] [place], [address], 09/17/2023 22:35:25 09/17/20 23 09/17/2023 CBC WITH PLATE LET AND DIFFE RENTI AL WBC 12.4 K/uL 3.6-11 .2 high Not Available [place] [facility] ([facility]) [address] [place], [address], 09/18/2023 01:05:56 09/17/20 23 09/17/2023 CBC WITH PLATE LET AND DIFFE RENTI AL RBC 4.38 M/uL 3.63-4 .92 Not Available [place] [facility] ([facility]) [address] [facility] [place], [address], 09/18/2023 01:05:56 09/17/20 23 09/17/2023 CBC WITH PLATE LET AND DIFFE RENTI AL hemoglobin 13.7 g/dL 10.9-1 4.3 Not Available [place] [facility] (Lab) [address] [place], [address], 09/18/2023 01:05:56 09/17/20 23 09/17/2023 CBC WITH PLATE LET AND DIFFE RENTI AL hematocrit 40 % 31-42 Not Available Gordy Krishnan (Lab) [address] [place], [address], 09/18/2023 01:05:56 09/17/20 23 09/17/2023 CBC WITH PLATE LET AND DIFFE RENTI AL mean cell volume 92 fL 74-96 Not Available [place] [facility] (Lab) [address] [place], [address], 09/18/2023 01:05:56 09/17/20 23 09/17/2023 CBC WITH PLATE LET AND DIFFE RENTI AL mean cell hemoglobin 31 pg 24-33 Not Available [facility] (Lab) [address] [place], [address], 09/18/2023 01:05:56 09/17/20 23 09/17/2023 CBC WITH PLATE LET AND DIFFE RENTI AL mean cell hemoglobin concentratio n 34 g/dL 33-36 Not Available [facility] (Lab) [address] [place], [address], 09/18/2023 01:05:56 09/17/20 23 09/17/2023 CBC WITH PLATE LET AND DIFFE RENTI AL red cell distribution width 13.1 % 12.3-1 7.0 Not Available [facility] (Lab) [address] [place], [address], 09/18/2023 01:05:56 09/17/2009/17/2023 CBC WITH PLATE LET AND DIFFE RENTI AL platelet count 337 K/uL 150-45 0 Not Available [facility] (Lab) [address] [place], [address], 09/18/2023 01:05:56 09/17/20 23 09/17/2023 CBC WITH PLATE LET AND DIFFE RENTI AL mean platelet volume 8.8 fL 7.5-11 .2 Not Available [facility] (Lab) [address] [place], [address], 09/18/2023 01:05:56 09/17/20 23 09/17/2023 CBC WITH PLATE LET AND DIFFE RENTI AL differential percent Diff % Not Available [facility] (Lab) [address] [place], [address], 09/18/2023 01:05:56 09/17/20 23 09/17/2023 CBC WITH PLATE LET AND DIFFE RENTI AL neutrophils 75 % 43-77 Not Available [facility] (Lab) [address] [place], [address], 09/18/2023 01:05:56 09/17/20 23 09/17/2023 CBC WITH PLATE LET AND DIFFE RENTI AL lymphocytes 18 % 16-44 Not Available [facility] (Lab) [address] [place], [address], 09/18/2023 01:05:56 09/17/20 23 09/17/2023 CBC WITH PLATE LET AND DIFFE RENTI AL monocytes 6 % 5-13 Not Available [facility] (Lab) [address] [place], [address], 09/18/2023 01:05:56 09/17/20 23 09/17/2023 CBC WITH PLATE LET AND DIFFE RENTI AL eosinophils 1 % 1-8 Not Available [facility] (Lab) [address] [place], [address], 09/18/2023 01:05:56 09/17/2009/17/2023 CBC WITH PLATE LET AND DIFFE RENTI AL basophils 0 % 0-1 Not Available [facility] (Lab) [address] [facility] [place], [address], 09/18/2023 01:05:56 09/17/20 23 09/17/2023 CBC WITH PLATE LET AND DIFFE RENTI AL differential absolute Diff Absolu te Not Available [facility] (Lab) [address] [place], [address], 09/18/2023 01:05:56 09/17/20 23 09/17/2023 CBC WITH PLATE LET AND DIFFE RENTI AL neutrophils absolute 9.4 K/uL 1.8-7. 8 high Not Available [facility] (Lab) [address] [place], [address], 09/18/2023 01:05:56 09/17/20 23 09/17/2023 CBC WITH PLATE LET AND DIFFE RENTI AL lymphocytes absolute 2.2 K/uL 1.0-3. 0 Not Available [facility] (Lab) [address] [place], [address], 09/18/2023 01:05:56 09/17/2009/17/2023 CBC WITH PLATE LET AND DIFFE RENTI AL monocytes absolute 0.7 K/uL 0.3-1. 0 Not Available [facility] (Lab) [address] [place], [address], 09/18/2023 01:05:56 09/17/2009/17/2023 CBC WITH PLATE LET AND DIFFE RENTI AL eosinophils absolute 0.1 K/uL 0.0-0. 5 Not Available [facility] (Lab) [address] [place], [address], 09/18/2023 01:05:56 09/17/2009/17/2023 CBC WITH PLATE LET AND DIFFE RENTI AL basophils absolute 0.0 K/uL 0.0-0. 1 Not Available [facility] (Lab) [address] [place], [address], 09/18/2023 01:05:56 09/17/2009/17/2023 CBC WITH PLATE LET AND DIFFE RENTI AL nucleated RBC 0 /100_ WBC Not Available [facility] (Lab) [address] [place], [address], 09/18/2023 01:05:56 09/17/2009/17/2023 HEMOG LOBIN A1C hemoglobin A1C, percent 4.9 % 4.0-5. 6 Not Available [facility] (Lab) [address] [place], [address], 09/18/2023 01:05:57 09/17/2002 1009/17/2023 VITAM IN D 25-HY DROXY - IN HOUSE vitamin D 25-hydroxy 34 NG/mL 30-100 Not Available [facility] (Lab) [address] [place], [address], 09/18/2023 01:05:58 09/17/20 23 09/17/2023 URINE PROTE IN/CR EATIN INE RATIO protein, urine <4 mg/dL Not Available [facility] (Lab) [address] [place], [address], 09/18/2023 01:05:59 09/17/20 23 09/17/2023 URINE PROTE IN/CR EATIN INE RATIO creatinine, urine 22 mg/dL Not Available [facility] (Lab) [address] [facility] [place], [address], 09/18/2023 01:05:59 09/17/20 23 09/17/2023 URINE PROTE IN/CR EATIN INE RATIO protein/crea tinine ratio, urine See Text Not Available [facility] (Lab) [address] [place], [address], 09/18/2023 01:05:59 09/17/20 23 09/17/2023 HEPAT ITIS B SURFA CE ANTIG EN W/REF DMITRY TO CONFI RMATI ON hepatitis B surface antigen w/reflex to confirmation NEGATI VE negati ve Not Available [facility] (Lab) [address] [place], [address], 09/18/2023 01:05:59 09/17/20 23 09/17/2023 RUBEL LA SCREE N rubella screen 16.7 Not Available [facility] (Lab) [address] [place], [address], 09/18/2023 01:06:00 09/17/20 23 09/17/2023 SYPHI LIS SCREE N WITH REFLE X CONFI RMATI ON syphilis screen with reflex confirmation NONREA CTIVE nonrea ctive Not Available [facility] (Lab) [address] [place], [address], 09/18/2023 01:06:01 09/17/20 23 09/17/2023 VITAM IN B12 vitamin B12 666 pg/mL 180-91 4 Not Available [facility] (Lab) [address] [place], [address], 09/18/2023 01:06:02 09/17/20 23 09/17/2023 CMP sodium 137 mmol/ L 136-14 5 Not Available [facility] (Lab) [address] [place], [address], 09/18/2023 01:06:02 09/17/2009/17/2023 CMP potassium 4.5 mmol/ L 3.5-5. 1 Not Available [facility] (Lab) [address] [place], [address], 09/18/2023 01:06:02 09/17/20 23 09/17/2023 CMP chloride 103 mmol/ L 99-108 Not Available [facility] (Lab) [address] [place], [address], 09/18/2023 01:06:02 09/17/20 23 09/17/2023 CMP CO2 24 mmol/ L 21-31 Not Available [facility] (Lab) [address] [place], [address], 09/18/2023 01:06:02 09/17/2009/17/2023 CMP BUN 14 mg/dL 7-25 Not Available [facility] (Lab) [address] [place], [address], 09/18/2023 01:06:02 09/17/20 23 09/17/2023 CMP creatinine 0.52 mg/dL 0.51-1 .00 Not Available [facility] (Lab) [address] [place], [address], 09/18/2023 01:06:02 09/17/2009/17/2023 CMP glucose, random 74 mg/dL 70-199 Not Available [facility] (Lab) [address] [place], [address], 09/18/2023 01:06:02 09/17/2009/17/2023 CMP calcium, total 9.8 mg/dL 8.8-10 .6 Not Available [facility] (Lab) [address] [place], [address], 09/18/2023 01:06:02 09/17/2009/17/2023 CMP osmolality (calculated) 273 mOsm/ kg 270-29 5 Not Available [facility] (Lab) [address] [place], [address], 09/18/2023 01:06:02 09/17/2009/17/2023 CMP anion gap 10 3-11 Not Availab le [facility] (Lab) [address] [place], [address], 09/18/2023 01:06:02 09/17/2009/17/2023 CMP albumin 4.5 g/dL 3.5-5. 7 Not Available [facility] (Lab) [address] [place], [address], 09/18/2023 01:06:02 09/17/2009/17/2023 CMP bilirubin, total 0.4 mg/dL 0.3-1. 0 Not Available [facility] (Lab) [address] [place], [address], 09/18/2023 01:06:02 09/17/2009/17/2023 CMP alkaline phosphatase 67 IU/L 34-104 Not Available [facility] (Lab) [address] [place], [address], 09/18/2023 01:06:02 09/17/20 23 09/17/2023 CMP ALT 15 IU/L 7-52 Not Available [facility] (Lab) [address] [place], [address], 09/18/2023 01:06:02 09/17/20 23 09/17/2023 CMP AST 13 IU/L 13-39 Not Available [facility] (Lab) [address] [place], [address], 09/18/2023 01:06:02 09/17/2009/17/2023 CMP protein, total 7.3 g/dL 6.4-8. 9 Not Available [facility] (Lab) [address] [facility] [place], [address], 09/18/2023 01:06:02 09/17/2009/17/2023 CMP A/G ratio 1.6 1.2-2. 3 Not Available [facility] (Lab) [address] [facility] [place], [address], 09/18/2023 01:06:02 09/17/2009/17/2023 SOCO TIN ferritin 28.0 NG/mL 11.0-3 07.0 Not Available [facility] (Lab) [address] [place], [address], 09/18/2023 01:06:03 09/17/2009/17/2023 TSH WITH REFLE X TO FREE T4 TSH (3rd IS) assay 0.68 uIU/m L 0.45-5 .33 Not Available [facility] (Lab) [address] [facility] [place], [address], 09/18/2023 01:06:04 09/17/20 23 09/17/2023 HEPAT ITIS C ANTIB MISTY WITH REFLE X TO CONFI RMATI ON hepatitis C antibody with reflex to confirmation NEGATI VE negati ve Not Available [facility] (Lab) [address] [place], [address], 09/18/2023 01:06:05 09/17/2009/17/2023 HIV AG/AB WITH REFLE X TO CONFI RMATI ON HIV Ag/Ab with reflex to confirmation NONREA CTIVE non-re active Not Available [facility] (Lab) [address] [place], [address], 09/18/2023 01:06:05 09/17/20 23 09/17/2023 URIC ACID uric acid 3.9 mg/dL 2.3-6. 6 Not Available [facility] (Lab) [address] [place], [address], 09/18/2023 01:06:06 09/17/2009/17/2023 CT/NG other info Other Inform ation Not Available [facility] [address], [place], [address], 09/18/2023 13:34:52 09/17/20 23 09/18/2023 CT/NG cervix,swab/ transport tube Not Available [facility] [address] [facility] [address], [place], [address], 09/18/2023 13:34:52 09/17/20 23 09/18/2023 CT/NG chlamydia result Negati ve Not Available [facility] [address], [place], [address], 09/18/2023 13:34:52 09/17/20 23 09/18/2023 CT/NG gonorrhea result Negati ve Not Available [facility] [address], [place], [address], 09/18/2023 13:34:52 09/17/20 23 09/19/2023 URINE CULTU RE urine culture See Note Not Available [facility] (Lab) [address] [place], [address], 09/19/2023 08:15:48 10/10/20 23 10/10/2023 CHROM OSOME S 13, 18, 21 + SEX CHROM OSOME MARLENE SIS + EXPAN DED ANEUP LOIDY SCREE VERONICA chromosome 1 aneuploidy Negati ve normal Not Available [facility] [address] [place] [address], [address], 10/17/2023 21:18:27 10/10/20 23 10/10/2023 CHROM OSOME S 13, 18, 21 + SEX CHROM OSOME MARLENE SIS + EXPAN DED ANEUP LOIDY SCREE VERONICA chromosome 10 aneuploidy Negati ve normal Not Available [facility] [address] [place], [address], 10/17/2023 21:18:27 10/10/20 23 10/10/2023 CHROM OSOME S 13, 18, 21 + SEX CHROM OSOME MARLENE SIS + EXPAN DED ANEUP LOIDY SCREE VERONICA chromosome 11 aneuploidy Negati ve normal Not Available [facility] [address] [place], [address], 10/17/2023 21:18:27 10/10/20 23 10/10/2023 CHROM OSOME S 13, 18, 21 + SEX CHROM OSOME MARLENE SIS + EXPAN DED ANEUP LOIDY SCREE VERONICA chromosome 12 aneuploidy Negati ve normal Not Available [facility] [address] [place] [address], [address], 10/17/2023 21:18:27 10/10/20 23 10/10/2023 CHROM OSOME S 13, 18, 21 + SEX CHROM OSOME MARLENE SIS + EXPAN DED ANEUP LOIDY SCREE VERONICA chromosome 13 aneuploidy Negati ve normal Not Available [facility] [address] [place] [address], [address], 10/17/2023 21:18:27 10/10/20 23 10/10/2023 CHROM OSOME S 13, 18, 21 + SEX CHROM OSOME MARLENE SIS + EXPAN DED ANEUP LOIDY SCREE VERONICA chromosome 14 aneuploidy Negati ve normal Not Available [facility] [address] [place] [address], [address], 10/17/2023 21:18:27 10/10/20 23 10/10/2023 CHROM OSOME S 13, 18, 21 + SEX CHROM OSOME MARLENE SIS + EXPAN DED ANEUP LOIDY SCREE VERONICA chromosome 15 aneuploidy Negati ve normal Not Available [facility] [address] [place] [address], [address], 10/17/2023 21:18:27 10/10/20 23 10/10/2023 CHROM OSOME S 13, 18, 21 + SEX CHROM OSOME MARLENE SIS + EXPAN DED ANEUP LOIDY SCREE VERONICA chromosome 16 aneuploidy Negati ve normal Not Available [facility] [address] [place] [address], [address], 10/17/2023 21:18:27 10/10/20 23 10/10/2023 CHROM OSOME S 13, 18, 21 + SEX CHROM OSOME MARLENE SIS + EXPAN DED ANEUP LOIDY SCREE VERONICA chromosome 17 aneuploidy Negati ve normal Not Available [facility] [address] [place] [address], [address], 10/17/2023 21:18:27 10/10/20 23 10/10/2023 CHROM OSOME S 13, 18, 21 + SEX CHROM OSOME MARLENE SIS + EXPAN DED ANEUP LOIDY SCREE VERONICA chromosome 18 aneuploidy Negati ve normal Not Available [facility] [address] [place] [address], [address], 10/17/2023 21:18:27 10/10/20 23 10/10/2023 CHROM OSOME S 13, 18, 21 + SEX CHROM OSOME MARLENE SIS + EXPAN DED ANEUP LOIDY SCREE VERONICA chromosome 19 aneuploidy Negati ve normal Not Available [facility] [address] [place] [address], [address], 10/17/2023 21:18:27 10/10/20 23 10/10/2023 CHROM OSOME S 13, 18, 21 + SEX CHROM OSOME MARLENE SIS + EXPAN DED ANEUP LOIDY SCREE VERONICA chromosome 2 aneuploidy Negati ve normal Not Available [facility] [address] [place], [address], 10/17/2023 21:18:27 10/10/20 23 10/10/2023 CHROM OSOME S 13, 18, 21 + SEX CHROM OSOME MARLENE SIS + EXPAN DED ANEUP LOIDY SCREE VERONICA chromosome 20 aneuploidy Negati ve normal Not Available [facility] [address] [place], [address], 10/17/2023 21:18:27 10/10/20 23 10/10/2023 CHROM OSOME S 13, 18, 21 + SEX CHROM OSOME MARLENE SIS + EXPAN DED ANEUP LOIDY SCREE VERONICA chromosome 21 aneuploidy Negati ve normal Not Available [facility] [address] [place] [address], [address], 10/17/2023 21:18:27 10/10/20 23 10/10/2023 CHROM OSOME S 13, 18, 21 + SEX CHROM OSOME MARLENE SIS + EXPAN DED ANEUP LOIDY SCREE VERONICA chromosome 22 aneuploidy Negati ve normal Not Available [facility] [address] [place], [address], 10/17/2023 21:18:27 10/10/20 23 10/10/2023 CHROM OSOME S 13, 18, 21 + SEX CHROM OSOME MARLENE SIS + EXPAN DED ANEUP LOIDY SCREE VERONICA chromosome 3 aneuploidy Negati ve normal Not Available [facility] [address] [place], [address], 10/17/2023 21:18:27 10/10/20 23 10/10/2023 CHROM OSOME S 13, 18, 21 + SEX CHROM OSOME MARLENE SIS + EXPAN DED ANEUP LOIDY SCREE VERONICA chromosome 4 aneuploidy Negati ve normal Not Available [facility] [address] [place] [address], [address], 10/17/2023 21:18:27 10/10/20 23 10/10/2023 CHROM OSOME S 13, 18, 21 + SEX CHROM OSOME MARLENE SIS + EXPAN DED ANEUP LOIDY SCREE VERONICA chromosome 5 aneuploidy Negati ve normal Not Available [facility] [address] [place], [address], 10/17/2023 21:18:27 10/10/20 23 10/10/2023 CHROM OSOME S 13, 18, 21 + SEX CHROM OSOME MARLENE SIS + EXPAN DED ANEUP LOIDY SCREE VERONICA chromosome 6 aneuploidy Negati ve normal Not Available [facility] [address] [place], [address], 10/17/2023 21:18:27 10/10/20 23 10/10/2023 CHROM OSOME S 13, 18, 21 + SEX CHROM OSOME MARLENE SIS + EXPAN DED ANEUP LOIDY SCREE VERONICA chromosome 7 aneuploidy Negati ve normal Not Available [facility] [address] [place], [address], 10/17/2023 21:18:27 10/10/20 23 10/10/2023 CHROM OSOME S 13, 18, 21 + SEX CHROM OSOME MARLENE SIS + EXPAN DED ANEUP LOIDY SCREE VERONICA chromosome 8 aneuploidy Negati ve normal Not Available [facility] [address] [place], [address], 10/17/2023 21:18:27 10/10/20 23 10/10/2023 CHROM OSOME S 13, 18, 21 + SEX CHROM OSOME MARLENE SIS + EXPAN DED ANEUP LOIDY SCREE VERONICA chromosome 9 aneuploidy Negati ve normal Not Available [facility] [address] [place], [address], 10/17/2023 21:18:27 10/10/20 23 10/10/2023 CHROM OSOME S 13, 18, 21 + SEX CHROM OSOME MARLENE SIS + EXPAN DED ANEUP LOIDY SCREE VERONICA sex chromosome analysis Female normal Not Available [facility] [address], [place], [address], 10/17/2023 21:18:27 11/19/19 24 11/19/2023 HEMOG LOBIN AND HEMAT OCRIT hemoglobin 11.9 g/dL 10.9-1 4.3 Not Available [facility] ([facility] [address] [place], [address], 11/19/2023 16:06:56 11/19/19 24 11/19/2023 HEMOG LOBIN AND HEMAT OCRIT hematocrit 36 % 31-42 Not Available [facility] (Lab) [address] [place], [address], 11/19/2023 16:06:56 09/17/20 23 09/17/2023 ultra sound image s RAD KEENAN [facility] [address], [place], [address], 10/07/2023 10:30:47 09/17/20 23 09/17/2023 ultra sound image s RAD [email or web address] [facility] [address], [place], [address], 09/17/2023 13:20:57 09/29/20 23 09/29/2023 ultra sound image s RAD [email or web address] [facility] [address], [place], [address], 09/29/2023 11:58:59 09/29/20 23 09/29/2023 ultra sound image s RAD [email or web address] [facility] [address], [place], [address], 10/13/2023 10:24:11 12/11/19 24 12/05/2023 US, obste tric, mater nal evalu ation + anato my No observ ation record ed. [facility] [address], [place], [address], 12/13/2023 16:26:39 01/20/20 24 01/20/2024 US, obste tric, mater nal evalu ation + anato my No observ ation record ed. [facility] [address], [place], [address], 01/20/2024 17:18:22 Result Notes None recorded. Problems Name Status Onset Date Resolution Date Notes Provider Name and Address Organization Details Recorded Time Routine care Active Matilda Kessler null, [facility] [place] 4 08:59:20 Routine care Completed Matilda Kessler null, [facility] [place] 4 08:59:20 Advanced maternal age Completed 38, lvl 2-nl, needs monthly growth US here at 30 wks Matilda Kessler null, [facility] [place] 4 08:59:20 Completed 023 03/03/2024 Matilda Kessler null, [facility] [place] 4 08:59:27 Advanced maternal age Active 38, lvl 2-nl, needs monthly growth US here at 30 wks Matilda Kessler null, [facility] [place] 4 08:59:20 History of bariatric surgical procedure Active 023 griselda en Y; NO glucola, needs gluocse monitoring Matilda Kessler null, [facility] [place] 4 08:59:20 History of bariatric surgical procedure Completed 023 griselda en Y; NO glucola, needs gluocse monitoring Matilda Kessler null, [facility] [place] 4 08:59:20 Maternal obesity complicating , childbirth and the puerperium, antepartum Completed 024 Matilda Kessler null, [facility] [place] 4 08:59:20 Maternal obesity complicating , childbirth and the puerperium, antepartum Active 024 Matilda Kessler null, [place] - [facility] 08:59:20 Problem Notes None recorded. Procedures Surgical History Date Name Laterality Status Provider Name and Address Organization Details Recorded Time laparoscopic sleeve gastrectomy completed Ilana Stone (TERMED) [facility], [facility] [place] 09/17/2023 13:46:58 Griselda-en-Y gastrojejunostomy completed Ilana Clarkfield (TERMED) null, [place] - [facility] 09/17/2023 13:47:08 Imaging Results Imaging Date Name Status LastModified by Organiz ation Details LastModified Time 09/17/2023 ultrasound images completed KEENAN [facility] [address], [place], [address], 10/07/2023 10:30:47 09/17/2023 ultrasound images completed [email or web address] [facility] [address], [place], [address], 09/17/2023 13:20:57 09/29/2023 ultrasound images completed [email or web address] [facility] [address], [place], [address], 09/29/2023 11:58:59 09/29/[email or web address] [email or web address] [address], [place], [address], 10/13/2023 10:24:11 12/05/2023 US, obstetric, maternal evaluation + anatomy completed [facility] [address], [place], [address], 12/13/2023 16:26:39 01/20/2024 US, obstetric, maternal evaluation + anatomy completed [facility] [address], [place], [address], 01/20/2024 17:18:22 Procedure Notes None recorded. Medical Equipment None Reported. Allergies Allergen ID Allergen Name Allergen Category Reaction Reaction Severity Criticality Documentation Date Start Date Code Code System Note Provider Name and Address Organization Details Recorded Time [id number] Non-stero idal anti-infl ammatory agent (product) medicatio n Not available Not available Not available 09/17/2023 66412 [id number] SNOMED r/t baria tric surge ry Ilana Stone (TERMED) [facility] 3 13:33:09 Medications [...] DateTime 09/17/2023 167.64 cm Ilana Stone (TERMED) [facility] [place] 09/17/2023 13:31:51 Date Recorded Body height Body mass index (BMI) Body weight Heart rate Systolic blood pressure Diastolic blood pressure Provider Name and Address Organization Details Last Updated DateTime 3 167.64 cm 34.5 kg/m2 54703.7 6718 g 75 /min 108 mm[Hg] 73 mm[Hg] Princess Trevino (TERMED) [facility] [place] 3 14:03:04 Date Recorded Body height Body mass index (BMI) Systolic blood pressure Diastolic blood pressure Provider Name and Address Organization Details Last Updated DateTime 09/29/2023 167.64 cm 34.5 kg/m2 106 mm[Hg] 71 mm[Hg] Mallory Chaparro [facility] [place] 09/29/2023 11:54:06 Date Recorded Body weight Provider Name an d Address Organization Details Last Updated DateTime 09/29/2023 66347.59999 g Betty sheffield MD [address] [place] [address],[address], [place], [address], [facility] [place] 09/29/2023 12:03:28 Date Recorded Body height Body mass index (BMI) Body weight Heart rate Systolic blood pressure Diastolic blood pressure Provider Name and Address Organization Details Last Updated DateTime 3 167.64 cm 34.7 kg/m2 16979.3 5955 g 61 /min 99 mm[Hg] 60 mm[Hg] Pepper Brasher [facility] [place] 3 09:12:15 Date Recorded Body weight Body mass index (BMI) Body height Heart rate Systolic blood pressure Diastolic blood pressure Provider Name and Address Organization Details Last Updated DateTime 4 952129. 077658 g 35.8 kg/m2 167.64 cm 81 /min 116 mm[Hg] 66 mm[Hg] Suzi Stockton [facility] [place] 4 09:27:16 Date Recorded Body height Body mass index (BMI) Heart rate Systolic blood pressure Diastolic blood pressure Provider Name and Address Organization Details Last Updated DateTime 12/18/2023 167.64 cm 36.8 kg/m2 71 /min 89 mm[Hg] 55 mm[Hg] Mallory Chaparro [facility] [place] 4 09:31:14 Date Recorded Body weight Provider Name an d Address Organization Details Last Updated DateTime 12/18/2023 693459.58588 g Betty sheffield MD [address] [place] [address],[facility] [address], [place], [address], [facility] [place] 12/18/2023 09:38:56 Date Recorded Body height Body mass index (BMI) Body weight Heart rate Systolic blood pressure Diastolic blood pressure Provider Name and Address Organization Details Last Updated DateTime 4 167.64 cm 37.8 kg/m2 268265. 56363 g 80 /min 115 mm[Hg] 60 mm[Hg] Pepper Brasher [facility] [place] 4 10:19:59 Social History Question Answer Notes LastModified by Organizat ion Details LastModified Time Tobacco Smoking Status Former Smoker high school and college Ilana Stone (TERMED) null, [facility] [place] 09/17/2023 13:46:38 Do You Have An Advance Directive? No Information not available 12/18/2023 What Is Your Level Of Alcohol Consumption? None Information not available 09/17/2023 If You Are , What Was Your Level Of Alcohol Consumption Prior To ? Occasional [email or web address] Information not available 12/18/2023 Is Blood Transfusion Acceptable In An Emergency? Yes Information not available 09/17/2023 What Is Your Level Of Caffeine Consumption? Occasional Information not available 09/17/2023 Are You Currently Employed? Yes [email or web address] Information not available 12/18/2023 What Type Of Diet Are You Following? 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 Information not available 09/17/2023 Are You Sexually Active? Yes Information not available 12/18/2023 Do You Use Any Illicit Or Recreational Drugs? No [email or web address] Information not available 12/18/2023 Do You Or Have You Ever Used Any Other Forms Of Tobacco Or Nicotine? No Information not available 12/18/2023 Sex: Female Functional Status Question Answer Note LastModified by Organizat ion Details LastModified Time What is your exercise level? Occasional running/wa lking [email or web address] Information not available 12/18/2023 Mental Status None [...] Encounter Closed Date Diagnosis/Indication Diagnosis SNOMED-CT Code [id number] QUINTEN DALYKVNG Gustafson [id number] [place] [address] 09/17/2023 12:44:33 09/17/2023 14:19:13 test positive [id number] History of bariatric surgical procedure 624496039 Advanced m aternal age 254391575 First trim dimitri 51037611 care: grand multiparity [id number] Betty Reich MD [id number] [place] [address] 09/29/2023 11:09:48 09/29/2023 12:05:37 History of bariatric surgical procedure 896526887 Advanced m aternal age 141773103 care: grand multiparity 739675515 Vaginal bl eeding complicating early 712281218 [id number] MELANY RATLIFF DO [id number] [address] [place] [address] 10/16/2023 09:03:45 10/16/2023 09:26:57 care: multiparous, older than 35 years 382818269 Gestation period, 12 weeks 42399182 [id number] Andry Corbin MD [id number] [address] [place] [address] 11/19/2023 09:13:37 11/19/2023 09:41:08 Advanced maternal age 590002612 History of bariatric surgical procedure 189933745 Gestation period, 16 weeks 70781105 Headache 26250722 [id number] Betty Reich MD [id number] [address] [place] [address] 12/18/2023 09:11:06 12/18/2023 09:59:08 Advanced maternal age 889132492 History of bariatric surgical procedure 105870666 Gestation period, 21 weeks 65657811 [id number] MELANY RATLIFF DO [id number] [place] [address] 01/20/2024 09:56:39 01/20/2024 10:30:03 care: multiparous, older than 35 years 949205872 Gestation period, 25 weeks 13092536 Maternal o besity complicating , childbirth and the puerperium, antepartum 816939838441 Uterine si ze for dates discrepancy 686961982 Health Concerns Section Related Observation LastModified by Organization Detai ls LastModified Time None Recorded Concern Status LastModified by Organization Details LastModified Time None Recorded Advance Directives Directive N: Payers Encounter Date Sequence Insurance Name Policy Number Policy Campos Covered Member ID Campos Member ID Guarantor Name 01/20/2024 1 [employer] () Bry Walker [id number] Misty Walker 12/18/2023 1 [employer] () Bry Walker [id number] Mistyangie Walkre 11/19/2023 1 [employer] () Bry Walker [id number] Misty Walker 10/16/2023 1 [employer] () Bry Walker [id number] Misty Aaron 09/29/2023 1 [employer] () Bry Walker [id number] Misty Walker 09/17/2023 1 [employer] () Bry Walker [id number] Misty Aaron Notes Date Note Type Note Provider Name a nd Address Organization Details Recorded Time 09/17/2023 text/html HPI Notes: + SAMANTA CASTRO CNM [address] [facility] [address], [place], [address], [facility] - [facility] 09/17/2023 16:49:21 OBGyn Episode Ob Episode Information Episode Created Date Number of Fetuses Patient Bloodtype Patient rh Status Prepregnancy Weight lbs Domestic Partner Domestic Partner Phone Father Name Smelter Charger Status 09/17/20 23 1 CLOSED Fetus Data First Name Last Name Admitted to NICU Weight (g) Sex Living Outcome Pediatric Complications Fetus ID Race Codes Race Delivery Type 3515.33 8 F Full Term 537437 Vaginal Delivery Kun Calculation Initial Kun Date [...] Domestic Partner Domestic Partner Phone Father Name Smelter Charger Status 09/17/20 23 1 CLOSED Fetus Data First Name Last Name Admitted to NICU Weight (g) Sex Living Outcome Pediatric Complications Fetus ID Race Codes Race Delivery Type 3826.95 5704 F Full Term 469291 Vaginal Delivery Kun Calculation Initial Kun Date [...] Domestic Partner Domestic Partner Phone Father Name Smelter Charger Status 09/17/20 23 1 CLOSED Fetus Data First Name Last Name Admitted to NICU Weight (g) Sex Living Outcome Pediatric Complications Fetus ID Race Codes Race Delivery Type 3231.84 3 F Full Term 031923 Vaginal Delivery Kun Calculation Initial Kun Date [...] Domestic Partner Domestic Partner Phone Father Name Smelter Charger Status 09/17/20 23 1 CLOSED Fetus Data First Name Last Name Admitted to NICU Weight (g) Sex Living Outcome Pediatric Complications Fetus ID Race Codes Race Delivery Type 3572.03 7 M Full Term 040734 Vaginal Delivery Kun Calculation Initial Kun Date [...] Discharge Date Comments 4 None 40 3 [place], [place]. No complicat ions, fast delivery. [place] Discharge Information Feeding Method Contraceptive Method Maternal HG B and HCT Levels Ob Episode Information Episode Created Date Number of Fetuses Patient Bloodtype Patient rh Status Prepregnancy Weight lbs Domestic Partner Domestic Partner Phone Father Name Smelter Charger Status 09/17/20 23 1 CLOSED Fetus Data First Name Last Name Admitted to NICU Weight (g) Sex Living Outcome Pediatric Complications Fetus ID Race Codes Race Delivery Type 3713.55 7704 F Full Term 704554 Vaginal Delivery Kun Calculation Initial Kun Date [...] Domestic Partner Domestic Partner Phone Father Name Smelter Charger Status 09/17/20 23 1 CLOSED Fetus Data First Name Last Name Admitted to NICU Weight (g) Sex Living Outcome Pediatric Complications Fetus ID Race Codes Race Delivery Type , Spontane ous 800291 Kun Calculation Initial Kun Date Initial Exam [...] Domestic Partner Domestic Partner Phone Father Name Smelter Charger Status 09/17/20 23 1 CLOSED Fetus Data First Name Last Name Admitted to NICU Weight (g) Sex Living Outcome Pediatric Complications Fetus ID Race Codes Race Delivery Type 4195.72 6 M Full Term 214858 Vaginal Delivery Knu Calculation Initial Kun Date Initial Exam Date [...] Domestic Partner Domestic Partner Phone Father Name Smelter Charger Status 09/17/20 23 1 O Positive 214 Mahad CLOSED Fetus Data First Name Last Name Admitted to NICU Weight (g) Sex Living Outcome Pediatric Complications Fetus ID Race Codes Race Delivery Type 454179 Problems Problem Notes Problem Name Start Date End Date Resolution Snomed Code Not e Maternal obesity complicating , childbirth and the puerperium, antepartum 01/20/2024 [id number] History of bariatric surgical procedure 09/17/2023 769604164 griselda en Y ; NO glucola, needs gluocse monitoring Routine care 6885149 03 Advanced maternal age 208667120 38, lvl 2-nl, n eeds monthly growth [...] ated Date of Delivery true 38 Thalassemia (French, Swedish, Mediterranean, Or Background): MCV < 80 false Neural Tube Defect (Meningomyelocele, Spina Bifi da, Or Anencephaly) false Congenital Heart Defect false Down Syndrome false Sixto-Sachs (eg, Taoist, Cajun, Turkish-Lao) f alse Danii Disease false Sickle Cell [...]
--- OUTSIDE RECORDS SUMMARY | 2024-04-22 18:39 | XMS_ITS | Data Portability ---
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 [email or web address] Not available 12/07/2021 09:03:12 Plan of Treatment Reminders Order Date Submit Date Provider Last Modified By Organization Details Last Modified Time Details Appointments None recorded. Lab hemoglobin (Hb), fingerstick , blood [address], [address] [place] [address], [phone], 2 11:39:06 aneuploidy risk, chromosome specific circulating cell free (ccf) DNA, maternal serum 2021 022 [facility] [address] [place] [address], [address], 2 05:37:02 test, urine [address], [address] [place] [address], [address], 2 11:46:40 rubella IgG Ab, quant immunoassay , serum or plasma 2021 022 [facility] [address] [place] [address], [address], 2 05:37:08 ABO group, blood 2021 022 [facility] ([place] [address] [place], [address], 2 05:37:10 rh, blood 2021 022 [facility] ([place] [address] [place], [address], 2 05:37:10 antibody screen, serum or plasma 2021 022 [facility] ([place] [address] [place], [address], 2 05:37:09 genetic screen, unspecified specimen 2021 022 [facility] ([place]), [address] [place], [address], 3 03:38:06 hemoglobin S (hbs), presence, blood 2021 022 [facility] ([place] [address] [place], [address], 2 05:37:08 CBC w/ auto diff 2021 022 [facility] ([place] [address] [place], [address], 2 05:37:06 RPR (rapid plasma reagin), serum 2021 022 [facility] ([place] [address] [place], [address], 2 05:37:08 HBsAg (hepatitis B surface Ag), EIA, serum 2021 022 [facility] ([place] [address] [place], [address], 2 05:37:10 drug screen, urine 2021 022 [facility] [address] [place], [address], 2 05:37:06 HIV 1 + 2, meaningful use set 2021 022 [facility] ([place]), [address] [place], [address], 2 05:37:09 chlamydia trachomatis + neisseria gonorrhoeae + trichomonas vaginalis DNA panel, IRAIS+probe, unspecified specimen 2021 022 [id number] [id number] [address] [place], [address], 3 03:38:06 Referral infusion referral new patient - Hg 9, needs IV iron. Venofer. Please fax appointment confirmatio n. Thank You 2021 022 [email or web address] 1 [facility], [address] [place] [address], [address], 2 11:38:35 Procedures None recorded. Surgeries None recorded. Imaging US, obstetric, limited [address], [address] [place] [address], [phone], 2 11:39:06 US, obstetric, 2nd trimester [address], [address] [place] [address], [address], 2 12:05:46 US, obstetric, limited [address], [address] [place] [address], [address], 11:52:01 US, obstetric, 1st trimester [address], [address] [place] [address], [address], 11:20:42 Medication Orders None recorded. Patient TargetsNo targets recorded. Patient InstructionsNo instructions recorded. Reason for Referral Infusion Referral New Leeann adams for Anemia Hg 9, needs IV iron. Venofer. Please fax appointment confirmation. Thank You Referring Physician: Shaunna Lawton, CONCRETE PUMP OPERATOR HELPER, Encounter Date: 01/07/2022 Results Created Date Observation Date Name Description Value Unit Range Abnormal Flag LastModifiedBy Organization Detail LastModifiedTime 12/07/19 22 12/08/2021 [place] [address] 5 ethanol, urine Negati ve % cutoff =0.020 Not Available [facility] ([facility]) [address] [place], [address], 12/22/2021 05:37:06 12/07/19 22 12/08/2021 [place] [address] 5 amphetamines , urine Negati ve NG/mL cutoff =1000 Not Available [facility] ([facility]) [address] [place], [address], 12/22/2021 05:37:06 12/07/19 22 12/08/20[place] [address] 5 barbiturate Negati ve NG/mL cutoff =200 Not Available [facility] ([facility]) [address] [place], [address], 12/22/2021 05:37:06 12/07/19 22 12/08/2021 [place] [address] 5 benzodiazepi adam Negati ve NG/mL cutoff =200 Not Available [facility] ([facility]) [address] [place], [address], 12/22/2021 05:37:06 12/07/19 22 12/08/2021 [place] [address] 5 cannabinoids Negati ve NG/mL cutoff =20 Not Available [facility] ([facility]) [address] [place], [address], 12/22/2021 05:37:06 12/07/19 22 12/08/2021 [place] [address] 5 cocaine (metabolite) Negati ve NG/mL cutoff =300 Not Available [facility] ([facility]) [address] [place], [address], 12/22/2021 05:37:06 12/07/19 22 12/08/2021 [place] 250[address] 5 opiates Negati ve NG/mL cutoff =300 Not Available [facility] ([facility]) [address] [place], [address], 12/22/2021 05:37:06 12/07/19 22 12/08/2021 [place] [address] 5 oxycodone/ox ymorphone, urine Negati ve NG/mL cutoff =300 Not Available [facility] ([facility]) [address] [place], [address], 12/22/2021 05:37:06 12/07/19 22 12/08/2021 [place] [address] 5 phencyclidin e Negati ve NG/mL cutoff =25 Not Available [facility] ([facility]) [address] [place], [address], 12/22/2021 05:37:06 12/07/19 22 12/08/2021 [place] [address] 5 methadone Negati ve NG/mL cutoff =300 Not Available [facility] ([facility]) [address] [place], [address], 12/22/2021 05:37:06 12/07/19 22 12/08/20[place] [address] 5 propoxyphene Negati ve NG/mL cutoff =300 Not Available [facility] ([facility]) [address] [place], [address], 12/22/2021 05:37:06 12/07/19 22 12/08/20[place] [address] 5 meperidine Negati ve NG/mL cutoff =200 Not Available [facility] ([facility]) [address] [place], [address], 12/22/2021 05:37:06 12/07/19 22 12/08/2021 [place] [address] 5 tramadol Negati ve NG/mL cutoff =200 Not Available [facility] ([facility]) [address] [place], [address], 12/22/2021 05:37:06 12/07/19 22 12/08/2021 [place] [address] 5 creatinine, urine 142.2 mg/dL 20.0-3 00.0 Not Available [facility] ([facility]) [address] [place], [address], 12/22/2021 05:37:06 12/07/19 22 12/07/2021 CBC WITH DIFFE RENTI AL/PL ATELE T WBC 8.8 x10e3 /uL 3.4-10 .8 Not Available [facility] ([facility]) [address] [place], [address], 12/22/2021 05:37:06 12/07/19 22 12/07/2021 CBC WITH DIFFE RENTI AL/PL ATELE T RBC 4.37 x10e6 /uL 3.77-5 .28 Not Available [facility] ([facility]) [address] [place], [address], 12/22/2021 05:37:06 12/07/19 22 12/07/2021 CBC WITH DIFFE RENTI AL/PL ATELE T hemoglobin 9.6 g/dL 11.1-1 5.9 below low normal Not Available [facility] ([facility]) [address] [place], [address], 12/22/2021 05:37:06 12/07/19 22 12/07/2021 CBC WITH DIFFE RENTI AL/PL ATELE T hematocrit 32.9 % 34.0-4 6.6 below low normal Not Available [facility] ([facility]) [address] [place], [address], 12/22/2021 05:37:06 12/07/19 22 12/07/2021 CBC WITH DIFFE RENTI AL/PL ATELE T MCV 75 fL 79-97 below low normal Not Available [facility] ([facility]) [address] [place], [address], 12/22/2021 05:37:06 12/07/19 22 12/07/2021 CBC WITH DIFFE RENTI AL/PL ATELE T MCH 22.0 pg 26.6-3 3.0 below low normal Not Available [facility] ([facility]) [address] [place], [address], 12/22/2021 05:37:06 12/07/19 22 12/07/2021 CBC WITH DIFFE RENTI AL/PL ATELE T MCHC 29.2 g/dL 31.5-3 5.7 below low normal Not Available [facility] ([facility]) [address] [place], [address], 12/22/2021 05:37:06 12/07/19 22 12/07/2021 CBC WITH DIFFE RENTI AL/PL ATELE T RDW 19.7 % 11.7-1 5.4 above high normal Not Available [facility] ([facility]) [address] [place], [address], 12/22/2021 05:37:06 12/07/19 22 12/07/2021 CBC WITH DIFFE RENTI AL/PL ATELE T platelets 415 x10e3 /uL 150-45 0 Not Available [facility] ([facility]) [address] [place], [address], 12/22/2021 05:37:06 12/07/19 22 12/07/2021 CBC WITH DIFFE RENTI AL/PL ATELE T neutrophils 74 % not estab. Not Available [facility] ([facility]) [address] [facility], [place], [address], 12/22/2021 05:37:06 12/07/19 22 12/07/2021 CBC WITH DIFFE RENTI AL/PL ATELE T lymphs 18 % not estab. Not Available [facility] ([facility]) [address] [facility], [place], [address], 12/22/2021 05:37:06 12/07/19 22 12/07/2021 CBC WITH DIFFE RENTI AL/PL ATELE T monocytes 7 % not estab. Not Available [facility] ([facility]) [address] [facility], [place], [address], 12/22/2021 05:37:06 12/07/19 22 12/07/2021 CBC WITH DIFFE RENTI AL/PL ATELE T eos 1 % not estab. Not Available [facility] ([facility]) [address] [place], [address], 12/22/2021 05:37:06 12/07/19 22 12/07/2021 CBC WITH DIFFE RENTI AL/PL ATELE T basos 0 % not estab. Not Available [facility] ([facility]) [address] [place], [address], 12/22/2021 05:37:06 12/07/19 22 12/07/2021 CBC WITH DIFFE RENTI AL/PL ATELE T immature cells COUNSEL Not Available [facility] ([facility]) [address] [place], [address], 12/22/2021 05:37:06 12/07/19 22 12/07/2021 CBC WITH DIFFE RENTI AL/PL ATELE T neutrophils (absolute) 6.6 x10e3 /uL 1.4-7. 0 Not Available [facility] ([facility]) [address] [place], [address], 12/22/2021 05:37:06 12/07/19 22 12/07/2021 CBC WITH DIFFE RENTI AL/PL ATELE T lymphs (absolute) 1.6 x10e3 /uL 0.7-3. 1 Not Available [facility] ([facility]) [address] [place], [address], 12/22/2021 05:37:06 12/07/19 22 12/07/2021 CBC WITH DIFFE RENTI AL/PL ATELE T monocytes(ab solute) 0.6 x10e3 /uL 0.1-0. 9 Not Available [facility] ([facility]) [address] [place], [address], 12/22/2021 05:37:06 12/07/19 22 12/07/2021 CBC WITH DIFFE RENTI AL/PL ATELE T eos (absolute) 0.1 x10e3 /uL 0.0-0. 4 Not Available [facility] ([facility]) [address] [place], [address], 12/22/2021 05:37:06 12/07/19 22 12/07/2021 CBC WITH DIFFE RENTI AL/PL ATELE T baso (absolute) 0.0 x10e3 /uL 0.0-0. 2 Not Available [facility] ([facility]) [address] [place], [address], 12/22/2021 05:37:06 12/07/19 22 12/07/2021 CBC WITH DIFFE RENTI AL/PL ATELE T immature granulocytes 0 % not estab. Not Available [facility] ([facility]) [address] [facility], [place], [address], 12/22/2021 05:37:06 12/07/19 22 12/07/2021 CBC WITH DIFFE RENTI AL/PL ATELE T immature grans (abs) 0.0 x10e3 /uL 0.0-0. 1 Not Available [facility] ([facility]) [address] [facility], [place], [address], 12/22/2021 05:37:06 12/07/19 22 12/07/2021 CBC WITH DIFFE RENTI AL/PL ATELE T NRBC COUNSEL Not Available [facility] ([facility]) [address] [facility], [place], [address], 12/22/2021 05:37:06 12/07/19 22 12/07/2021 CBC WITH DIFFE RENTI AL/PL ATELE T hematology comments: COUNSEL Not Available [facility] ([facility]) [address] [facility], [place], [address], 12/22/2021 05:37:06 12/07/19 22 12/07/2021 INHER ITEST CORE( CF97, SMA,F RAX) order review COUNSEL Not Available [facility] ([facility]) [address] [facility], [place], [address], 12/22/2021 05:37:07 12/07/19 22 12/21/2021 INHER ITEST CORE( CF97, SMA,F RAX) genetic counselor Not applic able Not Available [facility] ([facility]) [address] [facility], [place], [address], 12/22/2021 05:37:07 12/07/19 22 12/21/2021 INHER ITEST CORE( CF97, SMA,F RAX) specimen type Commen t Not Available [facility] ([facility]) [address] [facility], [place], [address], 12/22/2021 05:37:07 12/07/19 22 12/21/2021 INHER ITEST CORE( CF97, SMA,F RAX) ethnicity Commen t Not Available [facility] ([facility]) [address], [place], [address], 12/22/2021 05:37:07 12/07/19 22 12/21/2021 INHER ITEST CORE( CF97, SMA,F RAX) indication: Commen t Not Available [facility] ([facility]) [address], [place], [address], 12/22/2021 05:37:07 12/07/19 22 12/21/2021 INHER ITEST CORE( CF97, SMA,F RAX) results: Note Not Available [facility] ([facility]) [address] [facility], [place], [address], 12/22/2021 05:37:07 12/07/19 22 12/21/2021 INHER ITEST CORE( CF97, SMA,F RAX) general comments Note Not Available [facility] ([facility]) [address] [facility], [place], [address], 12/22/2021 05:37:07 12/07/19 22 12/21/2021 INHER ITEST CORE( CF97, SMA,F RAX) additional clinical info Note Not Available [facility] ([facility]) [address] [facility], [place], [address], 12/22/2021 05:37:07 12/07/19 22 12/21/2021 INHER ITEST CORE( CF97, SMA,F RAX) method/limit ations Note Not Available [facility] ([facility]) [address] [facility], [place], [address], 12/22/2021 05:37:07 12/07/19 22 12/21/2021 INHER ITEST CORE( CF97, SMA,F RAX) information table Note Not Available [facility] ([facility]) [address], [place], [address], 12/22/2021 05:37:07 12/07/19 22 12/21/2021 INHER ITEST CORE( CF97, SMA,F RAX) disclaimer: Note Not Available [facility] ([facility]) [address] [facility], [place], [address], 12/22/2021 05:37:07 12/07/19 22 12/21/2021 INHER ITEST CORE( CF97, SMA,F RAX) pdf . Not Available [facility] ([facility]) [address] [facility], [place], [address], 12/22/2021 05:37:07 12/07/19 22 12/21/2021 INHER ITEST CORE( CF97, SMA,F RAX) director review Note Not Available [facility] ([facility]) [address] [facility], [place], [address], 12/22/2021 05:37:07 12/07/19 22 12/09/2021 CT, NG, TRICH VAG BY IRAIS trich vag by IRAIS Negati ve negati ve Not Available [facility] ([facility]) [address] [facility], [place], [address], 12/22/2021 05:37:07 12/07/19 22 12/10/2021 CT, NG, TRICH VAG BY IRAIS chlamydia by IRAIS Negati ve negati ve Not Available [facility] ([facility]) [address] [facility], [place], [address], 12/22/2021 05:37:07 12/07/19 22 12/10/2021 CT, NG, TRICH VAG BY IRAIS gonococcus by IRAIS Negati ve negati ve Not Available [facility] ([facility]) [address] [facility], [place], [address], 12/22/2021 05:37:07 12/07/19 22 12/08/2021 HB SOLU + RFLX FRAC hemoglobin (HGB) solubility Negati ve negati ve Not Available [facility] ([facility]) [address] [place], [address], 12/22/2021 05:37:08 12/07/19 22 12/08/2021 RUBEL LA ANTIB ODIES , IGG rubella antibodies, IgG 2.79 index immune >0.99 Not Available [facility] ([facility]) [address] [place], [address], 12/22/2021 05:37:08 12/07/19 22 12/08/2021 RPR, RFX QN RPR/C ONFIR M TP RPR Non Reacti ve non reacti ve Not Available [facility] ([facility]) [address] [place], [address], 12/22/2021 05:37:08 12/07/19 22 12/08/2021 HIV AB/P2 4 AG WITH REFLE X HIV Ab/P24 Ag screen Non Reacti ve non reacti ve Not Available [facility] ([facility]) [address] [place], [address], 12/22/2021 05:37:09 12/07/19 22 12/08/2021 ANTIB MISTY SCREE N antibody screen Negati ve negati ve Not Available [facility] ([facility]) [address] [place], [address], 12/22/2021 05:37:09 12/07/19 22 12/08/2021 ABO GROUP ING ABO grouping O Not Available [facility] ([facility]) [address] [place], [address], 12/22/2021 05:37:10 12/07/19 22 12/08/2021 RH FACTO R Rh factor Positi ve Not Available [facility] ([facility]) [address] [place], [address], 12/22/2021 05:37:10 12/07/19 22 12/08/2021 HBSAG SCREE N HBsAg screen Negati ve negati ve Not Available [facility] ([facility]) [address] [place], [address], 12/22/2021 05:37:10 12/07/19 22 12/07/2021 pregn erin test, urine HCG positi ve Not Available [address], [address], 12/07/2021 09:30:59 02/09/2002/14/2022 MATER NIT21 PLUS CORE+ ESS gestation Single ton Not Available [facility] ([facility]) [address] [place], [address], 02/14/2022 05:37:02 02/09/20 22 02/14/2022 MATER NIT21 PLUS CORE+ ESS fraction 7% Not Available [facility] ([facility]) [address] [place], [address], 02/14/2022 05:37:02 02/09/20 22 02/14/2022 MATER NIT21 PLUS CORE+ ESS gestational age > or = 9W: Yes Not Available [facility] ([facility]) [address] [place], [address], 02/14/2022 05:37:02 02/09/20 22 02/14/2022 MATER NIT21 PLUS CORE+ ESS test result Negati ve Not Available [facility] ([facility]) [address] [place], [address], 02/14/2022 05:37:02 02/09/20 22 02/14/2022 MATER NIT21 PLUS CORE+ 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 Commen t Not Available [facility] ([facility]) [address] [place], [address], 02/14/2022 05:37:02 02/09/20 22 02/14/2022 MATER NIT21 PLUS CORE+ ESS approved by Commen t Not Available [facility] ([facility]) [address] [place], [address], 02/14/2022 05:37:02 02/09/20 22 02/14/2022 MATER NIT21 PLUS CORE+ ESS trisomy 21 (down syndrome) Negati ve Not Available [facility] ([facility]) [address] [place], [address], 02/14/2022 05:37:02 02/09/20 22 02/14/2022 MATER NIT21 PLUS CORE+ ESS trisomy 18 (martin syndrome) Negati ve Not Available [facility] ([facility]) [address] [place], [address], 02/14/2022 05:37:02 02/09/20 22 02/14/2022 MATER NIT21 PLUS CORE+ ESS trisomy 13 (patau syndrome) Negati ve Not Available [facility] ([facility]) [address] [place], [address], 02/14/2022 05:37:02 02/09/20 22 02/14/2022 MATER NIT21 PLUS CORE+ ESS sex Commen t Not Available [facility] ([facility]) [address] [place], [address], 02/14/2022 05:37:02 02/09/20 22 02/14/2022 MATER NIT21 PLUS CORE+ ESS 22Q11 deletion ([email or web address]) Not Detect ed Not Available [facility] ([facility]) [address] [place], [address], 02/14/2022 05:37:02 02/09/20 22 02/14/2022 MATER NIT21 PLUS CORE+ ESS 15Q11 deletion (pw angelman) Not Detect ed Not Available [facility] ([facility]) [address] [place], [address], 02/14/2022 05:37:02 02/09/20 22 02/14/2022 MATER NIT21 PLUS CORE+ ESS 11Q23 deletion (calin) Not Detect ed Not Available [facility] ([facility]) [address], [place], [address], 02/14/2022 05:37:02 02/09/20 22 02/14/2022 MATER NIT21 PLUS CORE+ ESS 8Q24 deletion (jayson dey) Not Detect ed Not Available [facility] ([facility]) [address] [facility], [place], [address], 02/14/2022 05:37:02 02/09/20 22 02/14/2022 MATER NIT21 PLUS CORE+ ESS 5P15 deletion (cri-du-chat ) Not Detect ed Not Available [facility] ([facility]) [address] [facility], [place], [address], 02/14/2022 05:37:02 02/09/20 22 02/14/2022 MATER NIT21 PLUS CORE+ ESS 4P16 deletion(wol f-hirschannie ) Not Detect ed Not Available [facility] ([facility]) [address] [facility], [place], [address], 02/14/2022 05:37:02 02/09/20 22 02/14/2022 MATER NIT21 PLUS CORE+ ESS 1P36 deletion syndrome Not Detect ed Not Available [facility] ([facility]) [address] [facility], [place], [address], 02/14/2022 05:37:02 02/09/20 22 02/14/2022 MATER NIT21 PLUS CORE+ ESS trisomy 16 Not Detect ed Not Available [facility] ([facility]) [address] [facility], [place], [address], 02/14/2022 05:37:02 02/09/20 22 02/14/2022 MATER NIT21 PLUS CORE+ ESS trisomy 22 Not Detect ed Not Available [facility] ([facility]) [address] [place], [address], 02/14/2022 05:37:02 02/09/20 22 02/14/2022 MATER NIT21 PLUS CORE+ ESS negative predictive value Note Not Available [facility] ([facility]) [address] [place], [address], 02/14/2022 05:37:02 02/09/20 22 02/14/2022 MATER NIT21 PLUS CORE+ ESS positive predictive value N/A Not Available [facility] ([facility]) [address] [place], [address], 02/14/2022 05:37:02 02/09/20 22 02/14/2022 MATER NIT21 PLUS CORE+ ESS about the test Commen t Not Available [facility] ([facility]) [address] [place], [address], 02/14/2022 05:37:02 02/09/20 22 02/14/2022 MATER NIT21 PLUS CORE+ ESS test method Commen t Not Available [facility] ([facility]) [address] [place], [address], 02/14/2022 05:37:02 02/09/20 22 02/14/2022 MATER NIT21 PLUS CORE+ ESS performance Commen t Not Available [facility] ([facility]) [address] [place], [address], 02/14/2022 05:37:02 02/09/20 22 02/14/2022 MATER NIT21 PLUS CORE+ ESS performance characterist ics Note Not Available [facility] ([facility]) [address] [place], [address], 02/14/2022 05:37:02 02/09/20 22 02/14/2022 MATER NIT21 PLUS CORE+ ESS limitations of the test Commen t Not Available [facility] ([facility]) [address] [facility], [place], [address], 02/14/2022 05:37:02 02/09/20 22 02/14/2022 MATER NIT21 PLUS CORE+ ESS note Commen t Not Available [facility] ([facility]) [address] [facility], [place], [address], 02/14/2022 05:37:02 02/09/20 22 02/14/2022 MATER NIT21 PLUS CORE+ ESS references Commen t Not Available [facility] ([facility]) [address] [facility], [place], [address], 02/14/2022 05:37:02 02/09/20 22 02/14/2022 MATER NIT21 PLUS CORE+ ESS pdf . Not Available [facility] ([facility]) [address] [facility], [place], [address], 02/14/2022 05:37:02 03/29/20 22 03/29/2022 hemog lobin (Hb), finge rstic k, blood HGB 12.0 Not Available [address], [address], 03/29/2022 10:58:01 12/07/19 22 12/07/2021 US, nena angel, 1st trime ster No observ ation record ed. [email or web address] [address], [address], 12/07/2021 09:49:49 12/07/19 22 12/07/2021 ultra sound image s RAD [email or web address] [employer] [id number] 12/07/2021 11:49:57 02/09/20 22 02/08/2022 , nena angel, limit ed No observ ation record ed. [address], [address], 02/08/2022 10:32:17 02/09/20 22 02/08/2022 ultra sound image s RAD [email or web address] Your [employer] use [employer] [id number] 02/09/2022 12:06:09 03/08/20 22 03/08/2022 US, obste tric, 2nd trime ster No observ ation record ed. [email or web address] [address], [address], 03/08/2022 10:26:31 03/08/20 22 03/08/2022 ultra sound image s RAD [email or web address] Your [employer] use [employer] [id number] 03/10/2022 14:34:49 03/29/20 22 03/29/2022 US, obste tric, limit ed No observ ation record ed. [email or web address], [address], 03/29/2022 10:24:01 03/29/20 22 03/29/2022 ultra sound image s RAD [email or web address] [employer] [id number] 03/29/2022 22:50:52 Result Notes None recorded. Problems Name Status Onset Date Resolution Date Notes Provider Name and Address Organization Details Recorded Time Active 022 Katie dyer [facility] 2 09:13:01 History of surgery Active Gastric surgery 2010 and Tore procedure 10/2021. Pt is on vitamins and supplements d/t decreased absorption. Will not be able to do 1hr gtt. Shaunna Lawton MD [address] [facility] [place], [address] , [facility] 2 12:51:50 Advanced maternal age Active Pt declines 1st trimester genetic screening. Yari dyer [facility] 2 11:46:01 History of surgery Active Gastric surgery 2010 and Tore procedure 10/2021. Pt is on vitamins and supplements d/t decreased absorption. Will not be able to do 1hr gtt. Shaunna Lawton MD [address] [place], [address] , SHAHEEN [facility] 2 12:51:50 Advanced maternal age Active Pt declines 1st trimester genetic screening. SHAHEEN Romero Hilario [facility] 2 11:46:01 History of bariatric surgical procedure Active Gastric surgery 2010 and Tore procedure 10/2021. Pt is on vitamins and supplements d/t decreased absorption. Will not be able to do 1hr gtt. 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 will refer for IV iron SHAHEEN Romero [facility] 2 11:46:02 History of bariatric surgical procedure Active Gastric surgery 2010 and Tore procedure 10/2021. Pt is on vitamins and supplements d/t decreased absorption. Will not be able to do 1hr gtt. 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 will refer for IV iron SHAHEEN Romero [facility] 2 11:46:02 Problem Notes None recorded. Procedures Surgical History Date Name Laterality Status Provider Name and Address Organization Details Recorded Time 1 Date of Last Pap Smear completed SHAHEEN Emerson Rich [facility] 12/07/2021 09:04:06 1 bariatric operative procedure completed SHAHEEN Emerson Rich [facility] 12/07/2021 09:09:13 Imaging Results Imaging Date Name Status LastModified by Organiz ation Details LastModified Time 12/07/2021 US, obstetric, 1st trimester completed [email or web address] [address], [address], 12/07/2021 09:49:49 12/07/2021 ultrasound images completed [email or web address] [facility] [employer] [facility] [id number] 12/07/2021 11:49:57 02/08/2022 US, obstetric, limited completed [email or web address] Sid [address], [address], 02/08/2022 10:32:17 02/08/2022 ultrasound images completed [email or web address] [facility] [employer] [facility] [id number] 02/09/2022 12:06:09 03/08/2022 US, obstetric, 2nd trimester completed [email or web address] [address], [address], 03/08/2022 10:26:31 03/08/2022 ultrasound images completed [email or web address] [facility] [employer] [facility] [id number] 03/10/2022 14:34:49 03/29/2022 US, obstetric, limited completed [email or web address] [address], [address], 03/29/2022 10:24:01 03/29/2022 ultrasound images completed [email or web address] [facility] [employer] [facility] [id number] 03/29/2022 22:50:52 Procedure Notes None recorded. Medical [...] kg/m2 73 /min 115 mm[Hg] 72 mm[Hg] Katie Rich [facility] 2 09:13:53 Date Recorded Body weight Provider Name an d Address Organization Details Last Updated DateTime 12/07/2021 [id number] g Asha Rich [facility] 12/07/2021 09:31:18 Date Recorded Body height Body mass index (BMI) Heart rate Systolic blood pressure Diastolic blood pressure Provider Name and Address Organization Details Last Updated DateTime 01/07/2022 167.64 cm 35.2 kg/m2 66 /min 118 mm[Hg] 78 mm[Hg] Katie Rich [facility] 2 10:54:09 Date Recorded Body weight Provider Name an d Address Organization Details Last Updated DateTime 01/07/2022 [id number] vijay Rich [facility] 01/07/2022 11:18:48 Date Recorded Body height Heart rate Body mass index (BMI) Systolic blood pressure Diastolic blood pressure Provider Name and Address Organization Details Last Updated DateTime 02/08/2022 167.64 cm 59 /min 35.6 kg/m2 98 mm[Hg] 62 mm[Hg] Xenia Rich [facility] 09:51:03 Date Recorded Body weight Provider Name an d Address Organization Details Last Updated DateTime 02/08/2022 [id number] vijay Gloria [facility] 02/08/2022 10:12:13 Date Recorded Body height Body mass index (BMI) Heart rate Systolic blood pressure Diastolic blood pressure Provider Name and Address Organization Details Last Updated DateTime 03/08/2022 167.64 cm 36.3 kg/m2 67 /min 110 mm[Hg] 72 mm[Hg] Xenia Rich [facility] 09:53:49 Date Recorded Body weight Provider Name an d Address Organization Details Last Updated DateTime 03/08/2022 [id number] vijay YOANDY medina [facility] 03/08/2022 10:06:23 Date Recorded Body height Heart rate Body mass index (BMI) Systolic blood pressure Diastolic blood pressure Provider Name and Address Organization Details Last Updated DateTime 03/29/2022 167.64 cm 70 /min 36.7 kg/m2 101 mm[Hg] 64 mm[Hg] Xenia Rich [facility] 09:53:05 Date Recorded Body weight Provider Name an d Address Organization Details Last Updated DateTime 03/29/2022 [id number] vijay Gloria [facility] 03/29/2022 10:20:30 Social History Question Answer Notes LastModified by Organizat ion Details LastModified Time Tobacco Smoking Status Former Smoker SHAHEEN Emerson [facility] 12/07/2021 09:10:51 What Is Your Level Of Alcohol Consumption? None [email or web address] Information not available 12/07/2021 What Is Your Level Of Caffeine Consumption? Occasional [email or web address] Information not available 12/07/2021 Are You Currently Employed? 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 12/07/2021 [email or web address] Information not available 03/08/2022 What Is Your Relationship Status? [email or web address] Information not available 12/07/2021 Are You Sexually Active? Yes [email or web address] Information not available 12/07/2021 Do You Use Any Illicit Or Recreational Drugs? No [email or web address] Information not available 03/08/2022 Do You Or Have You Ever Used Any Other Forms Of Tobacco Or Nicotine? No Information not available 03/08/2022 Sex: Female Functional Status Question Answer Note LastModified by Organizat ion Details LastModified Time What is your exercise level? Occasional [email or web address] Information not available 12/07/2021 Mental Status None recorded. Family History Relationship Description Onset Age of this Age Resolved Age Notes Father No current problems or disability Mother No current problems or disability Medical History Condition Response Acid Reflux (GERD) Y Vitamin Deficiency Y Gynecological History Statement/Question Response Abnormal Pap [...] mL dose 04/10/2021 completed Shaunna Lawton MD [address] [place] [address], [address], [facility] 01/07/2022 12:52:08 Past Encounters Encounter ID Performer Location Encounter Start Date Encounter Closed Date Diagnosis/Indication Diagnosis SNOMED-CT Code [id number] [address] 12/07/2021 08:53:19 12/07/2021 10:08:43 High risk 38012333 Urine preg barney test positive 544763472 Venereal d isease screening 689355176 Uncertain viability of 503835403 screening [id number] Shaunna Lawton MD [address] [address] 01/07/2022 10:39:06 01/07/2022 11:14:36 Routine care 568370953 Advanced m aternal age 003330025 Anemia 182989783 History of bariatric surgical procedure 597735237 Counseling [id number] [address] 02/08/2022 09:42:00 02/08/2022 10:39:04 Uncertain viability of 232196332 Advanced m aternal age [id number] [address] 03/08/2022 09:43:06 03/08/2022 10:27:37 screening for malformation 619517646 [id number] [address] 03/29/2022 09:44:51 03/29/2022 10:32:16 Uncertain viability of 969821540 Anemia 854620541 Routine an tenatal care 758710209 Health Concerns Section Related Observation LastModified by Organization Detai ls LastModified Time None Recorded Concern Status LastModified by Organization Details LastModified Time None Recorded Advance Directives Directive None Recorded Payers Encounter Date Sequence Insurance Name Policy Number Policy Campos Covered Member ID Campos Member ID Guarantor Name 03/29/2022 1 [employer] [place] ( - PPO) Bry Walker [id number] Misty Walker 03/08/2022 1 [employer] [place] ( - PPO) Bry Walker [id number] Misty Walkre 02/08/2022 1 [employer] [place] [employer] [place] ( - PPO) Bry Walker [id number] Misty Walker 01/07/2022 1 [employer] [place] [employer] [place] ( - PPO) Bry Walker [id number] Misty Walker 12/07/2021 1 [employer] [place] [employer] [place] ( - PPO) Bry Walker [id number] Misty Walker Notes Date Note Type Note Provider Name and Address Organization Details Recorded Time 12/07/2021 text/html HPI Notes: NOB, first visit for this . SHAHEEN Fisher [facility] 12/08/2021 10:46:47 OBGyn Episode Ob Episode Information Episode Created Date Number of Fetuses Patient Bloodtype Patient rh Status Prepregnancy Weight lbs Domestic Partner Domestic Partner Phone Father Name Acid Loader Status 12/07/19 22 1 CLOSED Fetus Data First Name Last Name Admitted to NICU Weight (g) Sex Living Outcome Pediatric Complications Fetus ID Race Codes Race Delivery Type 4167.14 9704 M Full Term 68663 vaginal Kun Calculation Initial Kun Date Initial [...] Domestic Partner Domestic Partner Phone Father Name Acid Loader Status 12/07/19 22 1 CLOSED Fetus Data First Name Last Name Admitted to NICU Weight (g) Sex Living Outcome Pediatric Complications Fetus ID Race Codes Race Delivery Type 3685.43 5 F Full Term 12883 vaginal Kun Calculation Initial Kun Date Initial [...] Domestic Partner Domestic Partner Phone Father Name Acid Loader Status 12/07/19 22 1 CLOSED Fetus Data First Name Last Name Admitted to NICU Weight (g) Sex Living Outcome Pediatric Complications Fetus ID Race Codes Race Delivery Type 3231.84 3 F Full Term 36612 vaginal Kun Calculation Initial Kun Date Initial Exam Date Initial Exam Provider Initial Ultrasound Date Last Menstrual Period Date Ultra Sound Weeks Gestation 0 Eighteen To Twenty Week Ukn Update Ultra Sound Date Fundal Height At [...] Domestic Partner Domestic Partner Phone Father Name Acid Loader Status 12/07/19 22 1 CLOSED Fetus Data First Name Last Name Admitted to NICU Weight (g) Sex Living Outcome Pediatric Complications Fetus ID Race Codes Race Delivery Type 3572.03 7 M Full Term 87687 vaginal Kun Calculation Initial Kun Date Initial [...] Domestic Partner Domestic Partner Phone Father Name Acid Loader Status 12/07/19 22 1 O Positive OPEN Fetus Data First Name Last Name Admitted to NICU Weight (g) Sex Living Outcome Pediatric Complications Fetus ID Race Codes Race Delivery Type 98680 Problems Problem Notes s/p covid vaccine Problem Name Start Date End Date Resolution Snomed Code Not e History of bariatric surgical procedure 554009703 Gastric surgery 2010 and Tore procedure 10/2021. Pt is on vitamins and supplements d/t decreased absorption. Will not be able to do 1hr gtt. Anemia 622778628 malabsorpt ion from 2 bariatric surgeries. will refer for IV iron Advanced maternal age 363231490 Pt declines 1st trimester genetic screening. Kun [...] Gestation 0 [email or web address] 12/07/2021 07/25/20 22 0 Pre- Flowsheet Flowsheet Date 12/07/2021 Cummings Score Blood [...] Domestic Partner Domestic Partner Phone Father Name Acid Loader Status 12/07/19 22 1 CLOSED Fetus Data First Name Last Name Admitted to NICU Weight (g) Sex Living Outcome Pediatric Complications Fetus ID Race Codes Race Delivery Type 3345.24 1 F Full Term 72471 vaginal Kun Calculation Initial Kun Date Initial [...]
--- OUTSIDE RECORDS SUMMARY | 2024-04-22 18:39 | XMS_ITS | Clinical Summary ---
Author Organization [facility] Address [address] [address] Care Team Providers Care Upholstery Auto Trimmer Name Role Phone Martin [place] MD, Steve Primary Care Provider [phone] Allergies No known active allergies Medications Medication [...] Comments Blood Pressure 114/59 10/16/2020 8:00 AM TONE REGULATOR Pulse 69 10/16/2020 8:00 AM TONE REGULATOR Temperature 36.1 ??C (96.9 ??F) 10/16/2020 8:00 AM CS T Respiratory Rate 20 04/12/2019 10:06 AM CDT Oxygen Saturation - - Inhaled Oxygen Concentration - - Weight 105.2 kg (232 lb) 10/16/2020 8:00 AM TONE REGULATOR Height 167.6 cm (5' 6) 10/16/2020 8:00 AM TONE REGULATOR Body Mass Index 37.45 10/16/2020 8:00 AM TONE REGULATOR Plan of Treatment Health Maintenance Due Date Last Done Comments HIV Screening 1984 Varicella Vaccine (1 of 2 - 13+ 2-dose series) 02/24/1997 Hepatitis B Vaccines (1 of 3 - 19+ 3-dose series) 02/24/2003 Hepatitis C Screening 02/24/2003 Pap Smear 02/24/2005 Cervical Cancer Screening 02/24/2014 Pap + HPV 02/24/2014 COVID-19 Vaccine ( - 2022-2 4 season) 2023 BCS: Mammogram Bilateral 2024 Influenza Vaccine (Season Ended) 2024 DTaP,Tdap,and Td [...] age to complete this topic Care Teams Upholstery Auto Trimmer Relationship Specialty Start Date End Date Steve Salazar MD PCP - General OBSTETRICS & GYNECOLOGY 09/11/20
[2024-04-22 18:51] VITALS: PULSE 83; O2SAT 97
[2024-04-22 18:58] VITALS: BP 119/56; PULSE 80; RESP 18; TEMP 37.2
[2024-04-22 19:23] VITALS: BMI 40.4
--- NOTE | 2024-04-22 20:43 | P.LDBA_ITS ---
Subjective History of Present Illness Time Seen by Provider: 19:30 Date Seen: 04/22/24 Narrative: Misty is a 39yo admitted for cervical ripening and IOL. is complicated by AMA, grand multiparity, history of gastric bypass, obesity and anemia. Her complete H&P was completed by Dr. Roper on 04/14/24, please see this note for complete details. Misty notes some irregular contractions. She denies any regular/painful uterine contractions, vaginal bleeding or leaking of fluids. Endorses active movement. She was 1.5/50/-3 in clinic on Friday. She is feeling well and in her normal state of health. Specific Issues/Plans Transfer OB at 31 weeks and 5 days H&P by CGM on 04/14/24 # AMA, 39 Negative genetic screening Normal level 2 ultrasound Growth ultrasound at 32 weeks and 36 weeks Weekly testing (BPP at 36 weeks, NSTs weekly thereafter) Recommend delivery at 39-39 6/7 weeks # history of gastric bypass Growth ultrasound q.4 weeks starting at -28 weeks: -32 weeks: BPD 13%, HC 44%, AC 30%, FL 31%. EFW 32%. Placenta 2.6 cm to os. -36 weeks: 42% -Calcium and vitamin D levels every trimester, ordered 03/26 # obesity, BMI 36 Hemoglobin A1c 4.9% # Anemia @32 weeks: Hgb 10.1, ferritin 3.8 IV iron infusions arranged, total of 5 will not repeat hemoglobin # Grand multiparity Does not desire sterilization # history of macrosomia with the 2nd , 9 lb 4 oz # 2/6 systolic murmur noted at transfer visit, no previous history, asymptomatic labs 09/17/2023: O positive, negative antibody screen, hemoglobin 11.9, platelets 337, rubella immune, hepatitis-B surface antigen negative, HIV nonreactive, gonorrhea/Chlamydia negative, urine culture negative, syphilis screen nonreactive Ferritin 28.0 Complete metabolic panel normal Vitamin B12 666 Vitamin-D 34 A1c 4.9% 28 week lab: 11/19/2023: Hemoglobin 11.9 Patient reported normal 2 week glucose monitoring ahead of 28 weeks. Genetic screening, Prequel screen: neg Imagin. 09/17/2023: [place]-rump length 1.38 cm. 7 weeks 5 days. Heart rate 151. LJ 04/30/2024. 2.8 cm ovarian cyst 2. 09/29/23: [place]-rump length 2.6 cm. heart rate 171. Resolution of ovarian cyst 3. 12/05/2023: Anterior placenta, no previa. Normal amniotic fluid. Normal anatomy with the exception of suboptimal views of hands/palate 4. 01/20/2024: EFW 32%., AC 40%. Normal anatomy. 5. 03/03/2024: 32 weeks. Cephalic, anterior placenta 2.6 cm from the internal cervical os. Normal fluid. EFW 32%, AC 38%. 6. 04/06/2024:Vertex, single deepest pocket of amniotic fluid 6.3 cm, BPP 8/8, EFW: 42nd percentile, abdominal circumference: 43rd percentile. Normal growth, reassuring testing. OB - Problem Based A/P Additional Plan (1) : Status: Acute (2) History of Apscale-en-Y gastric bypass: Problem details: 2017 Status: Acute (3) AMA (advanced maternal age) multigravida 35+: Status: Acute (4) Obesity: Status: Acute Plan Misty is a 39yo admitted for cervical ripening and IOL. is complicated by AMA, grand multiparity, history of gastric bypass, obesity and anemia. - Cervix is 1/40/-3, cook catheter placed without difficulty. 60/60cc instilled in both balloons. - Plan low dose pitocin overnight starting at 0300 - T/S and CBC for anemia and history of atony in one delivery (pt notes did not meet threshold for PPH however) - GBS negative - EFW 2890g at 43%ile by US on 04/06 OB Exam Physical Exam Vital signs: Temp Pulse Resp BP Pulse Ox 98.9 F 80 18 119/56 L 97 04/22/24 18:58 04/22/24 18:58 04/22/24 18:58 04/22/24 18:58 04/22/24 18:51 Narrative: General: ALert and oriented, in no acute distress Abdomen: Gravid. Non-tender. FHR: Reactive NST [place]: Irritability with irregular contractions Cervix: 1/40/-3. After discussion of risks/benefits, cook catheter was placed.
[2024-04-22 21:09] VITALS: BP 109/52; PULSE 85
[2024-04-22 21:10] VITALS: TEMP 36.6
[2024-04-22] MEDS: MORPHINE 10 MG/ML inj IM (22:10)
[2024-04-22] MEDS: hydrOXYzine pamoate 25 MG CAPSULE 100 MG PO (22:11)
[2024-04-22 22:20] LABS: Basophils Percent Auto 0.1 % (0.0-3.0); Eosinophils Percent Auto 0.8 % (0.0-7.0); Hematocrit 38.6 % (33.0-51.0); Hemoglobin* 12.2 gm/dL (12.0-16.0); Immature Granulocytes Pct Auto 1.1 %; Lymphocytes Percent Auto 15.7 % (20-44); Mean Corpuscular HGB Conc 32 gm/dL (32-36); Mean Corpuscular Hemoglobin 28 pg (26-34); Mean Corpuscular Volume 88 fL (80-100); Monocytes Percent Auto 6.9 % (0.0-11.0); Neutrophils Percent Auto 75.4 % (42.0-72.0); Platelet Count* 297 K/uL (140-440); RDW Coefficient of Variation % 18.3 % (11.5-15.5); Red Blood Count 4.39 m/uL (4.00-5.20)
[2024-04-22 22:28] LABS: Slide Review Reflex No
[2024-04-23] VITALS (67 sets, daily range): BP systolic 82–128; BP diastolic 42–84; PULSE 55–121; RESP 16; TEMP 36.6–37; O2SAT 93–100
[2024-04-23] MEDS: LACTATED RINGERS 1000 ML 1,000 ML 125 ML IV ×5 (03:04→21:57)
[2024-04-23] MEDS: OXYTOCIN 30 unit/500 ML in NS 30 UNIT/500 ML BAG IVPB (03:04)
--- NOTE | 2024-04-23 08:23 | PM.OBPNL ---
Subjective Time Seen by Provider: 08:23 Date Seen: 04/23/24 Narrative: Subjective: Patient is comfortable w/ a few with contractions. Pitocin: 5 milliunits/minute. Verbal consent obtained for AROM. Vital signs: Per electronic medical record. EFM: Baseline 150, positive accelerations, no decelerations, moderate variability, reactive. Category 1. Kin[place]: Contractions every 10-12 minutes. SVE: 4 cm/50 %/-2. AROM, clear fluid. Assessment: 39-year-old 8 para 6 at 39 weeks 1 days gestation undergoing induction of labor for AMA Plan: 1. Continue Pitocin per labor induction protocol. 2. Planning epidural for labor analgesia Objective Vital Signs: Last Vital Signs Temp 98.2 F 04/23/24 07:41 Pulse 73 04/23/24 07:40 Resp 16 04/23/24 07:41 BP 107/57 L 04/23/24 07:40 Pulse Ox 97 04/22/24 18:51
[2024-04-23] MEDS: ROPIVACAINE 0.2% 100 ml 100 ML 12 MG EPIDURAL (08:43)
[2024-04-23] MEDS: BUPIVACAINE 0.25% PF 10 ML 10 ML ML EPIDURAL (08:45)
[2024-04-23] MEDS: PHENYLEPHRINE 100 MCG/ML SYRINGE IVP ×3 (09:01→09:44)
[2024-04-23] MEDS: ePHEDrine sulfate 5 MG/ML inj 10 MG IVP (09:40)
--- NOTE | 2024-04-23 11:11 | P.ANBPRC_ITS ---
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 Marital status: . Orthodoxy/cultural needs: no. Chemical or radiation exposure: no. Pre- tobacco use: no. Pre- alcohol use: 1 per week. Current tobacco use: no. Current alcohol use: no. Recreational drug use: no. Dietary restrictions: Bariatric diet. Blood transfusion acceptable in an emergency: yes. PSYCHOSOCIAL HISTORY: History of depression or currently depressed: no. Current or past physical, emotional, or sexual mistreatment: no. Problems that will make it hard to make it to appointments: no. What is your current living situation?: I presently have a place to live Problems where you live: no known problems In the past 12 months, utilities in danger of being shut off: no In past 12 months, lack of transportation kept you from medical appts, meetings, work, or getting things needed for daily living: no In the past 12 mos, have been you worried that your food would run out before you had money to buy more?: never true In the past 12 mos, the food you bought just didn't last and you didn't have money to buy more?: never true Smoking Status: Never smoker How often does anyone, including family, friends and others, physically hurt you : never How often does anyone, including family, friends and others, insult or talk down to you: never How often does anyone, including family, friends and others, threaten you with harm: never How often does anyone, including family, friends and others, scream or curse at you: never Little interest or pleasure in doing things: not at all Feeling down, depressed, or hopeless: not at all Meds Home Medications and Allergies Home Medications ?Medication ?Instructions ?Recorded ?Confirmed ?Type docosahexaenoic acid 200 mg 200 mg PO DAILY 03/02/24 04/22/24 History capsule ( DHA) ferrous sulfate 325 mg (65 mg 325 mg PO QDAY 03/02/24 04/22/24 History iron) tablet vitamin B12 500 mcg-folic acid 400 1 tab PO QDAY 03/02/24 04/22/24 History mcg tablet calcium carbonate 500 mg-vitamin 1 tab PO DAILY 03/26/24 04/22/24 History D3 10 mcg (400 unit) tablet (Calcium 500 + D) cholecalciferol (vitamin D3) 125 125 mcg PO DAILY 03/26/24 04/22/24 History mcg (5,000 unit) tablet (Vitamin D3) Allergies Allergy/AdvReac Type Severity Reaction Status Date / Time NSAIDS (Non-Steroidal AdvReac Intermediate Gastrointestinal Verified 04/19/24 09:18 Anti-Inflamma Upset Results Labs Labs: Laboratory Results - last 24 hr 04/22/24 21:49 WBC 13.20 H RBC 4.39 Hgb 12.2 Hct 38.6 MCV 88 MCH 28 MCHC 32 RDW Coeff of Sharron 18.3 H Plt Count 297 Neut % (Auto) 75.4 H Lymph % (Auto) 15.7 L [place] % (Auto) 6.9 Eos % (Auto) 0.8 Baso % (Auto) 0.1 Neut # (Auto) 10.00 H Lymph # (Auto) 2.10 [place] # (Auto) 0.90 Eos # (Auto) 0.10 Baso # (Auto) 0.00 Abs Immat Gran (auto) 0.10 Imm/Tot Granulo (auto) 1.1 Blood Type O Positive Antibody Screen NEGATIVE Vital Signs Vital Signs: Last Vital Signs Temp 97.8 F 04/23/24 09:56 Pulse 88 04/23/24 11:08 Resp 16 04/23/24 09:56 BP 82/44 L 04/23/24 11:08 Pulse Ox 98 04/23/24 08:43 Weight: 113.58 kg Height: 167.64 cm Anesthesia Procedures Epidural Insertion Patient Location: OB Start Time: : Stop Time: : Start Date: 04/23/24 Stop Date: 04/23/24 Reason for Block: procedure for pain Patient Position: sitting Performed By: Kimberly Jones Preanesthetic Checklist: IV checked, risks and benefits discussed, monitors and equipment checked, timeout performed and anesthesia consent Prep: chlorhexidine gluconate Monitoring: blood pressure monitoring, continuous pulse oximetry and heart rate Approach: midline Vertebral Space: lumbar (1-5) Epidural Technique: HARISH saline Needle Type: Tuohy needle Injection Technique: continuous catheter Needle gauge: 17 Needle Length (cm): 10 cm Needle Insertion Depth (cm): 8 Catheter Gauge: 14 Catheter Type: multi-orifice Catheter at skin depth (cm): 12 Test Dose Result: negative and lidocaine 1.5% with epinephrine 1 to 200,000
[2024-04-23] MEDS: ACETAMINOPHEN 500 MG TABLET 1000 MG PO (16:25)
--- NOTE | 2024-04-23 16:52 | PM.PROC ---
Procedure Note Time Seen by Provider: 18:34 Date Seen: 04/23/24 Date of procedure: 04/23/24 Will [facility] bill your pro fee for this procedure?: Yes Procedure: Preoperative diagnosis: 39-year-old 8 para 6 at 39 and 1/7 weeks breech presentation in labor. Postoperative diagnosis: Same Procedure: Primary low-transverse section Anesthesia: Epidural Surgeon: Za Shen MD Manager Performance Improvement: Not applicable Quantitative blood loss: 535 mL IV Fluid: 1200 mL UOP: 75 mL, clear urine at the end of the procedure Specimen: None Drain(s): Lepe to gravity Findings: A live female was delivered from the geovani breech position at 6:00 p.m. Apgars were 8 at 1 min and 9 at 5 min, respectively. weight: 7 lb 13 oz. Nuchal cord(s): No. The placenta was delivered spontaneously and complete at 6:01 p.m. Amniotic fluid: Clear. Normal uterus, fallopian tubes and ovaries were noted. Other findings: None Procedure: Misty was taken to the OR where epidural anesthetic was found be adequate. A Lepe catheter was placed. The patient was then placed in the dorsal supine position with a leftward tilt. She was then prepped and draped in a normal sterile manner. A Pfannenstiel skin incision was made and carried through sharply to the underlying layer of fascia. Fascia was incised in the midline and this incision carried laterally with Berry scissors. The superior aspect of fascial incision was grasped with Yohannes clamps, tented up, and the rectus muscles dissected off with a combination of blunt and sharp dissection. The inferior aspect of the fascial incision was grasped with Yohannes clamps, tented up and again the rectus muscles dissected off with a combination of blunt and sharp dissection. The rectus muscles were in the midline. The peritoneum was entered bluntly. This opening was extended bluntly. An Leo-O self-retaining retractor was placed. A bladder flap was not created. Uterus was incised in a low transverse manner in the midline. This incision carried laterally with blunt pressure on the inferior and superior aspects of the uterine incision. The amniotic sac was ruptured. The 's head and body was delivered atraumatically. The was shown to the patient and her support person and then handed to waiting pediatric and nursing staff. The placenta was delivered spontaneously. The uterus was cleared of clots and debris. The uterine incision was re-approximated with the uterus in vivo. The 1st layer using 0-Vicryl in a running, locked manner. The 2nd layer using 0-Monocryl in a running, vertical, imbricating layer. Additional sutures needed for hemostasis: Yes: 3 figure of 8 sutures using 2-0 chromic. Trey was applied to the uterine incision Excellent hemostasis was verified. The Leo retractor was removed. The rectus muscles were not reapproximated. The rectus muscles were then closely inspected to verify hemostasis. Hemostasis was obtained with bipolar cautery. The fascia was then re-approximated using 0-Maxon loop in a running manner. The subcutaneous tissue was then irrigated with saline and hemostasis obtained with bipolar cautery. The subcutaneous tissue was re-approximated using 3-0 plain gut in a running manner. The skin was reapproximated using 4-0 Monocryl in a running subcuticular manner. A silver-containing Mepaplex dressing was applied. The patient tolerated this procedure well. Sponge, lap and instrument counts were correct x2 active to the procedure. Patient was taken to the recovery area in stable condition. The patient received 3 g of IV Ancef and 500 mg IV azithromycin prior to skin incision.
[2024-04-23] MEDS: AZITHROMYCIN 500 MG in 0.9 % SODIUM CHLORIDE 250 ml 250 ML 255 MG IVPB (17:00)
[2024-04-23] MEDS: CEFAZOLIN 1 GM inj 3 GM IVP (17:40)
[2024-04-23] MEDS: TRANEXAMIC ACID 100 MG/ML INJ 1000 MG IV (18:05)
[2024-04-23] MEDS: KETOROLAC 30 MG/ML inj IVP (18:26)
--- NOTE | 2024-04-23 19:16 | P.ANES_ITS ---
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
--- NOTE | 2024-04-23 19:17 | W.PM.NB ---
Nerve Block Nerve Block Time Seen by Provider: 18:50 Date Seen: 04/23/24 Type of block requested by surgeon for post-operative analgesia: TAP Side: bilateral Time out performed: Yes Verification of patient name: Yes Verification of date of : Yes Name of person performing procedure: Kimberly Karen Continuous monitoring Was continuous monitoring of O2 sat, B/P, telemetry monitor, recorded every 15 minutes?: Yes Procedure Checklist: sterile prep, needles and gloves Ultrasound guided. Images saved: Yes Medications given in 5ml increments after negative aspiration: Marcaine %: 0.25 mL: 30 Needle gauge: 21 and Exparel mL: 10 Needle gauge: 21 Patient tolerated procedure well: Yes Block Charges Block Charge (with Pro Fee): TAP Bilateral Use of Ultrasound Machine for Block: Yes- US Guidance/pain block
--- NOTE | 2024-04-23 20:35 | PM.ANPOST ---
Post Anesthesia Note Post Anesthesia Note Patient seen: Inpatient Respiratory Status: adequate Cardiovascular Status: adequate Mental Status: baseline Pain: adequate Temp: baseline Anesthetic awareness: N/A Complications: none Follow care: none
[2024-04-24] VITALS (20 sets, daily range): BP systolic 92–106; BP diastolic 47–65; PULSE 53–60; RESP 16–20; TEMP 36.7–36.9; O2SAT 95–99
[2024-04-24] MEDS: ENOXAPARIN 40 MG/0.4 ML INJ SUBCUT (00:12)
[2024-04-24] MEDS: KETOROLAC 30 MG/ML inj IVP ×2 (00:16→06:29)
[2024-04-24] MEDS: ACETAMINOPHEN 500 MG TABLET 1000 MG PO ×3 (04:54→18:46)
[2024-04-24] MEDS: DOCUSATE SODIUM 100 MG CAPSULE PO (06:29)
[2024-04-24 09:38] LABS: Hemoglobin* 10.2 gm/dL (12.0-16.0)
--- NOTE | 2024-04-24 11:33 | P.DS_ITS ---
DS: Providers Provider Date Seen: 04/24/24 Date of admission: 04/22/24 18:35 Primary care physician: Not a Local Provider Admitting Clinician: Susan Parrish MD Attending Physician on discharge: Susan Parrish MD Date of Discharge: 04/24/24 DS: Diagnosis Discharge Diagnosis (1) Status post primary low transverse section: Status: Acute (2) Obstructed labor due to breech presentation, delivered: Status: Acute (3) History of Pascale-en-Y gastric bypass: Status: Acute Problem details: 2016. Cannot use oral NSAIDs. (4) Anemia associated with acute blood loss: Status: Acute Exam Narrative: Exam Narrative: General: Pleasant, no acute distress Heart: Regular rate and rhythm, no murmur or gallop Lungs: Clear to auscultation bilaterally Abdomen: Normoactive bowel sounds. Soft, nontender, fundus well below umbilicus. Silver dressing clean, dry, and intact Lower extremities: 1+ edema of bilateral feet noted, SCDs in place Const: Vital Signs, click to edit/add: Vital Signs - 24 hr 04/23/24 11:45 04/23/24 12:19 04/23/24 12:31 Temperature Pulse Rate 77 74 78 Pulse Rate [Pulse Oximeter] Respiratory Rate Blood Pressure 105/52 L 89/42 L 94/46 L Blood Pressure [Le ft Arm] [facility] 04[facility] 12:46 04/23/24 13:00 04/23/24 13:05 Temperature 98.5 F Pulse Rate 81 86 Pulse Rate [Pulse Oximeter] Respiratory Rate 16 Blood Pressure 93/48 L 106/57 L Blood Pressure [Le ft Arm] Pulse Oximetry [facility] 04/23/24 13:16 04/23/24 13:29 04/23/24 15:12 Temperature Pulse Rate 80 78 93 Pulse Rate [Pulse Oximeter] Respiratory Rate Blood Pressure 101/56 L 96/54 L 98/52 L Blood Pressure [Le ft Arm] Pulse Oximetry [facility] 04/23/24 15:12 04/23/24 15:15 04/23/24 16:14 Temperature 98 F 98 F Pulse Rate 95 Pulse Rate [Pulse Oximeter] Respiratory Rate 16 16 Blood Pressure 106/54 L Blood Pressure [Le ft Arm] Pulse Oximetry [facility] 04/[facility]/24 16:14 04/23/24 19:15 04/23/24 19:20 Temperature 98 F 98.6 F Pulse Rate 67 88 Pulse Rate [Pulse Oximeter] Respiratory Rate 16 16 16 Blood Pressure 95/59 L 92/60 Blood Pressure [Le ft Arm] Pulse Oximetry 97 96 Oxygen Delivery Me thod Room Air Room Air 04/23/24 19:25 04/23/24 19:30 04/23/24 19:35 Temperature 97.9 F Pulse Rate 66 65 76 Pulse Rate [Pulse Oximeter] Respiratory Rate 16 16 16 Blood Pressure 88/56 L 108/63 99/43 L Blood Pressure [Le ft Arm] Pulse Oximetry 97 97 98 Oxygen Delivery Me od Room Air Room Air Room Air 04/23/24 19:40 04/23/24 19:45 04/23/24 20:00 Temperature 98.3 F 98.3 F Pulse Rate 73 62 Pulse Rate [Pulse Oximeter] 58 L Respiratory Rate 16 16 16 Blood Pressure 102/62 95/62 Blood Pressure [Le ft Arm] 87/60 L Pulse Oximetry 97 97 98 Oxygen Delivery Me od Room Air Room Air 04/23/24 20:00 04/23/24 20:15 04/23/24 20:30 Temperature 98.5 F Pulse Rate Pulse Rate [Pulse Oximeter] 65 64 Respiratory Rate 16 16 16 Blood Pressure Blood Pressure [Le ft Arm] 105/66 104/74 Pulse Oximetry 100 99 Oxygen Delivery Me thod 04/23/24 20:45 04/23/24 21:00 04/23/24 21:00 Temperature 98.3 F Pulse Rate Pulse Rate [Pulse Oximeter] 64 60 Respiratory Rate 16 16 16 Blood Pressure Blood Pressure [Le ft Arm] 103/84 97/62 Pulse Oximetry 97 96 Oxygen Delivery Me thod 04/23/24 21:15 04/23/24 21:30 04/23/24 21:45 Temperature Pulse Rate Pulse Rate [Pulse Oximeter] 71 82 72 Respiratory Rate 16 16 16 Blood Pressure Blood Pressure [Le ft Arm] 93/45 L 115/58 L 106/53 L Pulse Oximetry 93 94 96 Oxygen Delivery Me thod 04/23/24 22:00 04/23/24 23:00 04/24/24 00:00 Temperature Pulse Rate Pulse Rate [Pulse Oximeter] Respiratory Rate 16 16 16 Blood Pressure Blood Pressure [Le ft Arm] Pulse Oximetry Oxygen Delivery Me thod 04/24/24 00:27 04/24/24 01:00 04/24/24 02:00 Temperature 98.0 F Pulse Rate Pulse Rate [Pulse Oximeter] 57 L Respiratory Rate 16 16 16 Blood Pressure Blood Pressure [Le ft Arm] 100/64 Pulse Oximetry 95 Oxygen Delivery Me thod Room Air 04/24/24 03:00 04/24/24 04:00 04/24/24 05:00 Temperature Pulse Rate Pulse Rate [Pulse Oximeter] Respiratory Rate 16 16 16 Blood Pressure Blood Pressure [Le ft Arm] Pulse Oximetry Oxygen Delivery Me thod 04/24/24 05:02 04/24/24 06:00 04/24/24 08:21 Temperature 98.4 F 98.3 F Pulse Rate Pulse Rate [Pulse Oximeter] 53 L 53 L Respiratory Rate 16 16 16 Blood Pressure Blood Pressure [Le ft Arm] 99/62 92/56 L Pulse Oximetry 97 96 Oxygen Delivery Me thod Room Air Room Air 04/24/24 08:32 Temperature Pulse Rate Pulse Rate [Pulse Oximeter] Respiratory Rate 16 Blood Pressure Blood Pressure [Le ft Arm] Pulse Oximetry Oxygen Delivery Me thod OB - DS: Summary Hospital Course Hospital Course: Misty is a 39-year-old G8 now P7 woman who is status post primary low transverse section for breech presentation in midst of an induction for advanced paternal age yesterday, at 39 weeks and 1 day gestation. Ob problem list: # AMA, 39 Negative genetic screening Normal level 2 ultrasound Growth ultrasound at 32 weeks and 36 weeks Weekly testing (BPP at 36 weeks, NSTs weekly thereafter) Recommend delivery at 39-39 6/7 weeks # history of gastric bypass Growth ultrasound q.4 weeks starting at -28 weeks: -32 weeks: BPD 13%, HC 44%, AC 30%, FL 31%. EFW 32%. Placenta 2.6 cm to os. -36 weeks: 42% -Calcium and vitamin D levels every trimester, ordered 03/26 # obesity, BMI 36 Hemoglobin A1c 4.9% # Anemia @32 weeks: Hgb 10.1, ferritin 3.8 IV iron infusions arranged, total of 5 will not repeat hemoglobin # Grand multiparity Does not desire sterilization # history of macrosomia with the 2nd , 9 lb 4 oz # 2/6 systolic murmur noted at transfer visit, no previous history, asymptomatic She had an emergent for breech presentation in active labor, but prosper reagan was uncomplicated delivery. She delivered a viable female . She is breast feeding. the patient has done well. Today, on postoperative day 1, she reports that pain is well managed. Thus far, she has received IV Toradol and has not used oral narcotics. She is ambulating without difficulty. Catheter was removed this morning and she is voiding without difficulty. She denies any heavy bleeding. She is very experienced at , and thinks that her is tongue tied, but she is managing. She has tolerated regular diet and has passed flatus. Peripartum Data Procedures: Procedures Operation Date: 04/23/24 17:45 Actual Procedure Side Surgeon p Primary Low Transverse Section Not Applicable Za Shen MD [place] Gender: Female Time Spent with Patient Time attestation: Total time spent providing and/or coordinating discharge services: Discharge Plan Discharge Disposition: Home, Self-Care Date of Admission: 04/22/24 18:35 Attending Provider on Discharge: Gabrielle Estrella Primary Care Provider: Provider,Not a Local Condition: Stable Anticipated Discharge Date/Time: 04/24/24 19:00 Discharge Medications: New oxycodone 5 mg Tablet 5 - 10 mg PO Q4H PRN (Reason: Pain) Qty: 25 0RF acetaminophen 500 mg Tablet 1,000 mg PO Q6H PRN (Reason: pain/fever) Qty: 0 0RF docusate sodium 100 mg Capsule 100 mg PO BID PRNQty: 0 0RF ferrous sulfate 325 mg (65 mg iron) Tablet 650 mg PO Q48H Qty: 0 0RF Continued DHA 200 mg capsule 200 mg PO DAILY vitamin C77-nroka acid 500-400 mcg tablet 1 tab PO QDAY Rx Instructions: administer with a meal calcium carbonate-vitamin D3 [Calcium 500 + D] 500 mg-10 mcg (400 unit) tablet 1 tab PO DAILY cholecalciferol (vitamin D3) [Vitamin D3] 125 mcg (5,000 unit) tablet 125 mcg PO DAILY Discontinued ferrous sulfate 325 mg (65 mg iron) tablet 325 mg PO QDAY Discharge Orders: Discharge Order (Routine); Ordered 04/24/24 Ordered By: Gabrielle Estrella Patient Education: OB /Breast Feeding Activity Detail: No lifting greater than 20 pounds for 6 weeks. Nothing per vagina for [address] while taking narcotic pain medications. Discharge Diet: Regular Follow Up Appointments: Gabrielle Estrella MD [Staff Physician] - Provider,Not a Local [Primary Care Provider] - Forms: [employer] Videos Info Instructions Discharge Comments: Follow up Friday04/30/24 for removal of dressing in clinic. Follow up in 6 weeks for visit.
[2024-04-24] MEDS: FERROUS SULFATE 325 MG TABLET 650 MG PO (12:34)
[2024-04-24] MEDS: OXYCODONE 5 MG TABLET PO ×2 (12:40→18:46)
[2024-04-24 22:26] LABS: Rapid Plasma Reagin (RPR) Non Reactive (Non Reactive)
== END 2024-04-24 18:57 | disposition home or self-care (01) | DRG 787 ==
PROVIDERS: Obstetrics & Gynecology; Admitting Provider Obstetrics & Gynecology; Visit Provider Obstetrics & Gynecology
PROC: 10D00Z1 Extraction of Products of Conception, Low, Open Approach (ICD-10-PCS; CPT 59514; principal; 2024-04-23 17:30)
DX: O99.214 Obesity complicating childbirth (principal); D62 Acute posthemorrhagic anemia; O99.03 Anemia complicating the puerperium; O32.1XX0 Maternal care for breech presentation, not applicable or unspecified; E66.9 Obesity, unspecified; O99.844 Bariatric surgery status complicating childbirth; Z90.3 Acquired absence of stomach [part of]; G89.18 Other acute postprocedural pain; Z37.0 Single live birth; Z3A.39 39 weeks gestation of pregnancy
CPT/HCPCS: 01967; 01968; 36415; 59200; 64488; 76942; 85018; 85025; 86592; 86850; 86900; 86901; 99140; A9270; C1726; C9290; J0456; J0665; J0690; J1100; J1650; J1885; J2270; J2274; J2371; J2405; J2590; J2795; J3010; J7050; J7120